=== PATIENT | male | born 1970 | race Hispanic/Latino ===

== ENCOUNTER 2024-10-08 13:20 | Inpatient (IN) | payer SELFPAY ==
[~2024-10-08] VITALS: Ht 170.2 cm; Wt 78.0 kg
[2024-10-08] VITALS (10 sets, daily range): BP systolic 99–116; BP diastolic 66–86; PULSE 79–90; RESP 20–30; TEMP 99.3–100.2; O2SAT 92
[2024-10-08] MEDS ORDERED: HEParin 10,000 UNIT/10ML (1,000 UNIT/ML) VIAL ONE (13:25)
[2024-10-08] MEDS ORDERED: IOHEXOL 350 MG/ML 100ML INFUS..BTL IV ONE (13:25)
[2024-10-08] MEDS ORDERED: LIDOCAINE HCL 400MG/20ML VIAL ONE (13:25)
[2024-10-08] MEDS ORDERED: HEParin-NS 1,000 UNIT/500 ML 1,000 ML IV ONE (13:25)
[2024-10-08] MEDS ORDERED: NITROGLYCERIN 50MG VIAL ONE (13:26)
[2024-10-08] MEDS ORDERED: HEParin-NS 1,000 UNIT/500 ML 500 ML IV ONE ×2 (13:28→15:45)
[2024-10-08] MEDS ORDERED: ATROPINE 1MG SYG IVP ONE (13:43)
[2024-10-08] MEDS ORDERED: DOPamine HCL 400 MG/D5%-WATER 0 ML IV ONE (13:43)
[2024-10-08] MEDS ORDERED: LIDOCAINE PF 100MG/5ML (2%) SYRINGE 5ML ONE (15:01)
[2024-10-08] MEDS ORDERED: MIDAZOLAM HCL 1 MG/ML 2ML VIAL ONE (15:14)
--- NOTE | 2024-10-08 15:16 | EKG ---
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
[2024-10-08] MEDS ORDERED: IOHEXOL-350 50ML VIAL IV ONE (15:31)
[2024-10-08] MEDS ORDERED: furoSEMIDE 20MG VIAL ONE (15:53)
[2024-10-08] MEDS ORDERED: NITROGLYCERIN 50MG/D5W 250ML 1 BOT IV PRN (16:30)
[2024-10-08] MEDS ORDERED: ondanSETRON 4MG INJ IVP PRN ×2 (16:30→18:00)
[2024-10-08] MEDS: furoSEMIDE 20MG VIAL IV SCH (17:20)
[2024-10-08 17:42] LABS: BASOPHILS # (AUTO) 0.02 K/uL (0.00-0.20); BASOPHILS % (AUTO) 0.2 % (0.0-5.0); EOSINOPHILS # (AUTO) 0.01 K/uL (0.00-0.70); EOSINOPHILS % (AUTO) 0.1 % (0.0-8.0); HEMATOCRIT 34.8 % (42-54); IMMATURE GRANULOCYTE ABSOLUTE 0.06 K/uL (0-1); LYMPHOCYTES # (AUTO) 1.9 K/uL (1.0-4.8); MEAN CORPUSCULAR HEMOGLOBIN 30.8 pg (27.0-33.0); MEAN CORPUSCULAR HGB CONC 34.2 g/dL (32.0-36.0); MEAN CORPUSCULAR VOLUME 90.2 fL (79-99); MONOCYTES # (AUTO) 0.7 K/uL (0.1-1.0); MONOCYTES % (AUTO) 7.5 % (3.0-13.0); NEUTROPHILS # (AUTO) 6.8 K/uL (1.8-7.7); NEUTROPHILS % (AUTO) 71.6 % (40.0-77.0); PLATELET COUNT (AUTO) 222 K/uL (130-400); RED BLOOD CELL COUNT(AUTO) 3.86 MIL/uL (4.50-6.20); RED CELL DISTRIBUTION WIDTH 12.2 % (11.0-15.5); WHITE BLOOD COUNT (AUTO) 9.5 K/uL (4.8-10.8)
[2024-10-08] MEDS ORDERED: LORazepam 2 MG/ML 1 ML VIAL IVP PRN (18:00)
[2024-10-08] MEDS ORDERED: PHARMACY COMMUNICATION MISC PRN (18:00)
[2024-10-08] MEDS ORDERED: chlordiazePOXIDE HCL 25 MG CAP PO PRN (18:00)
[2024-10-08] MEDS ORDERED: morPHINE 2 MG SYG IVP PRN (18:00)
[2024-10-08 18:10] LABS: CREATININE 1.1 mg/dL (0.5-1.3); POTASSIUM 4.2 mmol/L (3.5-5.1)
[2024-10-08 18:12] LABS: HEMOGLOBIN A1C 11.3 % (4.0-6.0)
[2024-10-08] MEDS: HEParin 25,000 UNITS/250ML D5W 250 ML IV SCH (18:18)
[2024-10-08 18:23] LABS: ALBUMIN 2.4 g/dL (3.5-5.0); BILIRUBIN,TOTAL 0.5 mg/dL (0.2-1.0); MAGNESIUM 1.9 mg/dL (1.80-2.40); THYROID STIMULATING HORMONE 0.65 uIU/mL (0.36-3.74); TOTAL PROTEIN, SERUM 6.4 g/dL (6.0-8.3)
[2024-10-08] MEDS ORDERED: diazePAM 5 MG/ML 2 ML SYG IVP PRN ×2 (18:30→22:30)
--- NOTE | 2024-10-08 19:19 | CONS ---
[facility] CONSULTATION NOTE Date Patient Seen: October 08, 2024 Time of Visit: 19:19 Supervising Physician: Dr. Cartwright Reason for Consultation: ACS, HX Vtach Primary Care Physician: Attending: Celeste Hospitalist team Outpatient Specialists: Inpatient Consults: BIS, critical Care team [employer], CV surgeon PROBLEM LIST: Inferior STEMI with late presentation, POA, heparin drip Ventricular tachycardia, on lidocaine drip, POA Acute hypoxemic respiratory failure, POA in need of BiPAP Acute febrile illness Acute on chronic systolic heart failure exacerbation, POA Status post cardiac catheterization with findings of multivessel coronary artery disease, 10/08/2024, by Dr. Llanes Status post balloon angioplasty of 100% occluded ostial right posterolateral branch by Dr. Llanes, 10/08/2024 Mild anemia, POA Suspected cardiogenic pulmonary edema, POA Pulmonary embolism ruled out by evaluation by critical care service in [facility], POA Mild lactic acidosis, POA Poorly controlled type 2 diabetes mellitus, POA History of chronic alcoholism, POA Jew, POA HPI: Mr. Persaud is a 54-year-old male with underlying history of type 2 diabetes mellitus and chronic alcoholism who presented as a transfer from [facility] for further management of late presentation of inferior ST-elevation MA with ventricular tachycardia. Patient states that about five days ago, he started having mild dizziness, dyspnea and left-sided shoulder pain radiating to the scapula, and having progressive dyspnea on exertion. Patient saw his primary care physician on 10/07/2024 where he was found to have blood glucose greater than 400 and he received some insulin as outpatient. He presented to the [facility] ER last night with recurrence of left-sided shoulder discomfort with dyspnea and dizziness. Upon arrival to the emergency department, EKG demonstrated regular wide complex tachycardia, with Q-waves in lead three and AVF with ST depressions in V4 and V6 with a heart rate of 150. Patient was also noted to be hypoxic with of 77%, blood pressure of 96/63 and troponin was noted to be at 5209--> 6062--> 6885. Patient underwent CT PE in [facility] which showed possible filling defects segmental and subsegmental branches concerning for pulmonary embolism. Patient was also noted to have moderate bilateral pleural effusion with patchy consolidation of perihilar and lower lobes with septal thickening and 4 mm granuloma of the left lung. Patient was admitted to ICU in [facility] and CT chest was reviewed by critical care physician there who stated that there was no signs of pulmonary embolism. Patient was transferred to [facility] and underwent cardiac catheterization, and the patient was found to have culprit lesion, 100% occluded right posterolateral branch for which, patient underwent balloon angioplasty. Patient was also found to have multivessel coronary artery disease with proximal LAD 70% stenosis, 80% mid diagonal stenosis, 70% proximal ramus, 80% mid circumflex stenosis before OM, 50% stenosis involving the circumflex after OM, 100% OM stenosis with filling collaterals and LVEDP was noted to be at 31. The patient was assessed by me in room 206, postprocedure. Patient's breathing even, unlabored, in no distress. The patient denied any chest pain, shortness of breath, any other pain, problem or concern. Consultation with Cardiovascular surgery has been requested for evaluation for coronary artery bypass grafting. Patient is a Yazidism and declines any blood transfusion. I informed the patient of plan of care. He verbalized understanding and is in agreement with the plan. Plan and assessment are listed below. Addendum: 10/09/2024 at 0057 RN informed me that patient the patient desaturated, fever of 101.3 F. per RT his lung sounds very wet. He had received Lasix earlier during the day. RN states that the patient drank whole picture of water when he ate. She reports that patient voided about 250 mL. ABG results: PH 7.464, pCO2 34, PO2 59.6, bicarbonate 23.5, O2 saturations 90.9, base excess 0.2. Ionized calcium 1.06. The patient was started on BiPAP. And calcium was administered. PAST MEDICAL HX: see above PAST SURGICAL HX: Denied SOCIAL HISTORY: Drinks about 12 of the 24 oz cans of beers a week, for 20-30 years Patient denies smoking or illicit drug use Coded Allergies: No Known Allergies (Unverified Allergy, Unknown, 10/08/24) REVIEW OF SYSTEMS: 12 point ROS reviewed with patient. Pertinent positives mentioned above. Otherwise negative. PHYSICAL EXAM: GENERAL: Alert, weak, awake, oriented x 3 HEENT: EOMI, Sclera non icteric, moist mucosa NECK: Supple, no JVD, trachea midline LUNGS: Clear breath sounds bilaterally. No wheezes HEART: Regular rate and rhythm. Normal S1 and S2, without murmurs ABD: Abdomen soft, nontender. Bowel sounds present EXT: No clubbing cyanosis or edema. Right leg restricted movement due to reason heart catheterization. NEURO: Alert and oriented x4, follows commands Vital Signs (last 8hr) Date Time Temp Pulse Resp B/P (MAP) Pulse Ox O2 Delivery O2 Flow Rate FiO2 10/08/24 17:30 85 23 116/70 91 Nasal Cannula 4.0 10/08/24 17:15 85 20 103/78 91 Nasal Cannula 4.0 10/08/24 17:00 83 23 114/81 92 Nasal Cannula 4.0 10/08/24 16:48 86 20 110/85 94 Nasal Cannula 10/08/24 16:30 100.2 86 20 112/82 93 Nasal Cannula 4.0 10/08/24 16:30 92 Nasal Cannula* 4 36 LABS: Hematology Labs: Test 10/08/24 17:18 Range/Units White Blood Count 9.5 4.8-10.8 K/uL Red Blood Count 3.86 L 4.50-6.20 MIL/uL Hemoglobin 11.9 L 14.0-18.0 g/dL Hematocrit 34.8 L 42-54 % Mean Corpuscular Volume 90.2 79-99 fL Mean Corpuscular Hemoglobin 30.8 27.0-33.0 pg Mean Corpuscular Hemoglobin Concent 34.2 32.0-36.0 g/dL Red Cell Distribution Width 12.2 11.0-15.5 % Platelet Count 222 130-400 K/uL Mean Platelet Volume 10.8 H 7.5-10.5 fL Immature Granulocyte % (Auto) 0.6 0-1 % Neutrophils (%) (Auto) 71.6 40.0-77.0 % Lymphocytes (%) (Auto) 20.0 L 21.0-51.0 % Monocytes (%) (Auto) 7.5 3.0-13.0 % Eosinophils (%) (Auto) 0.1 0.0-8.0 % Basophils (%) (Auto) 0.2 0.0-5.0 % Neutrophils # (Auto) 6.8 1.8-7.7 K/uL Lymphocytes # (Auto) 1.9 1.0-4.8 K/uL Monocytes # (Auto) 0.7 0.1-1.0 K/uL Eosinophils # (Auto) 0.01 0.00-0.70 K/uL Basophils # (Auto) 0.02 0.00-0.20 K/uL Absolute Immature Granulocyte (auto 0.06 0-1 K/uL Nucleated Red Blood Cells 0.0 0.0-0.19 % Erythrocyte Sedimentation Rate 83 H 0-20 MM/HR Chemistry Labs: Test 10/08/24 17:18 Range/Units Sodium Level 136 136-145 mmol/L Potassium Level 4.2 3.5-5.1 mmol/L Chloride Level 101 101-111 mmol/L Carbon Dioxide Level 24 21-32 mmol/L Blood Urea Nitrogen 22 H 7-18 mg/dL Creatinine 1.1 0.5-1.3 mg/dL Glomerular Filtration Rate Calc 80 >90 mL/min Random Glucose 235 H 70-105 mg/dL Hemoglobin A1c 11.3 H 4.0-6.0 % Estimated Average Glucose (eAG) 278 H 70-126 mg/dL Lactic Acid Level 2.4 0.8-2.5 mmol/L Total Calcium 7.8 L 8.5-10.1 mg/dL Magnesium Level 1.90 1.80-2.40 mg/dL Total Bilirubin 0.5 0.2-1.0 mg/dL Aspartate Amino Transf (AST/SGOT) 47 H 10-37 U/L Alanine Aminotransferase (ALT/SGPT) 63 12-78 U/L Alkaline Phosphatase 130 50-136 U/L Lactate Dehydrogenase 420 H 81-234 U/L C-Reactive Protein, Quantitative 192.30 H 0.5-3.0 mg/L Total Protein 6.4 6.0-8.3 g/dL Albumin 2.4 L 3.5-5.0 g/dL Procalcitonin 0.24 0.05-0.5 ng/mL Thyroid Stimulating Hormone (TSH) 0.65 0.36-3.74 uIU/mL Coagulation Labs: Test 10/08/24 17:18 Range/Units Activated Partial Thromboplast Time 56.2 H 26.3-35.5 SEC DIAGNOSTICS / RADIOLOGY RESULTS: [ ] PLAN Patient will be admitted to CCU post cardiac catheterization, (is a transferred from [facility]) Continue with aspirin and heparin drip Continue with post catheterization care by Dr. Llanes Consultation with Cardiovascular surgery has been requested for evaluation for c oronary artery bypass grafting Continue IV Lasix 20 mg twice daily for diuresis. Continue with supplemental O2 therapy to maintain oxygen saturations greater than 92% Stat checks x-ray. Follow 2D echocardiogram, echocardiogram in [facility] showed LVEF of 35-40% with severe basal and posterolateral hypokinesis to be akinesis We will maintain potassium greater than four and magnesium greater than 2 Continue with metoprolol tartrate 12.5 mg b.i.d. 40 mg q.h.s. Monitor closely for signs of infection Lactic acid q.4 hours per catalyst team Monitor closely for signs of development of pre-cardiogenic/cardiogenic shock in the setting of late presentation of inferior STEMI No blood transfusions per patient request, Yazidism and has declined blood transfusion A.m. labs Patient will be placed on sliding scale insulin a.c. and HS CIWA protocol with Librium/diazepam Addendum: Reported fever: + strep swab, flu swabs, COVID swab, chest x-ray, urine, blood cultures, antibiotic therapy: Rocephin and doxycycline for empiric treatment NEURO: Minimize central acting medications as possible. Fall Precautions. Well lighted room through the day and minimize interruptions through the night to prevent acute delirium. PULMONARY: Supplemental 02 as needed Titrate Fio2 to keep Spo2 > or = 90% DuoNebs and CPT as needed IS hourly while awake for pulmonary hygiene Out of bed to chair as tolerated VAP Bundle CARDIOVASCULAR: Follow hemodynamics. Titrate vasopressor to keep MAP >65 or systolic blood pressure >95mmHg GI & NUTRITION: Continue nutritional support Aspirations precautions Prokinetic agents and laxatives as needed KIDNEYS & ELECTROLYTES: Strict monitoring of intake and output Daily weights Avoid nephrotoxic agents Monitor electrolytes and replace as needed Goal urine output of 30mL/hr or 0.5mL/kg/hr ENDOCRINE: Maintain blood glucose between 100-180 at all times. Insulin sliding scale for blood glucose management INFECTIOUS DISEASE: Trend temperature. Lares-culture if febrile. HEMATOLOGY & COAGULATION: Monitor H&H. Keep Hgb > 7 Transfuse 1 unit of PRBC for Hgb < 7 Transfuse 1 pack of platelets of platelets < 20, 000 Watch for any signs and symptoms of bleeding SKIN: Pressure ulcer prevention per facility protocol Rehab: PT/OT Code Status: Full Resuscitation Disposition: Continue in ICU Other: Total patient critical care time exceeds 45 minutes excluding all procedures. ISAAK [facility] October 08, 2024 19:19
--- NOTE | 2024-10-08 19:24 | HP ---
[facility] HISTORY AND PHYSICAL Date of Service: October 08, 2024 Time of Service: 19:24 HISTORY OF PRESENT ILLNESS: Date of service: 10/08/2024, patient was seen in [facility] [place] 206 This is a 54-year-old male with underlying history of type 2 diabetes mellitus, chronic alcoholism, who presented as a transfer from [facility] for further management of late presentation of inferior ST-elevation OK with ventricular tachycardia. Patient states that about five days ago, he started having mild dizziness, dyspnea and left-sided shoulder pain radiating to the scapula. Symptoms were intermittent and patient noticed that he was having progressive dyspnea on exertion. Patient saw his primary care physician on 10/07/2024 where he was found to have blood glucose greater than 400 and he received some insulin as outpatient. He presented to the [facility] ER last night with recurrence of left-sided shoulder discomfort with dyspnea and dizziness. Upon arrival to the emergency department, EKG demonstrated regular wide complex tachycardia, with Q-waves in lead three and AVF with ST depressions in V4 and V6 with a heart rate of 150. Patient was also noted to be hypoxic with of 77%, blood pressure of 96/63 and troponin was noted to be at 5209--> 6062--> 6885. Patient underwent CT PE in [facility] which showed possible filling defects segmental and subsegmental branches concerning for pulmonary embolism. Patient was also noted to have moderate bilateral pleural effusion with patchy consolidation of perihilar and lower lobes with septal thickening and 4 mm granuloma of the left lung. Patient was admitted to ICU in [facility] and CT chest was reviewed by critical care physician there who stated that there was no signs of pulmonary embolism. Patient was transferred to [facility] and underwent cardiac catheterization given concern ACS. On cardiac catheterization, patient was found to have culprit lesion, 100% occluded right posterolateral branch for which, patient underwent balloon ang ioplasty. Patient was also found to have multivessel coronary artery disease with proximal LAD 70% stenosis, 80% mid diagonal stenosis, 70% proximal ramus, 80% mid circumflex stenosis before OM, 50% stenosis involving the circumflex after OM, 100% OM stenosis with filling collaterals and LVEDP was noted to be at 31. Patient was seen postprocedure early, denies any significant chest pain, shortness of breath is improving. Consultation with Cardiovascular surgery has been requested for evaluation for coronary artery bypass grafting. Patient is a Spiritism and declines any blood transfusion. REVIEW OF SYSTEMS CONSTITUTIONAL: Denies fevers, chills, or night sweats. No unintentional weight loss reported. NEUROLOGICAL: Denies headache, amaurosis fugax, motor weakness, sensory deficit, vertigo/spinning sensation, gait abnormalities, or tremors. ENT: No hearing loss, otalgia, otorrhea, rhinitis, rhinorrhea, hoarseness, or sore throat. CARDIOVASCULAR: chest pain, palpitations PULMONARY: Denies any shortness of breath, cough, phlegm/sputum, hemoptysis, pleuritic chest pain. SLEEP: Denies morning headaches, daytime somnolence or napping. Denies difficulty falling asleep, staying asleep, waking from sleep. Denies knowledge of snoring. GASTROINTESTINAL: Denies any type of dysphagia to either liquids or solids. Denies nausea, vomiting, pyrosis, early satiety, abdominal pain, diarrhea, constipation, or changes in stool consistency or caliber. Denies coffee-ground emesis, hematemesis, hematochezia, or melanotic stools. GENITOURINARY: Denies frequency, urgency, nocturia, hematuria or incontinence (Storage/Irritative symptoms.) Low urinary stream, straining to void, urinary intermittency or hesitancy, splitting of the voiding stream, terminal dribbling. ENDOCRINOLOGIC: Denies polyuria, polydipsia, polyphagia or heat/cold intolerances. HEMATOLOGIC: Denies thrombophilia/previous clots, or coagulopathy/bleeding disorders. ONCOLOGIC: Denies personal history of malignancy. DERMATOLOGIC: Denies rashes or pruritus. PSYCHIATRIC: Denies any suicidal or homicidal ideation. Denies hallucinations. PAST MEDICAL HISTORY: History of type 2 diabetes mellitus, history of chronic alcoholism PAST SURGICAL HISTORY: Patient denies any major surgeries PAST SOCIAL HISTORY: [Drinks about 12 cans of beer a week, long-time drinker for about 20-30 years, denies any smoking or illicit drug use otherwise ] FAMILY HISTORY: Reports family history of heart disease in the family Allergies: No known drug allergies Home medications: Metformin 1000 mg twice daily Coded Allergies: No Known Allergies (Unverified Allergy, Unknown, 10/08/24) PHYSICAL EXAM GENERAL APPEARANCE: The patient is awake, alert, and oriented, in no acute cardiopulmonary distress. NEUROLOGICAL: Cranial nerves II-XII grossly intact. Motor is 5/5 in bilateral upper and lower extremities proximal to distal. No sensory deficits. HEENT: Face is symmetric. Pupils are equal and reactive. Extraocular movements are intact. NECK: Supple. No JVD. No thyromegaly. No submental, submandibular, pre- /postauricular, occipital or supraclavicular lymphadenopathy. CHEST: Normal chest expansion. No Telemetry. LUNGS: crackles noted of the bilateral lung bases CARDIOVASCULAR: Regular. S1 and S2 normal. No appreciable rubs, murmurs or gallops. ABDOMEN: Soft, nontender, and nondistended. There is no rebound, voluntary guarding, or rigidity. : Deferred. No Alexandra. EXTREMITIES: Non-edematous and not cyanotic. No clubbing. Good capillary refill. SKIN: No skin breakdown. Vital Sign (Last 24 Hours) 10/08/24 10/08/24 16:30 17:30 Temp 100.2 Pulse 85 Resp 23 B/P (MAP) 116/70 Pulse Ox 91 O2 Delivery Nasal Cannula O2 Flow Rate 4.0 FiO2 36 LABS: Laboratory: Test 10/08/24 17:18 Range/Units White Blood Count 9.5 4.8-10.8 K/uL Red Blood Count 3.86 L 4.50-6.20 MIL/uL Hemoglobin 11.9 L 14.0-18.0 g/dL Hematocrit 34.8 L 42-54 % Mean Corpuscular Volume 90.2 79-99 fL Mean Corpuscular Hemoglobin 30.8 27.0-33.0 pg Mean Corpuscular Hemoglobin Concent 34.2 32.0-36.0 g/dL Red Cell Distribution Width 12.2 11.0-15.5 % Platelet Count 222 130-400 K/uL Mean Platelet Volume 10.8 H 7.5-10.5 fL Immature Granulocyte % (Auto) 0.6 0-1 % Neutrophils (%) (Auto) 71.6 40.0-77.0 % Lymphocytes (%) (Auto) 20.0 L 21.0-51.0 % Monocytes (%) (Auto) 7.5 3.0-13.0 % Eosinophils (%) (Auto) 0.1 0.0-8.0 % Basophils (%) (Auto) 0.2 0.0-5.0 % Neutrophils # (Auto) 6.8 1.8-7.7 K/uL Lymphocytes # (Auto) 1.9 1.0-4.8 K/uL Monocytes # (Auto) 0.7 0.1-1.0 K/uL Eosinophils # (Auto) 0.01 0.00-0.70 K/uL Basophils # (Auto) 0.02 0.00-0.20 K/uL Absolute Immature Granulocyte (auto 0.06 0-1 K/uL Nucleated Red Blood Cells 0.0 0.0-0.19 % Erythrocyte Sedimentation Rate 83 H 0-20 MM/HR Activated Partial Thromboplast Time 56.2 H 26.3-35.5 SEC Sodium Level 136 136-145 mmol/L Potassium Level 4.2 3.5-5.1 mmol/L Chloride Level 101 101-111 mmol/L Carbon Dioxide Level 24 21-32 mmol/L Blood Urea Nitrogen 22 H 7-18 mg/dL Creatinine 1.1 0.5-1.3 mg/dL Glomerular Filtration Rate Calc 80 >90 mL/min Random Glucose 235 H 70-105 mg/dL Hemoglobin A1c 11.3 H 4.0-6.0 % Estimated Average Glucose (eAG) 278 H 70-126 mg/dL Lactic Acid Level 2.4 0.8-2.5 mmol/L Total Calcium 7.8 L 8.5-10.1 mg/dL Magnesium Level 1.90 1.80-2.40 mg/dL Total Bilirubin 0.5 0.2-1.0 mg/dL Aspartate Amino Transf (AST/SGOT) 47 H 10-37 U/L Alanine Aminotransferase (ALT/SGPT) 63 12-78 U/L Alkaline Phosphatase 130 50-136 U/L Lactate Dehydrogenase 420 H 81-234 U/L C-Reactive Protein, Quantitative 192.30 H 0.5-3.0 mg/L Total Protein 6.4 6.0-8.3 g/dL Albumin 2.4 L 3.5-5.0 g/dL Procalcitonin 0.24 0.05-0.5 ng/mL Thyroid Stimulating Hormone (TSH) 0.65 0.36-3.74 uIU/mL Current Medications Medications (Trade) Dose Ordered Sig/William Route PRN Reason Start Time Stop Time Status Last Admin Dose Admin Acetaminophen (TYLenol 325MG TAB) 650 mg Q6H PRN PO MILD PAIN (1-3) 10/08/24 18:00 11/07/24 17:59 Aspirin (Aspirin 81mg Chew Tab) 81 mg DAILY PO 10/09/24 09:00 10/08/24 16:47 DC Aspirin (Aspirin 81mg Chew Tab) 81 mg DAILY PO 10/09/24 09:00 11/08/24 08:59 Atorvastatin Calcium (LIPItor 40MG) 40 mg HS PO 10/08/24 21:00 11/07/24 20:59 Chlordiazepoxide HCl (LIBrium 25 MG CAP) 25 mg Q4H PRN PO ALCOHOL WITHDRAWAL PROTOCOL 10/08/24 18:00 10/15/24 17:59 Diazepam (VALium 5 MG/ML 2 ML SYG) 10 mg Q4H PRN IVP ALCOHOL WITHDRAWAL PROTOCOL 10/08/24 18:30 10/15/24 17:59 Folic Acid (FOLic ACID 1 MG TABLET) 1 mg DAILY PO 10/09/24 09:00 10/11/24 09:01 Furosemide (LASix 20MG VIAL) 20 mg Q12H IV 10/08/24 17:30 11/07/24 17:29 10/08/24 17:20 20 MG Heparin Sodium (Porcine) (HEParin 5,000 UNIT VIAL) *calculation based on ACTUAL B... AD PRN IV HEPARIN PROTOCOL 10/08/24 17:30 11/07/24 17:29 Heparin Sodium/ Dextrose 250 ml @ 0 mls/hr Q6H IV 10/08/24 17:30 11/07/24 17:29 10/08/24 18:18 14.28 MLS/HR Insulin Human Regular (humuLIN R 100 UNIT/ML 3ML) INSULIN SLIDING SCAL... ACHS SQ 10/08/24 21:00 11/07/24 20:59 Lidocaine HCl/ Dextrose 250 ml @ 0 mls/hr PROTOCOL IV 10/08/24 16:30 11/07/24 16:29 Lorazepam (AtiVAN) 1 mg Q4H PRN IVP ALCOHOL WITHDRAWAL PROTOCOL 10/08/24 18:00 10/08/24 18:06 DC Magnesium Sulfate 50 ml @ 0 mls/hr PROTOCOL PRN IV AD 10/08/24 19:00 11/07/24 18:59 Metoprolol Tartrate (loprESSOR) 12.5 mg BID PO 10/08/24 21:00 11/07/24 20:59 Morphine Sulfate (morPHINE 2MG SYG) 2 mg Q6H PRN IVP SEVERE PAIN (7-10) 10/08/24 18:00 10/15/24 17:59 Multivitamins Therapeutic (Multivitamin Tablet) 1 tab DAILY PO 10/09/24 09:00 11/08/24 08:59 Nitroglycerin/ Dextrose 0 ml @ 0 mls/hr PROTOCOL PRN IV [id number] ORDERS 10/08/24 16:30 11/07/24 16:29 Ondansetron HCl (zoFRAN 4MG INJ) 4 mg Q4H PRN IVP NAUSEA/VOMITING 10/08/24 16:30 11/07/24 16:29 Ondansetron HCl (zoFRAN 4MG INJ) 4 mg Q6H PRN IVP NAUSEA/VOMITING 10/08/24 18:00 11/07/24 17:59 Pantoprazole Sodium (PROTonix 40MG INJ) 40 mg DAILY IVP 10/09/24 09:00 11/08/24 08:59 Pharmacy Profile Note (Pharmacy Communication) 1 each PROTOCOL PRN MISC ETOH Withdrawal Score changes 10/08/24 18:00 10/15/24 17:59 Temazepam (restORIL 30 MG CAP) 30 mg HS PRN PO INSOMNIA/SLEEP 10/08/24 16:30 10/15/24 16:29 Thiamine HCl (Vitamin B-1) 100 mg DAILY PO 10/09/24 09:00 11/08/24 08:59 DIAGNOSTICS / RADIOLOGY: CT PE protocol showed findings of tiny defects seen in segmental and s ubsegmental branches of the pulmonary artery representing possible pulmonary embolism. moderate bilateral pleural effusion seen. Patchy area of consolidation, collapse seen in both perihilar regions and lower lobes. Patchy ground-glass he has with mosaic attenuation seen. Septal thickening seen. Granuloma 4 mm seen in lingular segment on left. ASSESSMENT: Inferior STEMI with late presentation, POA Ventricular tachycardia, status post initiation of lidocaine drip, POA Status post cardiac catheterization with findings of multivessel coronary artery disease, 10/08/2024, by Dr. Llanes Status post balloon angioplasty of 100% occluded ostial right posterolateral branch by Dr. Llanes, 10/08/2024 Acute hypoxemic respiratory failure, POA Acute on chronic systolic heart failure exacerbation, POA Mild anemia, POA Suspected cardiogenic pulmonary edema, POA r/o any developing community acquired Pneumonia, POA Pulmonary embolism ruled out by evaluation by critical care service in [facility], POA Mild lactic acidosis, POA Poorly controlled type 2 diabetes mellitus, POA History of chronic alcoholism, POA Jew, POA PLAN: Patient will be admitted to CCU post cardiac catheterization Continue with aspirin and heparin drip Continue with post catheterization care by Dr. Llanes Consultation with Cardiovascular surgery has been requested for evaluation for coronary artery bypass grafting Patient will be started on IV Lasix 20 mg twice daily for diuresis Continue with supplemental O2 therapy to maintain oxygen saturations greater than 92% We will follow up chest x-ray in a.m. tomorrow We will follow up 2D echocardiogram, echocardiogram in [facility] showed LVEF of 35-40% with severe basal and posterolateral hypokinesis to be akinesis We will maintain potassium greater than four and magnesium greater than two Continue with metoprolol tartrate 12.5 mg b.i.d. 40 mg q.h.s. We will obtain a repeat chest x-ray in a.m. Monitor closely for signs of infection, obtain respiratory cultures Lactic acid will be trended q.4 hours, we will monitor closely for signs of development of pre-cardiogenic/cardiogenic shock in the setting of late presentation of inferior STEMI Patient reports being a Spiritism and has declined blood transfusion All labs will be repeated in the morning Patient will be placed on sliding scale insulin a.c. and HS We will monitor closely for alcohol withdrawals, patient will be placed on CIWA protocol with Librium/diazepam Date of service: 10/08/2024 Condition: Critical, Plan of care was discussed with patient at bedside, Ish Arizmendi MD, Advanced Care Planning: Which of the following were discussed: Hospice care: Yes __ No _x_ Therapeutic options: Yes _x_ No __ Advance directives: Yes _x_ No __ Other discussions: Discussed with who?: Patient Voluntary nature of this service was explained to the patient? Yes _x_ No __ Amount of time spent: 20 minutes ISH ARIZMENDI MD October 08, 2024 19:24
[2024-10-08] MEDS: atorVAStatin 40 MG TABLET PO SCH (20:40)
[2024-10-08] MEDS: metoPROLOL tartRATE 25 MG TAB PO SCH (20:40)
[2024-10-08] MEDS: INSULIN humuLIN R 100 UNIT/ML 3ML SQ SCH (20:41)
[2024-10-08] MEDS: LIDOCAINE 2G/250ML 250 ML IV SCH (23:48)
[2024-10-09] VITALS (30 sets, daily range): BP systolic 92–135; BP diastolic 53–83; PULSE 68–97; RESP 14–35; TEMP 97.8–101.3; O2SAT 84–100
[2024-10-09] MEDS: acetaMINOPHEN 325 MG TAB PO PRN (00:07)
[2024-10-09 01:46] LABS: ABG BASE EXCESS 0.2 mmol/L (-2.0-3.0); ABG HCO3 23.5 mmol/L (21.0-28.0); ABG OXYGEN SATURATION 90.9 % (94.0-98.0); ABG PCO2 34 mmHg (35-48); ABG PH 7.464 (7.350-7.450); CARBON MONOXIDE 0.5 % (0.5-1.5); DEVICE COMMENT LR YVONNE; PO2, ARTERIAL BG 59.6 mmHg (83.0-108.0); VENT MODE, BG NC (ROOM AIR)
[2024-10-09 02:19] LABS: APPEARANCE,URINE CLEAR (CLEAR); BILIRUBIN,URINE NEGATIVE (NEGATIVE); COLOR,URINE YELLOW (YELLOW); GLUCOSE, URINE (UA) 200 mg/dL (NEGATIVE); KETONES,URINE 40 mg/dL (NEGATIVE); LEUKOCYTE ESTERASE ,URINE 250 Leu/uL (NEGATIVE); NITRATE,URINE NEGATIVE (NEGATIVE); OCCULT BLOOD,URINE MODERATE (NEGATIVE); PROTEIN,URINE 30 mg/dL (NEGATIVE); UROBILINOGEN,URINE 3 mg/dL (0.2-1.0)
[2024-10-09] MEDS: furoSEMIDE 40MG VIAL IV ONE ×2 (02:21→11:52)
[2024-10-09 02:25] LABS: AMPHET/METH SCREEN,URINE NEGATIVE (NEGATIVE); BARBITURATE SCREEN, URINE NEGATIVE (NEGATIVE); BENZODIAZEPINES SCREEN,URINE POSITIVE (NEGATIVE); CANNABINOID SCREEN,URINE NEGATIVE (NEGATIVE); COCAINE SCREEN,URINE NEGATIVE (NEGATIVE); OPIATE SCREEN,URINE NEGATIVE (NEGATIVE); PHENCYCLIDINE SCREEN,URINE NEGATIVE (NEGATIVE)
[2024-10-09 02:29] LABS: ADD UA MICROSCOPIC YES
[2024-10-09 02:33] LABS: BACTERIA,URINE FEW /HPF (None Seen); MUCUS,URINE RARE LPF (None Seen); RBC,URINE 26-50 /HPF (0-1); SQUAMOUS EPITHELIAL CELL,UR RARE /HPF (0-2)
[2024-10-09 03:26] LABS: HEMATOCRIT 31.1 % (42-54); MEAN CORPUSCULAR HEMOGLOBIN 30.6 pg (27.0-33.0); MEAN CORPUSCULAR HGB CONC 34.1 g/dL (32.0-36.0); MEAN CORPUSCULAR VOLUME 89.9 fL (79-99); RED BLOOD CELL COUNT(AUTO) 3.46 MIL/uL (4.50-6.20); RED CELL DISTRIBUTION WIDTH 12.1 % (11.0-15.5); WHITE BLOOD COUNT (AUTO) 8.1 K/uL (4.8-10.8)
[2024-10-09 03:42] LABS: CREATININE 0.9 mg/dL (0.5-1.3); POTASSIUM 3.3 mmol/L (3.5-5.1)
[2024-10-09 04:15] LABS: MAGNESIUM 1.7 mg/dL (1.80-2.40); THYROID STIMULATING HORMONE 1.01 uIU/mL (0.36-3.74)
[2024-10-09] MEDS: CALCIUM GLUC 1GM/10ML VIAL IV PRN (04:20)
[2024-10-09] MEDS: cefTRIAXone 1G VIAL IVPB SCH (04:28)
[2024-10-09] MEDS: DOXYCYCLINE 100MG+NS 250ML 250 ML IV SCH (04:28)
[2024-10-09] MEDS: MAGNESIUM 2GM PREMIX 50ML 50 ML IV PRN (04:34)
[2024-10-09] MEDS: SODIUM CHLORIDE 3% FOR INHALATION 4 ML/AMP VIAL.NEB IH ONE ×3 (07:21→18:46)
[2024-10-09] MEDS: PANTOPrazole 40 MG/VIAL IVP SCH (08:17)
[2024-10-09] MEDS: MULTIVITAMIN TABLET PO SCH (08:18)
[2024-10-09] MEDS: FOLic ACID 1 MG TABLET PO SCH (08:18)
[2024-10-09] MEDS: THIAMINE HCL 100 MG TABLET PO SCH (08:19)
[2024-10-09] MEDS: ASPIRIN 81MG CHEW TAB PO SCH (08:19)
[2024-10-09] MEDS: INSULIN GLARgine 100 UNITS/ML 10 ML VIAL SQ SCH ×2 (08:21→20:54)
[2024-10-09 08:57] LABS: SARS-CoV-2, RNA, NAAT NEGATIVE SARS CoV-2 (NEGATIVE)
[2024-10-09] MEDS ORDERED: ASPIRIN 81MG CHEW TAB PO SCH (09:00)
[2024-10-09 09:02] LABS: INFLUENZA TYPE A Negative For Type A (NEGATIVE); INFLUENZA TYPE B Negative For Type B (NEGATIVE)
[2024-10-09] MEDS ORDERED: MAGNESIUM 2GM PREMIX 50ML 50 ML IV SCH (09:30)
--- NOTE | 2024-10-09 09:37 | HMCIMG ---
Exam Type: CHEST 1VW Clinical Information: DESATURATION Comparison: None Findings: Pulmonary pattern is as before. No worrisome interval changes have taken place. Impression: Stable exam.
[2024-10-09] MEDS: PoTASSium chloRIDE 20MEQ/100ML 100 ML IV ONE (09:44)
--- NOTE | 2024-10-09 10:13 | PN ---
[facility] Cardiology Progress Note CARDIOLOGY PROGRESS NOTE OCTOBER 09, 2024 Problems: 1. Acute inferior wall myocardial infarction with presentation with ventricular tachycardia in the 1st 24 hours terminated with lidocaine 2. Multivessel CAD status post balloon angioplasty of an occluded right posterolateral branch 3. Acute congestive heart failure with left ventricular end-diastolic pressure of 31 mm Hg at the time of left heart catheterization 3. Diabetes mellitus type 2 with hemoglobin A1c of 11.3 on admission 4. Dyslipidemia 5. History of alcohol abuse 6. Mosque This patient had presented to [facility] with generalized weakness and wide complex tachycardia. The day before he had had interscapular pain. His troponins were 5000 and plans were for cardioversion but he broke with a lidocaine bolus. His post tachycardia EKG showed ST elevations inferiorly. He was transferred for urgent left heart catheterization. He was found to have mul tivessel CAD with a occlusion of the proximal right posterolateral branch and underwent balloon angioplasty of this vessel. Overnight he has continued on lidocaine and heparin protocol was resume 1 hour post catheterization. White count this morning is 8.1 hemoglobin 10.6 platelet count [id number]. Potassium 3.3 BUN 21 creatinine 0.9. LDL cholesterol on admission was 49. Troponins have peaked at 6885. The patient has been pain-free overnight he has had no recurrent ventricular tachycardia. Lidocaine is down to 1 milligram/minute. He continues on IV heparin. Cath site shows no hematoma. Posterior tibial pulses 2+. In addition to lidocaine and heparin he is receiving aspirin atorvastatin furosemide 20 mg q.12 hours insulin scale metoprolol tartrate and pantoprazole. Thiamine has also been added to his regimen. A 2D echocardiogram is pending to assess LV function. We will discontinue his lidocaine today and observe his rhythm. Continue intravenous diuretics another 24 hours and consider switching over to an oral diuretic tomorrow. Blood pressure is marginal running between 95 and 100 systolic and we will hold off on initiation of an AG inhibitor or ARB at this time. Potassium protocol will be initiated. MIKE BELL MD October 09, 2024 10:13
[2024-10-09] MEDS ORDERED: PoTASSium chloRIDE 20MEQ/100ML 100 ML IV PRN (10:30)
--- NOTE | 2024-10-09 11:24 | PN ---
[facility] PROGRESS NOTE Date Patient Seen: October 09, 2024 Time of Visit: 11:24 Supervising Physician: Adalberto Crespo MD Primary Care Physician: Attending: Celeste Hospitalist team Outpatient Specialists: Inpatient Consults: BIS, critical Care team [employer], CV surgeon PROBLEM LIST: Inferior STEMI with late presentation, POA, heparin drip Ventricular tachycardia, on lidocaine drip, POA Acute hypoxemic respiratory failure, POA in need of BiPAP Acute febrile illness Acute on chronic diastolic heart failure POA LVEF is 40-45% on echo 10/09/24 Moderate pulmonary HTN with RVSP of 40.3 mmHG Moderate mitral valve regurgitation POA Status post cardiac catheterization with findings of multivessel coronary artery disease, 10/08/2024, by Dr. Bell Status post balloon angioplasty of 100% occluded ostial right posterolateral branch by Dr. Bell, 10/08/2024 Mild anemia, POA Suspected cardiogenic pulmonary edema, POA Pulmonary embolism ruled out by evaluation by critical care service in [facility], POA Mild lactic acidosis, POA Poorly controlled type 2 diabetes mellitus, POA History of chronic alcoholism, POA Restoration, POA INTERVAL HISTORY: Pt is awake alert and oriented, denies any chest pain at this time, Bilateral pedal pulses present, He is off lidocaine gtt this morning. Currently hemodynamically stable. Pending CABG eval. Likely for early next week. CBC similar to yesterday unremarkable. Blood sugars have been elevated. adjusted lantus dose to 25 units BID. Pt complains of a dry cough, was given Tessalon pearls and seemed to help. currently requiring 10 L of o2 saturating 99%. 1 x dose of lasix 40 mg ivp given. Carotid US with no hemodynamically significant stenosis noted. Pending CABG eval. For now pt is stable to downgrade to PCCU. On behalf of [facility] thank you for given us the opportunity to participate in the care of this patient. From pulmonary standpoint patient is stable at this time. We will sign off. Patient will need to follow-up with pulmonary service of choice 2 weeks postdischarge. Please reach to us should the need arise. On behalf of [facility] we are thankful for your team to let us participate in the care of this patient. We will be available if assistance in pulmonary critical care needed. REVIEW OF SYSTEMS: 12 point ROS reviewed with patient. Pertinent positives mentioned above. Otherwise negative. PHYSICAL EXAM: GENERAL: Alert, weak, awake, oriented x 3 HEENT: EOMI, Sclera non icteric, moist mucosa NECK: Supple, no JVD, trachea midline LUNGS: Clear breath sounds bilaterally. No wheezes HEART: Regular rate and rhythm. Normal S1 and S2, without murmurs ABD: Abdomen soft, nontender. Bowel sounds present EXT: No clubbing cyanosis or edema. Right leg restricted movement due to reason heart catheterization. NEURO: Alert and oriented x4, follows commands Vital Signs (last 8hr) Date Time Temp Pulse Resp B/P (MAP) Pulse Ox O2 Delivery O2 Flow Rate FiO2 10/09/24 11:00 70 23 105/68 95 OXYMIZER 10.0 10/09/24 10:00 77 25 102/66 98 OXYMIZER 10.0 10/09/24 09:00 84 23 102/60 92 OXYMIZER 10.0 10/09/24 08:00 98.8 83 28 112/78 90 OXYMIZER 10.0 10/09/24 08:00 97 N/C Oxymizer Hi LPM* 10 99 10/09/24 07:36 80 20 N/Cannula Oximizer Hi LPM 10.0 60 10/09/24 07:18 74 20 80 10/09/24 07:00 74 16 106/75 100 BIPAP 80 10/09/24 06:00 79 14 112/81 100 BIPAP 80 10/09/24 05:00 70 17 104/72 100 BIPAP 80 10/09/24 04:00 100 Bi-PAP+ 80 10/09/24 04:00 99.0 68 17 96/58 100 BIPAP 80 LABS: Hematology Labs: Test 10/09/24 02:59 10/08/24 17:18 Range/Units White Blood Count 8.1 4.8-10.8 K/uL Red Blood Count 3.46 L 4.50-6.20 MIL/uL Hemoglobin 10.6 L 14.0-18.0 g/dL Hematocrit 31.1 L 42-54 % Mean Corpuscular Volume 89.9 79-99 fL Mean Corpuscular Hemoglobin 30.6 27.0-33.0 pg Mean Corpuscular Hemoglobin Concent 34.1 32.0-36.0 g/dL Red Cell Distribution Width 12.1 11.0-15.5 % Platelet Count 218 130-400 K/uL Mean Platelet Volume 10.4 7.5-10.5 fL Nucleated Red Blood Cells 0.0 0.0-0.19 % Immature Granulocyte % (Auto) 0.6 0-1 % Neutrophils (%) (Auto) 71.6 40.0-77.0 % Lymphocytes (%) (Auto) 20.0 L 21.0-51.0 % Monocytes (%) (Auto) 7.5 3.0-13.0 % Eosinophils (%) (Auto) 0.1 0.0-8.0 % Basophils (%) (Auto) 0.2 0.0-5.0 % Neutrophils # (Auto) 6.8 1.8-7.7 K/uL Lymphocytes # (Auto) 1.9 1.0-4.8 K/uL Monocytes # (Auto) 0.7 0.1-1.0 K/uL Eosinophils # (Auto) 0.01 0.00-0.70 K/uL Basophils # (Auto) 0.02 0.00-0.20 K/uL Absolute Immature Granulocyte (auto 0.06 0-1 K/uL Erythrocyte Sedimentation Rate 83 H 0-20 MM/HR Chemistry Labs: Test 10/09/24 11:18 10/09/24 02:59 10/08/24 21:15 10/08/24 17:18 Range/Units Whole Blood Glucose 295 #H 70-110 MG/DL Sodium Level 136 136-145 mmol/L Potassium Level 3.3 L 3.5-5.1 mmol/L Chloride Level 99 L 101-111 mmol/L Carbon Dioxide Level 27 21-32 mmol/L Blood Urea Nitrogen 21 H 7-18 mg/dL Creatinine 0.9 0.5-1.3 mg/dL Glomerular Filtration Rate Calc 101 >90 mL/min Random Glucose 339 H 70-105 mg/dL Total Calcium 7.3 L 8.5-10.1 mg/dL Magnesium Level 1.70 L 1.80-2.40 mg/dL Triglycerides Level 76 30-200 mg/dL Cholesterol Level 98 <200 mg/dL LDL Cholesterol 49 0-99 mg/dL HDL Cholesterol 43 29-71 mg/dL Thyroid Stimulating Hormone (TSH) 1.01 # 0.36-3.74 uIU/mL Lactic Acid Level 2.2 0.8-2.5 mmol/L Hemoglobin A1c 11.3 H 4.0-6.0 % Estimated Average Glucose (eAG) 278 H 70-126 mg/dL Total Bilirubin 0.5 0.2-1.0 mg/dL Aspartate Amino Transf (AST/SGOT) 47 H 10-37 U/L Alanine Aminotransferase (ALT/SGPT) 63 12-78 U/L Alkaline Phosphatase 130 50-136 U/L Lactate Dehydrogenase 420 H 81-234 U/L C-Reactive Protein, Quantitative 192.30 H 0.5-3.0 mg/L Total Protein 6.4 6.0-8.3 g/dL Albumin 2.4 L 3.5-5.0 g/dL Procalcitonin 0.24 0.05-0.5 ng/mL Coagulation Labs: Test 10/09/24 07:09 Range/Units Activated Partial Thromboplast Time 53.0 H 26.3-35.5 SEC DIAGNOSTICS / RADIOLOGY RESULTS: [PATIENT: EUFEMIA JIMENEZ MR#: [id number] : 1970 SEX: M AGE: 54 LOCATION: [facility] ORDER 2300 STATUS: ADM IN REPORT#: [id number] SERVICE 0600 REASON: Acute OR CHF ORDERING PHYSICIAN: MIKE BELL MD PROCEDURE: ECHO [facility] - ECHO 2-D COMPLETE APPROVED REPORT EXAM: Two-dimensional and M-mode echocardiogram with Doppler and color Doppler. INDICATION ICD: Acute myocardial infarction, congestive heart failure 2D Dimensions RVDd 4.0 cm LVEF(%) 13.1 (>50%) LVED Vol(simp.) 127.0 mL IVSd 1.0 (0.7-1.1cm) FS(%) 6 % LVES Vol(simp.) 77.0 mL LVDd 5.7 (3.8-5.6cm) LA (2D) 5.3 (1.6-4.0cm) LVEF(%, simp.) 39 % PWd 1.0 (0.7-1.1cm) Ao Root(2D) 3.2 (2.0-3.7cm) LA ESV INDEX (BP) 52.50 mL/m2 IVSs 1.1 cm LVOT diam 2.3 (1.8-2.4cm) LVDs 5.4 (2.5-4.0cm) IVC diam 2.0 cm PWs 0.9 cm Deformation Strain Apical 4 -12.5 % Apical 2 -10.8 % Apical 3 -14.8 % Global Strain -12.7 % M-Mode Dimensions EPSS 1.4 cm LA (MM) 5.3 (1.6-4.0cm) Ao Root(MM) 3.6 (2.0-3.7cm) Aortic Valve AoV Vmax 1.1 m/s Ao Peak GR 5.3 mmHg LVOT Vmax 0.7 m/s AoV VTI 0.2 m Ao Mean GR 3.8 mmHg LVOT VTI 0.14 m JULIO CÉSAR (VMAX) 2.76 cm2 JULIO CÉSAR (VTI) 2.9 cm2 Mitral Valve MV E Vmax 95.3 cm/s DECEL Time 123 ms MV A Vmax 36.4 cm/s P 1/2 T 33 ms E/A ratio 2.6 MVA (PHT) 6.6 cm2 TDI E/E' Medial 17.6 E/E' Lateral 15.9 Medial E' Peak V 5.42 cm/s Lateral E' Peak V 6.01 cm/s Pulmonary Valve PV Vmax 0.8 m/s PV VTI 0.16 m PV Mean GR 1.8 mmHg PV Peak GR 2.4 mmHg PI End Leidy. Naren 106.4 cm/s Tricuspid Valve TR Vmax 3.0 m/s RAP (EST) 3 mmHg RVSP 40.3 mmHg TR Peak GR 37.3 mmHg Left Ventricle The left ventricle is normal size. GLS -13.0%. There is normal left ventricular wall thickness. LVEF is 40-45%. 3D volume EF 38%. The left ventricular diastolic function is normal. Right Ventricle The right ventricle is normal size. Right ventricle GLS -18.0%. The right ventricular systolic function is normal. Atria The left atrium is severely dilated. LASVI 53mL/m. The right atrium is moderately dilated. Aortic Valve The aortic valve is trileaflet normal in structure. Trace of aortic regurgitation is present. There is no aortic valvular stenosis. Mitral Valve Mitral valve leaflets appear normal. Mitral valve leaflets open well. There is moderate mitral valve regurgitation noted. There is no mitral valve stenosis. Tricuspid Valve The tricuspid valve is normal in structure. There is mild tricuspid valve regurgitation noted. Pulmonic Valve The pulmonary valve is normal in structure. There is trace of pulmonic valvular regurgitation. Great Vessels The aortic root is normal in size. The IVC is normal in size and collapses >50% with inspiration. Pericardium There is no pericardial effusion. Other Information Quality : Adequate Conclusion LVEF is 40-45%. 3D volume EF 38%. GLS -13.0%. There is moderate mitral valve regurgitation noted. DICTATED BY: MIKE BELL MD DATE: 10/09/24 0854 ELECTRONICALLY SIGNED BY: MIKE BELL MD DATE: 10/09/24 7733 PLAN emperic antibiotic TX for CAP w/ rocephin and Doxy diurese follow cardiology recs maintain o2 sats above 92% NEURO: Minimize central acting medications as possible. Maintain fall precautions, adequate lighting during the day PULMONARY: Supplemental 02 as needed. Maintain aspiration precautions at all times CARDIOVASCULAR: Follow hemodynamics. Vital signs per facility protocol GI & NUTRITION: Continue with nutritional support. Continue stool softeners and laxatives as needed. KIDNEYS & ELECTROLYTES: Strict monitoring of intake, output and overall fluid balance. Avoid nephrotoxic medications to the extent possible. Medications to be dosed according to renal function. Monitor electrolytes and replace as needed ENDOCRINE: Maintain blood glucose between 100-180 at all times. Hypoglycemia protocol in place INFECTIOUS DISEASE: Trend temperature, WBC and procalcitonin level Follow cultures, deescalate antibiotics as soon as possible. Panculture if new onset fever ONCOLOGY/HEMATOLOGY/COAGULATION: Monitor for s/s of bleeding Monitor hemoglobin, coagulation studies as needed SKIN: Pressure ulcer prevention per facility protocol Specialty mattress ORTHO/REHAB: Continue PT/OT Prophylaxis: Continue GI and DVT prophylaxis Code Status: Full Resuscitation Disposition: TBD Other: Total patient care time exceeds 35 minutes excluding all procedures. ATTESTATION BY PHYSICIAN I reviewed the documentation, medical decision making, and treatment plan as noted by the mid-level provider above. I agree with the findings and plan of care. Adalberto Crespo MD, NELLY [employer] October 09, 2024 11:24
--- NOTE | 2024-10-09 11:28 | PN ---
[facility] PROGRESS NOTE Date of Service: October 09, 2024 Time of Service: 11:23 SUBJECTIVE: [ ] This is a 54-year-old male with underlying history of type 2 diabetes mellitus, chronic alcoholism, who presented as a transfer from [facility] for further management of late presentation of inferior ST-elevation CT with ventricular tachycardia. Patient stated that about five days ago prior to presenting to the ER, he started having mild dizziness, dyspnea and left-sided shoulder pain radiating to the scapula. Symptoms were intermittent and patient noticed that he was having progressive dyspnea on exertion. Patient saw his primary care physician on 10/07/2024 where he was found to have blood glucose greater than 400 and he received some insulin as outpatient. He presented to the [facility] ER with recurrence of left-sided shoulder discomfort with dyspnea and dizziness. Upon arrival to the emergency department, EKG demonstrated regular wide complex tachycardia, with Q-waves in lead three and AVF with ST depressions in V4 and V6 with a heart rate of 150. Patient was also noted to be hypoxic with of 77%, blood pressure of 96/63 and troponin was noted to be at 5209--> 6062--> 6885. Patient underwent CT PE in [facility] which showed possible filling defects segmental and subsegmental branches concerning for pulmonary embolism. Patient was also noted to have moderate bilateral pleural effusion with patchy consolidation of perihilar and lower lobes with septal thickening and 4 mm granuloma of the left lung. Patient was admitted to ICU in [facility] and CT chest was reviewed by critical care physician there who stated that there was no signs of pulmonary embolism. Patient was [place] [facility] and underwent cardiac catheterization given concern ACS. On cardiac catheterization, patient was found to have culprit lesion, 100% occluded right posterolateral branch for which, patient underwent balloon angioplasty. Patient was also found to have multivessel coronary artery disease with proximal LAD 70% stenosis, 80% mid diagonal stenosis, 70% proximal ramus, 80% mid circumflex stenosis before OM, 50% stenosis involving the circumflex after OM, 100% OM stenosis with filling collaterals and LVEDP was noted to be at 31. 5/10 patient is seen and examined at bedside, alert oriented x3, he is on 10 L via nasal cannula, on heparin drip, denies chest pain, denies shortness a breath, no nausea, no vomiting. Blood pressure 105/68, heart rate of 70. Afebrile. Hemoglobin 10.6, hematocrit 31.1. ABG shows pH 7.46, pCO2 34, PO2 59.6. Toxicology screen positive for benzodiazepines. Chest x-ray shows stable exam REVIEW OF SYSTEMS CONSTITUTIONAL: Denies fevers, chills, or night sweats. No unintentional weight loss reported. NEUROLOGICAL: Denies headache, amaurosis fugax, motor weakness, sensory deficit, vertigo/spinning sensation, gait abnormalities, or tremors. ENT: No hearing loss, otalgia, otorrhea, rhinitis, rhinorrhea, hoarseness, or sore throat. CARDIOVASCULAR: chest pain, palpitations PULMONARY: Denies any shortness of breath, cough, phlegm/sputum, hemoptysis, pleuritic chest pain. SLEEP: Denies morning headaches, daytime somnolence or napping. Denies difficulty falling asleep, staying asleep, waking from sleep. Denies knowledge of snoring. GASTROINTESTINAL: Denies any type of dysphagia to either liquids or solids. Denies nausea, vomiting, pyrosis, early satiety, abdominal pain, diarrhea, constipation, or changes in stool consistency or caliber. Denies coffee-ground emesis, hematemesis, hematochezia, or melanotic stools. GENITOURINARY: Denies frequency, urgency, nocturia, hematuria or incontinence (Storage/Irritative symptoms.) Low urinary stream, straining to void, urinary intermittency or hesitancy, splitting of the voiding stream, terminal dribbling. ENDOCRINOLOGIC: Denies polyuria, polydipsia, polyphagia or heat/cold intolerances. HEMATOLOGIC: Denies thrombophilia/previous clots, or coagulopathy/bleeding disorders. ONCOLOGIC: Denies personal history of malignancy. DERMATOLOGIC: Denies rashes or pruritus. PSYCHIATRIC: Denies any suicidal or homicidal ideation. Denies hallucinations. PHYSICAL EXAM GENERAL APPEARANCE: The patient is awake, alert, and oriented, in no acute cardiopulmonary distress. NEUROLOGICAL: Cranial nerves II-XII grossly intact. Motor is 5/5 in bilateral upper and lower extremities proximal to distal. No sensory deficits. HEENT: Face is symmetric. Pupils are equal and reactive. Extraocular movements are intact. NECK: Supple. No JVD. No thyromegaly. No submental, submandibular, pre- /postauricular, occipital or supraclavicular lymphadenopathy. CHEST: Normal chest expansion. No Telemetry. LUNGS: crackles noted of the bilateral lung bases CARDIOVASCULAR: Regular. S1 and S2 normal. No appreciable rubs, murmurs or gallops. ABDOMEN: Soft, nontender, and nondistended. There is no rebound, voluntary guarding, or rigidity. : Deferred. No Alexandra. EXTREMITIES: Non-edematous and not cyanotic. No clubbing. Good capillary refill. SKIN: No skin breakdown. Vital Signs (last 8hr) Date Time Temp Pulse Resp B/P (MAP) Pulse Ox O2 Delivery O2 Flow Rate FiO2 10/09/24 11:00 70 23 105/68 95 OXYMIZER 10.0 10/09/24 10:00 77 25 102/66 98 OXYMIZER 10.0 10/09/24 09:00 84 23 102/60 92 OXYMIZER 10.0 10/09/24 08:00 98.8 83 28 112/78 90 OXYMIZER 10.0 10/09/24 08:00 97 N/C Oxymizer Hi LPM* 10 99 10/09/24 07:36 80 20 N/Cannula Oximizer Hi LPM 10.0 60 10/09/24 07:18 74 20 80 10/09/24 07:00 74 16 106/75 100 BIPAP 80 10/09/24 06:00 79 14 112/81 100 BIPAP 80 10/09/24 05:00 70 17 104/72 100 BIPAP 80 10/09/24 04:00 100 Bi-PAP+ 80 10/09/24 04:00 99.0 68 17 96/58 100 BIPAP 80 LABS: Laboratory: Test 10/09/24 11:18 10/09/24 07:20 10/09/24 07:09 10/09/24 02:59 Range/Units Whole Blood Glucose 295 #H 70-110 MG/DL Influenza Type A Antigen Negative For Type A NEGATIVE Influenza Type B Antigen Negative For Type B NEGATIVE SARS-CoV-2, RNA, NAAT NEGATIVE SARS CoV-2 NEGATIVE Activated Partial Thromboplast Time 53.0 H 26.3-35.5 SEC White Blood Count 8.1 4.8-10.8 K/uL Red Blood Count 3.46 L 4.50-6.20 MIL/uL Hemoglobin 10.6 L 14.0-18.0 g/dL Hematocrit 31.1 L 42-54 % Mean Corpuscular Volume 89.9 79-99 fL Mean Corpuscular Hemoglobin 30.6 27.0-33.0 pg Mean Corpuscular Hemoglobin Concent 34.1 32.0-36.0 g/dL Red Cell Distribution Width 12.1 11.0-15.5 % Platelet Count 218 130-400 K/uL Mean Platelet Volume 10.4 7.5-10.5 fL Nucleated Red Blood Cells 0.0 0.0-0.19 % Sodium Level 136 136-145 mmol/L Potassium Level 3.3 L 3.5-5.1 mmol/L Chloride Level 99 L 101-111 mmol/L Carbon Dioxide Level 27 21-32 mmol/L Blood Urea Nitrogen 21 H 7-18 mg/dL Creatinine 0.9 0.5-1.3 mg/dL Glomerular Filtration Rate Calc 101 >90 mL/min Random Glucose 339 H 70-105 mg/dL Total Calcium 7.3 L 8.5-10.1 mg/dL Magnesium Level 1.70 L 1.80-2.40 mg/dL Triglycerides Level 76 30-200 mg/dL Cholesterol Level 98 <200 mg/dL LDL Cholesterol 49 0-99 mg/dL HDL Cholesterol 43 29-71 mg/dL Thyroid Stimulating Hormone (TSH) 1.01 # 0.36-3.74 uIU/mL Test 10/09/24 02:00 10/09/24 01:43 10/08/24 21:15 10/08/24 17:18 Range/Units Urine Color YELLOW YELLOW Urine Appearance CLEAR CLEAR Urine pH 6.0 5.0-8.0 Urine Specific [place] 1.035 H 1.001-1.031 Urine Protein 30 H NEGATIVE mg/dL Urine Glucose (UA) 200 H NEGATIVE mg/dL Urine Ketones 40 H NEGATIVE mg/dL Urine Occult Blood MODERATE H NEGATIVE Urine Nitrate NEGATIVE NEGATIVE Urine Bilirubin NEGATIVE NEGATIVE mg/dL Urine Urobilinogen 3 H 0.2-1.0 mg/dL Urine Leukocyte Esterase 250 H NEGATIVE [place]/uL Urine RBC 26-50 H 0-1 /HPF Urine WBC 11-25 H 0-1 /HPF Urine Squamous Epithelial Cells RARE 0-2 /HPF Urine Bacteria FEW None Seen /HPF Urine Opiates Screen NEGATIVE NEGATIVE Urine Barbiturates Screen NEGATIVE NEGATIVE Urine Phencyclidine Screen NEGATIVE NEGATIVE Urine Amphetamines Screen NEGATIVE NEGATIVE Urine Benzodiazepines Screen POSITIVE H NEGATIVE Urine Cocaine Screen NEGATIVE NEGATIVE Urine Marijuana (THC) Screen NEGATIVE NEGATIVE Blood Gas Specimen Type Arterial Arterial Blood pH 7.464 H 7.350-7.450 Arterial Blood Partial Pressure CO2 34 L 35-48 mmHg Arterial Blood Partial Pressure O2 59.6 L 83.0-108.0 mmHg Arterial Blood HCO3 23.5 21.0-28.0 mmol/L Arterial Blood Oxygen Saturation 90.9 L 94.0-98.0 % Arterial Blood Base Excess 0.2 -2.0-3.0 mmol/L Hemoglobin (Blood Gas) 11.7 L 13.5-17.5 g/dL Sodium (Blood Gas) 134 L 136-145 MMOL/L Bedside Potassium (Blood Gas) 3.7 3.4-4.5 MMOL/L Bedside Chloride (Blood Gas) 101 98-107 MMOL/L Bedside Glucose (Blood Gas) 221 H 65-95 MG/DL Bedside Ionized Calcium (Blood Gas) 1.06 L 1.15-1.33 MMOL/L Bedside Lactic Acid (Blood Gas) 1.32 H 0.36-0.75 MMOL/L Blood Gas Temperature 37.0 35.5-37.0 CELSIUS Blood Gas Flow-by 5.00 0.00-15.00 L/min Blood Gas Vent Mode NC ROOM AIR FiO2 40.0 % Blood Gas Specimen Comment LR GABRIEL Lactic Acid Level 2.2 0.8-2.5 mmol/L Immature Granulocyte % (Auto) 0.6 0-1 % Neutrophils (%) (Auto) 71.6 40.0-77.0 % Lymphocytes (%) (Auto) 20.0 L 21.0-51.0 % Monocytes (%) (Auto) 7.5 3.0-13.0 % Eosinophils (%) (Auto) 0.1 0.0-8.0 % Basophils (%) (Auto) 0.2 0.0-5.0 % Neutrophils # (Auto) 6.8 1.8-7.7 K/uL Lymphocytes # (Auto) 1.9 1.0-4.8 K/uL Monocytes # (Auto) 0.7 0.1-1.0 K/uL Eosinophils # (Auto) 0.01 0.00-0.70 K/uL Basophils # (Auto) 0.02 0.00-0.20 K/uL Absolute Immature Granulocyte (auto 0.06 0-1 K/uL Erythrocyte Sedimentation Rate 83 H 0-20 MM/HR Hemoglobin A1c 11.3 H 4.0-6.0 % Estimated Average Glucose (eAG) 278 H 70-126 mg/dL Total Bilirubin 0.5 0.2-1.0 mg/dL Aspartate Amino Transf (AST/SGOT) 47 H 10-37 U/L Alanine Aminotransferase (ALT/SGPT) 63 12-78 U/L Alkaline Phosphatase 130 50-136 U/L Lactate Dehydrogenase 420 H 81-234 U/L C-Reactive Protein, Quantitative 192.30 H 0.5-3.0 mg/L Total Protein 6.4 6.0-8.3 g/dL Albumin 2.4 L 3.5-5.0 g/dL Procalcitonin 0.24 0.05-0.5 ng/mL Current Medications Medications (Trade) Dose Ordered Sig/William Route PRN Reason Start Time Stop Time Status Last Admin Dose Admin Acetaminophen (TYLenol 325MG TAB) 650 mg Q6H PRN PO MILD PAIN (1-3) 10/08/24 18:00 11/07/24 17:59 10/09/24 08:19 650 MG Aspirin (Aspirin 81mg Chew Tab) 81 mg DAILY PO 10/09/24 09:00 10/08/24 16:47 DC Aspirin (Aspirin 81mg Chew Tab) 81 mg DAILY PO 10/09/24 09:00 11/08/24 08:59 10/09/24 08:19 81 MG Atorvastatin Calcium (LIPItor 40MG) 40 mg HS PO 10/08/24 21:00 11/07/24 20:59 10/08/24 20:40 40 MG Calcium Gluconate (Calcium Gluc 1gm Vial) 1 gm AD PRN IV PROTOCOL 10/09/24 02:30 11/08/24 02:29 10/09/24 07:22 1 GM Ceftriaxone Sodium (ROCEphine 1G INJ) 1 gm Q24H IVPB 10/09/24 04:00 10/09/24 11:21 DC 10/09/24 04:28 1 GM Ceftriaxone Sodium (ROCEphine 1G INJ) 2 gm Q24H IVPB 10/10/24 04:00 10/20/24 03:59 UNV Chlordiazepoxide HCl (LIBrium 25 MG CAP) 25 mg Q4H PRN PO ALCOHOL WITHDRAWAL PROTOCOL 10/08/24 18:00 10/15/24 17:59 Diazepam (VALium 5 MG/ML 2 ML SYG) 5 mg Q4H PRN IVP ALCOHOL WITHDRAWAL PROTOCOL 10/08/24 22:30 10/15/24 22:29 Diazepam (VALium 5 MG/ML 2 ML SYG) 10 mg Q4H PRN IVP ALCOHOL WITHDRAWAL PROTOCOL 10/08/24 18:30 10/08/24 20:32 DC Doxycycline Hyclate 250 ml @ 125 mls/hr Q12H IV 10/09/24 04:00 10/19/24 03:59 10/09/24 04:28 125 MLS/HR Folic Acid (FOLic ACID 1 MG TABLET) 1 mg DAILY PO 10/09/24 09:00 10/11/24 09:01 10/09/24 08:18 1 MG Furosemide (LASix 20MG VIAL) 20 mg Q12H IV 10/08/24 17:30 11/07/24 17:29 10/09/24 04:29 20 MG Heparin Sodium (Porcine) (HEParin 5,000 UNIT VIAL) *calculation based on ACTUAL B... AD PRN IV HEPARIN PROTOCOL 10/08/24 17:30 11/07/24 17:29 Heparin Sodium/ Dextrose 250 ml @ 0 mls/hr Q6H IV 10/08/24 17:30 11/07/24 17:29 10/09/24 10:37 15.96 MLS/HR Insulin Glargine (LANtus 100 UNITS/ML 10 ML VIAL) 10 units DAILY SQ 10/09/24 09:00 11/08/24 08:59 10/09/24 08:21 10 UNITS Insulin Human Regular (humuLIN R 100 UNIT/ML 3ML) INSULIN SLIDING SCAL... ACHS SQ 10/08/24 21:00 11/07/24 20:59 10/09/24 06:06 7 UNIT Lidocaine HCl/ Dextrose 250 ml @ 0 mls/hr PROTOCOL IV 10/08/24 16:30 11/07/24 16:29 10/08/24 23:48 15 MLS/HR Lorazepam (AtiVAN) 1 mg Q4H PRN IVP ALCOHOL WITHDRAWAL PROTOCOL 10/08/24 18:00 10/08/24 18:06 DC Magnesium Sulfate 50 ml @ 0 mls/hr PROTOCOL IV 10/09/24 09:30 11/08/24 09:29 Magnesium Sulfate 50 ml @ 0 mls/hr PROTOCOL PRN IV AD 10/08/24 19:00 10/09/24 09:30 DC 10/09/24 04:34 25 MLS/HR Metoprolol Tartrate (loprESSOR) 12.5 mg BID PO 10/08/24 21:00 11/07/24 20:59 10/09/24 08:19 12.5 MG Morphine Sulfate (morPHINE 2MG SYG) 2 mg Q6H PRN IVP SEVERE PAIN (7-10) 10/08/24 18:00 10/15/24 17:59 Multivitamins Therapeutic (Multivitamin Tablet) 1 tab DAILY PO 10/09/24 09:00 11/08/24 08:59 10/09/24 08:18 1 TAB Nitroglycerin/ Dextrose 0 ml @ 0 mls/hr PROTOCOL PRN IV [id number] ORDERS 10/08/24 16:30 11/07/24 16:29 Ondansetron HCl (zoFRAN 4MG INJ) 4 mg Q4H PRN IVP NAUSEA/VOMITING 10/08/24 16:30 11/07/24 16:29 Ondansetron HCl (zoFRAN 4MG INJ) 4 mg Q6H PRN IVP NAUSEA/VOMITING 10/08/24 18:00 11/07/24 17:59 Pantoprazole Sodium (PROTonix 40MG INJ) 40 mg DAILY IVP 10/09/24 09:00 11/08/24 08:59 10/09/24 08:17 40 MG Pharmacy Profile Note (Pharmacy Communication) 1 each PROTOCOL PRN MISC ETOH Withdrawal Score changes 10/08/24 18:00 10/15/24 17:59 Potassium Chloride 100 ml @ 100 mls/hr AD PRN IV POTASSIUM PROTOCOL 10/09/24 10:30 11/08/24 10:29 Potassium Chloride (K-Dur/Klor-Con 20meq) 20 meq AD PRN PO POTASSIUM PROTOCOL 10/09/24 10:30 11/08/24 10:29 Potassium Chloride (KCl 10% Elixir 20meq/15ml) 20 meq AD PRN PO POTASSIUM PROTOCOL 10/09/24 10:30 11/08/24 10:29 Temazepam (restORIL 30 MG CAP) 30 mg HS PRN PO INSOMNIA/SLEEP 10/08/24 16:30 10/15/24 16:29 Thiamine HCl (Vitamin B-1) 100 mg DAILY PO 10/09/24 09:00 11/08/24 08:59 10/09/24 08:19 100 MG DIAGNOSTICS / RADIOLOGY: [ ] Exam Type: CHEST 1VW Clinical Information: DESATURATION Comparison: None Findings: Pulmonary pattern is as before. No worrisome interval changes have taken place. Impression: Stable exam. ASSESSMENT: Inferior STEMI with late presentation, POA Ventricular tachycardia, status post initiation of lidocaine drip, POA Status post cardiac catheterization with findings of multivessel coronary artery disease, 10/08/2024, by Dr. Llanes Status post balloon angioplasty of 100% occluded ostial right posterolateral branch by Dr. Llanes, 10/08/2024 Acute hypoxemic respiratory failure, POA Acute on chronic systolic heart failure exacerbation, POA Mild anemia, POA Suspected cardiogenic pulmonary edema, POA r/o any developing community acquired Pneumonia, POA Pulmonary embolism ruled out by evaluation by critical care service in [facility], POA Mild lactic acidosis, POA Poorly controlled type 2 diabetes mellitus, POA History of chronic alcoholism, POA [place], POA PLAN: Patient remains admitted to the ICU Continue hospital monitor Continue the patient on Oxymizer Continue the patient on heparin drip Continue the patient on Rocephin 2 g IV daily. Serology to include SARS antigen, influenza are negative. Chest x-ray shows clear exam. Continue to follow Cardiology input recommendation Cardiothoracic consultation requested for CABG, we will follow input and recommended Follow 2D echocardiogram, echocardiogram in [facility] showed LVEF of 35-40% with severe basal and posterolateral hypokinesis to be akinesis NEURO: Minimize central acting medications as possible. Fall Precautions. Well lighted room through the day and minimize interruptions through the night to prevent acute delirium. PULMONARY: Supplemental 02 as needed BiPAP as necessary, for respiratory distress Titrate Fio2 to keep Spo2 > or = 90% DuoNebs and CPT as needed IS hourly while awake for pulmonary hygiene prn Out of bed to chair as tolerated Maintain aspiration precautions at all times CARDIOVASCULAR: Follow hemodynamics. Vital signs per facility protocol GI & NUTRITION: Continue nutritional support Aspirations precautions Prokinetic agents and laxatives as needed KIDNEYS & ELECTROLYTES: Strict monitoring of intake and output Daily weights Avoid nephrotoxic agents Monitor electrolytes and replace as needed Goal urine output of 30mL/hr or 0.5mL/kg/hr Medications to be dosed according to renal function. Avoid contrast if possible ENDOCRINE: Maintain blood glucose between 100-180 at all times. Insulin sliding scale for blood glucose management Hypoglycemia and hyperglycemia protocol in place INFECTIOUS DISEASE: Trend temperature, WBC and procalcitonin level Follow cultures, deescalate antibiotics as soon as possible. Panculture if new onset fever HEMATOLOGY & COAGULATION: Monitor H&H. Keep Hgb > 7 Transfuse 1 unit of PRBC for Hgb < 7 Transfuse 1 pack of platelets of platelets < 20, 000 Watch for any signs and symptoms of bleeding SKIN: Pressure ulcer prevention per facility protocol Specialty mattress as needed ORTHO/REHAB Continue PT/OT PRN: MEDICATIONS Tylenol 650 mg po every 4 hrs for fever zofran 4 mg IV every 6 hrs for n/v Hydralazine 5 mg IV every 4 hrs systolic pressure > 160 bowel regiment: lactulose 20 gm PO BID PRN constipation Supportive measures: Continue GI and DVT prophylaxis Disposition: Pending improvement in clinical condition All questions answered time spent: > 35 min MOLLY ROSARIO MD October 09, 2024 11:28
[2024-10-09] MEDS: PoTASSium chloRIDE 20MEQ ER 20 MEQ ERTAB PO PRN (11:52)
--- NOTE | 2024-10-09 12:43 | HMCSR ---
APPROVED REPORT EXAM: Two-dimensional and M-mode echocardiogram with Doppler and color Doppler. INDICATION ICD: Acute myocardial infarction, congestive heart failure 2D Dimensions RVDd4.0 cmLVEF(%)13.1 (>50%)LVED Vol(simp.)127.0 mL IVSd1.0 (0.7-1.1cm)FS(%)6 %LVES Vol(simp.)77.0 mL LVDd5.7 (3.8-5.6cm)LA (2D)5.3 (1.6-4.0cm)LVEF(%, simp.)39 % PWd1.0 (0.7-1.1cm)Ao Root(2D)3.2 (2.0-3.7cm)LA ESV INDEX (BP)52.50 mL/m2 IVSs1.1 cmLVOT diam2.3 (1.8-2.4cm) LVDs5.4 (2.5-4.0cm)IVC diam2.0 cm PWs0.9 cm Deformation Strain Apical 4-12.5 % Apical 2-10.8 % Apical 3-14.8 % Global Strain-12.7 % M-Mode Dimensions EPSS1.4 cm LA (MM)5.3 (1.6-4.0cm) Ao Root(MM)3.6 (2.0-3.7cm) Aortic Valve AoV Vmax1.1 m/Stuart Peak GR5.3 mmHgLVOT Vmax0.7 m/s AoV VTI0.2 mAo Mean GR3.8 mmHgLVOT VTI0.14 m JULIO CÉSAR (VMAX)2.76 cm2AVA (VTI) 2.9 cm2 Mitral Valve MV E Vmax95.3 cm/sDECEL Glvg528 ms MV A Vmax36.4 cm/sP 1/2 T33 ms E/A ratio2.6MVA (PHT)6.6 cm2 TDI E/E' Rtlptm58.6E/E' Jlcuzah26.9 Medial E' Peak V5.42 cm/sLateral E' Peak V6.01 cm/s Pulmonary Valve PV Vmax0.8 m/sPV VTI0.16 mPV Mean GR1.8 mmHg PV Peak GR2.4 mmHgPI End Leidy. Naren 106.4 cm/s Tricuspid Valve TR Vmax3.0 m/sRAP (EST) 3 cnYbZCMQ85.3 mmHg TR Peak GR37.3 mmHg Left Ventricle The left ventricle is normal size. GLS -13.0%. There is normal left ventricular wall thickness. LVEF is 40-45%. 3D volume EF 38%. The left ventricular diastolic function is normal. Right Ventricle The right ventricle is normal size. Right ventricle GLS -18.0%. The right ventricular systolic functi on is normal. Atria The left atrium is severely dilated. LASVI 53mL/m. The right atrium is moderately dilated. Aortic Valve The aortic valve is trileaflet normal in structure. Trace of aortic regurgitation is present. There i s no aortic valvular stenosis. Mitral Valve Mitral valve leaflets appear normal. Mitral valve leaflets open well. There is moderate mitral valve regurgitation noted. There is no mitral valve stenosis. Tricuspid Valve The tricuspid valve is normal in structure. There is mild tricuspid valve regurgitation noted. Pulmonic Valve The pulmonary valve is normal in structure. There is trace of pulmonic valvular regurgitation. Great Vessels The aortic root is normal in size. The IVC is normal in size and collapses >50% with inspiration. Pericardium There is no pericardial effusion. Other Information Quality : Adequate Conclusion LVEF is 40-45%. 3D volume EF 38%. GLS -13.0%. There is moderate mitral valve regurgitation noted.
[2024-10-09] MEDS: BENZONATATE 100 MG CAPSULE PO PRN (12:55)
--- NOTE | 2024-10-09 16:13 | EKG ---
[facility] Test Date: 2024-10-09 Test Time: 00:51:45 Pat Name: EUFEMIA JIMENEZ Department: [facility] Room: 202 Gender: M Monotypist: : 1970 Requested By: ISAAK BARLOW Order Number: [id number] Reading MD: Dom Llanes Measurements Intervals [place] Rate: 81 P: 43 HI: 152 QRS: 114 QRSD: 98 T: 61 QT: 378 QTc: 439 Interpretive Statements Normal sinus rhythm Possible Left atrial enlargement Inferior-posterior infarct , age undetermined Compared to ECG 10/08/2024 14:50:48 No significant changes Electronically Signed On 10-10-2024 13:12:06 CDT by Dom Llanes Please click the below link to view image of tracing.
[2024-10-09] MEDS: guaiFENesin-DM 200/20MG 10ML PO PRN (16:45)
--- NOTE | 2024-10-09 17:53 | HMCIMG ---
Carotid Duplex and color-flow Doppler bilateral Clinical Information: rule out carotid stenosis Comparison: None Findings: Mild left bifurcation plaque is seen. No hemodynamically significant stenosis noted. Left Internal Carotid Artery Peak Systolic Velocity (PSV), Left Internal Carotid to Common Carotid Artery peak systolic velocity ratio, Right Internal Carotid Artery Peak Systolic Velocity (PSV) and Right Internal Carotid to Common Carotid Artery peak systolic velocity ratio, are all within normal limits. External carotid artery velocities normal bilaterally. Bilateral vertebral arteries show normal velocities and waveforms with antegrade flow. Impression: No hemodynamically significant stenosis noted. NASCET CRITERIA. The degree of internal carotid artery stenosis is based on NASCET criteria. Normal is no stenosis. Mild is less than 50% stenosis. Moderate is 50-69% stenosis. Severe is 70% to 99% stenosis. Total occlusion is no detectable patent lumen.
[2024-10-09] MEDS: TEMAZepam 30 MG CAP PO PRN (20:52)
--- NOTE | 2024-10-09 22:00 | NUR ---
ENDORSED CARE TO Kalpana WADE RN IN PCCU; PT TRANSFERED VIA WC TO ROOM 202 ON 10 LPM VIA HFNC. TOLERATED WELL.
--- NOTE | 2024-10-09 22:05 | NUR ---
RECD REPORT FROM GABRIEL RN, REC'D PT FROM ICU DEPARTMENT RM 206 TO RM 202 TELEMETRY DEPARTMENT VIA BED AND BELONGINGS, STABLE CONDITION, HEPARIN DRIP INFUSING, OXYGEN ON PT, SIDERAILS UP X 2 CALL ARGUELLO WITHIN REACH, ENCOURAGED TO CALL FOR ASSISTANCE
[2024-10-10] VITALS (12 sets, daily range): BP systolic 105–129; BP diastolic 61–92; PULSE 77–97; RESP 17–36; TEMP 97.8–99.6; O2SAT 97–98
[2024-10-10] MEDS: cefTRIAXone 2GM VIAL IVPB SCH (03:06)
[2024-10-10 04:24] LABS: HEMATOCRIT 34.7 % (42-54); MEAN CORPUSCULAR VOLUME 88.3 fL (79-99); RED BLOOD CELL COUNT(AUTO) 3.93 MIL/uL (4.50-6.20); RED CELL DISTRIBUTION WIDTH 11.8 % (11.0-15.5); WHITE BLOOD COUNT (AUTO) 8.1 K/uL (4.8-10.8)
[2024-10-10 04:38] LABS: CREATININE 0.7 mg/dL (0.5-1.3); MAGNESIUM 1.7 mg/dL (1.80-2.40); POTASSIUM 3.5 mmol/L (3.5-5.1)
[2024-10-10] MEDS ORDERED: METF-446 PO (10:02)
--- NOTE | 2024-10-10 10:31 | PN ---
[facility] Cardiology Progress Note CARDIOLOGY PROGRESS NOTE OCTOBER 10, 2024 Problems: 1. Acute inferior wall myocardial infarction with presentation with ventricular tachycardia in the 1st 24 hours terminated with lidocaine 2. Multivessel CAD status post balloon angioplasty of an occluded right posterolateral branch 3. Acute congestive heart failure with left ventricular end-diastolic pressure of 31 mm Hg at the time of left heart catheterization 3. Diabetes mellitus type 2 with hemoglobin A1c of 11.3 on admission 4. Dyslipidemia 5. History of alcohol abuse 6. Pentecostalism The patient has been transferred to telemetry. Blood pressure is 118/70 heart rate is in the 80s the patient is afebrile. Hemoglobin 11.8 platelet count [id number]. Potassium 3.5 BUN 17 creatinine 0.7. 2D echo shows ejection fraction of 40-45%. There was moderate mitral valve regurgitation. Carotid Doppler shows no significant stenosis. LDL cholesterol was only 49. Continues on asp irin atorvastatin IV furosemide heparin protocol insulin scale metoprolol tartrate pantoprazole potassium protocol and thiamine. Patient is resting comfortably flat. No new murmurs are audible. Cath site shows no hematoma. He has been off lidocaine now for 24 hours. He has had no recurrent ventricular arrhythmias. Denies chest pain or shortness of breath. Plans are for evalu ation by CT surgery. MIKE BELL MD October 10, 2024 10:31
--- NOTE | 2024-10-10 11:08 | PN ---
[facility] PROGRESS NOTE Date of Service: October 10, 2024 Time of Service: 11:03 SUBJECTIVE: [ ] This is a 54-year-old male with underlying history of type 2 diabetes mellitus, chronic alcoholism, who presented as a transfer from [facility] for further management of late presentation of inferior ST-elevation RI with ventricular tachycardia. Patient stated that about five days ago prior to presenting to the ER, he started having mild dizziness, dyspnea and left-sided shoulder pain radiating to the scapula. Symptoms were intermittent and patient noticed that he was having progressive dyspnea on exertion. Patient saw his primary care physician on 10/07/2024 where he was found to have blood glucose greater than 400 and he received some insulin as outpatient. He presented to the [facility] ER with recurrence of left-sided shoulder discomfort with dyspnea and dizziness. Upon arrival to the emergency department, EKG demonstrated regular wide complex tachycardia, with Q-waves in lead three and AVF with ST depressions in V4 and V6 with a heart rate of 150. Patient was also noted to be hypoxic with of 77%, blood pressure of 96/63 and troponin was noted to be at 5209--> 6062--> 6885. Patient underwent CT PE in [facility] which showed possible filling defects segmental and subsegmental branches concerning for pulmonary embolism. Patient was also noted to have moderate bilateral pleural effusion with patchy consolidation of perihilar and lower lobes with septal thickening and 4 mm granuloma of the left lung. Patient was admitted to ICU in [facility] and CT chest was reviewed by critical care physician there who stated that there was no signs of pulmonary embolism. Patient was transferred to [facility] and underwent cardiac catheterization given concern ACS. On cardiac catheterization, patient was found to have culprit lesion, 100% occluded right posterolateral branch for which, patient underwent balloon angioplasty. Patient was also found to have multivessel coronary artery disease with proximal LAD 70% stenosis, 80% mid diagonal stenosis, 70% proximal ramus, 80% mid circumflex stenosis before OM, 50% stenosis involving the circumflex after OM, 100% OM stenosis with filling collaterals and LVEDP was noted to be at 31. 5/10 patient is seen and examined at bedside, alert oriented x3, he is on 10 L via nasal cannula, on heparin drip, denies chest pain, denies shortness a breath, no nausea, no vomiting. Blood pressure 105/68, heart rate of 70. Afebrile. Hemoglobin 10.6, hematocrit 31.1. ABG shows pH 7.46, pCO2 34, PO2 59.6. Toxicology screen positive for benzodiazepines. Chest x-ray shows stable exam 10/10 54-year-old male with underlying history of type 2 diabetes mellitus, chronic alcoholism, who presented as a transfer from [facility] for further management of late presentation of inferior ST-elevation RI with ventricular tachycardia. Status post cardiac catheterization with findings of multivessel coronary artery disease, 10/08/2024, by Dr. Llanes Status post balloon angioplasty of 100% occluded ostial right posterolateral branch by Dr. Llanes, 10/08/2024. Patient now with Acute hypoxemic respiratory failure, Acute on chronic systolic heart failure exacerbation, suspect possible underlying developing community- acquired pneumonia. During my visit patient remains on supplemental oxygen via nasal cannula 10 L, getting IV antibiotics, he feels less short of breath, less productive cough. He remains on heparin drip. He is currently off lidocaine for 24 hours. No recurrent ventricular arrhythmias. Pending evaluation by Cardiothoracic surgeon. REVIEW OF SYSTEMS CONSTITUTIONAL: Denies fevers, chills, or night sweats. No unintentional weight loss reported. NEUROLOGICAL: Denies headache, amaurosis fugax, motor weakness, sensory deficit, vertigo/spinning sensation, gait abnormalities, or tremors. ENT: No hearing loss, otalgia, otorrhea, rhinitis, rhinorrhea, hoarseness, or sore throat. CARDIOVASCULAR: chest pain, palpitations PULMONARY: Denies any shortness of breath, cough, phlegm/sputum, hemoptysis, pleuritic chest pain. SLEEP: Denies morning headaches, daytime somnolence or napping. Denies difficulty falling asleep, staying asleep, waking from sleep. Denies knowledge of snoring. GASTROINTESTINAL: Denies any type of dysphagia to either liquids or solids. Denies nausea, vomiting, pyrosis, early satiety, abdominal pain, diarrhea, constipation, or changes in stool consistency or caliber. Denies coffee-ground emesis, hematemesis, hematochezia, or melanotic stools. GENITOURINARY: Denies frequency, urgency, nocturia, hematuria or incontinence (Storage/Irritative symptoms.) Low urinary stream, straining to void, urinary intermittency or hesitancy, splitting of the voiding stream, terminal dribbling. ENDOCRINOLOGIC: Denies polyuria, polydipsia, polyphagia or heat/cold intolerances. HEMATOLOGIC: Denies thrombophilia/previous clots, or coagulopathy/bleeding disorders. ONCOLOGIC: Denies personal history of malignancy. DERMATOLOGIC: Denies rashes or pruritus. PSYCHIATRIC: Denies any suicidal or homicidal ideation. Denies hallucinations. PHYSICAL EXAM GENERAL APPEARANCE: The patient is awake, alert, and oriented, in no acute cardiopulmonary distress. NEUROLOGICAL: Cranial nerves II-XII grossly intact. Motor is 5/5 in bilateral upper and lower extremities proximal to distal. No sensory deficits. HEENT: Face is symmetric. Pupils are equal and reactive. Extraocular movements are intact. NECK: Supple. No JVD. No thyromegaly. No submental, submandibular, pre- /postauricular, occipital or supraclavicular lymphadenopathy. CHEST: Normal chest expansion. No Telemetry. LUNGS: crackles noted of the bilateral lung bases CARDIOVASCULAR: Regular. S1 and S2 normal. No appreciable rubs, murmurs or gallops. ABDOMEN: Soft, nontender, and nondistended. There is no rebound, voluntary gu arding, or rigidity. : Deferred. No Alexandra. EXTREMITIES: Non-edematous and not cyanotic. No clubbing. Good capillary refill. SKIN: No skin breakdown. Vital Signs (last 8hr) Date Time Temp Pulse Resp B/P (MAP) Pulse Ox O2 Delivery O2 Flow Rate FiO2 10/10/24 07:59 84 20 N/Cannula Oximizer Hi LPM 10.0 60 10/10/24 07:00 98.8 82 17 118/77 98 BIPAP 2.0 10/10/24 04:22 97.9 87 18 105/63 98 BIPAP LABS: Laboratory: Test 10/10/24 04:03 10/09/24 22:51 10/09/24 20:26 10/09/24 10:25 Range/Units White Blood Count 8.1 4.8-10.8 K/uL Red Blood Count 3.93 L 4.50-6.20 MIL/uL Hemoglobin 11.8 L 14.0-18.0 g/dL Hematocrit 34.7 L 42-54 % Mean Corpuscular Volume 88.3 79-99 fL Mean Corpuscular Hemoglobin 30.0 27.0-33.0 pg Mean Corpuscular Hemoglobin Concent 34.0 32.0-36.0 g/dL Red Cell Distribution Width 11.8 11.0-15.5 % Platelet Count 251 130-400 K/uL Mean Platelet Volume 10.1 7.5-10.5 fL Nucleated Red Blood Cells 0.0 0.0-0.19 % Sodium Level 140 136-145 mmol/L Potassium Level 3.5 3.5-5.1 mmol/L Chloride Level 105 101-111 mmol/L Carbon Dioxide Level 27 21-32 mmol/L Blood Urea Nitrogen 17 7-18 mg/dL Creatinine 0.7 0.5-1.3 mg/dL Glomerular Filtration Rate Calc 110 >90 mL/min Random Glucose 216 H 70-105 mg/dL Total Calcium 7.6 L 8.5-10.1 mg/dL Magnesium Level 1.70 L 1.80-2.40 mg/dL Activated Partial Thromboplast Time 47.4 H 26.3-35.5 SEC Whole Blood Glucose 149 H 70-110 MG/DL Group A Streptococcus Rapid negative NEGATIVE Test 10/09/24 07:20 10/09/24 07:09 10/09/24 02:59 10/09/24 02:00 Range/Units Influenza Type A Antigen Negative For Type A NEGATIVE Influenza Type B Antigen Negative For Type B NEGATIVE SARS-CoV-2, RNA, NAAT NEGATIVE SARS CoV-2 NEGATIVE B-Type Natriuretic Peptide 484 H 0-100 pg/mL Triglycerides Level 76 30-200 mg/dL Cholesterol Level 98 <200 mg/dL LDL Cholesterol 49 0-99 mg/dL HDL Cholesterol 43 29-71 mg/dL Thyroid Stimulating Hormone (TSH) 1.01 # 0.36-3.74 uIU/mL Urine Color YELLOW YELLOW Urine Appearance CLEAR CLEAR Urine pH 6.0 5.0-8.0 Urine Specific [place] 1.035 H 1.001-1.031 Urine Protein 30 H NEGATIVE mg/dL Urine Glucose (UA) 200 H NEGATIVE mg/dL Urine Ketones 40 H NEGATIVE mg/dL Urine Occult Blood MODERATE H NEGATIVE Urine Nitrate NEGATIVE NEGATIVE Urine Bilirubin NEGATIVE NEGATIVE mg/dL Urine Urobilinogen 3 H 0.2-1.0 mg/dL Urine Leukocyte Esterase 250 H NEGATIVE [place]min/uL Urine RBC 26-50 H 0-1 /HPF Urine WBC 11-25 H 0-1 /HPF Urine Squamous Epithelial Cells RARE 0-2 /HPF Urine Bacteria FEW None Seen /HPF Urine Opiates Screen NEGATIVE NEGATIVE Urine Barbiturates Screen NEGATIVE NEGATIVE Urine Phencyclidine Screen NEGATIVE NEGATIVE Urine Amphetamines Screen NEGATIVE NEGATIVE Urine Benzodiazepines Screen POSITIVE H NEGATIVE Urine Cocaine Screen NEGATIVE NEGATIVE Urine Marijuana (THC) Screen NEGATIVE NEGATIVE Test 10/09/24 01:43 10/08/24 21:15 10/08/24 17:18 Range/Units Blood Gas Specimen Type Arterial Arterial Blood pH 7.464 H 7.350-7.450 Arterial Blood Partial Pressure CO2 34 L 35-48 mmHg Arterial Blood Partial Pressure O2 59.6 L 83.0-108.0 mmHg Arterial Blood HCO3 23.5 21.0-28.0 mmol/L Arterial Blood Oxygen Saturation 90.9 L 94.0-98.0 % Arterial Blood Base Excess 0.2 -2.0-3.0 mmol/L Hemoglobin (Blood Gas) 11.7 L 13.5-17.5 g/dL Sodium (Blood Gas) 134 L 136-145 MMOL/L Bedside Potassium (Blood Gas) 3.7 3.4-4.5 MMOL/L Bedside Chloride (Blood Gas) 101 98-107 MMOL/L Bedside Glucose (Blood Gas) 221 H 65-95 MG/DL Bedside Ionized Calcium (Blood Gas) 1.06 L 1.15-1.33 MMOL/L Bedside Lactic Acid (Blood Gas) 1.32 H 0.36-0.75 MMOL/L Blood Gas Temperature 37.0 35.5-37.0 CELSIUS Blood Gas Flow-by 5.00 0.00-15.00 L/min Blood Gas Vent Mode NC ROOM AIR FiO2 40.0 % Blood Gas Specimen Comment LR GABRIEL Lactic Acid Level 2.2 0.8-2.5 mmol/L Immature Granulocyte % (Auto) 0.6 0-1 % Neutrophils (%) (Auto) 71.6 40.0-77.0 % Lymphocytes (%) (Auto) 20.0 L 21.0-51.0 % Monocytes (%) (Auto) 7.5 3.0-13.0 % Eosinophils (%) (Auto) 0.1 0.0-8.0 % Basophils (%) (Auto) 0.2 0.0-5.0 % Neutrophils # (Auto) 6.8 1.8-7.7 K/uL Lymphocytes # (Auto) 1.9 1.0-4.8 K/uL Monocytes # (Auto) 0.7 0.1-1.0 K/uL Eosinophils # (Auto) 0.01 0.00-0.70 K/uL Basophils # (Auto) 0.02 0.00-0.20 K/uL Absolute Immature Granulocyte (auto 0.06 0-1 K/uL Erythrocyte Sedimentation Rate 83 H 0-20 MM/HR Hemoglobin A1c 11.3 H 4.0-6.0 % Estimated Average Glucose (eAG) 278 H 70-126 mg/dL Total Bilirubin 0.5 0.2-1.0 mg/dL Aspartate Amino Transf (AST/SGOT) 47 H 10-37 U/L Alanine Aminotransferase (ALT/SGPT) 63 12-78 U/L Alkaline Phosphatase 130 50-136 U/L Lactate Dehydrogenase 420 H 81-234 U/L C-Reactive Protein, Quantitative 192.30 H 0.5-3.0 mg/L Total Protein 6.4 6.0-8.3 g/dL Albumin 2.4 L 3.5-5.0 g/dL Procalcitonin 0.24 0.05-0.5 ng/mL Current Medications Medications (Trade) Dose Ordered Sig/William Route PRN Reason Start Time Stop Time Status Last Admin Dose Admin Acetaminophen (TYLenol 325MG TAB) 650 mg Q6H PRN PO MILD PAIN (1-3) 10/08/24 18:00 11/07/24 17:59 10/09/24 17:00 650 MG Aspirin (Aspirin 81mg Chew Tab) 81 mg DAILY PO 10/09/24 09:00 10/08/24 16:47 DC Aspirin (Aspirin 81mg Chew Tab) 81 mg DAILY PO 10/09/24 09:00 11/08/24 08:59 10/10/24 10:05 81 MG Atorvastatin Calcium (LIPItor 40MG) 40 mg HS PO 10/08/24 21:00 11/07/24 20:59 10/09/24 20:52 40 MG Benzonatate (Tessalon 100mg Caps) 200 mg Q8H PRN PO COUGH 10/09/24 12:00 11/08/24 11:59 10/09/24 12:55 200 MG Calcium Gluconate (Calcium Gluc 1gm Vial) 1 gm AD PRN IV PROTOCOL 10/09/24 02:30 11/08/24 02:29 10/09/24 07:22 1 GM Ceftriaxone Sodium (ROCEphine 1G INJ) 1 gm Q24H IVPB 10/09/24 04:00 10/09/24 11:21 DC 10/09/24 04:28 1 GM Ceftriaxone Sodium (Rocephin 2gm Inj) 2 gm Q24H IVPB 10/10/24 04:00 10/20/24 03:59 10/10/24 03:06 2 GM Chlordiazepoxide HCl (LIBrium 25 MG CAP) 25 mg Q4H PRN PO ALCOHOL WITHDRAWAL PROTOCOL 10/08/24 18:00 10/15/24 17:59 Diazepam (VALium 5 MG/ML 2 ML SYG) 5 mg Q4H PRN IVP ALCOHOL WITHDRAWAL PROTOCOL 10/08/24 22:30 10/15/24 22:29 Diazepam (VALium 5 MG/ML 2 ML SYG) 10 mg Q4H PRN IVP ALCOHOL WITHDRAWAL PROTOCOL 10/08/24 18:30 10/08/24 20:32 DC Doxycycline Hyclate 250 ml @ 125 mls/hr Q12H IV 10/09/24 04:00 10/19/24 03:59 10/10/24 03:23 125 MLS/HR Folic Acid (FOLic ACID 1 MG TABLET) 1 mg DAILY PO 10/09/24 09:00 10/11/24 09:01 10/10/24 10:04 1 MG Furosemide (LASix 20MG VIAL) 20 mg Q12H IV 10/08/24 17:30 11/07/24 17:29 10/10/24 05:02 20 MG Guaifenesin/ Dextromethorphan (RobiTUSSin DM 200/20MG 10ML) 10 ml Q4H PRN PO COUGH 10/09/24 16:30 11/08/24 16:29 10/09/24 16:45 10 ML Heparin Sodium (Porcine) (HEParin 5,000 UNIT VIAL) *calculation based on ACTUAL B... AD PRN IV HEPARIN PROTOCOL 10/08/24 17:30 11/07/24 17:29 Heparin Sodium/ Dextrose 250 ml @ 0 mls/hr Q6H IV 10/08/24 17:30 11/07/24 17:29 10/09/24 22:38 15.96 MLS/HR Insulin Glargine (LANtus 100 UNITS/ML 10 ML VIAL) 10 units DAILY SQ 10/09/24 09:00 10/09/24 11:26 DC 10/09/24 08:21 10 UNITS Insulin Glargine (LANtus 100 UNITS/ML 10 ML VIAL) 25 units BID SQ 10/09/24 21:00 11/08/24 08:59 10/10/24 10:15 25 UNITS Insulin Human Regular (humuLIN R 100 UNIT/ML 3ML) INSULIN SLIDING SCAL... ACHS SQ 10/08/24 21:00 11/07/24 20:59 10/09/24 16:48 2 UNIT Lidocaine HCl/ Dextrose 250 ml @ 0 mls/hr PROTOCOL IV 10/08/24 16:30 10/09/24 11:34 DC 10/08/24 23:48 15 MLS/HR Lorazepam (AtiVAN) 1 mg Q4H PRN IVP ALCOHOL WITHDRAWAL PROTOCOL 10/08/24 18:00 10/08/24 18:06 DC Magnesium Sulfate 50 ml @ 0 mls/hr PROTOCOL IV 10/09/24 09:30 11/08/24 09:29 Magnesium Sulfate 50 ml @ 0 mls/hr PROTOCOL PRN IV AD 10/08/24 19:00 10/09/24 09:30 DC 10/09/24 04:34 25 MLS/HR Metoprolol Tartrate (loprESSOR) 12.5 mg BID PO 10/08/24 21:00 11/07/24 20:59 10/10/24 10:05 12.5 MG Morphine Sulfate (morPHINE 2MG SYG) 2 mg Q6H PRN IVP SEVERE PAIN (7-10) 10/08/24 18:00 10/15/24 17:59 Multivitamins Therapeutic (Multivitamin Tablet) 1 tab DAILY PO 10/09/24 09:00 11/08/24 08:59 10/10/24 10:04 1 TAB Nitroglycerin/ Dextrose 0 ml @ 0 mls/hr PROTOCOL PRN IV [id number] ORDERS 10/08/24 16:30 11/07/24 16:29 Ondansetron HCl (zoFRAN 4MG INJ) 4 mg Q4H PRN IVP NAUSEA/VOMITING 10/08/24 16:30 11/07/24 16:29 Ondansetron HCl (zoFRAN 4MG INJ) 4 mg Q6H PRN IVP NAUSEA/VOMITING 10/08/24 18:00 11/07/24 17:59 Pantoprazole Sodium (PROTonix 40MG INJ) 40 mg DAILY IVP 10/09/24 09:00 11/08/24 08:59 10/10/24 10:05 40 MG Pharmacy Profile Note (Pharmacy Communication) 1 each PROTOCOL PRN MISC ETOH Withdrawal Score changes 10/08/24 18:00 10/15/24 17:59 Potassium Chloride 100 ml @ 100 mls/hr AD PRN IV POTASSIUM PROTOCOL 10/09/24 10:30 11/08/24 10:29 Potassium Chloride (K-Dur/Klor-Con 20meq) 20 meq AD PRN PO POTASSIUM PROTOCOL 10/09/24 10:30 11/08/24 10:29 10/10/24 10:05 20 MEQ Potassium Chloride (KCl 10% Elixir 20meq/15ml) 20 meq AD PRN PO POTASSIUM PROTOCOL 10/09/24 10:30 11/08/24 10:29 Temazepam (restORIL 30 MG CAP) 30 mg HS PRN PO INSOMNIA/SLEEP 10/08/24 16:30 10/15/24 16:29 10/09/24 20:52 30 MG Thiamine HCl (Vitamin B-1) 100 mg DAILY PO 10/09/24 09:00 11/08/24 08:59 10/10/24 10:05 100 MG DIAGNOSTICS / RADIOLOGY: [ ] ASSESSMENT: Inferior STEMI with late presentation, POA Ventricular tachycardia, status post initiation of lidocaine drip, POA Status post cardiac catheterization with findings of multivessel coronary artery disease, 10/08/2024, by Dr. Llanes Status post balloon angioplasty of 100% occluded ostial right posterolateral branch by Dr. 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 NEURO: Minimize central acting medications as possible. Fall Precautions. Well lighted room through the day and minimize interruptions through the night to prevent acute delirium. PULMONARY: Supplemental 02 as needed BiPAP as necessary, for respiratory distress Titrate Fio2 to keep Spo2 > or = 90% DuoNebs and CPT as needed IS hourly while awake for pulmonary hygiene prn Out of bed to chair as tolerated Maintain aspiration precautions at all times CARDIOVASCULAR: Follow hemodynamics. Vital signs per facility protocol GI & NUTRITION: Continue nutritional support Aspirations precautions Prokinetic agents and laxatives as needed KIDNEYS & ELECTROLYTES: Strict monitoring of intake and output Daily weights Avoid nephrotoxic agents Monitor electrolytes and replace as needed Goal urine output of 30mL/hr or 0.5mL/kg/hr Medications to be dosed according to renal function. Avoid contrast if possible ENDOCRINE: Maintain blood glucose between 100-180 at all times. Insulin sliding scale for blood glucose management Hypoglycemia and hyperglycemia protocol in place INFECTIOUS DISEASE: Trend temperature, WBC and procalcitonin level Follow cultures, deescalate antibiotics as soon as possible. Panculture if new onset fever HEMATOLOGY & COAGULATION: Monitor H&H. Keep Hgb > 7 Transfuse 1 unit of PRBC for Hgb < 7 Transfuse 1 pack of platelets of platelets < 20, 000 Watch for any signs and symptoms of bleeding SKIN: Pressure ulcer prevention per facility protocol Specialty mattress as needed ORTHO/REHAB Continue PT/OT PRN: MEDICATIONS Tylenol 650 mg po every 4 hrs for fever zofran 4 mg IV every 6 hrs for n/v Hydralazine 5 mg IV every 4 hrs systolic pressure > 160 bowel regiment: lactulose 20 gm PO BID PRN constipation Supportive measures: Continue GI and DVT prophylaxis Disposition: Pending improvement in clinical condition All questions answered time spent: > 35 min MOLLY ROSARIO MD October 10, 2024 11:08
[2024-10-10] MEDS: PoTASSium chloRIDE 20MEQ ER 20 MEQ ERTAB PO ONE (11:30)
--- NOTE | 2024-10-10 15:05 | NUR ---
[facility] Pt currently on 10L [place]. Spoke to daughter Ritu Persaud [phone]. 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 Pt lives with daughter Ritu, has not had home health, or been to skilled facility. Anticipates discharge is for home. Addendum: 10/10/24 at 1509 by FADUMO WILBURN RN CM Amended: Links added.
[2024-10-10] MEDS: HEParin 5,000 UNIT VIAL IV PRN (17:21)
--- NOTE | 2024-10-10 22:45 | CONS ---
SUBJECTIVE: The patient is a 54-year-old male, Holiness, who presented to an outside facility with V-tach. He converted with lidocaine and during this episode, he was normotensive. Once the patient converted, it was noted that the patient had an ST elevation NM and despite it being nearly 24 hours after the event, he did have a heart catheterization and the culprit right posterolateral coronary artery underwent a successful angioplasty. The patient, however, had severe 3-vessel coronary artery disease. His echocardiogram revealed 30-35% ejection fraction and moderate mitral regurgitation. Cardiovascular Surgery was consulted for possible coronary artery bypass grafting. OBJECTIVE: GENERAL: The patient is a pleasant middle-aged male, in no apparent distress lying in bed on nasal cannula oxygen. VITAL SIGNS: His vital signs revealed temperature 98.8. Blood pressure is 118/77. Pulse is 89, respirations 20, oxygen saturations are 98%. HEENT: Exam reveals normocephalic, atraumatic. Extraocular movements are intact. He has nasal cannula oxygen prongs under his nose. HEART: S1 and S2. He has a faint murmur that radiates to his left axilla. LUNGS: Unlabored at rest on oxygen. ABDOMEN: Reveals positive bowel sounds and looks flat. EXTREMITIES: Perfusion in his lower extremities appears adequate. LABORATORY DATA: His hemoglobin is 11.8. ASSESSMENT AND PLAN: Three-system coronary artery disease with depressed ejection fraction, status post ST-elevation NM. After reviewing his coronary angiogram, the patient has extremely small LAD (approximately 1 mm in size). His second obtuse marginal coronary artery shows the left to left collaterals and also appears very small. The posterior descending artery has a mid lesion, but distally may be the only graftable vessel. Given the size of his coronary arteries, the patient may be a better candidate for possible percutaneous revascularization. TID: [id number] RECEIPT: [id number]
[2024-10-11] VITALS (10 sets, daily range): BP systolic 112–120; BP diastolic 67–78; PULSE 69–85; RESP 17–23; TEMP 97.2–99.3; O2SAT 93–100
[2024-10-11 06:13] LABS: ALBUMIN 0.9 g/dL (3.5-5.0); BILIRUBIN,TOTAL 0.2 mg/dL (0.2-1.0); CREATININE 0.5 mg/dL (0.5-1.3); MAGNESIUM 1.2 mg/dL (1.80-2.40); TOTAL PROTEIN, SERUM 5.9 g/dL (6.0-8.3)
[2024-10-11 06:23] LABS: POTASSIUM 2.2 mmol/L (3.5-5.1)
--- NOTE | 2024-10-11 06:35 | NUR ---
DR OHARA MADE AWARE OF ABNORMAL LABS THIS AM, STATES TO NOTIFY OF REPEAT RESULTS
[2024-10-11 06:59] LABS: HEMATOCRIT 35.3 % (42-54); MEAN CORPUSCULAR HEMOGLOBIN 30.2 pg (27.0-33.0); MEAN CORPUSCULAR VOLUME 88.7 fL (79-99); RED BLOOD CELL COUNT(AUTO) 3.98 MIL/uL (4.50-6.20); RED CELL DISTRIBUTION WIDTH 11.9 % (11.0-15.5); WHITE BLOOD COUNT (AUTO) 7.8 K/uL (4.8-10.8)
[2024-10-11 07:09] LABS: CREATININE 0.6 mg/dL (0.5-1.3); POTASSIUM 3.2 mmol/L (3.5-5.1)
[2024-10-11] MEDS: MAGNESIUM 2GM PREMIX 50ML 50 ML IV SCH (08:25)
--- NOTE | 2024-10-11 15:00 | PN ---
Cardiology Progress Note Date of Service: 10/11/2024 Attending Courtesy Booth Cashier: Dr. Dom Garces Primary Courtesy Booth Cashier: Dr. Tiago Henry Reason for Consult: ACS-STEMI Problem List: -ACS-STEMI s/p PCI with PTCA to the RPLB done on 10/09/[address] 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 The patient complains of pleuritic chest pain that develops when he coughs, but denies any cardiac chest pain or pressure, palpitations, or shortness of breath. As per the nurse, there were no overnight events. Vitals/Labs Vital Signs Date Time Temp Pulse Resp B/P (MAP) Pulse Ox O2 Delivery O2 Flow Rate FiO2 10/11/24 11:55 73 20 N/Cannula Oximizer Hi LPM 6.0 10/11/24 11:00 99.3 112/75 99 10/11/24 08:17 60 General: Awake and alert x 3. No acute distress. HEENT: Normocephalic, atraumatic. EOMI. Oral mucosa was moist. Neck: No masses, JVD, or carotid bruits noted. Lungs: No respiratory distress. Symmetric chest movement. Bilateral air entry. Crackles noted to the bilateral lower lung nickerson. Cardiac: Regular rate. Normal S1 and S2, +S4. No other murmurs, rubs, or gallops noted. Abdomen: Soft, nontender, nondistended. No organomegaly. Normal active bowel sounds x 4 quadrants. Extremities: No edema, clubbing, or cyanosis. +2 pulses noted throughout. Neuro: Cranial nerves II-XII are grossly intact. No focal deficits identified. Laboratory Tests 10/11/24 05:44 10/11/24 06:46 Assessment: -ACS-STEMI s/p PCI with PTCA to the RPLB done on 10/09/[address] 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 ACS-STEMI s/p PCI with PTCA to the RPLB done on 10/09/[address] Llanes -The [facility] also identified residual 2V+branch CAD (LAD, D1, LCx, Ramus, OM1, RPDA), for which the patient was referred to CT surgery for CABG, but was deemed not to be a candidate due to poor targets. -As a result, we will reload the patient with clopidogrel 300 mg x 1, followed by 75 mg daily, and he will continue on aspirin 81 mg daily, IV heparin infusion (ACS protocol), metoprolol tartrate 12.5 mg BID, and atorvastatin 40 mg QHS. The patient will remain on DAPT for a minimum of 1 year as per ACS guidelines. -We will tentatively schedule the patient to undergo a staged PCI of the CAD in the LAD and LCx, but he must first be free of bacteremia before we schedule the procedure. 2. 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 -In the meantime, the patient will continue on metoprolol tartrate 12.5 mg BID. -We will reassess the patient's candidacy for GDMT with ACEI/ARB/ARNI therapy once he is euvolemic. -Please record strict I/O's, daily weights, and restrict fluids to less than 2.0L/day. This case was discussed with my Supervising Physician, Dr. Dom Garces, and the above mentioned plan was formulated and agreed upon. -Progress Note written by Yobany Morrison, MSN, ADMINISTRATIVE ASSISTANT DATA ENTRY, AGACNP- YOBANY MORRISON MANAGER DEVELOPMENTAL October 11, 2024 15:00
--- NOTE | 2024-10-11 15:34 | PN ---
[facility] PROGRESS NOTE Date of Service: October 11, 2024 Time of Service: 15:18 SUBJECTIVE: [ ] This is a 54-year-old male with underlying history of type 2 diabetes mellitus, chronic alcoholism, who presented as a transfer from [facility] for further management of late presentation of inferior ST-elevation [place] with ventricular tachycardia. Patient stated that about five days ago prior to presenting to the ER, he started having mild dizziness, dyspnea and left-sided shoulder pain radiating to the scapula. Symptoms were intermittent and patient noticed that he was having progressive dyspnea on exertion. Patient saw his primary care physician on 10/07/2024 where he was found to have blood glucose greater than 400 and he received some insulin as outpatient. He presented to the [facility] ER with recurrence of left-sided shoulder discomfort with dyspnea and dizziness. Upon arrival to the emergency department, EKG demonstrated regular wide complex tachycardia, with Q-waves in lead three and AVF with ST depressions in V4 and V6 with a heart rate of 150. Patient was also noted to be hypoxic with of 77%, blood pressure of 96/63 and troponin was noted to be at 5209--> 6062--> 6885. Patient underwent CT PE in [facility] which showed possible filling defects segmental and subsegmental branches concerning for pulmonary embolism. Patient was also noted to have moderate bilateral pleural effusion with patchy consolidation of perihilar and lower lobes with septal thickening and 4 mm granuloma of the left lung. Patient was admitted to ICU in [facility] and CT chest was reviewed by critical care physician there who stated that there was no signs of pulmonary embolism. [place] [facility] and underwent cardiac catheterization given concern ACS. On cardiac catheterization, patient was found to have culprit lesion, 100% occluded right posterolateral branch for which, patient underwent balloon angioplasty. Patient was also found to have multivessel coronary artery disease with proximal LAD 70% stenosis, 80% mid diagonal stenosis, 70% proximal ramus, 80% mid circumflex stenosis before OM, 50% stenosis involving the circumflex after OM, 100% OM stenosis with filling collaterals and LVEDP was noted to be at 31. 5/10 patient is seen and examined at bedside, alert oriented x3, he is on 10 L via nasal cannula, on heparin drip, denies chest pain, denies shortness a breath, no nausea, no vomiting. Blood pressure 105/68, heart rate of 70. Afebrile. Hemoglobin 10.6, hematocrit 31.1. ABG shows pH 7.46, pCO2 34, PO2 59.6. Toxicology screen positive for benzodiazepines. Chest x-ray shows stable exam 10/10 54-year-old male with underlying history of type 2 diabetes mellitus, chronic alcoholism, who presented as a transfer from [facility] for further management of late presentation of inferior ST-elevation [place] with ventricular tachycardia. Status post cardiac catheterization with findings of multivessel coronary artery disease, 10/08/2024, by Dr. Llanes Status post balloon angioplasty of 100% occluded ostial right posterolateral branch by Dr. Llanes, 10/08/2024. Patient now with Acute hypoxemic respiratory failure, Acute on chronic systolic heart failure exacerbation, suspect possible underlying developing community- acquired pneumonia. During my visit patient remains on supplemental oxygen via nasal cannula 10 L, getting IV antibiotics, he feels less short of breath, less productive cough. He remains on heparin drip. He is currently off lidocaine for 24 hours. No recurrent ventricular arrhythmias. Pending evaluation by Cardiothoracic surgeon. 10/11 patient seen at bedside, no acute events overnight. CV surgery does not recommend CABG as he is not good candidate, recommending a possible percutaneous catheterization with intervention to restore flow, we will follow up with Cardiology recommendations regarding attempted intervention versus optimizing medical management. Hemoglobin improved from 11.8 up to 12.0, potassium low at 3.2, we will be repleted according to protocol. Repeat blood culture positive in 1/2 bottles, we will follow up with speciation, 1st blood cultures were no growth, this is likely a contaminant. Patient has been afebrile, hemodynamically stable saturating well on 2 L nasal cannula. REVIEW OF SYSTEMS 12 point review of systems negative unless noted in HPI PHYSICAL EXAM GENERAL APPEARANCE: The patient is awake, alert, and oriented, in no acute cardiopulmonary distress. NEUROLOGICAL: Cranial nerves II-XII grossly intact. Motor is 5/5 in bilateral upper and lower extremities proximal to distal. No sensory deficits. HEENT: Face is symmetric. Pupils are equal and reactive. Extraocular movements are intact. NECK: Supple. No JVD. No thyromegaly. No submental, submandibular, pre- /postauricular, occipital or supraclavicular lymphadenopathy. CHEST: Normal chest expansion. No Telemetry. LUNGS: crackles noted of the bilateral lung bases CARDIOVASCULAR: Regular. S1 and S2 normal. No appreciable rubs, murmurs or gallops. ABDOMEN: Soft, nontender, and nondistended. There is no rebound, voluntary guarding, or rigidity. : Deferred. No Alexandra. EXTREMITIES: Non-edematous and not cyanotic. No clubbing. Good capillary refill. SKIN: No skin breakdown. Vital Signs (last 8hr) Date Time Temp Pulse Resp B/P (MAP) Pulse Ox O2 Delivery O2 Flow Rate FiO2 10/11/24 11:55 73 20 N/Cannula Oximizer Hi LPM 6.0 10/11/24 11:00 99.3 69 18 112/75 99 Nasal Cannula 2.0 10/11/24 08:17 100 N/C Oxymizer Hi LPM* 8 60 10/11/24 07:45 77 20 N/Cannula Oximizer Hi LPM 10.0 60 LABS: Laboratory: Test 10/11/24 13:02 10/11/24 11:31 10/11/24 06:47 10/11/24 06:46 Range/Units Activated Partial Thromboplast Time 47.0 #H 26.3-35.5 SEC Whole Blood Glucose 131 H 70-110 MG/DL Magnesium Level 1.80 1.80-2.40 mg/dL White Blood Count 7.8 4.8-10.8 K/uL Red Blood Count 3.98 L 4.50-6.20 MIL/uL Hemoglobin 12.0 L 14.0-18.0 g/dL Hematocrit 35.3 L 42-54 % Mean Corpuscular Volume 88.7 79-99 fL Mean Corpuscular Hemoglobin 30.2 27.0-33.0 pg Mean Corpuscular Hemoglobin Concent 34.0 32.0-36.0 g/dL Red Cell Distribution Width 11.9 11.0-15.5 % Platelet Count 207 130-400 K/uL Mean Platelet Volume 9.6 7.5-10.5 fL Nucleated Red Blood Cells 0.0 0.0-0.19 % Sodium Level 141 136-145 mmol/L Potassium Level 3.2 L 3.5-5.1 mmol/L Chloride Level 105 101-111 mmol/L Carbon Dioxide Level 30 21-32 mmol/L Blood Urea Nitrogen 10 7-18 mg/dL Creatinine 0.6 0.5-1.3 mg/dL Glomerular Filtration Rate Calc 115 >90 mL/min Random Glucose 87 70-105 mg/dL Total Calcium 7.7 L 8.5-10.1 mg/dL Test 10/11/24 05:44 10/10/24 15:57 Range/Units Total Bilirubin 0.2 0.2-1.0 mg/dL Aspartate Amino Transf (AST/SGOT) 16 10-37 U/L Alanine Aminotransferase (ALT/SGPT) 25 12-78 U/L Alkaline Phosphatase 53 50-136 U/L Total Protein 5.9 L 6.0-8.3 g/dL Albumin 0.9 L 3.5-5.0 g/dL Bedside Glucose Comment Notified Nurse Current Medications Medications (Trade) Dose Ordered Sig/William Route PRN Reason Start Time Stop Time Status Last Admin Dose Admin Acetaminophen (TYLenol 325MG TAB) 650 mg Q6H PRN PO MILD PAIN (1-3) 10/08/24 18:00 11/07/24 17:59 10/09/24 17:00 650 MG Aspirin (Aspirin 81mg Chew Tab) 81 mg DAILY PO 10/09/24 09:00 10/08/24 16:47 DC Aspirin (Aspirin 81mg Chew Tab) 81 mg DAILY PO 10/09/24 09:00 11/08/24 08:59 10/11/24 08:24 81 MG Atorvastatin Calcium (LIPItor 40MG) 40 mg HS PO 10/08/24 21:00 11/07/24 20:59 10/10/24 20:38 40 MG Benzonatate (Tessalon 100mg Caps) 200 mg Q8H PRN PO COUGH 10/09/24 12:00 11/08/24 11:59 10/10/24 18:07 200 MG Calcium Gluconate (Calcium Gluc 1gm Vial) 1 gm AD PRN IV PROTOCOL 10/09/24 02:30 11/08/24 02:29 10/09/24 07:22 1 GM Ceftriaxone Sodium (ROCEphine 1G INJ) 1 gm Q24H IVPB 10/09/24 04:00 10/09/24 11:21 DC 10/09/24 04:28 1 GM Ceftriaxone Sodium (Rocephin 2gm Inj) 2 gm Q24H IVPB 10/10/24 04:00 10/20/24 03:59 10/11/24 04:28 2 GM Chlordiazepoxide HCl (LIBrium 25 MG CAP) 25 mg Q4H PRN PO ALCOHOL WITHDRAWAL PROTOCOL 10/08/24 18:00 10/15/24 17:59 Diazepam (VALium 5 MG/ML 2 ML SYG) 5 mg Q4H PRN IVP ALCOHOL WITHDRAWAL PROTOCOL 10/08/24 22:30 10/15/24 22:29 Diazepam (VALium 5 MG/ML 2 ML SYG) 10 mg Q4H PRN IVP ALCOHOL WITHDRAWAL PROTOCOL 10/08/24 18:30 10/08/24 20:32 DC Doxycycline Hyclate 250 ml @ 125 mls/hr Q12H IV 10/09/24 04:00 10/19/24 03:59 10/11/24 04:59 125 MLS/HR Folic Acid (FOLic ACID 1 MG TABLET) 1 mg DAILY PO 10/09/24 09:00 10/11/24 09:01 DC 10/11/24 08:24 1 MG Furosemide (LASix 20MG VIAL) 20 mg Q12H IV 10/08/24 17:30 11/07/24 17:29 10/11/24 08:24 20 MG Guaifenesin/ Dextromethorphan (RobiTUSSin DM 200/20MG 10ML) 10 ml Q4H PRN PO COUGH 10/09/24 16:30 11/08/24 16:29 10/10/24 13:48 10 ML Heparin Sodium (Porcine) (HEParin 5,000 UNIT VIAL) *calculation based on ACTUAL B... AD PRN IV HEPARIN PROTOCOL 10/08/24 17:30 11/07/24 17:29 10/10/24 17:21 4,000 UNIT Heparin Sodium/ Dextrose 250 ml @ 0 mls/hr Q6H IV 10/08/24 17:30 11/07/24 17:29 10/11/24 10:32 16.61 MLS/HR Insulin Glargine (LANtus 100 UNITS/ML 10 ML VIAL) 10 units DAILY SQ 10/09/24 09:00 10/09/24 11:26 DC 10/09/24 08:21 10 UNITS Insulin Glargine (LANtus 100 UNITS/ML 10 ML VIAL) 25 units BID SQ 10/09/24 21:00 11/08/24 08:59 10/11/24 08:40 25 UNITS Insulin Human Regular (humuLIN R 100 UNIT/ML 3ML) INSULIN SLIDING SCAL... ACHS SQ 10/08/24 21:00 11/07/24 20:59 10/10/24 20:47 5 UNIT Lidocaine HCl/ Dextrose 250 ml @ 0 mls/hr PROTOCOL IV 10/08/24 16:30 10/09/24 11:34 DC 10/08/24 23:48 15 MLS/HR Lorazepam (AtiVAN) 1 mg Q4H PRN IVP ALCOHOL WITHDRAWAL PROTOCOL 10/08/24 18:00 10/08/24 18:06 DC Magnesium Sulfate 50 ml @ 0 mls/hr PROTOCOL IV 10/09/24 09:30 10/10/24 11:16 DC Magnesium Sulfate 50 ml @ 0 mls/hr PROTOCOL IV 10/10/24 11:30 11/09/24 11:29 10/11/24 08:25 25 MLS/HR Magnesium Sulfate 50 ml @ 0 mls/hr PROTOCOL PRN IV AD 10/08/24 19:00 10/09/24 09:30 DC 10/09/24 04:34 25 MLS/HR Metoprolol Tartrate (loprESSOR) 12.5 mg BID PO 10/08/24 21:00 11/07/24 20:59 10/11/24 08:23 12.5 MG Morphine Sulfate (morPHINE 2MG SYG) 2 mg Q6H PRN IVP SEVERE PAIN (7-10) 10/08/24 18:00 10/15/24 17:59 Multivitamins Therapeutic (Multivitamin Tablet) 1 tab DAILY PO 10/09/24 09:00 11/08/24 08:59 10/11/24 08:24 1 TAB Nitroglycerin/ Dextrose 0 ml @ 0 mls/hr PROTOCOL PRN IV [id number] ORDERS 10/08/24 16:30 11/07/24 16:29 Ondansetron HCl (zoFRAN 4MG INJ) 4 mg Q4H PRN IVP NAUSEA/VOMITING 10/08/24 16:30 11/07/24 16:29 Ondansetron HCl (zoFRAN 4MG INJ) 4 mg Q6H PRN IVP NAUSEA/VOMITING 10/08/24 18:00 11/07/24 17:59 Pantoprazole Sodium (PROTonix 40MG INJ) 40 mg DAILY IVP 10/09/24 09:00 11/08/24 08:59 10/11/24 08:24 40 MG Pharmacy Profile Note (Pharmacy Communication) 1 each PROTOCOL PRN MISC ETOH Withdrawal Score changes 10/08/24 18:00 10/15/24 17:59 Potassium Chloride 100 ml @ 100 mls/hr AD PRN IV POTASSIUM PROTOCOL 10/09/24 10:30 11/08/24 10:29 Potassium Chloride (K-Dur/Klor-Con 20meq) 20 meq AD PRN PO POTASSIUM PROTOCOL 10/09/24 10:30 11/08/24 10:29 10/11/24 10:24 20 MEQ Potassium Chloride (KCl 10% Elixir 20meq/15ml) 20 meq AD PRN PO POTASSIUM PROTOCOL 10/09/24 10:30 11/08/24 10:29 Temazepam (restORIL 30 MG CAP) 30 mg HS PRN PO INSOMNIA/SLEEP 10/08/24 16:30 10/15/24 16:29 10/09/24 20:52 30 MG Thiamine HCl (Vitamin B-1) 100 mg DAILY PO 10/09/24 09:00 11/08/24 08:59 10/11/24 08:24 100 MG DIAGNOSTICS / RADIOLOGY: [ ] ASSESSMENT: Inferior STEMI with late presentation, POA Ventricular tachycardia, status post initiation of lidocaine drip, POA Status post cardiac catheterization with findings of multivessel coronary artery disease, 10/08/2024, by Dr. Llanes Status post balloon angioplasty of 100% occluded ostial right posterolateral branch by Dr. Llanes, 10/08/2024 Acute hypoxemic respiratory failure, POA Acute on chronic systolic heart failure exacerbation, POA Mild anemia, POA Suspected cardiogenic pulmonary edema, POA r/o any developing community acquired Pneumonia, POA Pulmonary embolism ruled out by evaluation by critical care service in [facility], POA Mild lactic acidosis, POA Poorly controlled type 2 diabetes mellitus, POA History of chronic alcoholism, POA Holiness, POA PLAN: Patient remains admitted to the PCU Continue alarm security or surveillance monitor Continue the patient on Oxymizer Continue the patient on heparin drip Continue the patient on broad-spectrum antibiotic Continue to follow Cardiology input and recommendations as well input and recommendation Pending evaluation by Cardiothoracic surgeon. Disposition: Follow up cardiology, continue medical optimization TRUNG OHARA MD October 11, 2024 15:34
[2024-10-11] MEDS: cloPIDOgrel 300MG TAB PO ONE (18:23)
[2024-10-12] VITALS (15 sets, daily range): BP systolic 107–131; BP diastolic 62–78; PULSE 68–97; RESP 18–32; TEMP 97.2–98.8; O2SAT 93–98
[2024-10-12 03:41] LABS: HEMATOCRIT 34.7 % (42-54); MEAN CORPUSCULAR VOLUME 88.3 fL (79-99); RED BLOOD CELL COUNT(AUTO) 3.93 MIL/uL (4.50-6.20); RED CELL DISTRIBUTION WIDTH 11.9 % (11.0-15.5); WHITE BLOOD COUNT (AUTO) 8.2 K/uL (4.8-10.8)
[2024-10-12 03:52] LABS: CREATININE 0.7 mg/dL (0.5-1.3); MAGNESIUM 1.9 mg/dL (1.80-2.40); POTASSIUM 3.5 mmol/L (3.5-5.1)
[2024-10-12] MEDS: cloPIDOgrel 75MG TAB PO SCH (09:01)
--- NOTE | 2024-10-12 09:37 | HMCIMG ---
Exam Type: CHEST 1VW Clinical Information: chf Comparison: October 09, 2024 Findings: Ill-defined infiltrates of both lungs are seen consistent with bilateral pneumonia. . The heart is normal in size. The bony and soft tissue structures show no worrisome pathology. IMPRESSION: Findings consistent with pneumonia. Follow-up is advised. When compared with prior exam, the infiltrates appear to be enlarging.
--- NOTE | 2024-10-12 11:28 | PN ---
Cardiology Progress Note Date of Service: 10/12/2024 Attending Sandwich Artist: Dr. Dom Garces Primary Sandwich Artist: Dr. Tiago Henry Reason for Consult: ACS-STEMI Problem List: -ACS-STEMI s/p PCI with PTCA to the RPLB done on 10/09/[address] Llanes -Residual 2V+branch CAD (LAD, D1, LCx, Ramus, OM1, RPDA) identified on LHC done 10/09/2024, referred for CABG, but deemed a poor candidate due to vessel caliber -VT s/p chemical cardioversion with IV lidocaine -Acute hypoxemic respiratory failure, currently on NC -Elevated D Dimer, [place] concerning for [place] -Bacteremia (gram positive cocci in clusters) -UTI -HFmrEF (LVEF: 40-45% by echo done 10/09/2024) -HLP -DM2 -ETOH abuse -Normocytic normochromic anemia -Religion Subjective: This is a 54y/o male who was seen and evaluated at the bedside today. The patient continues to complain of pleuritic chest pain that develops when he coughs, but denies any cardiac chest pain or pressure, palpitations, or shortness of breath. As per the nurse, there were no overnight events. Vitals/Labs Vital Signs Date Time Temp Pulse Resp B/P (MAP) Pulse Ox O2 Delivery O2 Flow Rate FiO2 10/12/24 07:48 98.8 93 20 107/65 92 Nasal Cannula 5.0 10/12/24 06:52 60 General: Awake and alert. No acute distress. Ill appearing. HEENT: Normocephalic, atraumatic. EOMI. Oral mucosa was moist. Neck: No masses, JVD, or carotid bruits noted. Lungs: No respiratory distress. Symmetric chest movement. Bilateral air entry. Diminished breath sounds noted throughout with fine crackles noted to the bilateral lower lung nickerson. Cardiac: Regular rate. Normal S1 and S2, +S4. No other murmurs, rubs, or gallops noted. Abdomen: Soft, nontender, nondistended. No organomegaly. Normal active bowel sounds x 4 quadrants. Extremities: No edema, clubbing, or cyanosis. +2 pulses noted throughout. Neuro: Cranial nerves II-XII are grossly intact. No focal deficits identified. Laboratory Tests 10/12/24 03:34 Assessment: -ACS-STEMI s/p PCI with PTCA to the RPLB done on 10/09/[address] Llanes -Residual 2V+branch CAD (LAD, D1, LCx, Ramus, OM1, RPDA) identified on [facility] done 10/09/2024, referred for CABG, but deemed a poor candidate due to vessel caliber -VT s/p chemical cardioversion with IV lidocaine -Acute hypoxemic respiratory failure, currently on NC -Elevated D Dimer, CTA concerning for PE [place] -Bacteremia (gram positive cocci in clusters) -UTI -HFmrEF (LVEF: 40-45% by echo done 10/09/2024) -HLP -DM2 -ETOH abuse -Normocytic normochromic anemia -Religion Plan: 1. ACS-STEMI s/p PCI with PTCA to the RPLB done on 10/09/[address] Llanes -The [facility] also identified residual 2V+branch CAD (LAD, D1, LCx, Ramus, OM1, RPDA), for which the patient was referred to CT surgery for CABG, but was deemed not to be a candidate due to poor targets. -We will tentatively schedule the patient to undergo a staged PCI of the CAD in the LAD and LCx, but we will first optimize his respiratory status and ensure he is free of bacteremia before we schedule the procedure. Repeat blood cultures have been ordered. -In the meantime, he will continue on goal directed ACS therapy which includes aspirin 81 mg daily, clopidogrel 75 mg daily, IV heparin infusion (ACS protocol), metoprolol tartrate 12.5 mg BID, and atorvastatin 40 mg QHS. The patient will remain on DAPT for a minimum of 1 year as per ACS guidelines. 2. HFmrEF (LVEF: 40-45% by echo done 10/09/2024) -24H urine output: 3000 mL -BNP: 709, admission: 484 -Due to the concern of segmental PE on the CTA done [place] [facility], we will repeat a CTA chest to assess for an underlying PE. If a PE is effectively ruled out, then we will increase furosemide to 40 mg IV BID in order to optimize diuresis, but if the CTA confirms a PE, then depending on the clot burden, we will either continue on the current regimen or hold diuretic therapy altogether. -In the meantime, the patient will continue on metoprolol tartrate 12.5 mg BID. -We will reassess the patient's candidacy for GDMT with ACEI/ARB/ARNI therapy once he is euvolemic. -Please record strict I/O's, daily weights, and restrict fluids to less than 2.0L/day. This case was discussed with my Supervising Physician, Dr. Dom Garces, and the above mentioned plan was formulated and agreed upon. -Progress Note written by Yobany Morrison, MSN, VENEER MATCHER, AGACNP-BC YOBANY MORRISON NP October 12, 2024 11:28
--- NOTE | 2024-10-12 13:54 | PN ---
[facility] PROGRESS NOTE Date of Service: October 12, 2024 Time of Service: 13:50 SUBJECTIVE: [ ] This is a 54-year-old male with underlying history of type 2 diabetes mellitus, chronic alcoholism, who presented as a transfer from [facility] for further management of late presentation of inferior ST-elevation MA with ventricular tachycardia. Patient stated that about five days ago prior to presenting to the ER, he started having mild dizziness, dyspnea and left-sided shoulder pain radiating to the scapula. Symptoms were intermittent and patient noticed that he was having progressive dyspnea on exertion. Patient saw his primary care physician on 10/07/2024 where he was found to have blood glucose greater than 400 and he received some insulin as outpatient. He presented to the [facility] ER with recurrence of left-sided shoulder discomfort with dyspnea and dizziness. Upon arrival to the emergency department, EKG demonstrated regular wide complex tachycardia, with Q-waves in lead three and AVF with ST depressions in V4 and V6 with a heart rate of 150. Patient was also noted to be hypoxic with of 77%, blood pressure of 96/63 and troponin was noted to be at 5209--> 6062--> 6885. Patient underwent CT PE in [facility] which showed possible filling defects segmental and subsegmental branches concerning for pulmonary embolism. Patient was also noted to have moderate bilateral pleural effusion with patchy consolidation of perihilar and lower lobes with septal thickening and 4 mm granuloma of the left lung. Patient was admitted to ICU in [facility] and CT chest was reviewed by critical care physician there who stated that there was no signs of pulmonary embolism. Patient was transferred to [facility] and underwent cardiac catheterization given concern ACS. On cardiac catheterization, patient was found to have culprit lesion, 100% occluded right posterolateral branch for which, patient underwent balloon angioplasty. Patient was also found to have multivessel coronary artery disease with proximal LAD 70% stenosis, 80% mid diagonal stenosis, 70% proximal ramus, 80% mid circumflex stenosis before OM, 50% stenosis involving the circumflex after OM, 100% OM stenosis with filling collaterals and LVEDP was noted to be at 31. 5/10 patient is seen and examined at bedside, alert oriented x3, he is on 10 L via nasal cannula, on heparin drip, denies chest pain, denies shortness a breath, no nausea, no vomiting. Blood pressure 105/68, heart rate of 70. Afebrile. Hemoglobin 10.6, hematocrit 31.1. ABG shows pH 7.46, pCO2 34, PO2 59.6. Toxicology screen positive for benzodiazepines. Chest x-ray shows stable exam 10/10 54-year-old male with underlying history of type 2 diabetes mellitus, chronic alcoholism, who presented as a transfer from [facility] for further management of late presentation of inferior ST-elevation MA with ventricular tachycardia. Status post cardiac catheterization with findings of multivessel coronary artery disease, 10/08/2024, by Dr. Llanes Status post balloon angioplasty of 100% occluded ostial right posterolateral branch by Dr. Llanes, 10/08/2024. Patient now with Acute hypoxemic respiratory failure, Acute on chronic systolic heart failure exacerbation, suspect possible underlying developing community- acquired pneumonia. During my visit patient remains on supplemental oxygen via nasal cannula 10 L, getting IV antibiotics, he feels less short of breath, less productive cough. He remains on heparin drip. He is currently off lidocaine for 24 hours. No recurrent ventricular arrhythmias. Pending evaluation by Cardiothoracic surgeon. 10/11 patient seen at bedside, no acute events overnight. CV surgery does not recommend CABG as he is not good candidate, recommending a possible percutaneous catheterization with intervention to restore flow, we will follow up with Cardiology recommendations regarding attempted intervention versus optimizing medical management. Hemoglobin improved from 11.8 up to 12.0, potassium low at 3.2, we will be repleted according to protocol. Repeat blood culture positive in 1/2 bottles, we will follow up with speciation, 1st blood cultures were no growth, this is likely a contaminant. Patient has been afebrile, hemodynamically stable saturating well on 2 L nasal cannula. 10/12 patient seen at bedside, no acute events overnight. He has been afebrile, hemodynamically stable saturating well on 5 L nasal cannula, we will continue to wean as able. Cardiology recommending CTA with PE protocol to rule out PE. Hemoglobin decreased from 12.0 down to 11.8. Repeat blood culture positive in 1/2 bottles with coagulase negative Staphylococcus warneri consistent with a contaminant. We will follow up with Cardiology recommendations REVIEW OF SYSTEMS 12 point review of systems negative unless noted in HPI PHYSICAL EXAM GENERAL APPEARANCE: The patient is awake, alert, and oriented, in no acute cardiopulmonary distress. NEUROLOGICAL: Cranial nerves II-XII grossly intact. Motor is 5/5 in bilateral upper and lower extremities proximal to distal. No sensory deficits. HEENT: Face is symmetric. Pupils are equal and reactive. Extraocular movements are intact. NECK: Supple. No JVD. No thyromegaly. No submental, submandibular, pre- /postauricular, occipital or supraclavicular lymphadenopathy. CHEST: Normal chest expansion. No Telemetry. LUNGS: crackles noted of the bilateral lung bases CARDIOVASCULAR: Regular. S1 and S2 normal. No appreciable rubs, murmurs or gallops. ABDOMEN: Soft, nontender, and nondistended. There is no rebound, voluntary guarding, or rigidity. : Deferred. No Alexandra. EXTREMITIES: Non-edematous and not cyanotic. No clubbing. Good capillary refill. SKIN: No skin breakdown. Vital Signs (last 8hr) Date Time Temp Pulse Resp B/P (MAP) Pulse Ox O2 Delivery O2 Flow Rate FiO2 10/12/24 11:55 97.9 95 20 131/62 93 Nasal Cannula 5.0 10/12/24 07:48 98.8 93 20 107/65 92 Nasal Cannula 5.0 10/12/24 06:58 69 25 N/Cannula Oximizer Hi LPM 4.0 10/12/24 06:52 68 26 60 LABS: Laboratory: Test 10/12/24 12:10 10/12/24 11:12 10/12/24 03:34 10/11/24 05:44 Range/Units Activated Partial Thromboplast Time 60.6 H 26.3-35.5 SEC Whole Blood Glucose 171 #H 70-110 MG/DL White Blood Count 8.2 4.8-10.8 K/uL Red Blood Count 3.93 L 4.50-6.20 MIL/uL Hemoglobin 11.8 L 14.0-18.0 g/dL Hematocrit 34.7 L 42-54 % Mean Corpuscular Volume 88.3 79-99 fL Mean Corpuscular Hemoglobin 30.0 27.0-33.0 pg Mean Corpuscular Hemoglobin Concent 34.0 32.0-36.0 g/dL Red Cell Distribution Width 11.9 11.0-15.5 % Platelet Count 254 130-400 K/uL Mean Platelet Volume 9.3 7.5-10.5 fL Nucleated Red Blood Cells 0.0 0.0-0.19 % Sodium Level 140 136-145 mmol/L Potassium Level 3.5 3.5-5.1 mmol/L Chloride Level 106 101-111 mmol/L Carbon Dioxide Level 32 21-32 mmol/L Blood Urea Nitrogen 11 7-18 mg/dL Creatinine 0.7 0.5-1.3 mg/dL Glomerular Filtration Rate Calc 110 >90 mL/min Random Glucose 131 #H 70-105 mg/dL Total Calcium 8.2 L 8.5-10.1 mg/dL Magnesium Level 1.90 1.80-2.40 mg/dL B-Type Natriuretic Peptide 709 H 0-100 pg/mL Total Bilirubin 0.2 0.2-1.0 mg/dL Aspartate Amino Transf (AST/SGOT) 16 10-37 U/L Alanine Aminotransferase (ALT/SGPT) 25 12-78 U/L Alkaline Phosphatase 53 50-136 U/L Total Protein 5.9 L 6.0-8.3 g/dL Albumin 0.9 L 3.5-5.0 g/dL Test 10/10/24 15:57 Range/Units Bedside Glucose Comment Notified Nurse Current Medications Medications (Trade) Dose Ordered Sig/William Route PRN Reason Start Time Stop Time Status Last Admin Dose Admin Acetaminophen (TYLenol 325MG TAB) 650 mg Q6H PRN PO MILD PAIN (1-3) 10/08/24 18:00 11/07/24 17:59 10/09/24 17:00 650 MG Aspirin (Aspirin 81mg Chew Tab) 81 mg DAILY PO 10/09/24 09:00 10/08/24 16:47 DC Aspirin (Aspirin 81mg Chew Tab) 81 mg DAILY PO 10/09/24 09:00 11/08/24 08:59 10/12/24 09:01 81 MG Atorvastatin Calcium (LIPItor 40MG) 40 mg HS PO 10/08/24 21:00 11/07/24 20:59 10/11/24 21:36 40 MG Benzonatate (Tessalon 100mg Caps) 200 mg Q8H PRN PO COUGH 10/09/24 12:00 11/08/24 11:59 10/10/24 18:07 200 MG Calcium Gluconate (Calcium Gluc 1gm Vial) 1 gm AD PRN IV PROTOCOL 10/09/24 02:30 11/08/24 02:29 10/09/24 07:22 1 GM Ceftriaxone Sodium (ROCEphine 1G INJ) 1 gm Q24H IVPB 10/09/24 04:00 10/09/24 11:21 DC 10/09/24 04:28 1 GM Ceftriaxone Sodium (Rocephin 2gm Inj) 2 gm Q24H IVPB 10/10/24 04:00 10/20/24 03:59 10/12/24 03:17 2 GM Chlordiazepoxide HCl (LIBrium 25 MG CAP) 25 mg Q4H PRN PO ALCOHOL WITHDRAWAL PROTOCOL 10/08/24 18:00 10/15/24 17:59 Clopidogrel Bisulfate (plaVIX 75MG) 75 mg DAILY PO 10/12/24 09:00 11/11/24 08:59 10/12/24 09:01 75 MG Diazepam (VALium 5 MG/ML 2 ML SYG) 5 mg Q4H PRN IVP ALCOHOL WITHDRAWAL PROTOCOL 10/08/24 22:30 10/15/24 22:29 Diazepam (VALium 5 MG/ML 2 ML SYG) 10 mg Q4H PRN IVP ALCOHOL WITHDRAWAL PROTOCOL 10/08/24 18:30 10/08/24 20:32 DC Doxycycline Hyclate 250 ml @ 125 mls/hr Q12H IV 10/09/24 04:00 10/19/24 03:59 10/12/24 04:29 125 MLS/HR Folic Acid (FOLic ACID 1 MG TABLET) 1 mg DAILY PO 10/09/24 09:00 10/11/24 09:01 DC 10/11/24 08:24 1 MG Furosemide (LASix 20MG VIAL) 20 mg Q12H IV 10/08/24 17:30 11/07/24 17:29 10/12/24 04:36 20 MG Guaifenesin/ Dextromethorphan (RobiTUSSin DM 200/20MG 10ML) 10 ml Q4H PRN PO COUGH 10/09/24 16:30 11/08/24 16:29 10/10/24 13:48 10 ML Heparin Sodium (Porcine) (HEParin 5,000 UNIT VIAL) *calculation based on ACTUAL B... AD PRN IV HEPARIN PROTOCOL 10/08/24 17:30 11/07/24 17:29 10/10/24 17:21 4,000 UNIT Heparin Sodium/ Dextrose 250 ml @ 0 mls/hr Q6H IV 10/08/24 17:30 11/07/24 17:29 10/12/24 13:29 17.99 MLS/HR Insulin Glargine (LANtus 100 UNITS/ML 10 ML VIAL) 10 units DAILY SQ 10/09/24 09:00 10/09/24 11:26 DC 10/09/24 08:21 10 UNITS Insulin Glargine (LANtus 100 UNITS/ML 10 ML VIAL) 25 units BID SQ 10/09/24 21:00 11/08/24 08:59 10/12/24 09:07 25 UNITS Insulin Human Regular (humuLIN R 100 UNIT/ML 3ML) INSULIN SLIDING SCAL... ACHS SQ 10/08/24 21:00 11/07/24 20:59 10/11/24 17:14 2 UNIT Lidocaine HCl/ Dextrose 250 ml @ 0 mls/hr PROTOCOL IV 10/08/24 16:30 10/09/24 11:34 DC 10/08/24 23:48 15 MLS/HR Lorazepam (AtiVAN) 1 mg Q4H PRN IVP ALCOHOL WITHDRAWAL PROTOCOL 10/08/24 18:00 10/08/24 18:06 DC Magnesium Sulfate 50 ml @ 0 mls/hr PROTOCOL IV 10/09/24 09:30 10/10/24 11:16 DC Magnesium Sulfate 50 ml @ 0 mls/hr PROTOCOL IV 10/10/24 11:30 11/09/24 11:29 10/12/24 09:08 25 MLS/HR Magnesium Sulfate 50 ml @ 0 mls/hr PROTOCOL PRN IV AD 10/08/24 19:00 10/09/24 09:30 DC 10/09/24 04:34 25 MLS/HR Metoprolol Tartrate (loprESSOR) 12.5 mg BID PO 10/08/24 21:00 11/07/24 20:59 10/12/24 09:01 12.5 MG Morphine Sulfate (morPHINE 2MG SYG) 2 mg Q6H PRN IVP SEVERE PAIN (7-10) 10/08/24 18:00 10/15/24 17:59 Multivitamins Therapeutic (Multivitamin Tablet) 1 tab DAILY PO 10/09/24 09:00 11/08/24 08:59 10/12/24 09:01 1 TAB Nitroglycerin/ Dextrose 0 ml @ 0 mls/hr PROTOCOL PRN IV [id number] ORDERS 10/08/24 16:30 11/07/24 16:29 Ondansetron HCl (zoFRAN 4MG INJ) 4 mg Q4H PRN IVP NAUSEA/VOMITING 10/08/24 16:30 10/12/24 07:54 DC Ondansetron HCl (zoFRAN 4MG INJ) 4 mg Q6H PRN IVP NAUSEA/VOMITING 10/08/24 18:00 11/07/24 17:59 Pantoprazole Sodium (PROTonix 40MG INJ) 40 mg DAILY IVP 10/09/24 09:00 11/08/24 08:59 10/12/24 09:00 40 MG Pharmacy Profile Note (Pharmacy Communication) 1 each PROTOCOL PRN MISC ETOH Withdrawal Score changes 10/08/24 18:00 10/15/24 17:59 Potassium Chloride 100 ml @ 100 mls/hr AD PRN IV POTASSIUM PROTOCOL 10/09/24 10:30 11/08/24 10:29 Potassium Chloride (K-Dur/Klor-Con 20meq) 20 meq AD PRN PO POTASSIUM PROTOCOL 10/09/24 10:30 11/08/24 10:29 10/12/24 09:01 20 MEQ Potassium Chloride (KCl 10% Elixir 20meq/15ml) 20 meq AD PRN PO POTASSIUM PROTOCOL 10/09/24 10:30 11/08/24 10:29 Temazepam (restORIL 30 MG CAP) 30 mg HS PRN PO INSOMNIA/SLEEP 10/08/24 16:30 10/15/24 16:29 10/09/24 20:52 30 MG Thiamine HCl (Vitamin B-1) 100 mg DAILY PO 10/09/24 09:00 11/08/24 08:59 10/12/24 09:00 100 MG DIAGNOSTICS / RADIOLOGY: [ ] ASSESSMENT: Inferior STEMI with late presentation, POA Ventricular tachycardia, status post initiation of lidocaine drip, POA Status post cardiac catheterization with findings of multivessel coronary artery disease, 10/08/2024, by Dr. Llanes Status post balloon angioplasty of 100% occluded ostial right posterolateral branch by Dr. Llanes, 10/08/2024 Acute hypoxemic respiratory failure, POA Acute on chronic systolic heart failure exacerbation, POA Mild anemia, POA Suspected cardiogenic pulmonary edema, POA r/o any developing community acquired Pneumonia, POA Pulmonary embolism ruled out by evaluation by critical care service in [facility], POA Mild lactic acidosis, POA Poorly controlled type 2 diabetes mellitus, POA History of chronic alcoholism, POA Episcopal, POA PLAN: Patient remains admitted to the PCU Continue library monitor CTA with PE protocol pending Continue Plavix 75 mg Q 24 hours Continue ceftriaxone 2 g Q 24 hours Continue glargine 25 units b.i.d. Continue aspirin 81 mg Q 24 hours Continue doxycycline 100 mg b.i.d. Continue metoprolol 12.5 mg b.i.d. Continue atorvastatin 40 mg HS Continue furosemide 20 mg b.i.d. Continue the patient on Oxymizer Continue the patient on heparin drip Continue the patient on broad-spectrum antibiotic Continue to follow Cardiology input and recommendations as well input and recommendation Pending evaluation by Cardiothoracic surgeon. Disposition: Follow up CTA of chest with PE protocol, cardiology recommendations TRUNG OHARA MD October 12, 2024 13:54
[2024-10-12] MEDS ORDERED: IOHEXOL-350 75 ML VIAL IV ONE (16:19)
--- NOTE | 2024-10-12 16:56 | HMCIMG ---
CT angiogram chest CLINICAL INDICATION: PE COMPARISON: None. CT Dose Index (CTDI): 113.50 mGy Dose Length Product (DLP): 1408.10 total mGy PROTOCOL: Contrast: 100 cc of Isovue-370, injected IV, no complications Examination is done at 2.5 millimeter volumetric acquisition after contrast administration. Photography is done at 5 millimeter thick intervals for the thorax. FINDINGS: There is no evidence of pulmonary embolism. The airway is intact. The trachea and major bronchi are unremarkable. There are scattered bilateral pulmonary infiltrates and there is evidence of bilateral pleural effusions, moderate to large. Follow-up to complete radiographic resolution is recommended. The exam of the divine and mediastinum is unremarkable. No evidence of hilar enlargement is seen. The aorta shows no aneurysmal dilatation or significant atheromatous calcification. There is no thoracic aortic dissection. No significant brachiocephalic vascular abnormalities are seen. The heart is unremarkable. It is not enlarged. No significant coronary arterial calcifications are seen. There is no pericardial effusion. The rib cage appears unremarkable. The soft tissues of the chest wall are unremarkable. The dorsal spine shows no significant abnormalities. Limited evaluation of the upper abdomen demonstrates no gross abnormalities. IMPRESSION: No evidence of pulmonary embolism. There are scattered bilateral pulmonary infiltrates and there is evidence of bilateral pleural effusions, moderate to large. Follow-up to complete radiographic resolution is recommended. This study was performed using dose reduction techniques to include automated exposure control and/or adjustment of the mA and/or kV according to patient size.
[2024-10-12] MEDS: furoSEMIDE 40MG VIAL IV SCH (17:40)
[2024-10-13] VITALS (11 sets, daily range): BP systolic 99–132; BP diastolic 57–83; PULSE 65–156; RESP 18–22; TEMP 97.5–98.7; O2SAT 95–97
[2024-10-13 04:43] LABS: BASOPHILS # (AUTO) 0.02 K/uL (0.00-0.20); BASOPHILS % (AUTO) 0.3 % (0.0-5.0); EOSINOPHILS # (AUTO) 0.22 K/uL (0.00-0.70); EOSINOPHILS % (AUTO) 3.1 % (0.0-8.0); HEMATOCRIT 33.8 % (42-54); IMMATURE GRANULOCYTE ABSOLUTE 0.05 K/uL (0-1); LYMPHOCYTES # (AUTO) 1.9 K/uL (1.0-4.8); LYMPHOCYTES % (AUTO) 26.2 % (21.0-51.0); MEAN CORPUSCULAR HEMOGLOBIN 29.8 pg (27.0-33.0); MEAN CORPUSCULAR HGB CONC 33.7 g/dL (32.0-36.0); MEAN CORPUSCULAR VOLUME 88.3 fL (79-99); MONOCYTES # (AUTO) 0.5 K/uL (0.1-1.0); MONOCYTES % (AUTO) 7.1 % (3.0-13.0); NEUTROPHILS # (AUTO) 4.4 K/uL (1.8-7.7); NEUTROPHILS % (AUTO) 62.6 % (40.0-77.0); PLATELET COUNT (AUTO) 296 K/uL (130-400); RED BLOOD CELL COUNT(AUTO) 3.83 MIL/uL (4.50-6.20); RED CELL DISTRIBUTION WIDTH 11.9 % (11.0-15.5); WHITE BLOOD COUNT (AUTO) 7.1 K/uL (4.8-10.8)
[2024-10-13 05:27] LABS: ALBUMIN 1.8 g/dL (3.5-5.0); BILIRUBIN,TOTAL 0.3 mg/dL (0.2-1.0); CREATININE 0.6 mg/dL (0.5-1.3); MAGNESIUM 1.9 mg/dL (1.80-2.40); PHOSPHORUS 4.1 mg/dL (2.5-4.9); POTASSIUM 3.7 mmol/L (3.5-5.1); TOTAL PROTEIN, SERUM 5.5 g/dL (6.0-8.3)
[2024-10-13] MEDS: furoSEMIDE 20MG VIAL IV SCH (05:42)
--- NOTE | 2024-10-13 09:32 | CONS ---
[facility] CONSULTATION NOTE Date Patient Seen: October 13, 2024 Time of Visit: 09:32 Supervising Physician: Dr. Sunny Fam Reason for Consultation: B/L Pleural effusion Primary Care Physician: Attending: Celeste Hospitalist team Outpatient Specialists: Inpatient Consults: BIS, critical Care team Mechanical Operator, CV surgeon PROBLEM LIST: Inferior STEMI with late presentation, POA, heparin drip Ventricular tachycardia, on lidocaine drip, POA Acute hypoxemic respiratory failure, POA in need of BiPAP Acute febrile illness Acute on chronic diastolic heart failure POA LVEF is 40-45% on echo 10/09/24 Moderate pulmonary HTN with RVSP of 40.3 mmHG Moderate mitral valve regurgitation POA Status post cardiac catheterization with findings of multivessel coronary artery disease, 10/08/2024, by Dr. Llanes Status post balloon angioplasty of 100% occluded ostial right posterolateral branch by Dr. Llanes, 10/08/2024 Mild anemia, POA Suspected cardiogenic pulmonary edema, POA Pulmonary embolism ruled out by evaluation by critical care service in [facility], POA Mild lactic acidosis, POA Poorly controlled type 2 diabetes mellitus, POA History of chronic alcoholism, POA Oriental orthodox, POA HPI: Mr. Persaud is a 54-year-old male with underlying history of type 2 diabetes mellitus and chronic alcoholism . He initially presented as a transfer from [facility] for further management of late presentation of inferior ST- elevation [place] with ventricular tachycardia. He presented to the [facility] ER with recurrence of left-sided shoulder discomfort with dyspnea and diz ziness. Upon arrival to the emergency department, EKG demonstrated regular wide complex tachycardia, with Q-waves in lead three and AVF with ST depressions in V4 and V6 with a heart rate of 150. Patient was also noted to be hypoxic with of 77%, blood pressure of 96/63 and troponin was noted to be at 5209--> 6062--> 6885. Patient underwent CT PE in [facility] which showed possible filling defects segmental and subsegmental branches concerning for pulmonary embolism. Patient was also noted to have moderate bilateral pleural effusion with patchy consolidation of perihilar and lower lobes with septal thickening and 4 mm granuloma of the left lung. Patient was admitted to ICU in [facility] and CT chest was reviewed by critical care physician there who stated that there was no signs of pulmonary embolism. Here at [facility] he underwent cardiac catheterization, and the patient was found to have culprit lesion, 100% occluded right posterolateral branch for which, patient underwent balloon angioplasty. Patient was also found to have multivessel coronary artery disease with proximal LAD 70% stenosis, 80% mid diagonal stenosis, 70% proximal ramus, 80% mid circumflex stenosis before OM, 50% stenosis involving the circumflex after OM, 100% OM stenosis with filling collaterals and LVEDP was noted to be at 31. Repeat CT of the chest today again showed no pulmonary emboli seen and showed the persisting moderate to large pleural effusion. [facility] was consulted and is pending for CABG. Repeat CT of the chest was done here and again showed no PE and persisting bilateral [id number] pleural effusion. Pulmonary Services was reconsulted for management of the effusion. Of note, patient is a [employer]regational and declines any blood transfusion. I informed the patient of plan of care. He verbalized understanding and is in agreement with the plan. PAST MEDICAL HX: see above PAST SURGICAL HX: Denied SOCIAL HISTORY: Drinks about 12 of the 24 oz cans of beers a week, for 20-30 years Patient denies smoking or illicit drug use Coded Allergies: No Known Allergies (Unverified Allergy, Unknown, 10/08/24) REVIEW OF SYSTEMS: 12 point ROS reviewed with patient. Pertinent positives mentioned above. Otherwise negative. PHYSICAL EXAM: GENERAL: Alert, weak, awake, oriented x 3 HEENT: EOMI, Sclera non icteric, moist mucosa NECK: Supple, no JVD, trachea midline LUNGS: Clear breath sounds bilaterally. No wheezes HEART: Regular rate and rhythm. Normal S1 and S2, without murmurs ABD: Abdomen soft, nontender. Bowel sounds present EXT: No clubbing cyanosis or edema. Right leg restricted movement due to reason heart catheterization. NEURO: Alert and oriented x4, follows commands Vital Signs (last 8hr) Date Time Temp Pulse Resp B/P (MAP) Pulse Ox O2 Delivery O2 Flow Rate FiO2 10/13/24 07:32 97.9 65 20 104/68 98 Nasal Cannula 6.0 10/13/24 06:42 70 20 10/13/24 06:39 70 20 N/A Room Air 5.0 10/13/24 03:00 97.5 85 18 100/62 96 Room Air LABS: Hematology Labs: Test 10/13/24 03:29 Range/Units White Blood Count 7.1 4.8-10.8 K/uL Red Blood Count 3.83 L 4.50-6.20 MIL/uL Hemoglobin 11.4 L 14.0-18.0 g/dL Hematocrit 33.8 L 42-54 % Mean Corpuscular Volume 88.3 79-99 fL Mean Corpuscular Hemoglobin 29.8 27.0-33.0 pg Mean Corpuscular Hemoglobin Concent 33.7 32.0-36.0 g/dL Red Cell Distribution Width 11.9 11.0-15.5 % Platelet Count 296 130-400 K/uL Mean Platelet Volume 9.8 7.5-10.5 fL Immature Granulocyte % (Auto) 0.7 0-1 % Neutrophils (%) (Auto) 62.6 40.0-77.0 % Lymphocytes (%) (Auto) 26.2 21.0-51.0 % Monocytes (%) (Auto) 7.1 3.0-13.0 % Eosinophils (%) (Auto) 3.1 0.0-8.0 % Basophils (%) (Auto) 0.3 0.0-5.0 % Neutrophils # (Auto) 4.4 1.8-7.7 K/uL Lymphocytes # (Auto) 1.9 1.0-4.8 K/uL Monocytes # (Auto) 0.5 0.1-1.0 K/uL Eosinophils # (Auto) 0.22 0.00-0.70 K/uL Basophils # (Auto) 0.02 0.00-0.20 K/uL Absolute Immature Granulocyte (auto 0.05 0-1 K/uL Nucleated Red Blood Cells 0.0 0.0-0.19 % Chemistry Labs: Test 10/13/24 05:31 10/13/24 03:29 10/12/24 03:34 Range/Units Whole Blood Glucose 76 # 70-110 MG/DL Sodium Level 141 136-145 mmol/L Potassium Level 3.7 3.5-5.1 mmol/L Chloride Level 104 101-111 mmol/L Carbon Dioxide Level 30 21-32 mmol/L Blood Urea Nitrogen 10 7-18 mg/dL Creatinine 0.6 0.5-1.3 mg/dL Glomerular Filtration Rate Calc 115 >90 mL/min Random Glucose 74 70-105 mg/dL Total Calcium 8.1 L 8.5-10.1 mg/dL Phosphorus Level 4.1 2.5-4.9 mg/dL Magnesium Level 1.90 1.80-2.40 mg/dL Total Bilirubin 0.3 0.2-1.0 mg/dL Aspartate Amino Transf (AST/SGOT) 31 10-37 U/L Alanine Aminotransferase (ALT/SGPT) 41 12-78 U/L Alkaline Phosphatase 78 50-136 U/L Total Protein 5.5 L 6.0-8.3 g/dL Albumin 1.8 L 3.5-5.0 g/dL Procalcitonin < 0.05 L 0.05-0.5 ng/mL B-Type Natriuretic Peptide 709 H 0-100 pg/mL Coagulation Labs: Test 10/13/24 03:29 Range/Units Activated Partial Thromboplast Time 48.7 H 26.3-35.5 SEC DIAGNOSTICS / RADIOLOGY RESULTS: [ ] PLAN emperic antibiotic TX for CAP w/ rocephin and Doxy diurese follow cardiology recs maintain o2 sats above 92% NEURO: Minimize central acting medications as possible. Maintain fall precautions, adequate lighting during the day PULMONARY: Supplemental 02 as needed. Maintain aspiration precautions at all times CARDIOVASCULAR: Follow hemodynamics. Vital signs per facility protocol GI & NUTRITION: Continue with nutritional support. Continue stool softeners and laxatives as needed. KIDNEYS & ELECTROLYTES: Strict monitoring of intake, output and overall fluid balance. Avoid nephrotoxic medications to the extent possible. Medications to be dosed according to renal function. Monitor electrolytes and replace as needed ENDOCRINE: Maintain blood glucose between 100-180 at all times. Hypoglycemia protocol in place INFECTIOUS DISEASE: Trend temperature, WBC and procalcitonin level Follow cultures, deescalate antibiotics as soon as possible. Panculture if new onset fever ONCOLOGY/HEMATOLOGY/COAGULATION: Monitor for s/s of bleeding Monitor hemoglobin, coagulation studies as needed SKIN: Pressure ulcer prevention per facility protocol Specialty mattress ORTHO/REHAB: Continue PT/OT Prophylaxis: Continue GI and DVT prophylaxis Code Status: Full Resuscitation Disposition: TBD Other: Total patient care time exceeds 35 minutes excluding all procedures. ALBANIA NOLASCO NP October 13, 2024 09:32
[2024-10-13] MEDS: ZOSYN 3.375GM +NS 50ML IV SCH (09:49)
--- NOTE | 2024-10-13 12:15 | PN ---
[facility] PROGRESS NOTE Date of Service: October 13, 2024 Time of Service: 12:13 SUBJECTIVE: [ ] This is a 54-year-old male with underlying history of type 2 diabetes mellitus, chronic alcoholism, who presented as a transfer from [facility] for further management of late presentation of inferior ST-elevation MT with ventricular tachycardia. Patient stated that about five days ago prior to presenting to the ER, he started having mild dizziness, dyspnea and left-sided shoulder pain radiating to the scapula. Symptoms were intermittent and patient noticed that he was having progressive dyspnea on exertion. Patient saw his primary care physician on 10/07/2024 where he was found to have blood glucose greater than 400 and he received some insulin as outpatient. He presented to the [facility] ER with recurrence of left-sided shoulder discomfort with dyspnea and dizziness. Upon arrival to the emergency department, EKG demonstrated regular wide complex tachycardia, with Q-waves in lead three and AVF with ST depressions in V4 and V6 with a heart rate of 150. Patient was also noted to be hypoxic with of 77%, blood pressure of 96/63 and troponin was noted to be at 5209--> 6062--> 6885. Patient underwent CT PE in [facility] which showed possible filling defects segmental and subsegmental branches concerning for pulmonary embolism. Patient was also noted to have moderate bilateral pleural effusion with patchy consolidation of perihilar and lower lobes with septal thickening and 4 mm granuloma of the left lung. Patient was admitted to ICU in [facility] and CT chest was reviewed by critical care physician there who stated that there was no signs of pulmonary embolism. Patient was transferred to [facility] and underwent cardiac catheterization given concern ACS. On cardiac catheterization, patient was found to have culprit lesion, 100% occluded right posterolateral branch for which, patient underwent balloon angioplasty. Patient was also found to have multivessel coronary artery disease with proximal LAD 70% stenosis, 80% mid diagonal stenosis, 70% proximal ramus, 80% mid circumflex stenosis before OM, 50% stenosis involving the circumflex after OM, 100% OM stenosis with filling collaterals and LVEDP was noted to be at 31. 5/10 patient is seen and examined at bedside, alert oriented x3, he is on 10 L via nasal cannula, on heparin drip, denies chest pain, denies shortness a breath, no nausea, no vomiting. Blood pressure 105/68, heart rate of 70. Afebrile. Hemoglobin 10.6, hematocrit 31.1. ABG shows pH 7.46, pCO2 34, PO2 59.6. Toxicology screen positive for benzodiazepines. Chest x-ray shows stable exam 10/10 54-year-old male with underlying history of type 2 diabetes mellitus, chronic alcoholism, who presented as a transfer from [facility] for further management of late presentation of inferior ST-elevation MT with ventricular tachycardia. Status post cardiac catheterization with findings of multivessel coronary artery disease, 10/08/2024, by Dr. Llanes Status post balloon angioplasty of 100% occluded ostial right posterolateral branch by Dr. Llanes, 10/08/2024. Patient now with Acute hypoxemic respiratory failure, Acute on chronic systolic heart failure exacerbation, suspect possible underlying developing community- acquired pneumonia. During my visit patient remains on supplemental oxygen via nasal cannula 10 L, getting IV antibiotics, he feels less short of breath, less productive cough. He remains on heparin drip. He is currently off lidocaine for 24 hours. No recurrent ventricular arrhythmias. Pending evaluation by Cardiothoracic surgeon. 10/11 patient seen at bedside, no acute events overnight. CV surgery does not recommend CABG as he is not good candidate, recommending a possible percutaneous catheterization with intervention to restore flow, we will follow up with Cardiology recommendations regarding attempted intervention versus optimizing medical management. Hemoglobin improved from 11.8 up to 12.0, potassium low at 3.2, we will be repleted according to protocol. Repeat blood culture positive in 1/2 bottles, we will follow up with speciation, 1st blood cultures were no growth, this is likely a contaminant. Patient has been afebrile, hemodynamically stable saturating well on 2 L nasal cannula. 10/12 patient seen at bedside, no acute events overnight. He has been afebrile, hemodynamically stable saturating well on 5 L nasal cannula, we will continue to wean as able. Cardiology recommending CTA with PE protocol to rule out PE. Hemoglobin decreased from 12.0 down to 11.8. Repeat blood culture positive in 1/2 bottles with coagulase negative Staphylococcus warneri consistent with a contaminant. We will follow up with Cardiology recommendations 10/13 patient seen at bedside, no acute events overnight. He is still requiring [address] of the chest with PE protocol was negative for pulmonary embolism however he does have significant bilateral pulmonary infiltrates as well as significant bilateral pleural effusions, pulmonology has been consulted to assess for possible thoracentesis. Patient is started on Zosyn to treat underlying pneumonia, he is otherwise hemodynamically stable, afebrile. His labs are relatively unremarkable. REVIEW OF SYSTEMS 12 point review of systems negative unless noted in HPI PHYSICAL EXAM GENERAL APPEARANCE: The patient is awake, alert, and oriented, in no acute cardiopulmonary distress. NEUROLOGICAL: Cranial nerves II-XII grossly intact. Motor is 5/5 in bilateral upper and lower extremities proximal to distal. No sensory deficits. HEENT: Face is symmetric. Pupils are equal and reactive. Extraocular movements are intact. NECK: Supple. No JVD. No thyromegaly. No submental, submandibular, pre- /postauricular, occipital or supraclavicular lymphadenopathy. CHEST: Normal chest expansion. No Telemetry. LUNGS: crackles noted of the bilateral lung bases CARDIOVASCULAR: Regular. S1 and S2 normal. No appreciable rubs, murmurs or gallops. ABDOMEN: Soft, nontender, and nondistended. There is no rebound, voluntary guarding, or rigidity. : Deferred. No Alexandra. EXTREMITIES: Non-edematous and not cyanotic. No clubbing. Good capillary refill. SKIN: No skin breakdown. Vital Signs (last 8hr) Date Time Temp Pulse Resp B/P (MAP) Pulse Ox O2 Delivery O2 Flow Rate FiO2 10/13/24 11:52 98.8 65 20 116/75 98 Nasal Cannula 10/13/24 09:40 97 N/C Oxymizer Hi LPM* 6 44 10/13/24 07:32 97.9 65 20 104/68 98 Nasal Cannula 6.0 10/13/24 06:42 70 20 10/13/24 06:39 70 20 N/A Room Air 5.0 LABS: Laboratory: Test 10/13/24 11:39 10/13/24 03:29 10/12/24 03:34 Range/Units Whole Blood Glucose 124 #H 70-110 MG/DL White Blood Count 7.1 4.8-10.8 K/uL Red Blood Count 3.83 L 4.50-6.20 MIL/uL Hemoglobin 11.4 L 14.0-18.0 g/dL Hematocrit 33.8 L 42-54 % Mean Corpuscular Volume 88.3 79-99 fL Mean Corpuscular Hemoglobin 29.8 27.0-33.0 pg Mean Corpuscular Hemoglobin Concent 33.7 32.0-36.0 g/dL Red Cell Distribution Width 11.9 11.0-15.5 % Platelet Count 296 130-400 K/uL Mean Platelet Volume 9.8 7.5-10.5 fL Immature Granulocyte % (Auto) 0.7 0-1 % Neutrophils (%) (Auto) 62.6 40.0-77.0 % Lymphocytes (%) (Auto) 26.2 21.0-51.0 % Monocytes (%) (Auto) 7.1 3.0-13.0 % Eosinophils (%) (Auto) 3.1 0.0-8.0 % Basophils (%) (Auto) 0.3 0.0-5.0 % Neutrophils # (Auto) 4.4 1.8-7.7 K/uL Lymphocytes # (Auto) 1.9 1.0-4.8 K/uL Monocytes # (Auto) 0.5 0.1-1.0 K/uL Eosinophils # (Auto) 0.22 0.00-0.70 K/uL Basophils # (Auto) 0.02 0.00-0.20 K/uL Absolute Immature Granulocyte (auto 0.05 0-1 K/uL Nucleated Red Blood Cells 0.0 0.0-0.19 % Activated Partial Thromboplast Time 48.7 H 26.3-35.5 SEC Sodium Level 141 136-145 mmol/L Potassium Level 3.7 3.5-5.1 mmol/L Chloride Level 104 101-111 mmol/L Carbon Dioxide Level 30 21-32 mmol/L Blood Urea Nitrogen 10 7-18 mg/dL Creatinine 0.6 0.5-1.3 mg/dL Glomerular Filtration Rate Calc 115 >90 mL/min Random Glucose 74 70-105 mg/dL Total Calcium 8.1 L 8.5-10.1 mg/dL Phosphorus Level 4.1 2.5-4.9 mg/dL Magnesium Level 1.90 1.80-2.40 mg/dL Total Bilirubin 0.3 0.2-1.0 mg/dL Aspartate Amino Transf (AST/SGOT) 31 10-37 U/L Alanine Aminotransferase (ALT/SGPT) 41 12-78 U/L Alkaline Phosphatase 78 50-136 U/L Total Protein 5.5 L 6.0-8.3 g/dL Albumin 1.8 L 3.5-5.0 g/dL Procalcitonin < 0.05 L 0.05-0.5 ng/mL B-Type Natriuretic Peptide 709 H 0-100 pg/mL Current Medications Medications (Trade) Dose Ordered Sig/William Route PRN Reason Start Time Stop Time Status Last Admin Dose Admin Acetaminophen (TYLenol 325MG TAB) 650 mg Q6H PRN PO MILD PAIN (1-3) 10/08/24 18:00 11/07/24 17:59 10/09/24 17:00 650 MG Aspirin (Aspirin 81mg Chew Tab) 81 mg DAILY PO 10/09/24 09:00 10/08/24 16:47 DC Aspirin (Aspirin 81mg Chew Tab) 81 mg DAILY PO 10/09/24 09:00 11/08/24 08:59 10/13/24 09:10 81 MG Atorvastatin Calcium (LIPItor 40MG) 40 mg HS PO 10/08/24 21:00 11/07/24 20:59 10/12/24 21:29 40 MG Benzonatate (Tessalon 100mg Caps) 200 mg Q8H PRN PO COUGH 10/09/24 12:00 11/08/24 11:59 10/10/24 18:07 200 MG Calcium Gluconate (Calcium Gluc 1gm Vial) 1 gm AD PRN IV PROTOCOL 10/09/24 02:30 11/08/24 02:29 10/09/24 07:22 1 GM Ceftriaxone Sodium (ROCEphine 1G INJ) 1 gm Q24H IVPB 10/09/24 04:00 10/09/24 11:21 DC 10/09/24 04:28 1 GM Ceftriaxone Sodium (Rocephin 2gm Inj) 2 gm Q24H IVPB 10/10/24 04:00 10/20/24 03:59 10/13/24 03:53 2 GM Chlordiazepoxide HCl (LIBrium 25 MG CAP) 25 mg Q4H PRN PO ALCOHOL WITHDRAWAL PROTOCOL 10/08/24 18:00 10/15/24 17:59 Clopidogrel Bisulfate (plaVIX 75MG) 75 mg DAILY PO 10/12/24 09:00 11/11/24 08:59 10/13/24 09:10 75 MG Diazepam (VALium 5 MG/ML 2 ML SYG) 5 mg Q4H PRN IVP ALCOHOL WITHDRAWAL PROTOCOL 10/08/24 22:30 10/15/24 22:29 Diazepam (VALium 5 MG/ML 2 ML SYG) 10 mg Q4H PRN IVP ALCOHOL WITHDRAWAL PROTOCOL 10/08/24 18:30 10/08/24 20:32 DC Doxycycline Hyclate 250 ml @ 125 mls/hr Q12H IV 10/09/24 04:00 10/19/24 03:59 10/13/24 04:26 125 MLS/HR Folic Acid (FOLic ACID 1 MG TABLET) 1 mg DAILY PO 10/09/24 09:00 10/11/24 09:01 DC 10/11/24 08:24 1 MG Furosemide (LASix 20MG VIAL) 20 mg Q12H IV 10/13/24 05:30 11/12/24 05:29 10/13/24 05:42 20 MG Furosemide (LASix 20MG VIAL) 20 mg Q12H IV 10/08/24 17:30 10/12/24 17:16 DC 10/12/24 04:36 20 MG Furosemide (LASix 40MG VIAL) 40 mg Q12H IV 10/12/24 17:30 10/12/24 17:53 DC 10/12/24 17:40 40 MG Guaifenesin/ Dextromethorphan (RobiTUSSin DM 200/20MG 10ML) 10 ml Q4H PRN PO COUGH 10/09/24 16:30 11/08/24 16:29 10/12/24 18:39 10 ML Heparin Sodium (Porcine) (HEParin 5,000 UNIT VIAL) *calculation based on ACTUAL B... AD PRN IV HEPARIN PROTOCOL 10/08/24 17:30 11/07/24 17:29 10/10/24 17:21 4,000 UNIT Heparin Sodium/ Dextrose 250 ml @ 0 mls/hr Q6H IV 10/08/24 17:30 11/07/24 17:29 10/13/24 05:45 17.99 MLS/HR Insulin Glargine (LANtus 100 UNITS/ML 10 ML VIAL) 10 units DAILY SQ 10/09/24 09:00 10/09/24 11:26 DC 10/09/24 08:21 10 UNITS Insulin Glargine (LANtus 100 UNITS/ML 10 ML VIAL) 25 units BID SQ 10/09/24 21:00 11/08/24 08:59 10/13/24 09:19 25 UNITS Insulin Human Regular (humuLIN R 100 UNIT/ML 3ML) INSULIN SLIDING SCAL... ACHS SQ 10/08/24 21:00 11/07/24 20:59 10/12/24 21:28 2 UNIT Lidocaine HCl/ Dextrose 250 ml @ 0 mls/hr PROTOCOL IV 10/08/24 16:30 10/09/24 11:34 DC 10/08/24 23:48 15 MLS/HR Lorazepam (AtiVAN) 1 mg Q4H PRN IVP ALCOHOL WITHDRAWAL PROTOCOL 10/08/24 18:00 10/08/24 18:06 DC Magnesium Sulfate 50 ml @ 0 mls/hr PROTOCOL IV 10/09/24 09:30 10/10/24 11:16 DC Magnesium Sulfate 50 ml @ 0 mls/hr PROTOCOL IV 10/10/24 11:30 11/09/24 11:29 10/13/24 09:09 25 MLS/HR Magnesium Sulfate 50 ml @ 0 mls/hr PROTOCOL PRN IV AD 10/08/24 19:00 10/09/24 09:30 DC 10/09/24 04:34 25 MLS/HR Metoprolol Tartrate (loprESSOR) 12.5 mg BID PO 10/08/24 21:00 11/07/24 20:59 10/13/24 09:10 12.5 MG Morphine Sulfate (morPHINE 2MG SYG) 2 mg Q6H PRN IVP SEVERE PAIN (7-10) 10/08/24 18:00 10/15/24 17:59 Multivitamins Therapeutic (Multivitamin Tablet) 1 tab DAILY PO 10/09/24 09:00 11/08/24 08:59 10/13/24 09:09 1 TAB Nitroglycerin/ Dextrose 0 ml @ 0 mls/hr PROTOCOL PRN IV [id number] ORDERS 10/08/24 16:30 11/07/24 16:29 Ondansetron HCl (zoFRAN 4MG INJ) 4 mg Q4H PRN IVP NAUSEA/VOMITING 10/08/24 16:30 10/12/24 07:54 DC Ondansetron HCl (zoFRAN 4MG INJ) 4 mg Q6H PRN IVP NAUSEA/VOMITING 10/08/24 18:00 11/07/24 17:59 Pantoprazole Sodium (PROTonix 40MG INJ) 40 mg DAILY IVP 10/09/24 09:00 11/08/24 08:59 10/13/24 09:09 40 MG Pharmacy Profile Note (Pharmacy Communication) 1 each PROTOCOL PRN MISC ETOH Withdrawal Score changes 10/08/24 18:00 10/15/24 17:59 Piperacillin Sod/ Tazobactam Sod (Zosyn 3.375gm+NS 50ml) 3.375 gm Q8H IV 10/13/24 07:30 10/23/24 07:29 10/13/24 09:49 3.375 GM Potassium Chloride 100 ml @ 100 mls/hr AD PRN IV POTASSIUM PROTOCOL 10/09/24 10:30 11/08/24 10:29 Potassium Chloride (K-Dur/Klor-Con 20meq) 20 meq AD PRN PO POTASSIUM PROTOCOL 10/09/24 10:30 11/08/24 10:29 10/13/24 12:01 20 MEQ Potassium Chloride (KCl 10% Elixir 20meq/15ml) 20 meq AD PRN PO POTASSIUM PROTOCOL 10/09/24 10:30 11/08/24 10:29 Temazepam (restORIL 30 MG CAP) 30 mg HS PRN PO INSOMNIA/SLEEP 10/08/24 16:30 10/15/24 16:29 10/09/24 20:52 30 MG Thiamine HCl (Vitamin B-1) 100 mg DAILY PO 10/09/24 09:00 11/08/24 08:59 10/13/24 09:09 100 MG DIAGNOSTICS / RADIOLOGY: [ ] ASSESSMENT: Inferior STEMI with late presentation, POA Ventricular tachycardia, status post initiation of lidocaine drip, POA Status post cardiac catheterization with findings of multivessel coronary artery disease, 10/08/2024, by Dr. Llanes Status post balloon angioplasty of 100% occluded ostial right posterolateral branch by Dr. 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 Continue aspirin 81 mg Q 24 hours Continue doxycycline 100 mg b.i.d. Continue metoprolol 12.5 mg b.i.d. Continue atorvastatin 40 mg HS Continue furosemide 20 mg b.i.d. Continue the patient on Oxymizer Continue the patient on heparin drip Continue the Zosyn Continue to follow Cardiology input and recommendations as well input and recommendation Pending evaluation by Cardiothoracic surgeon. Pulmonology consulted to evaluate for thoracentesis Disposition: Follow up pulmonology recommendations, Cardiology recommendations, improvement in clinical status TRUNG OHARA MD October 13, 2024 12:15
--- NOTE | 2024-10-13 14:28 | PN ---
Cardiology Progress Note Date of Service: 10/13/2024 Attending Dental Hygiene Administrative Assistant: Dr. Dom Garces Primary Dental Hygiene Administrative Assistant: Dr. Tiago Henry Reason for Consult: ACS-STEMI Problem List: -ACS-STEMI s/p PCI with PTCA to the RPLB done on 10/09/[address] 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 The patient continues to complain of pleuritic chest pain that develops when he coughs, but denies any cardiac chest pain or pressure, palpitations, or significant shortness of breath. As per the nurse, there were no overnight events. Vitals/Labs Vital Signs Date Time Temp Pulse Resp B/P (MAP) Pulse Ox O2 Delivery O2 Flow Rate FiO2 10/13/24 11:52 98.8 65 20 116/75 98 Nasal Cannula 10/13/24 09:40 6 44 General: Awake and alert. No acute distress. Ill appearing. HEENT: Normocephalic, atraumatic. EOMI. Oral mucosa was moist. Neck: No masses, JVD, or carotid bruits noted. Lungs: No respiratory distress. Symmetric chest movement. Bilateral air entry. Diminished breath sounds noted to the bilateral lower lung nickerson. Cardiac: Regular rate. Normal S1 and S2, +S4. No other murmurs, rubs, or gallops noted. Abdomen: Soft, nontender, nondistended. No organomegaly. Normal active bowel sounds x 4 quadrants. Extremities: No edema, clubbing, or cyanosis. +2 pulses noted throughout. Neuro: Cranial nerves II-XII are grossly intact. No focal deficits identified. Laboratory Tests 5/14/25 03:29 Assessment: -ACS-STEMI s/p PCI with PTCA to the RPLB done on 10/09/[address] 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 ACS-STEMI s/p PCI with PTCA to the RPLB done on 10/09/[address] Llanes -The [facility] also identified residual 2V+branch CAD (LAD, D1, LCx, Ramus, OM1, RPDA), for which the patient was referred to CT surgery for CABG, but was deemed not to be a candidate due to poor targets. -We will tentatively schedule the patient to undergo a staged PCI of the CAD in the LAD and LCx, but we will first optimize his respiratory status and ensure he is free of bacteremia (repeat BCx show no growth at 24 hours, so previous cultures is a suspected contaminant). In reference to the patient's respiratory status, we recommend he be evaluated for possible thoracentesis due to his bilateral pleural effusions. -In the meantime, he will continue on goal directed ACS therapy which includes aspirin 81 mg daily, clopidogrel 75 mg daily, IV heparin infusion (ACS protocol), metoprolol tartrate 12.5 mg BID, and atorvastatin 40 mg QHS. The patient will remain on DAPT for a minimum of 1 year as per ACS guidelines. 2. 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 Due to the size of the effusions, we recommend he be evaluated by the Pulmonary team so he can undergo thoracentesis. -In the meantime, the patient will continue on furosemide 20 mg IV BID and metoprolol tartrate 12.5 mg BID. -We will reassess the patient's candidacy for GDMT with ACEI/ARB/ARNI therapy once he is euvolemic. -Please record strict I/O's, daily weights, and restrict fluids to less than 2.0L/day. This case was discussed with my Supervising Physician, Dr. Dom Garces, and the above mentioned plan was formulated and agreed upon. -Progress Note written by Yobany Morrison, MSN, CASSANDRA DEVELOPER, AGACNP-BC YOBANY MORRISON NP October 13, 2024 14:28
[2024-10-13] MEDS: SODIUM CHLORIDE 3% FOR INHALATION 4 ML/AMP VIAL.NEB IH ONE (15:00)
--- NOTE | 2024-10-13 17:03 | PN ---
[facility] PROGRESS NOTE Date Patient Seen: October 13, 2024 Time of Visit: 16:57 Supervising Physician: Dr. Osmany Fam Primary Care Physician: Attending: Celeste Hospitalist team Outpatient Specialists: Inpatient Consults: BIS, critical Care team Zinc Miner Blasting, CV surgeon PROBLEM LIST: Inferior STEMI with late presentation, POA, heparin drip Ventricular tachycardia, on lidocaine drip, POA Acute hypoxemic respiratory failure, POA in need of BiPAP Acute febrile illness Acute on chronic diastolic heart failure POA LVEF is 40-45% on echo 10/09/24 Moderate pulmonary HTN with RVSP of 40.3 mmHG Moderate mitral valve regurgitation POA Status post cardiac catheterization with findings of multivessel coronary artery disease, 10/08/2024, by Dr. Llanes Status post balloon angioplasty of 100% occluded ostial right posterolateral branch by Dr. Llanes, 10/08/2024 Mild anemia, POA Suspected cardiogenic pulmonary edema, POA Pulmonary embolism ruled out by evaluation by critical care service in [facility], POA Mild lactic acidosis, POA Poorly controlled type 2 diabetes mellitus, POA Bilateral pleural effusion moderate to large on CT chest History of chronic alcoholism, POA Sikh, POA INTERVAL HISTORY: Mr. Persaud is a 54-year-old male with underlying history of type 2 diabetes mellitus and chronic alcoholism . He initially presented as a transfer from [facility] for further management of late presentation of inferior ST- elevation [place] with ventricular tachycardia. He presented to the [facility] ER with recurrence of left-sided shoulder discomfort with dyspnea and dizziness. Upon arrival to the emergency department, EKG demonstrated regular wide complex tachycardia, with Q-waves in lead three and AVF with ST depressions in V4 and V6 with a heart rate of 150. Patient was also noted to be hypoxic with of 77%, blood pressure of 96/63 and troponin was noted to be at 5209--> 6062--> 6885. Patient underwent CT PE in [facility] which showed possible filling defects segmental and subsegmental branches concerning for pulmonary embolism. Patient was also noted to have moderate bilateral pleural effusion with patchy consolidation of perihilar and lower lobes with septal thickening and 4 mm granuloma of the left lung. Patient was admitted to ICU in [facility] and CT chest was reviewed by critical care physician there who stated that there was no signs of pulmonary embolism. [place] [facility] [place] cardiac catheter[place], and the patient was found to have culprit lesion, 100% occluded right posterolateral branch for which, patient underwent balloon angioplasty. Patient was also found to have multivessel coronary artery disease with proximal LAD 70% stenosis, 80% mid diagonal stenosis, 70% proximal ramus, 80% mid circumflex stenosis before OM, 50% stenosis involving the circumflex after OM, 100% OM stenosis with filling collaterals and LVEDP was noted to be at 31. Repeat CT of the chest today again showed no pulmonary emboli seen and show ed the persisting moderate to large pleural effusion. CTVS was consulted and is pending for CABG. Repeat CT of the chest was done here and again showed no PE and persisting bilateral [id number] pleural effusion. Pulmonary Services was reconsulted for management of the effusion. Of note, patient is a Holiness and declines any blood transfusion. I informed the patient of plan of care. He verbalized understanding and is in agreement with the plan. REVIEW OF SYSTEMS: 12 point ROS reviewed with patient. Pertinent positives mentioned above. Otherwise negative. PHYSICAL EXAM: GENERAL: Alert, weak, awake, oriented x 3 HEENT: EOMI, Sclera non icteric, moist mucosa NECK: Supple, no JVD, trachea midline LUNGS: Clear breath sounds bilaterally. No wheezes HEART: Regular rate and rhythm. Normal S1 and S2, without murmurs ABD: Abdomen soft, nontender. Bowel sounds present EXT: No clubbing cyanosis or edema. Right leg restricted movement due to reason heart catheterization. NEURO: Alert and oriented x4, follows commands Vital Signs (last 8hr) Date Time Temp Pulse Resp B/P (MAP) Pulse Ox O2 Delivery O2 Flow Rate FiO2 10/13/24 16:00 98.8 71 20 113/79 99 Nasal Cannula 6.0 10/13/24 11:52 98.8 65 20 116/75 98 Nasal Cannula 10/13/24 09:40 97 N/C Oxymizer Hi LPM* 6 44 LABS: Hematology Labs: Test 10/13/24 03:29 Range/Units White Blood Count 7.1 4.8-10.8 K/uL Red Blood Count 3.83 L 4.50-6.20 MIL/uL Hemoglobin 11.4 L 14.0-18.0 g/dL Hematocrit 33.8 L 42-54 % Mean Corpuscular Volume 88.3 79-99 fL Mean Corpuscular Hemoglobin 29.8 27.0-33.0 pg Mean Corpuscular Hemoglobin Concent 33.7 32.0-36.0 g/dL Red Cell Distribution Width 11.9 11.0-15.5 % Platelet Count 296 130-400 K/uL Mean Platelet Volume 9.8 7.5-10.5 fL Immature Granulocyte % (Auto) 0.7 0-1 % Neutrophils (%) (Auto) 62.6 40.0-77.0 % Lymphocytes (%) (Auto) 26.2 21.0-51.0 % Monocytes (%) (Auto) 7.1 3.0-13.0 % Eosinophils (%) (Auto) 3.1 0.0-8.0 % Basophils (%) (Auto) 0.3 0.0-5.0 % Neutrophils # (Auto) 4.4 1.8-7.7 K/uL Lymphocytes # (Auto) 1.9 1.0-4.8 K/uL Monocytes # (Auto) 0.5 0.1-1.0 K/uL Eosinophils # (Auto) 0.22 0.00-0.70 K/uL Basophils # (Auto) 0.02 0.00-0.20 K/uL Absolute Immature Granulocyte (auto 0.05 0-1 K/uL Nucleated Red Blood Cells 0.0 0.0-0.19 % Chemistry Labs: Test 10/13/24 16:03 10/13/24 03:29 10/12/24 03:34 Range/Units Whole Blood Glucose 160 H 70-110 MG/DL Sodium Level 141 136-145 mmol/L Potassium Level 3.7 3.5-5.1 mmol/L Chloride Level 104 101-111 mmol/L Carbon Dioxide Level 30 21-32 mmol/L Blood Urea Nitrogen 10 7-18 mg/dL Creatinine 0.6 0.5-1.3 mg/dL Glomerular Filtration Rate Calc 115 >90 mL/min Random Glucose 74 70-105 mg/dL Total Calcium 8.1 L 8.5-10.1 mg/dL Phosphorus Level 4.1 2.5-4.9 mg/dL Magnesium Level 1.90 1.80-2.40 mg/dL Total Bilirubin 0.3 0.2-1.0 mg/dL Aspartate Amino Transf (AST/SGOT) 31 10-37 U/L Alanine Aminotransferase (ALT/SGPT) 41 12-78 U/L Alkaline Phosphatase 78 50-136 U/L Total Protein 5.5 L 6.0-8.3 g/dL Albumin 1.8 L 3.5-5.0 g/dL Procalcitonin < 0.05 L 0.05-0.5 ng/mL B-Type Natriuretic Peptide 709 H 0-100 pg/mL Coagulation Labs: Test 10/13/24 03:29 Range/Units Activated Partial Thromboplast Time 48.7 H 26.3-35.5 SEC DIAGNOSTICS / RADIOLOGY RESULTS: [ ] PLAN For now, we are going to continue current management for the patient. Ill going to remain on Lasix 20 q.12 and we will remain on oxygen supplementation via the nasal cannula. I have addressed with the staff nurse prepare for a possible bedside thoracentesis tomorrow. The patient will continue on antibiotic coverage with doxycycline and Rocephin. He also remains on a heparin drip for the STEMI, possible plan for CABG, doubt when. We will follow the Cardiology/CTVS recommendation for management. We will continue to provide general supportive care, GI and DVT prophylaxis. Further orders per attending MD and hospital course. NEURO: Minimize central acting medications as possible. Maintain fall precautions, adequate lighting during the day PULMONARY: Supplemental 02 as needed. Maintain aspiration precautions at all times CARDIOVASCULAR: Follow hemodynamics. Vital signs per facility protocol GI & NUTRITION: Continue with nutritional support. Continue stool softeners and laxatives as needed. KIDNEYS & ELECTROLYTES: Strict monitoring of intake, output and overall fluid balance. Avoid nephrotoxic medications to the extent possible. Medications to be dosed according to renal function. Monitor electrolytes and replace as needed ENDOCRINE: Maintain blood glucose between 100-180 at all times. Hypoglycemia protocol in place INFECTIOUS DISEASE: Trend temperature, WBC and procalcitonin level Follow cultures, deescalate antibiotics as soon as possible. Panculture if new onset fever ONCOLOGY/HEMATOLOGY/COAGULATION: Monitor for s/s of bleeding Monitor hemoglobin, coagulation studies as needed SKIN: Pressure ulcer prevention per facility protocol Specialty mattress ORTHO/REHAB: Continue PT/OT Prophylaxis: Continue GI and DVT prophylaxis Code Status: Full Resuscitation Disposition: TBD Other: The patient was seen and case was discussed with beatriz NIEVES. Plan of care was discussed and agreed upon. ALBANIA NOLASCO SUPERVISOR IRRIGATION October 13, 2024 17:03
--- NOTE | 2024-10-13 18:40 | NUR ---
NOTIFIED CARDIOLOGY NOTIFIED CARDIOLOGY, YOBANY BLANCHARD NP THAT PATIENT'S HEPARIN DRIP WILL BE HELD AT 0600 IN PREPARATION FOR THORACENTESIS. NO NEW ORDERS AT THIS TIME.
--- NOTE | 2024-10-13 20:30 | NUR ---
Neshad Hospitalist on-call for run of SVT as per telemetry monitor that began at 1941 and ran for 12 minutes before changing to SR 77 with occasional PACs. Henry Hammond returned page, informed of situation, ordered for a cardiology consult in AM, repeated back order.
[2024-10-14] VITALS (11 sets, daily range): BP systolic 100–136; BP diastolic 56–76; PULSE 58–77; RESP 18–22; TEMP 97.6–98.7; O2SAT 97–98
[2024-10-14 03:52] LABS: BASOPHILS # (AUTO) 0.02 K/uL (0.00-0.20); BASOPHILS % (AUTO) 0.3 % (0.0-5.0); EOSINOPHILS # (AUTO) 0.11 K/uL (0.00-0.70); EOSINOPHILS % (AUTO) 1.5 % (0.0-8.0); HEMATOCRIT 36.1 % (42-54); IMMATURE GRANULOCYTE ABSOLUTE 0.02 K/uL (0-1); LYMPHOCYTES # (AUTO) 1.7 K/uL (1.0-4.8); LYMPHOCYTES % (AUTO) 23.5 % (21.0-51.0); MEAN CORPUSCULAR HEMOGLOBIN 29.9 pg (27.0-33.0); MEAN CORPUSCULAR HGB CONC 33.2 g/dL (32.0-36.0); MEAN CORPUSCULAR VOLUME 89.8 fL (79-99); MONOCYTES # (AUTO) 0.5 K/uL (0.1-1.0); MONOCYTES % (AUTO) 6.2 % (3.0-13.0); NEUTROPHILS # (AUTO) 4.9 K/uL (1.8-7.7); NEUTROPHILS % (AUTO) 68.2 % (40.0-77.0); PLATELET COUNT (AUTO) 281 K/uL (130-400); RED BLOOD CELL COUNT(AUTO) 4.02 MIL/uL (4.50-6.20); RED CELL DISTRIBUTION WIDTH 11.9 % (11.0-15.5); WHITE BLOOD COUNT (AUTO) 7.2 K/uL (4.8-10.8)
[2024-10-14 04:09] LABS: CREATININE 0.6 mg/dL (0.5-1.3); POTASSIUM 3.4 mmol/L (3.5-5.1)
--- NOTE | 2024-10-14 09:51 | PN ---
Cardiology Progress Note Date of Service: 10/14/2024 Attending Chair Mechanic: Dr. Dom Garces Primary Chair Mechanic: Dr. Tiago Henry Reason for Consult: ACS-STEMI Problem List: -ACS-STEMI s/p PCI with PTCA to the RPLB done on 10/09/[address] Llanes -Residual 2V+branch CAD (LAD, D1, LCx, Ramus, OM1, RPDA) identified on LHC done 10/09/2024, referred for CABG, but deemed a poor candidate due to vessel caliber, pending staged PCI -Sustained VT s/p chemical cardioversion with IV lidocaine on 10/09/2024, with recurrent sustained VT on 10/13/2024 -Acute hypoxemic respiratory failure, currently on NC -Elevated D Dimer, negative for PE -Bilateral PNA -Bilateral pleural effusions (R>L), pending thoracentesis -HFmrEF (LVEF: 40-45% by echo done 10/09/2024) -Bacteremia (staph warneri), possible contaminant, with repeat cultures showing no growth -UTI -HLP -DM2 -ETOH abuse -Normocytic normochromic anemia -Caodaism Subjective: This is a 54y/o male who was seen and evaluated at the bedside today. The patient denies any active complaints including chest pain, chest pressure, palpitations, or shortness of breath. Of concern, is that the patient had an episodes of sustained VT yesterday evening that was approximately 9 minutes in duration and self terminated. He was asymptomatic during the event and remained hemodynamically stable. Vitals/Labs Vital Signs Date Time Temp Pulse Resp B/P (MAP) Pulse Ox O2 Delivery O2 Flow Rate FiO2 10/14/24 07:31 98.6 76 20 136/68 97 Nasal Cannula 6.0 10/13/24 20:00 44 General: Awake and alert. No acute distress. Ill appearing. HEENT: Normocephalic, atraumatic. EOMI. Oral mucosa was moist. Poor dentition. Neck: No masses, JVD, or carotid bruits noted. Lungs: No respiratory distress. Symmetric chest movement. Bilateral air entry. Diminished breath sounds noted to the bilateral lower lung nickerson. Currently on supplemental oxygen via NC. Cardiac: Regular rate. Normal S1 and S2, +S4. No other murmurs, rubs, or gallops noted. Abdomen: Soft, nontender, nondistended. No organomegaly. Normal active bowel sounds x 4 quadrants. Extremities: No edema, clubbing, or cyanosis. +2 pulses noted throughout. Neuro: Cranial nerves II-XII are grossly intact. No focal deficits identified. Laboratory Tests 10/14/24 03:28 Assessment: -ACS-STEMI s/p PCI with PTCA to the RPLB done on 10/09/[address] Llanes -Residual 2V+branch CAD (LAD, D1, LCx, Ramus, OM1, RPDA) identified on C done 10/09/2024, referred for CABG, but deemed a poor candidate due to vessel caliber -Sustained VT s/p chemical cardioversion with IV lidocaine on 10/09/2024, with recurrent sustained VT on 10/13/2024 -Acute hypoxemic respiratory failure, currently on NC -Elevated D Dimer, negative for PE -Bilateral PNA -Bilateral pleural effusions (R>L), pending thoracentesis -HFmrEF (LVEF: 40-45% by echo done 10/09/2024) -Bacteremia (staph warneri), possible contaminant, with repeat cultures showing no growth -UTI -HLP -DM2 -ETOH abuse -Normocytic normochromic anemia -Caodaism Plan: 1. ACS-STEMI s/p PCI with PTCA to the RPLB done on 10/09/[address] Llanes -The [facility] also identified residual 2V+branch CAD (LAD, D1, LCx, Ramus, OM1, RPDA), for which the patient was referred to CT surgery for CABG, but was deemed not to be a candidate due to poor targets. -We will tentatively schedule the patient to undergo a staged PCI of the CAD in the LAD and LCx, but we will first he should undergo thoracentesis due to his bilateral pleural effusions, as once we perform the PCI, he will need to remain on uninterrupted DAPT. -In the meantime, he will continue on goal directed ACS therapy which includes aspirin 81 mg daily, clopidogrel 75 mg daily, IV heparin infusion (ACS protocol), metoprolol tartrate 25 mg BID, and atorvastatin 40 mg QHS. The patient will remain on DAPT for a minimum of 1 year as per ACS guidelines. -We will await the Pulmonary teams recommendations regarding whether the patient will require an unilateral thoracentesis vs bilateral thoracenteses in order to determine the timing of the stage PCI. 2. Sustained VT s/p chemical cardioversion with IV lidocaine on 10/09/2024, with recurrent sustained VT on 10/13/2024 -12H telemetry: Sinus rhythm with an episode of sustained VT (9 minutes) that began at 7:41 PM (VT self terminated), HR range: 60-77 bpm -Currently stable, asymptomatic, and in a sinus rhythm -In order to reduce the patient's risk of redeveloping VT, we will increase metoprolol tartrate to 25 mg BID and administer IV amiodarone per protocol (bolus and infusion). -Please keep the patient on continuous telemetry monitoring, maintain oxygen saturation levels > 90% at all times, and maintain a potassium > 4.0 and magnesium > 2.2. 3. HFmrEF (LVEF: 40-45% by echo done 10/09/2024) -24H urine output: 2200 mL -The patient will continue on furosemide 20 mg IV BID and metoprolol tartrate 25 mg BID. -We will reassess the patient's candidacy for GDMT with ACEI/ARB/ARNI therapy once he is euvolemic. -Please record strict I/O's, daily weights, and restrict fluids to less than 2.0L/day. This case was discussed with my Supervising Physician, Dr. Dom Garces, and the above mentioned plan was formulated and agreed upon. -Progress Note written by Yobany Morrison, MSN, DISCOUNT CLERK, AGACNP-BC YOBANY MORRISON NP October 14, 2024 09:51
--- NOTE | 2024-10-14 10:22 | PN ---
[facility] PROGRESS NOTE Date Patient Seen: October 14, 2024 Time of Visit: 10:22 Supervising Physician: Dr. Osmany Fam Primary Care Physician: Attending: Celeste Hospitalist team Outpatient Specialists: Inpatient Consults: BIS, critical Care team Warehouse Delivery Manager, CV surgeon PROBLEM LIST: Inferior STEMI with late presentation, POA, heparin drip Ventricular tachycardia, on lidocaine drip, POA Acute hypoxemic respiratory failure, POA in need of BiPAP Acute febrile illness Acute on chronic diastolic heart failure POA LVEF is 40-45% on echo 10/09/24 Moderate pulmonary HTN with RVSP of 40.3 mmHG Moderate mitral valve regurgitation POA Status post cardiac catheterization with findings of multivessel coronary artery disease, 10/08/2024, by Dr. Llanes Status post balloon angioplasty of 100% occluded ostial right posterolateral branch by Dr. Llanes, 10/08/2024 Mild anemia, POA Suspected cardiogenic pulmonary edema, POA Pulmonary embolism ruled out by evaluation by critical care service in [facility], POA Mild lactic acidosis, POA Poorly controlled type 2 diabetes mellitus, POA Bilateral pleural effusion moderate to large on CT chest History of chronic alcoholism, POA Mormon, POA INTERVAL HISTORY: Mr. Persaud is a 54-year-old male with underlying history of type 2 diabetes mellitus and chronic alcoholism . He initially presented as a transfer from [facility] for further management of late presentation of inferior ST- elevation [place] with ventricular tachycardia. He presented to the [facility] ER with recurrence of left-sided shoulder discomfort with dyspnea and dizziness. Upon arrival to the emergency department, EKG demonstrated regular wide complex tachycardia, with Q-waves in lead three and AVF with ST depressions in V4 and V6 with a heart rate of 150. Patient was also noted to be hypoxic with of 77%, blood pressure of 96/63 and troponin was noted to be at 5209--> 6062--> 6885. Patient underwent CT PE in [facility] which showed possible filling defects segmental and subsegmental branches concerning for pulmonary embolism. Patient was also noted to have moderate bilateral pleural effusion with patchy consolidation of perihilar and lower lobes with septal thickening and 4 mm granuloma of the left lung. Patient was admitted to ICU in [facility] and CT chest was reviewed by critical care physician there who stated that there was no signs of pulmonary embolism. Here at [facility] [place] he underwent cardiac catheterization, and the patient was found to have culprit lesion, 100% occluded right posterolateral branch for which, patient underwent balloon angioplasty. Patient was also found to have multivessel coronary artery disease with proximal LAD 70% stenosis, 80% mid diagonal stenosis, 70% proximal ramus, 80% mid circumflex stenosis before OM, 50% stenosis involving the circumflex after OM, 100% OM stenosis with filling collaterals and LVEDP was noted to be at 31. Repeat CT of the chest today again showed no pulmonary emboli seen and show ed the persisting moderate to large pleural effusion. CTVS was consulted and is pending for CABG. Repeat CT of the chest was done here and again showed no PE and persisting bilateral [id number] pleural effusion. Pulmonary Services was reconsulted for management of the effusion. Of note, patient is a Bahai and declines any blood transfusion. I informed the patient of plan of care. He verbalized understanding and is in agreement with the plan. 10/14/2024: At the time of my evaluation, the patient was lying in bed. The staff nurse reports no acute events overnight. The patient remains on nasal cannula for oxygen supplementation. On the monitor there is no changes of concern. Laboratory data today showed no leukocytosis, no anemia or thrombocytopenia. Chemistry panel was notable for a slightly low potassium of 3.4. BNP level showed slight improvement. I&O over the past 24 hour shows a voided volume of 2200 mL and a net balance of + 748.9. Sputum Gram stain currently showing rare Gram-positive cocci, culture is pending. Blood cultures x2 repeat are negative. No new chest imaging for review today. No other complaint. REVIEW OF SYSTEMS: 12 point ROS reviewed with patient. Pertinent positives mentioned above. Otherwise negative. PHYSICAL EXAM: GENERAL: Alert, weak, awake, oriented x 3 HEENT: EOMI, Sclera non icteric, moist mucosa NECK: Supple, no JVD, trachea midline LUNGS: Clear breath sounds bilaterally. No wheezes HEART: Regular rate and rhythm. Normal S1 and S2, without murmurs ABD: Abdomen soft, nontender. Bowel sounds present EXT: No clubbing cyanosis or edema. Right leg restricted movement due to reason heart catheterization. NEURO: Alert and oriented x4, follows commands Vital Signs (last 8hr) Date Time Temp Pulse Resp B/P (MAP) Pulse Ox O2 Delivery O2 Flow Rate FiO2 10/14/24 07:31 98.6 76 20 136/68 97 Nasal Cannula 6.0 10/14/24 07:04 77 20 10/14/24 06:57 77 20 N/Cannula Low lpm 4.0 10/14/24 03:00 97.5 60 18 101/61 94 Room Air LABS: Hematology Labs: Test 10/14/24 03:28 Range/Units White Blood Count 7.2 4.8-10.8 K/uL Red Blood Count 4.02 L 4.50-6.20 MIL/uL Hemoglobin 12.0 L 14.0-18.0 g/dL Hematocrit 36.1 L 42-54 % Mean Corpuscular Volume 89.8 79-99 fL Mean Corpuscular Hemoglobin 29.9 27.0-33.0 pg Mean Corpuscular Hemoglobin Concent 33.2 32.0-36.0 g/dL Red Cell Distribution Width 11.9 11.0-15.5 % Platelet Count 281 130-400 K/uL Mean Platelet Volume 9.4 7.5-10.5 fL Immature Granulocyte % (Auto) 0.3 0-1 % Neutrophils (%) (Auto) 68.2 40.0-77.0 % Lymphocytes (%) (Auto) 23.5 21.0-51.0 % Monocytes (%) (Auto) 6.2 3.0-13.0 % Eosinophils (%) (Auto) 1.5 0.0-8.0 % Basophils (%) (Auto) 0.3 0.0-5.0 % Neutrophils # (Auto) 4.9 1.8-7.7 K/uL Lymphocytes # (Auto) 1.7 1.0-4.8 K/uL Monocytes # (Auto) 0.5 0.1-1.0 K/uL Eosinophils # (Auto) 0.11 0.00-0.70 K/uL Basophils # (Auto) 0.02 0.00-0.20 K/uL Absolute Immature Granulocyte (auto 0.02 0-1 K/uL Nucleated Red Blood Cells 0.0 0.0-0.19 % Chemistry Labs: Test 10/14/24 05:10 10/14/24 03:28 10/13/24 03:29 Range/Units Whole Blood Glucose 75 # 70-110 MG/DL Sodium Level 144 136-145 mmol/L Potassium Level 3.4 L 3.5-5.1 mmol/L Chloride Level 107 101-111 mmol/L Carbon Dioxide Level 32 21-32 mmol/L Blood Urea Nitrogen 11 7-18 mg/dL Creatinine 0.6 0.5-1.3 mg/dL Glomerular Filtration Rate Calc 115 >90 mL/min Random Glucose 75 70-105 mg/dL Total Calcium 8.3 L 8.5-10.1 mg/dL B-Type Natriuretic Peptide 575 H 0-100 pg/mL Phosphorus Level 4.1 2.5-4.9 mg/dL Magnesium Level 1.90 1.80-2.40 mg/dL Total Bilirubin 0.3 0.2-1.0 mg/dL Aspartate Amino Transf (AST/SGOT) 31 10-37 U/L Alanine Aminotransferase (ALT/SGPT) 41 12-78 U/L Alkaline Phosphatase 78 50-136 U/L Total Protein 5.5 L 6.0-8.3 g/dL Albumin 1.8 L 3.5-5.0 g/dL Procalcitonin < 0.05 L 0.05-0.5 ng/mL Coagulation Labs: Test 10/14/24 03:28 Range/Units Activated Partial Thromboplast Time 75.4 #H 26.3-35.5 SEC DIAGNOSTICS / RADIOLOGY RESULTS: [ ] PLAN For now, we are going to continue current management for the patient. Ill going to remain on Lasix 20 q.12 and we will remain on oxygen supplementation via the nasal cannula. I have addressed with the staff nurse prepare for a possible bedside thoracentesis tomorrow. The patient will continue on antibiotic coverage with doxycycline and Rocephin. He also remains on a heparin drip for the STEMI, possible plan for CABG, doubt when. We will follow the Cardiology/CTVS recommendation for management. We will continue to provide ge neral supportive care, GI and DVT prophylaxis. Further orders per attending MD and hospital course. 10/14/2024: For now, we are going to continue current management for the patient. He will remain on oxygen supplementation via the nasal cannula. We wi ll request a repeat chest x-ray today. If there is a need for thoracentesis, we will possibly perform the thoracentesis at bedside later today. The patient will continue on diuretic therapy with IV Lasix. Currently receiving 20 b.i.d. IV. I am going to add metolazone p.o. and monitor strict I&Os. We will limit fluid intake to 1 L per 24 hours. We will monitor the patient's progress and response to management. We will continue to provide general supportive care, GI and DVT prophylaxis. Further orders per attending MD and hospital course. NEURO: Minimize central acting medications as possible. Maintain fall precautions, adequate lighting during the day PULMONARY: Supplemental 02 as needed. Maintain aspiration precautions at all times CARDIOVASCULAR: Follow hemodynamics. Vital signs per facility protocol GI & NUTRITION: Continue with nutritional support. Continue stool softeners and laxatives as needed. KIDNEYS & ELECTROLYTES: Strict monitoring of intake, output and overall fluid balance. Avoid nephrotoxic medications to the extent possible. Medications to be dosed according to renal function. Monitor electrolytes and replace as needed ENDOCRINE: Maintain blood glucose between 100-180 at all times. Hypoglycemia protocol in place INFECTIOUS DISEASE: Trend temperature, WBC and procalcitonin level Follow cultures, deescalate antibiotics as soon as possible. Panculture if new onset fever ONCOLOGY/HEMATOLOGY/COAGULATION: Monitor for s/s of bleeding Monitor hemoglobin, coagulation studies as needed SKIN: Pressure ulcer prevention per facility protocol Specialty mattress ORTHO/REHAB: Continue PT/OT Prophylaxis: Continue GI and DVT prophylaxis Code Status: Full Resuscitation Disposition: TBD Other: The patient was seen and case was discussed with beatriz NIEVES. Plan of care was discussed and agreed upon. ALBANIA NOLASCO NP October 14, 2024 10:22
[2024-10-14] MEDS ORDERED: AMIOdarone 900MG VIAL 360 MG in DEXTROSE 5%-WATER 200 ML IV SCH (10:30)
[2024-10-14] MEDS ORDERED: AMIOdarone 150MG VIAL 150 MG in DEXTROSE 5%-WATER 100 ML IV SCH (10:30)
--- NOTE | 2024-10-14 10:57 | PN ---
[facility] PROGRESS NOTE Date of Service: October 14, 2024 Time of Service: 10:49 SUBJECTIVE: [ ] This is a 54-year-old male with underlying history of type 2 diabetes mellitus, chronic alcoholism, who presented as a transfer from [facility] for further management of late presentation of inferior ST-elevation PR with ventricular tachycardia. Patient stated that about five days ago prior to presenting to the ER, he started having mild dizziness, dyspnea and left-sided shoulder pain radiating to the scapula. Symptoms were intermittent and patient noticed that he was having progressive dyspnea on exertion. Patient saw his primary care physician on 10/07/2024 where he was found to have blood glucose greater than 400 and he received some insulin as outpatient. He presented to the [facility] ER with recurrence of left-sided shoulder discomfort with dyspnea and dizziness. Upon arrival to the emergency department, EKG demonstrated regular wide complex tachycardia, with Q-waves in lead three and AVF with ST depressions in V4 and V6 with a heart rate of 150. Patient was also noted to be hypoxic with of 77%, blood pressure of 96/63 and troponin was noted to be at 5209--> 6062--> 6885. Patient underwent CT PE in [facility] which showed possible filling defects segmental and subsegmental branches concerning for pulmonary embolism. Patient was also noted to have moderate bilateral pleural effusion with patchy consolidation of perihilar and lower lobes with septal thickening and 4 mm granuloma of the left lung. Patient was admitted to ICU in [facility] and CT chest was reviewed by critical care physician there who stated that there was no signs of pulmonary embolism. Patient was transferred to [facility] and underwent cardiac catheterization given concern ACS. On cardiac catheterization, patient was found to have culprit lesion, 100% occluded right posterolateral branch for which, patient underwent balloon angioplasty. Patient was also found to have multivessel coronary artery disease with proximal LAD 70% stenosis, 80% mid diagonal stenosis, 70% proximal ramus, 80% mid circumflex stenosis before OM, 50% stenosis involving the circumflex after OM, 100% OM stenosis with filling collaterals and LVEDP was noted to be at 31. 5/10 patient is seen and examined at bedside, alert oriented x3, he is on 10 L via nasal cannula, on heparin drip, denies chest pain, denies shortness a breath, no nausea, no vomiting. Blood pressure 105/68, heart rate of 70. Afebrile. Hemoglobin 10.6, hematocrit 31.1. ABG shows pH 7.46, pCO2 34, PO2 59.6. Toxicology screen positive for benzodiazepines. Chest x-ray shows stable exam 10/10 54-year-old male with underlying history of type 2 diabetes mellitus, chronic alcoholism, who presented as a transfer from [facility] for further management of late presentation of inferior ST-elevation PR with ventricular tachycardia. Status post cardiac catheterization with findings of multivessel coronary artery disease, 10/08/2024, by Dr. Llanes Status post balloon angioplasty of 100% occluded ostial right posterolateral branch by Dr. Llanes, 10/08/2024. Patient now with Acute hypoxemic respiratory failure, Acute on chronic systolic heart failure exacerbation, suspect possible underlying developing community- acquired pneumonia. During my visit patient remains on supplemental oxygen via nasal cannula 10 L, getting IV antibiotics, he feels less short of breath, less productive cough. He remains on heparin drip. He is currently off lidocaine for 24 hours. No recurrent ventricular arrhythmias. Pending evaluation by Cardiothoracic surgeon. 10/11 patient seen at bedside, no acute events overnight. CV surgery does not recommend CABG as he is not good candidate, recommending a possible percutaneous catheterization with intervention to restore flow, we will follow up with Cardiology recommendations regarding attempted intervention versus optimizing medical management. Hemoglobin improved from 11.8 up to 12.0, potassium low at 3.2, we will be repleted according to protocol. Repeat blood culture positive in 1/2 bottles, we will follow up with speciation, 1st blood cultures were no growth, this is likely a contaminant. Patient has been afebrile, hemodynamically stable saturating well on 2 L nasal cannula. 10/12 patient seen at bedside, no acute events overnight. He has been afebrile, hemodynamically stable saturating well on 5 L nasal cannula, we will continue to wean as able. Cardiology recommending CTA with PE protocol to rule out PE. Hemoglobin decreased from 12.0 down to 11.8. Repeat blood culture positive in 1/2 bottles with coagulase negative Staphylococcus warneri consistent with a contaminant. We will follow up with Cardiology recommendations 10/13 patient seen at bedside, no acute events overnight. He is still requiring [address] of the chest with PE protocol was negative for pulmonary embolism however he does have significant bilateral pulmonary infiltrates as well as significant bilateral pleural effusions, pulmonology has been consulted to assess for possible thoracentesis. Patient is started on Zosyn to treat underlying pneumonia, he is otherwise hemodynamically stable, afebrile. His labs are relatively unremarkable. 10/14 patient seen at bedside, no acute events overnight. He has been afebrile, hemodynamically stable saturating well on 6 L nasal cannula. We will continue to wean as able. Pulmonology considering bedside thoracentesis today, we will follow up postprocedure. Labs relatively unremarkable. Once patient is more stable from a pulmonary standpoint cardiology planning on possible PCI. REVIEW OF SYSTEMS 12 point review of systems negative unless noted in HPI PHYSICAL EXAM GENERAL APPEARANCE: The patient is awake, alert, and oriented, in no acute cardiopulmonary distress. NEUROLOGICAL: Cranial nerves II-XII grossly intact. Motor is 5/5 in bilateral upper and lower extremities proximal to distal. No sensory deficits. HEENT: Face is symmetric. Pupils are equal and reactive. Extraocular movements are intact. NECK: Supple. No JVD. No thyromegaly. No submental, submandibular, pre- /postauricular, occipital or supraclavicular lymphadenopathy. CHEST: Normal chest expansion. No Telemetry. LUNGS: crackles noted of the bilateral lung bases CARDIOVASCULAR: Regular. S1 and S2 normal. No appreciable rubs, murmurs or gallops. ABDOMEN: Soft, nontender, and nondistended. There is no rebound, voluntary guarding, or rigidity. : Deferred. No Alexandra. EXTREMITIES: Non-edematous and not cyanotic. No clubbing. Good capillary refill. SKIN: No skin breakdown. Vital Signs (last 8hr) Date Time Temp Pulse Resp B/P (MAP) Pulse Ox O2 Delivery O2 Flow Rate FiO2 10/14/24 07:31 98.6 76 20 136/68 97 Nasal Cannula 6.0 10/14/24 07:04 77 20 10/14/24 06:57 77 20 N/Cannula Low lpm 4.0 10/14/24 03:00 97.5 60 18 101/61 94 Room Air LABS: Laboratory: Test 10/14/24 05:10 10/14/24 03:28 10/13/24 03:29 Range/Units Whole Blood Glucose 75 # 70-110 MG/DL White Blood Count 7.2 4.8-10.8 K/uL Red Blood Count 4.02 L 4.50-6.20 MIL/uL Hemoglobin 12.0 L 14.0-18.0 g/dL Hematocrit 36.1 L 42-54 % Mean Corpuscular Volume 89.8 79-99 fL Mean Corpuscular Hemoglobin 29.9 27.0-33.0 pg Mean Corpuscular Hemoglobin Concent 33.2 32.0-36.0 g/dL Red Cell Distribution Width 11.9 11.0-15.5 % Platelet Count 281 130-400 K/uL Mean Platelet Volume 9.4 7.5-10.5 fL Immature Granulocyte % (Auto) 0.3 0-1 % Neutrophils (%) (Auto) 68.2 40.0-77.0 % Lymphocytes (%) (Auto) 23.5 21.0-51.0 % Monocytes (%) (Auto) 6.2 3.0-13.0 % Eosinophils (%) (Auto) 1.5 0.0-8.0 % Basophils (%) (Auto) 0.3 0.0-5.0 % Neutrophils # (Auto) 4.9 1.8-7.7 K/uL Lymphocytes # (Auto) 1.7 1.0-4.8 K/uL Monocytes # (Auto) 0.5 0.1-1.0 K/uL Eosinophils # (Auto) 0.11 0.00-0.70 K/uL Basophils # (Auto) 0.02 0.00-0.20 K/uL Absolute Immature Granulocyte (auto 0.02 0-1 K/uL Nucleated Red Blood Cells 0.0 0.0-0.19 % Activated Partial Thromboplast Time 75.4 #H 26.3-35.5 SEC Sodium Level 144 136-145 mmol/L Potassium Level 3.4 L 3.5-5.1 mmol/L Chloride Level 107 101-111 mmol/L Carbon Dioxide Level 32 21-32 mmol/L Blood Urea Nitrogen 11 7-18 mg/dL Creatinine 0.6 0.5-1.3 mg/dL Glomerular Filtration Rate Calc 115 >90 mL/min Random Glucose 75 70-105 mg/dL Total Calcium 8.3 L 8.5-10.1 mg/dL Magnesium Level 2.00 1.80-2.40 mg/dL B-Type Natriuretic Peptide 575 H 0-100 pg/mL Phosphorus Level 4.1 2.5-4.9 mg/dL Total Bilirubin 0.3 0.2-1.0 mg/dL Aspartate Amino Transf (AST/SGOT) 31 10-37 U/L Alanine Aminotransferase (ALT/SGPT) 41 12-78 U/L Alkaline Phosphatase 78 50-136 U/L Total Protein 5.5 L 6.0-8.3 g/dL Albumin 1.8 L 3.5-5.0 g/dL Procalcitonin < 0.05 L 0.05-0.5 ng/mL Current Medications Medications (Trade) Dose Ordered Sig/William Route PRN Reason Start Time Stop Time Status Last Admin Dose Admin Acetaminophen (TYLenol 325MG TAB) 650 mg Q6H PRN PO MILD PAIN (1-3) 10/08/24 18:00 11/07/24 17:59 10/09/24 17:00 650 MG Amiodarone HCl 150 mg/Dextrose 100 ml @ 0 mls/hr PROTOCOL IV 10/14/24 10:30 10/14/24 10:25 DC Amiodarone HCl 360 mg/Dextrose 200 ml @ 0 mls/hr PROTOCOL IV 10/14/24 10:30 10/14/24 10:26 DC Amiodarone HCl 540 mg/Dextrose 300 ml @ 0 mls/hr PROTOCOL IV 10/14/24 11:00 11/13/24 10:59 Amiodarone HCL/ Dextrose 100 ml @ 0 mls/hr PROTOCOL IV 10/14/24 11:00 11/13/24 10:59 Amiodarone HCL/ Dextrose 200 ml @ 0 mls/hr PROTOCOL IV 10/14/24 11:00 11/13/24 10:59 Aspirin (Aspirin 81mg Chew Tab) 81 mg DAILY PO 10/09/24 09:00 10/08/24 16:47 DC Aspirin (Aspirin 81mg Chew Tab) 81 mg DAILY PO 10/09/24 09:00 11/08/24 08:59 10/14/24 08:40 81 MG Atorvastatin Calcium (LIPItor 40MG) 40 mg HS PO 10/08/24 21:00 11/07/24 20:59 10/13/24 21:22 40 MG Benzonatate (Tessalon 100mg Caps) 200 mg Q8H PRN PO COUGH 10/09/24 12:00 11/08/24 11:59 10/10/24 18:07 200 MG Calcium Gluconate (Calcium Gluc 1gm Vial) 1 gm AD PRN IV PROTOCOL 10/09/24 02:30 11/08/24 02:29 10/09/24 07:22 1 GM Ceftriaxone Sodium (ROCEphine 1G INJ) 1 gm Q24H IVPB 10/09/24 04:00 10/09/24 11:21 DC 10/09/24 04:28 1 GM Ceftriaxone Sodium (Rocephin 2gm Inj) 2 gm Q24H IVPB 10/10/24 04:00 10/14/24 05:15 DC 10/14/24 03:31 2 GM Chlordiazepoxide HCl (LIBrium 25 MG CAP) 25 mg Q4H PRN PO ALCOHOL WITHDRAWAL PROTOCOL 10/08/24 18:00 10/15/24 17:59 Clopidogrel Bisulfate (plaVIX 75MG) 75 mg DAILY PO 10/12/24 09:00 10/13/24 19:04 DC 10/13/24 09:10 75 MG Diazepam (VALium 5 MG/ML 2 ML SYG) 5 mg Q4H PRN IVP ALCOHOL WITHDRAWAL PROTOCOL 10/08/24 22:30 10/15/24 22:29 Diazepam (VALium 5 MG/ML 2 ML SYG) 10 mg Q4H PRN IVP ALCOHOL WITHDRAWAL PROTOCOL 10/08/24 18:30 10/08/24 20:32 DC Doxycycline Hyclate 250 ml @ 125 mls/hr Q12H IV 10/09/24 04:00 10/19/24 03:59 10/14/24 05:00 125 MLS/HR Folic Acid (FOLic ACID 1 MG TABLET) 1 mg DAILY PO 10/09/24 09:00 10/11/24 09:01 DC 10/11/24 08:24 1 MG Furosemide (LASix 20MG VIAL) 20 mg Q12H IV 10/13/24 05:30 11/12/24 05:29 10/14/24 05:01 20 MG Furosemide (LASix 20MG VIAL) 20 mg Q12H IV 10/08/24 17:30 10/12/24 17:16 DC 10/12/24 04:36 20 MG Furosemide (LASix 40MG VIAL) 40 mg Q12H IV 10/12/24 17:30 10/12/24 17:53 DC 10/12/24 17:40 40 MG Guaifenesin/ Dextromethorphan (RobiTUSSin DM 200/20MG 10ML) 10 ml Q4H PRN PO COUGH 10/09/24 16:30 11/08/24 16:29 10/12/24 18:39 10 ML Heparin Sodium (Porcine) (HEParin 5,000 UNIT VIAL) *calculation based on ACTUAL B... AD PRN IV HEPARIN PROTOCOL 10/08/24 17:30 11/07/24 17:29 10/10/24 17:21 4,000 UNIT Heparin Sodium/ Dextrose 250 ml @ 0 mls/hr Q6H IV 10/08/24 17:30 11/07/24 17:29 10/13/24 21:20 17.99 MLS/HR Insulin Glargine (LANtus 100 UNITS/ML 10 ML VIAL) 10 units DAILY SQ 10/09/24 09:00 10/09/24 11:26 DC 10/09/24 08:21 10 UNITS Insulin Glargine (LANtus 100 UNITS/ML 10 ML VIAL) 25 units BID SQ 10/09/24 21:00 11/08/24 08:59 10/14/24 08:46 25 UNITS Insulin Human Regular (humuLIN R 100 UNIT/ML 3ML) INSULIN SLIDING SCAL... ACHS SQ 10/08/24 21:00 11/07/24 20:59 10/13/24 21:22 3 UNIT Lidocaine HCl/ Dextrose 250 ml @ 0 mls/hr PROTOCOL IV 10/08/24 16:30 10/09/24 11:34 DC 10/08/24 23:48 15 MLS/HR Lorazepam (AtiVAN) 1 mg Q4H PRN IVP ALCOHOL WITHDRAWAL PROTOCOL 10/08/24 18:00 10/08/24 18:06 DC Magnesium Sulfate 50 ml @ 0 mls/hr PROTOCOL IV 10/09/24 09:30 10/10/24 11:16 DC Magnesium Sulfate 50 ml @ 0 mls/hr PROTOCOL IV 10/10/24 11:30 11/09/24 11:29 10/13/24 09:09 25 MLS/HR Magnesium Sulfate 50 ml @ 0 mls/hr PROTOCOL PRN IV AD 10/08/24 19:00 10/09/24 09:30 DC 10/09/24 04:34 25 MLS/HR Metoprolol Tartrate (loprESSOR) 12.5 mg BID PO 10/08/24 21:00 10/14/24 09:51 DC 10/14/24 08:40 12.5 MG Metoprolol Tartrate (loprESSOR) 25 mg BID PO 10/14/24 21:00 11/13/24 20:59 Morphine Sulfate (morPHINE 2MG SYG) 2 mg Q6H PRN IVP SEVERE PAIN (7-10) 10/08/24 18:00 10/13/24 20:59 DC Multivitamins Therapeutic (Multivitamin Tablet) 1 tab DAILY PO 10/09/24 09:00 11/08/24 08:59 10/14/24 08:39 1 TAB Nitroglycerin/ Dextrose 0 ml @ 0 mls/hr PROTOCOL PRN IV [id number] ORDERS 10/08/24 16:30 11/07/24 16:29 Ondansetron HCl (zoFRAN 4MG INJ) 4 mg Q4H PRN IVP NAUSEA/VOMITING 10/08/24 16:30 10/12/24 07:54 DC Ondansetron HCl (zoFRAN 4MG INJ) 4 mg Q6H PRN IVP NAUSEA/VOMITING 10/08/24 18:00 11/07/24 17:59 Pantoprazole Sodium (PROTonix 40MG INJ) 40 mg DAILY IVP 10/09/24 09:00 11/08/24 08:59 10/14/24 08:39 40 MG Pharmacy Profile Note (Pharmacy Communication) 1 each PROTOCOL PRN MISC ETOH Withdrawal Score changes 10/08/24 18:00 10/15/24 17:59 Piperacillin Sod/ Tazobactam Sod (Zosyn 3.375gm+NS 50ml) 3.375 gm Q8H IV 10/13/24 07:30 10/23/24 07:29 10/14/24 07:02 3.375 GM Potassium Chloride 100 ml @ 100 mls/hr AD PRN IV POTASSIUM PROTOCOL 10/09/24 10:30 11/08/24 10:29 Potassium Chloride (K-Dur/Klor-Con 20meq) 20 meq AD PRN PO POTASSIUM PROTOCOL 10/09/24 10:30 11/08/24 10:29 10/14/24 08:39 20 MEQ Potassium Chloride (KCl 10% Elixir 20meq/15ml) 20 meq AD PRN PO POTASSIUM PROTOCOL 10/09/24 10:30 11/08/24 10:29 Temazepam (restORIL 30 MG CAP) 30 mg HS PRN PO INSOMNIA/SLEEP 10/08/24 16:30 10/15/24 16:29 10/09/24 20:52 30 MG Thiamine HCl (Vitamin B-1) 100 mg DAILY PO 10/09/24 09:00 11/08/24 08:59 10/14/24 08:40 100 MG DIAGNOSTICS / RADIOLOGY: [ ] ASSESSMENT: Inferior STEMI with late presentation, POA Ventricular tachycardia, status post initiation of lidocaine drip, POA Status post cardiac catheterization with findings of multivessel coronary artery disease, 10/08/2024, by Dr. Llanes Status post balloon angioplasty of 100% occluded ostial right posterolateral branch by Dr. 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 Continue aspirin 81 mg Q 24 hours Continue doxycycline 100 mg b.i.d. Continue metoprolol 25 mg b.i.d. Continue atorvastatin 40 mg HS Continue furosemide 20 mg b.i.d. Continue the patient on Oxymizer Continue the patient on heparin drip Continue the Zosyn Continue to follow Cardiology input and recommendations as well input and recommendation Pending evaluation by Cardiothoracic surgeon. Pulmonology consulted to evaluate for thoracentesis Disposition: Follow up pulmonology recommendations, thoracentesis, possible PCI Cardiology recommendations, improvement in clinical status TRUNG OHARA MD October 14, 2024 10:57
[2024-10-14] MEDS: AMIODARONE 360MG/200ML BAG 200 ML IV SCH (10:58)
[2024-10-14] MEDS: AMIOdarone 150MG/100ML BAG 100 ML IV SCH (11:03)
--- NOTE | 2024-10-14 12:28 | HMCIMG ---
Exam Type: CHEST 1VW Clinical Information: Pleural effusion Comparison: October 12, 2024 Findings: Pulmonary pattern is as before. No worrisome interval changes have taken place. Impression: Stable exam.
[2024-10-14] MEDS: metoLAZONE 2.5 MG TABLET PO SCH (14:52)
--- NOTE | 2024-10-14 16:30 | NUR ---
RIGHT THORACENTESIS DONE AT BEDSIDE BY JEFF NOLASCO AND DR. LOZANO. PT TOLERATED WELL. PLEASE REFER TO MD NOTE.
--- NOTE | 2024-10-14 16:40 | PRN ---
Procedure performed: Thoracentesis Intraoperative US Body site: Right chest Description of procedure: Consent obtained Time out done Hand hygiene Intraoperative US used to localize pleural fluid and jennifer the skin at puncture site. Thoracentesis tray used. [1.1] liters of Pleural fluid drained Fluid is sent for analysis. Pt tolerated procedure well Post procedure chest x ray was ordered The procedure was done alongside and under the supervision of ALBANIA Wang MD, Dr., NP October 14, 2024 16:40
[2024-10-14] MEDS: AMIOdarone 900MG VIAL 540 MG in DEXTROSE 5%-WATER 300 ML IV SCH (16:47)
[2024-10-14 17:16] LABS: POTASSIUM 4.2 mmol/L (3.5-5.1); TOTAL PROTEIN, SERUM 5.9 g/dL (6.0-8.3)
[2024-10-14 17:21] LABS: BODY FLUID RBC 801 /cu. mm.; BODY FLUID WBC 183 /cu. mm.
[2024-10-14 17:27] LABS: PH PLEURAL FLUID 8
[2024-10-14 17:31] LABS: APPEARANCE BODY FLUID SLIGHTLY CLOUDY (CLEAR); SPECIMENTYPE,BODY FLUID PLEURAL
[2024-10-14 17:32] LABS: COLOR,BODY FLUID YELLOW (LT YELLOW); TOTAL VOLUME,BODY FLUID 1175 mL
[2024-10-14 17:34] LABS: GLUCOSE PLEURAL FLUID 171
[2024-10-14 17:50] LABS: BF LYMPHOCYTE 26 %; BF MESOTHELIAL 1 %; BF OTHER CELLS 54; BF TOTAL CELLS COUNTED 100
[2024-10-14 17:52] LABS: PROTEIN PLEURAL FLUID 1.7 mg/dL
[2024-10-14] MEDS: metoPROLOL tartRATE 25 MG TAB PO SCH (21:19)
[2024-10-15] VITALS (12 sets, daily range): BP systolic 96–129; BP diastolic 57–77; PULSE 57–93; RESP 20; TEMP 97.8–98.4; O2SAT 94–96
[2024-10-15 04:27] LABS: BASOPHILS # (AUTO) 0.03 K/uL (0.00-0.20); BASOPHILS % (AUTO) 0.4 % (0.0-5.0); EOSINOPHILS # (AUTO) 0.19 K/uL (0.00-0.70); EOSINOPHILS % (AUTO) 2.5 % (0.0-8.0); HEMATOCRIT 34.7 % (42-54); IMMATURE GRANULOCYTE ABSOLUTE 0.05 K/uL (0-1); LYMPHOCYTES # (AUTO) 2.1 K/uL (1.0-4.8); LYMPHOCYTES % (AUTO) 27.7 % (21.0-51.0); MEAN CORPUSCULAR HEMOGLOBIN 30.2 pg (27.0-33.0); MEAN CORPUSCULAR VOLUME 88.7 fL (79-99); MONOCYTES # (AUTO) 0.5 K/uL (0.1-1.0); MONOCYTES % (AUTO) 6.7 % (3.0-13.0); NEUTROPHILS # (AUTO) 4.7 K/uL (1.8-7.7); PLATELET COUNT (AUTO) 305 K/uL (130-400); RED BLOOD CELL COUNT(AUTO) 3.91 MIL/uL (4.50-6.20); RED CELL DISTRIBUTION WIDTH 12.1 % (11.0-15.5); WHITE BLOOD COUNT (AUTO) 7.6 K/uL (4.8-10.8)
[2024-10-15 04:55] LABS: CREATININE 0.6 mg/dL (0.5-1.3); POTASSIUM 3.7 mmol/L (3.5-5.1)
[2024-10-15] MEDS: PoTASSium chl 10% ELIXIR 20MEQ 20 MEQ/15 ML UDCUP PO PRN (05:48)
--- NOTE | 2024-10-15 08:52 | HMCIMG ---
Exam Type: CHEST 1VW Clinical Information: Post-thoracenthesis Comparison: None Findings: Pulmonary pattern is as before. No worrisome interval changes have taken place. Impression: Stable exam.
[2024-10-15] MEDS: metoLAZONE 2.5 MG TABLET PO SCH (11:00)
--- NOTE | 2024-10-15 12:49 | PN ---
[facility] PROGRESS NOTE Date of Service: October 15, 2024 Time of Service: 12:34 SUBJECTIVE: [ ] This is a 54-year-old male with underlying history of type 2 diabetes mellitus, chronic alcoholism, who presented as a transfer from [facility] for further management of late presentation of inferior ST-elevation ID with ventricular tachycardia. Patient stated that about five days ago prior to presenting to the ER, he started having mild dizziness, dyspnea and left-sided shoulder pain radiating to the scapula. Symptoms were intermittent and patient noticed that he was having progressive dyspnea on exertion. Patient saw his primary care physician on 10/07/2024 where he was found to have blood glucose greater than 400 and he received some insulin as outpatient. He presented to the [facility] ER with recurrence of left-sided shoulder discomfort with dyspnea and dizziness. Upon arrival to the emergency department, EKG demonstrated regular wide complex tachycardia, with Q-waves in lead three and AVF with ST depressions in V4 and V6 with a heart rate of 150. Patient was also noted to be hypoxic with of 77%, blood pressure of 96/63 and troponin was noted to be at 5209--> 6062--> 6885. Patient underwent CT PE in [facility] which showed possible filling defects segmental and subsegmental branches concerning for pulmonary embolism. Patient was also noted to have moderate bilateral pleural effusion with patchy consolidation of perihilar and lower lobes with septal thickening and 4 mm granuloma of the left lung. Patient was admitted to ICU in [facility] and CT chest was reviewed by critical care physician there who stated that there was no signs of pulmonary embolism. Patient was [place] [facility] [place] underwent cardiac catheterization given concern ACS. On cardiac catheterization, patient was found to have culprit lesion, 100% occluded right posterolateral branch for which, patient underwent balloon angioplasty. Patient was also found to have multivessel coronary artery disease with proximal LAD 70% stenosis, 80% mid diagonal stenosis, 70% proximal ramus, 80% mid circumflex stenosis before OM, 50% stenosis involving the circumflex after OM, 100% OM stenosis with filling collaterals and LVEDP was noted to be at 31. 5/10 patient is seen and examined at bedside, alert oriented x3, he is on 10 L via nasal cannula, on heparin drip, denies chest pain, denies shortness a breath, no nausea, no vomiting. Blood pressure 105/68, heart rate of 70. Afebrile. Hemoglobin 10.6, hematocrit 31.1. ABG shows pH 7.46, pCO2 34, PO2 59.6. Toxicology screen positive for benzodiazepines. Chest x-ray shows stable exam 10/10 54-year-old male with underlying history of type 2 diabetes mellitus, chronic alcoholism, who presented as a transfer from [facility] for further management of late presentation of inferior ST-elevation ID with ventricular tachycardia. Status post cardiac catheterization with findings of multivessel coronary artery disease, 10/08/2024, by Dr. Llanes Status post balloon angioplasty of 100% occluded ostial right posterolateral branch by Dr. Llanes, 10/08/2024. Patient now with Acute hypoxemic respiratory failure, Acute on chronic systolic heart failure exacerbation, suspect possible underlying developing community- acquired pneumonia. During my visit patient remains on supplemental oxygen via nasal cannula 10 L, getting IV antibiotics, he feels less short of breath, less productive cough. He remains on heparin drip. He is currently off lidocaine for 24 hours. No recurrent ventricular arrhythmias. Pending evaluation by Cardiothoracic surgeon. 10/11 patient seen at bedside, no acute events overnight. CV surgery does not recommend CABG as he is not good candidate, recommending a possible percutaneous catheterization with intervention to restore flow, we will follow up with Cardiology recommendations regarding attempted intervention versus optimizing medical management. Hemoglobin improved from 11.8 up to 12.0, potassium low at 3.2, we will be repleted according to protocol. Repeat blood culture positive in 1/2 bottles, we will follow up with speciation, 1st blood cultures were no growth, this is likely a contaminant. Patient has been afebrile, hemodynamically stable saturating well on 2 L nasal cannula. 10/12 patient seen at bedside, no acute events overnight. He has been afebrile, hemodynamically stable saturating well on 5 L nasal cannula, we will continue to wean as able. Cardiology recommending CTA with PE protocol to rule out PE. Hemoglobin decreased from 12.0 down to 11.8. Repeat blood culture positive in 1/2 bottles with coagulase negative Staphylococcus warneri consistent with a contaminant. We will follow up with Cardiology recommendations 10/13 patient seen at bedside, no acute events overnight. He is still requiring [address] of the chest with PE protocol was negative for pulmonary embolism however he does have significant bilateral pulmonary infiltrates as well as significant bilateral pleural effusions, pulmonology has been consulted to assess for possible thoracentesis. Patient is started on Zosyn to treat underlying pneumonia, he is otherwise hemodynamically stable, afebrile. His labs are relatively unremarkable. 10/14 patient seen at bedside, no acute events overnight. He has been afebrile, hemodynamically stable saturating well on 6 L nasal cannula. We will continue to wean as able. Pulmonology considering bedside thoracentesis today, we will follow up postprocedure. Labs relatively unremarkable. Once patient is more stable from a pulmonary standpoint cardiology planning on possible PCI. 10/15 patient seen at bedside, no acute events overnight. Yesterday he had a right-sided thoracentesis with a proximally 1 L drain. Today left-sided thoracentesis is planned, we will follow up postprocedure. He has improved from 6 L down to 3 L nasal cannula we will continue to wean as able. Once stable from a respiratory standpoint cardiology likely planning PCI REVIEW OF SYSTEMS 12 point review of systems negative unless noted in HPI PHYSICAL EXAM GENERAL APPEARANCE: The patient is awake, alert, and oriented, in no acute cardiopulmonary distress. NEUROLOGICAL: Cranial nerves II-XII grossly intact. Motor is 5/5 in bilateral upper and lower extremities proximal to distal. No sensory deficits. HEENT: Face is symmetric. Pupils are equal and reactive. Extraocular movements are intact. NECK: Supple. No JVD. No thyromegaly. No submental, submandibular, pre- /postauricular, occipital or supraclavicular lymphadenopathy. CHEST: Normal chest expansion. No Telemetry. LUNGS: crackles noted of the bilateral lung bases CARDIOVASCULAR: Regular. S1 and S2 normal. No appreciable rubs, murmurs or gallops. ABDOMEN: Soft, nontender, and nondistended. There is no rebound, voluntary guarding, or rigidity. : Deferred. No Alexandra. EXTREMITIES: Non-edematous and not cyanotic. No clubbing. Good capillary refill. SKIN: No skin breakdown. Vital Signs (last 8hr) Date Time Temp Pulse Resp B/P (MAP) Pulse Ox O2 Delivery O2 Flow Rate FiO2 10/15/24 11:00 97.9 60 20 106/65 98 Nasal Cannula 3.0 10/15/24 07:00 97.9 60 20 103/62 94 Nasal Cannula 3.0 10/15/24 06:57 76 20 N/Cannula Low lpm 3.0 32 LABS: Laboratory: Test 10/15/24 10:50 10/15/24 03:56 10/15/24 01:06 10/14/24 16:40 Range/Units Whole Blood Glucose 154 #H 70-110 MG/DL Bedside Glucose Comment Notified Nurse White Blood Count 7.6 4.8-10.8 K/uL Red Blood Count 3.91 L 4.50-6.20 MIL/uL Hemoglobin 11.8 L 14.0-18.0 g/dL Hematocrit 34.7 L 42-54 % Mean Corpuscular Volume 88.7 79-99 fL Mean Corpuscular Hemoglobin 30.2 27.0-33.0 pg Mean Corpuscular Hemoglobin Concent 34.0 32.0-36.0 g/dL Red Cell Distribution Width 12.1 11.0-15.5 % Platelet Count 305 130-400 K/uL Mean Platelet Volume 9.5 7.5-10.5 fL Immature Granulocyte % (Auto) 0.7 0-1 % Neutrophils (%) (Auto) 62.0 40.0-77.0 % Lymphocytes (%) (Auto) 27.7 21.0-51.0 % Monocytes (%) (Auto) 6.7 3.0-13.0 % Eosinophils (%) (Auto) 2.5 0.0-8.0 % Basophils (%) (Auto) 0.4 0.0-5.0 % Neutrophils # (Auto) 4.7 1.8-7.7 K/uL Lymphocytes # (Auto) 2.1 1.0-4.8 K/uL Monocytes # (Auto) 0.5 0.1-1.0 K/uL Eosinophils # (Auto) 0.19 0.00-0.70 K/uL Basophils # (Auto) 0.03 0.00-0.20 K/uL Absolute Immature Granulocyte (auto 0.05 0-1 K/uL Nucleated Red Blood Cells 0.0 0.0-0.19 % Sodium Level 141 136-145 mmol/L Potassium Level 3.7 3.5-5.1 mmol/L Chloride Level 103 101-111 mmol/L Carbon Dioxide Level 31 21-32 mmol/L Blood Urea Nitrogen 12 7-18 mg/dL Creatinine 0.6 0.5-1.3 mg/dL Glomerular Filtration Rate Calc 115 >90 mL/min Random Glucose 90 70-105 mg/dL Total Calcium 8.6 8.5-10.1 mg/dL Activated Partial Thromboplast Time 42.0 #H 26.3-35.5 SEC Lactate Dehydrogenase 196 81-234 U/L Total Protein 5.9 L 6.0-8.3 g/dL Test 10/14/24 16:25 10/14/24 03:28 Range/Units Body Fluid Source PLEURAL Body Fluid Volume 1175 mL Body Fluid Color YELLOW LT YELLOW Body Fluid Supernatant Appearance SLIGHTLY CLOUDY CLEAR Body Fluid WBC 183 /cu. mm. Body Fluid RBC 801 /cu. mm. Body Fluid Neutrophils 19.0 % Body Fluid Lymphocytes 26 % Body Fluid Mesothelial Cells (%) 1 % Body Fluid Other Cells (%) 54 Pleural Fluid pH 8 Pleural Fluid Total Protein 1.7 mg/dL Pleural Fluid LDH 135 U/L Pleural Fluid Glucose 171 Magnesium Level 2.00 1.80-2.40 mg/dL B-Type Natriuretic Peptide 575 H 0-100 pg/mL Current Medications Medications (Trade) Dose Ordered Sig/William Route PRN Reason Start Time Stop Time Status Last Admin Dose Admin Acetaminophen (TYLenol 325MG TAB) 650 mg Q6H PRN PO MILD PAIN (1-3) 10/08/24 18:00 11/07/24 17:59 10/09/24 17:00 650 MG Amiodarone HCl 150 mg/Dextrose 100 ml @ 0 mls/hr PROTOCOL IV 10/14/24 10:30 10/14/24 10:25 DC Amiodarone HCl 360 mg/Dextrose 200 ml @ 0 mls/hr PROTOCOL IV 10/14/24 10:30 10/14/24 10:26 DC Amiodarone HCl 540 mg/Dextrose 300 ml @ 0 mls/hr PROTOCOL IV 10/14/24 11:00 11/13/24 10:59 10/14/24 16:47 16.66 MLS/HR Amiodarone HCL/ Dextrose 100 ml @ 0 mls/hr PROTOCOL IV 10/14/24 11:00 10/15/24 07:41 DC 10/14/24 11:03 600 MLS/HR Amiodarone HCL/ Dextrose 200 ml @ 0 mls/hr PROTOCOL IV 10/14/24 11:00 10/15/24 07:42 DC 10/14/24 10:58 33.33 MLS/HR Aspirin (Aspirin 81mg Chew Tab) 81 mg DAILY PO 10/09/24 09:00 10/08/24 16:47 DC Aspirin (Aspirin 81mg Chew Tab) 81 mg DAILY PO 10/09/24 09:00 11/08/24 08:59 10/14/24 08:40 81 MG Atorvastatin Calcium (LIPItor 40MG) 40 mg HS PO 10/08/24 21:00 11/07/24 20:59 10/14/24 21:19 40 MG Benzonatate (Tessalon 100mg Caps) 200 mg Q8H PRN PO COUGH 10/09/24 12:00 11/08/24 11:59 10/10/24 18:07 200 MG Calcium Gluconate (Calcium Gluc 1gm Vial) 1 gm AD PRN IV PROTOCOL 10/09/24 02:30 11/08/24 02:29 10/09/24 07:22 1 GM Ceftriaxone Sodium (ROCEphine 1G INJ) 1 gm Q24H IVPB 10/09/24 04:00 10/09/24 11:21 DC 10/09/24 04:28 1 GM Ceftriaxone Sodium (Rocephin 2gm Inj) 2 gm Q24H IVPB 10/10/24 04:00 10/14/24 05:15 DC 10/14/24 03:31 2 GM Chlordiazepoxide HCl (LIBrium 25 MG CAP) 25 mg Q4H PRN PO ALCOHOL WITHDRAWAL PROTOCOL 10/08/24 18:00 10/15/24 17:59 Clopidogrel Bisulfate (plaVIX 75MG) 75 mg DAILY PO 10/12/24 09:00 10/13/24 19:04 DC 10/13/24 09:10 75 MG Diazepam (VALium 5 MG/ML 2 ML SYG) 5 mg Q4H PRN IVP ALCOHOL WITHDRAWAL PROTOCOL 10/08/24 22:30 10/15/24 22:29 Diazepam (VALium 5 MG/ML 2 ML SYG) 10 mg Q4H PRN IVP ALCOHOL WITHDRAWAL PROTOCOL 10/08/24 18:30 10/08/24 20:32 DC Doxycycline Hyclate 250 ml @ 125 mls/hr Q12H IV 10/09/24 04:00 10/19/24 03:59 10/15/24 03:14 125 MLS/HR Folic Acid (FOLic ACID 1 MG TABLET) 1 mg DAILY PO 10/09/24 09:00 10/11/24 09:01 DC 10/11/24 08:24 1 MG Furosemide (LASix 20MG VIAL) 20 mg Q12H IV 10/13/24 05:30 11/12/24 05:29 10/15/24 05:50 20 MG Furosemide (LASix 20MG VIAL) 20 mg Q12H IV 10/08/24 17:30 10/12/24 17:16 DC 10/12/24 04:36 20 MG Furosemide (LASix 40MG VIAL) 40 mg Q12H IV 10/12/24 17:30 10/12/24 17:53 DC 10/12/24 17:40 40 MG Guaifenesin/ Dextromethorphan (RobiTUSSin DM 200/20MG 10ML) 10 ml Q4H PRN PO COUGH 10/09/24 16:30 11/08/24 16:29 10/12/24 18:39 10 ML Heparin Sodium (Porcine) (HEParin 5,000 UNIT VIAL) *calculation based on ACTUAL B... AD PRN IV HEPARIN PROTOCOL 10/08/24 17:30 11/07/24 17:29 10/10/24 17:21 4,000 UNIT Heparin Sodium/ Dextrose 250 ml @ 0 mls/hr Q6H IV 10/08/24 17:30 11/07/24 17:29 10/14/24 17:58 14.22 MLS/HR Insulin Glargine (LANtus 100 UNITS/ML 10 ML VIAL) 10 units DAILY SQ 10/09/24 09:00 10/09/24 11:26 DC 10/09/24 08:21 10 UNITS Insulin Glargine (LANtus 100 UNITS/ML 10 ML VIAL) 25 units BID SQ 10/09/24 21:00 11/08/24 08:59 10/15/24 11:06 25 UNITS Insulin Human Regular (humuLIN R 100 UNIT/ML 3ML) INSULIN SLIDING SCAL... ACHS SQ 10/08/24 21:00 11/07/24 20:59 10/14/24 21:21 3 UNIT Lidocaine HCl/ Dextrose 250 ml @ 0 mls/hr PROTOCOL IV 10/08/24 16:30 10/09/24 11:34 DC 10/08/24 23:48 15 MLS/HR Lorazepam (AtiVAN) 1 mg Q4H PRN IVP ALCOHOL WITHDRAWAL PROTOCOL 10/08/24 18:00 10/08/24 18:06 DC Magnesium Sulfate 50 ml @ 0 mls/hr PROTOCOL IV 10/09/24 09:30 10/10/24 11:16 DC Magnesium Sulfate 50 ml @ 0 mls/hr PROTOCOL IV 10/10/24 11:30 11/09/24 11:29 10/13/24 09:09 25 MLS/HR Magnesium Sulfate 50 ml @ 0 mls/hr PROTOCOL PRN IV AD 10/08/24 19:00 10/09/24 09:30 DC 10/09/24 04:34 25 MLS/HR Metolazone (zarOXOlyn) 5 mg DAILY PO 10/15/24 09:00 11/14/24 08:59 10/15/24 11:00 5 MG Metolazone (zarOXOlyn) 5 mg ONCE PO 10/14/24 15:00 10/14/24 23:00 DC 10/14/24 14:52 5 MG Metoprolol Tartrate (loprESSOR) 12.5 mg BID PO 10/08/24 21:00 10/14/24 09:51 DC 10/14/24 08:40 12.5 MG Metoprolol Tartrate (loprESSOR) 25 mg BID PO 10/14/24 21:00 11/13/24 20:59 10/14/24 21:19 25 MG Morphine Sulfate (morPHINE 2MG SYG) 2 mg Q6H PRN IVP SEVERE PAIN (7-10) 10/08/24 18:00 10/13/24 20:59 DC Multivitamins Therapeutic (Multivitamin Tablet) 1 tab DAILY PO 10/09/24 09:00 11/08/24 08:59 10/15/24 11:00 1 TAB Nitroglycerin/ Dextrose 0 ml @ 0 mls/hr PROTOCOL PRN IV [id number] ORDERS 10/08/24 16:30 11/07/24 16:29 Ondansetron HCl (zoFRAN 4MG INJ) 4 mg Q4H PRN IVP NAUSEA/VOMITING 10/08/24 16:30 10/12/24 07:54 DC Ondansetron HCl (zoFRAN 4MG INJ) 4 mg Q6H PRN IVP NAUSEA/VOMITING 10/08/24 18:00 11/07/24 17:59 Pantoprazole Sodium (PROTonix 40MG INJ) 40 mg DAILY IVP 10/09/24 09:00 11/08/24 08:59 10/15/24 11:02 40 MG Pharmacy Profile Note (Pharmacy Communication) 1 each PROTOCOL PRN MISC ETOH Withdrawal Score changes 10/08/24 18:00 10/15/24 17:59 Piperacillin Sod/ Tazobactam Sod (Zosyn 3.375gm+NS 50ml) 3.375 gm Q8H IV 10/13/24 07:30 10/23/24 07:29 10/15/24 03:14 3.375 GM Potassium Chloride 100 ml @ 100 mls/hr AD PRN IV POTASSIUM PROTOCOL 10/09/24 10:30 11/08/24 10:29 Potassium Chloride (K-Dur/Klor-Con 20meq) 20 meq AD PRN PO POTASSIUM PROTOCOL 10/09/24 10:30 11/08/24 10:29 10/14/24 08:39 20 MEQ Potassium Chloride (KCl 10% Elixir 20meq/15ml) 20 meq AD PRN PO POTASSIUM PROTOCOL 10/09/24 10:30 11/08/24 10:29 10/15/24 05:48 20 MEQ Temazepam (restORIL 30 MG CAP) 30 mg HS PRN PO INSOMNIA/SLEEP 10/08/24 16:30 10/15/24 16:29 10/09/24 20:52 30 MG Thiamine HCl (Vitamin B-1) 100 mg DAILY PO 10/09/24 09:00 11/08/24 08:59 10/15/24 11:00 100 MG DIAGNOSTICS / RADIOLOGY: [ ] ASSESSMENT: Inferior STEMI with late presentation, POA Ventricular tachycardia, status post initiation of lidocaine drip, POA Status post cardiac catheterization with findings of multivessel coronary artery disease, 10/08/2024, by Dr. Llanes Status post balloon angioplasty of 100% occluded ostial right posterolateral branch by Dr. Llanes, 10/08/2024 Bilateral pleural effusions status post right thoracentesis 10/14/2024 Acute hypoxemic respiratory failure, POA Acute on chronic systolic heart failure exacerbation, POA Mild anemia, POA Suspected cardiogenic pulmonary edema, POA r/o any developing community acquired Pneumonia, POA Pulmonary embolism ruled out by evaluation by critical care service in [facility], POA Mild lactic acidosis, POA Poorly controlled type 2 diabetes mellitus, POA History of chronic alcoholism, POA Holiness, POA PLAN: Patient remains admitted to the PCU Continue bus monitor CTA with PE protocol pending Continue amiodarone protocol Continue Plavix 75 mg Q 24 hours Continue ceftriaxone 2 g Q 24 hours Continue glargine 25 units b.i.d. Continue aspirin 81 mg Q 24 hours Continue doxycycline 100 mg b.i.d. Continue metoprolol 25 mg b.i.d. Continue atorvastatin 40 mg HS Continue furosemide 20 mg b.i.d. Continue the patient on Oxymizer Continue the patient on heparin drip Continue the Zosyn Continue to follow Cardiology input and recommendations as well input and recommendation Pending evaluation by Cardiothoracic surgeon. Pulmonology consulted to evaluate for thoracentesis Disposition: Follow up pulmonology recommendations, thoracentesis, possible PCI Cardiology recommendations, improvement in clinical status TRUNG OHARA MD October 15, 2024 12:49
--- NOTE | 2024-10-15 16:35 | HMCIMG ---
Exam Type: CHEST 1VW Clinical Information: S/P LEFT THORACENTESIS Comparison: None Findings: The examination shows decrease in size of the previously seen left pleural effusion. There is no pneumothorax and no other interval changes are seen. IMPRESSION: No pneumothorax.
--- NOTE | 2024-10-15 16:40 | NUR ---
LEFT THORACENTESIS DONE BY GAURAV AGUILAR, 1100 ML REMOVED. PATIENT TOLERATED WELL.
--- NOTE | 2024-10-15 16:43 | PRN ---
Procedure performed: Thoracentesis Intraoperative US Body site: Left chest Description of procedure: Consent obtained Time out done Hand hygiene Intraoperative US used to localize pleural fluid and jennifer the skin at puncture site. Thoracentesis tray used. [1.1] liters of Pleural fluid drained Fluid is sent for analysis. Pt tolerated procedure well Post procedure chest x ray was ordered The procedure was done alongside and under the supervision of ALBANIA Duvall MD, Dr., NP October 15, 2024 16:43
[2024-10-15 17:17] LABS: TOTAL PROTEIN, SERUM 5.7 g/dL (6.0-8.3)
[2024-10-15 17:36] LABS: APPEARANCE BODY FLUID CLEAR (CLEAR); COLOR,BODY FLUID LT YELLOW (LT YELLOW); PH PLEURAL FLUID 7; SPECIMENTYPE,BODY FLUID PLEURAL
[2024-10-15 17:52] LABS: GLUCOSE PLEURAL FLUID 211
[2024-10-15 17:53] LABS: PROTEIN PLEURAL FLUID 1.7 mg/dL
[2024-10-15 20:17] LABS: BF LYMPHOCYTE 54 %; BF MACROPHAGE 17; BF MESOTHELIAL 20 %; BF OTHER CELLS 7; BF TOTAL CELLS COUNTED 100; TOTAL VOLUME,BODY FLUID 1100 mL
[2024-10-15 20:20] LABS: BODY FLUID RBC 0 /cu. mm.; BODY FLUID WBC 318 /cu. mm.
--- NOTE | 2024-10-15 22:00 | NUR ---
OFF OXYGEN, NOW ON ROOM AIR NO DISTRESS NOTED, O2SAT 94% 2 ROOM AIR, WILL CONT TO MONITOR
--- NOTE | 2024-10-15 23:38 | PN ---
Cardiology Progress Note Date of Service: 10/15/2024 Primary Keg Filler: Dr. Tiago Henry Reason for Consult: ACS-STEMI Problem List: -ACS-STEMI s/p PCI with PTCA to the RPLB done on 10/09/[address] 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 The patient underwent successful right sided thoracentesis yesterday and left sided thoracentesis today. He denies any active complaints including chest pain, chest pressure, palpitations, or shortness of breath. As per the nurse, there were no overnight events. Vitals/Labs Vital Signs Date Time Temp Pulse Resp B/P (MAP) Pulse Ox O2 Delivery O2 Flow Rate FiO2 10/15/24 20:00 96 Nasal Cannula* 1 24 10/15/24 19:55 98.1 57 20 102/70 General: Awake and alert. No acute distress. Ill appearing. HEENT: Normocephalic, atraumatic. EOMI. Oral mucosa was moist. Poor dentition. Neck: No masses, JVD, or carotid bruits noted. Lungs: No respiratory distress. Symmetric chest movement. Bilateral air entry. Diminished breath sounds noted to the bilateral lower lung nickerson. Currently on supplemental oxygen via NC. Cardiac: Regular rate. Normal S1 and S2, +S4. No other murmurs, rubs, or gallops noted. Abdomen: Soft, nontender, nondistended. No organomegaly. Normal active bowel sounds x 4 quadrants. Extremities: No edema, clubbing, or cyanosis. +2 pulses noted throughout. Neuro: Cranial nerves II-XII are grossly intact. No focal deficits identified. Laboratory Tests 10/15/24 03:56 Assessment: -ACS-STEMI s/p PCI with PTCA to the RPLB done on 10/09/[address] 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 ACS-STEMI s/p PCI with PTCA to the RPLB done on 10/09/[address] Llanes -The [facility] also identified residual 2V+branch CAD (LAD, D1, LCx, Ramus, OM1, RPDA), for which the patient was referred to CT surgery for CABG, but was deemed not to be a candidate due to poor targets. -The patient will tentatively undergo a staged PCI to address the his CAD early next week by his Primary Keg Filler, Dr. Henry. -In the meantime, he will continue on goal directed ACS therapy which includes aspirin 81 mg daily, metoprolol tartrate 25 mg BID, atorvastatin 40 mg QHS, and we will restart him on clopidogrel 75 mg daily and rather that restarting the IV heparin infusion, we will instead start the patient on full dose Lovenox (1mg/kg) Q12H post bilateral thoracenteses. -The patient will remain on DAPT for a minimum of 1 year as per ACS guidelines. 2. Sustained VT s/p chemical cardioversion with IV lidocaine on 10/09/2024, with recurrent sustained VT on 10/13/2024 -12H telemetry: Sinus rhythm, no recurrent arrhythmias noted -Currently stable, asymptomatic, and in a sinus rhythm -We will transition IV amiodarone to oral amiodarone 200 mg BID and he will continue on metoprolol tartrate 25 mg BID. -Please keep the patient on continuous telemetry monitoring, maintain oxygen saturation levels > 90% at all times, and maintain a potassium > 4.0 and magnesium > 2.2. 3. 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 -We will reassess the patient's candidacy for GDMT with ACEI/ARB/ARNI therapy once he is euvolemic. -Please record strict I/O's, daily weights, and restrict fluids to less than 2.0L/day. MIKE ALEXANDER MD October 15, 2024 23:38
[2024-10-16] VITALS (13 sets, daily range): BP systolic 92–116; BP diastolic 55–69; PULSE 58–79; RESP 18–20; TEMP 97.7–98.5; O2SAT 91–96
[2024-10-16] LABS: INR 1.08 (0.85-1.15); PROTHROMBIN TIME 11.4 SEC (9.6-11.6)
[2024-10-16 00:02] LABS: PARTIAL THROMBOPLASTIN TIME 34.7 SEC (26.3-35.5)
[2024-10-16] MEDS: chlordiazePOXIDE HCL 25 MG CAP PO PRN (00:26)
[2024-10-16] MEDS ORDERED: TEMAZepam 30 MG CAP PO PRN (00:30)
[2024-10-16] MEDS: HEParin 25,000 UNITS/250ML D5W 250 ML IV ONE (04:09)
--- NOTE | 2024-10-16 06:57 | NUR ---
HEPARIN DRIP OFF PATIENT PENDING 1ST DOSE OF LOVENOX WILL CONT TO MONITOR
[2024-10-16] MEDS: ENOXAPARIN SODIUM 80 MG/0.8 ML SQ SCH (07:07)
[2024-10-16] MEDS: AMIOdarone 200 MG TABLET PO SCH (08:51)
[2024-10-16] MEDS: cloPIDOgrel 75MG TAB PO SCH (08:51)
[2024-10-16 09:45] LABS: ALBUMIN 2.4 g/dL (3.5-5.0); BILIRUBIN,TOTAL 0.4 mg/dL (0.2-1.0); CREATININE 0.8 mg/dL (0.5-1.3); POTASSIUM 3.9 mmol/L (3.5-5.1); TOTAL PROTEIN, SERUM 6.4 g/dL (6.0-8.3)
--- NOTE | 2024-10-16 10:14 | PN ---
[facility] PROGRESS NOTE Date of Service: October 16, 2024 Time of Service: 10:02 SUBJECTIVE: [ ] This is a 54-year-old male with underlying history of type 2 diabetes mellitus, chronic alcoholism, who presented as a transfer from [facility] for further management of late presentation of inferior ST-elevation NE with ventricular tachycardia. Patient stated that about five days ago prior to presenting to the ER, he started having mild dizziness, dyspnea and left-sided shoulder pain radiating to the scapula. Symptoms were intermittent and patient noticed that he was having progressive dyspnea on exertion. Patient saw his primary care physician on 10/07/2024 where he was found to have blood glucose greater than 400 and he received some insulin as outpatient. He presented to the [facility] ER with recurrence of left-sided shoulder discomfort with dyspnea and dizziness. Upon arrival to the emergency department, EKG demonstrated regular wide complex tachycardia, with Q-waves in lead three and AVF with ST depressions in V4 and V6 with a heart rate of 150. Patient was also noted to be hypoxic with of 77%, blood pressure of 96/63 and troponin was noted to be at 5209--> 6062--> 6885. Patient underwent CT PE in [facility] which showed possible filling defects segmental and subsegmental branches concerning for pulmonary embolism. Patient was also noted to have moderate bilateral pleural effusion with patchy consolidation of perihilar and lower lobes with septal thickening and 4 mm granuloma of the left lung. Patient was admitted to ICU in [facility] and CT chest was reviewed by critical care physician there who stated that there was no signs of pulmonary embolism. Patient was [place] [facility] [place] underwent cardiac catheterization given concern ACS. On cardiac catheterization, patient was found to have culprit lesion, 100% occluded right posterolateral branch for which, patient underwent balloon angioplasty. Patient was also found to have multivessel coronary artery disease with proximal LAD 70% stenosis, 80% mid diagonal stenosis, 70% proximal ramus, 80% mid circumflex stenosis before OM, 50% stenosis involving the circumflex after OM, 100% OM stenosis with filling collaterals and LVEDP was noted to be at 31. 5/10 patient is seen and examined at bedside, alert oriented x3, he is on 10 L via nasal cannula, on heparin drip, denies chest pain, denies shortness a breath, no nausea, no vomiting. Blood pressure 105/68, heart rate of 70. Afebrile. Hemoglobin 10.6, hematocrit 31.1. ABG shows pH 7.46, pCO2 34, PO2 59.6. Toxicology screen positive for benzodiazepines. Chest x-ray shows stable exam 10/10 54-year-old male with underlying history of type 2 diabetes mellitus, chronic alcoholism, who presented as a transfer from [facility] for further management of late presentation of inferior ST-elevation NE with ventricular tachycardia. Status post cardiac catheterization with findings of multivessel coronary artery disease, 10/08/2024, by Dr. Llanes Status post balloon angioplasty of 100% occluded ostial right posterolateral branch by Dr. Llanes, 10/08/2024. Patient now with Acute hypoxemic respiratory failure, Acute on chronic systolic heart failure exacerbation, suspect possible underlying developing community- acquired pneumonia. During my visit patient remains on supplemental oxygen via nasal cannula 10 L, getting IV antibiotics, he feels less short of breath, less productive cough. He remains on heparin drip. He is currently off lidocaine for 24 hours. No recurrent ventricular arrhythmias. Pending evaluation by Cardiothoracic surgeon. 10/11 patient seen at bedside, no acute events overnight. CV surgery does not recommend CABG as he is not good candidate, recommending a possible percutaneous catheterization with intervention to restore flow, we will follow up with Cardiology recommendations regarding attempted intervention versus optimizing medical management. Hemoglobin improved from 11.8 up to 12.0, potassium low at 3.2, we will be repleted according to protocol. Repeat blood culture positive in 1/2 bottles, we will follow up with speciation, 1st blood cultures were no growth, this is likely a contaminant. Patient has been afebrile, hemodynamically stable saturating well on 2 L nasal cannula. 10/12 patient seen at bedside, no acute events overnight. He has been afebrile, hemodynamically stable saturating well on 5 L nasal cannula, we will continue to wean as able. Cardiology recommending CTA with PE protocol to rule out PE. Hemoglobin decreased from 12.0 down to 11.8. Repeat blood culture positive in 1/2 bottles with coagulase negative Staphylococcus warneri consistent with a contaminant. We will follow up with Cardiology recommendations 10/13 patient seen at bedside, no acute events overnight. He is still requiring [address] of the chest with PE protocol was negative for pulmonary embolism however he does have significant bilateral pulmonary infiltrates as well as significant bilateral pleural effusions, pulmonology has been consulted to assess for possible thoracentesis. Patient is started on Zosyn to treat underlying pneumonia, he is otherwise hemodynamically stable, afebrile. His labs are relatively unremarkable. 10/14 patient seen at bedside, no acute events overnight. He has been afebrile, hemodynamically stable saturating well on 6 L nasal cannula. We will continue to wean as able. Pulmonology considering bedside thoracentesis today, we will follow up postprocedure. Labs relatively unremarkable. Once patient is more stable from a pulmonary standpoint cardiology planning on possible PCI. 10/15 patient seen at bedside, no acute events overnight. Yesterday he had a right-sided thoracentesis with a proximally 1 L drain. Today left-sided thoracentesis is planned, we will follow up postprocedure. He has improved from 6 L down to 3 L nasal cannula we will continue to wean as able. Once stable from a respiratory standpoint cardiology likely planning PCI 10/16 seen at bedside, no acute events overnight. Yesterday he had a left-sided thoracentesis with approximately 1 L drained. He is currently saturating well o n room air, pending PCI on Friday. Labs are relatively unremarkable. REVIEW OF SYSTEMS 12 point review of systems negative unless noted in HPI PHYSICAL EXAM GENERAL APPEARANCE: The patient is awake, alert, and oriented, in no acute cardiopulmonary distress. NEUROLOGICAL: Cranial nerves II-XII grossly intact. Motor is 5/5 in bilateral upper and lower extremities proximal to distal. No sensory deficits. HEENT: Face is symmetric. Pupils are equal and reactive. Extraocular movements are intact. NECK: Supple. No JVD. No thyromegaly. No submental, submandibular, pre- /postauricular, occipital or supraclavicular lymphadenopathy. CHEST: Normal chest expansion. No Telemetry. LUNGS: crackles noted of the bilateral lung bases CARDIOVASCULAR: Regular. S1 and S2 normal. No appreciable rubs, murmurs or gallops. ABDOMEN: Soft, nontender, and nondistended. There is no rebound, voluntary guarding, or rigidity. : Deferred. No Alexandra. EXTREMITIES: Non-edematous and not cyanotic. No clubbing. Good capillary refi ll. SKIN: No skin breakdown. Vital Signs (last 8hr) Date Time Temp Pulse Resp B/P (MAP) Pulse Ox O2 Delivery O2 Flow Rate FiO2 10/16/24 07:40 92 Nasal Cannula* 1 24 10/16/24 07:00 97.9 73 18 116/56 92 Room Air 10/16/24 06:37 79 20 N/A Room Air 10/16/24 04:00 98.2 70 20 92/56 100 Room Air LABS: Laboratory: Test 10/16/24 09:03 10/16/24 05:28 10/15/24 23:25 10/15/24 16:24 Range/Units Sodium Level 139 136-145 mmol/L Potassium Level 3.9 3.5-5.1 mmol/L Chloride Level 98 L 101-111 mmol/L Carbon Dioxide Level 37 H 21-32 mmol/L Blood Urea Nitrogen 10 7-18 mg/dL Creatinine 0.8 0.5-1.3 mg/dL Glomerular Filtration Rate Calc 105 >90 mL/min Random Glucose 139 H 70-105 mg/dL Total Calcium 8.9 8.5-10.1 mg/dL Total Bilirubin 0.4 0.2-1.0 mg/dL Aspartate Amino Transf (AST/SGOT) 28 10-37 U/L Alanine Aminotransferase (ALT/SGPT) 50 12-78 U/L Alkaline Phosphatase 90 50-136 U/L Total Protein 6.4 6.0-8.3 g/dL Albumin 2.4 L 3.5-5.0 g/dL Whole Blood Glucose 85 # 70-110 MG/DL Prothrombin Time 11.4 9.6-11.6 SEC Prothromb Time International Ratio 1.08 0.85-1.15 Activated Partial Thromboplast Time 34.7 26.3-35.5 SEC Bedside Glucose Comment Notified Nurse Test 10/15/24 16:15 10/15/24 03:56 Range/Units Body Fluid Source PLEURAL Body Fluid Volume 1100 mL Body Fluid Color LT YELLOW LT YELLOW Body Fluid Supernatant Appearance CLEAR CLEAR Body Fluid WBC 318 /cu. mm. Body Fluid RBC 0 /cu. mm. Body Fluid Neutrophils 2.0 % Body Fluid Lymphocytes 54 % Body Fluid Macrophages (%) 17 Body Fluid Mesothelial Cells (%) 20 % Body Fluid Other Cells (%) 7 Pleural Fluid pH 7 Pleural Fluid Total Protein 1.7 mg/dL Pleural Fluid LDH 111 U/L Pleural Fluid Glucose 211 White Blood Count 7.6 4.8-10.8 K/uL Red Blood Count 3.91 L 4.50-6.20 MIL/uL Hemoglobin 11.8 L 14.0-18.0 g/dL Hematocrit 34.7 L 42-54 % Mean Corpuscular Volume 88.7 79-99 fL Mean Corpuscular Hemoglobin 30.2 27.0-33.0 pg Mean Corpuscular Hemoglobin Concent 34.0 32.0-36.0 g/dL Red Cell Distribution Width 12.1 11.0-15.5 % Platelet Count 305 130-400 K/uL Mean Platelet Volume 9.5 7.5-10.5 fL Immature Granulocyte % (Auto) 0.7 0-1 % Neutrophils (%) (Auto) 62.0 40.0-77.0 % Lymphocytes (%) (Auto) 27.7 21.0-51.0 % Monocytes (%) (Auto) 6.7 3.0-13.0 % Eosinophils (%) (Auto) 2.5 0.0-8.0 % Basophils (%) (Auto) 0.4 0.0-5.0 % Neutrophils # (Auto) 4.7 1.8-7.7 K/uL Lymphocytes # (Auto) 2.1 1.0-4.8 K/uL Monocytes # (Auto) 0.5 0.1-1.0 K/uL Eosinophils # (Auto) 0.19 0.00-0.70 K/uL Basophils # (Auto) 0.03 0.00-0.20 K/uL Absolute Immature Granulocyte (auto 0.05 0-1 K/uL Nucleated Red Blood Cells 0.0 0.0-0.19 % Lactate Dehydrogenase 285 H 81-234 U/L Current Medications Medications (Trade) Dose Ordered Sig/William Route PRN Reason Start Time Stop Time Status Last Admin Dose Admin Acetaminophen (TYLenol 325MG TAB) 650 mg Q6H PRN PO MILD PAIN (1-3) 10/08/24 18:00 11/07/24 17:59 10/09/24 17:00 650 MG Amiodarone HCl (pacERONE 200MG) 200 mg DAILY PO 10/16/24 09:00 11/15/24 08:59 10/16/24 08:51 200 MG Amiodarone HCl 150 mg/Dextrose 100 ml @ 0 mls/hr PROTOCOL IV 10/14/24 10:30 10/14/24 10:25 DC Amiodarone HCl 360 mg/Dextrose 200 ml @ 0 mls/hr PROTOCOL IV 10/14/24 10:30 10/14/24 10:26 DC Amiodarone HCl 540 mg/Dextrose 300 ml @ 0 mls/hr PROTOCOL IV 10/14/24 11:00 10/15/24 23:22 DC 10/14/24 16:47 16.66 MLS/HR Amiodarone HCL/ Dextrose 100 ml @ 0 mls/hr PROTOCOL IV 10/14/24 11:00 10/15/24 07:41 DC 10/14/24 11:03 600 MLS/HR Amiodarone HCL/ Dextrose 200 ml @ 0 mls/hr PROTOCOL IV 10/14/24 11:00 10/15/24 07:42 DC 10/14/24 10:58 33.33 MLS/HR Aspirin (Aspirin 81mg Chew Tab) 81 mg DAILY PO 10/09/24 09:00 10/08/24 16:47 DC Aspirin (Aspirin 81mg Chew Tab) 81 mg DAILY PO 10/09/24 09:00 11/08/24 08:59 10/16/24 08:52 81 MG Atorvastatin Calcium (LIPItor 40MG) 40 mg HS PO 10/08/24 21:00 11/07/24 20:59 10/15/24 20:51 40 MG Benzonatate (Tessalon 100mg Caps) 200 mg Q8H PRN PO COUGH 10/09/24 12:00 11/08/24 11:59 10/10/24 18:07 200 MG Calcium Gluconate (Calcium Gluc 1gm Vial) 1 gm AD PRN IV PROTOCOL 10/09/24 02:30 11/08/24 02:29 10/09/24 07:22 1 GM Ceftriaxone Sodium (ROCEphine 1G INJ) 1 gm Q24H IVPB 10/09/24 04:00 10/09/24 11:21 DC 10/09/24 04:28 1 GM Ceftriaxone Sodium (Rocephin 2gm Inj) 2 gm Q24H IVPB 10/10/24 04:00 10/14/24 05:15 DC 10/14/24 03:31 2 GM Chlordiazepoxide HCl (LIBrium 25 MG CAP) 25 mg Q4H PRN PO ALCOHOL WITHDRAWAL PROTOCOL 10/08/24 18:00 10/15/24 18:00 DC Chlordiazepoxide HCl (LIBrium 25 MG CAP) 25 mg Q4HPRN PRN PO WITHDRAWAL 10/16/24 00:30 10/23/24 00:29 10/16/24 00:26 25 MG Clopidogrel Bisulfate (plaVIX 75MG) 75 mg DAILY PO 10/12/24 09:00 10/13/24 19:04 DC 10/13/24 09:10 75 MG Clopidogrel Bisulfate (plaVIX 75MG) 75 mg DAILY PO 10/16/24 09:00 11/15/24 08:59 10/16/24 08:51 75 MG Diazepam (VALium 5 MG/ML 2 ML SYG) 5 mg Q4H PRN IVP ALCOHOL WITHDRAWAL PROTOCOL 10/08/24 22:30 10/15/24 22:29 DC Diazepam (VALium 5 MG/ML 2 ML SYG) 10 mg Q4H PRN IVP ALCOHOL WITHDRAWAL PROTOCOL 10/08/24 18:30 10/08/24 20:32 DC Doxycycline Hyclate 250 ml @ 125 mls/hr Q12H IV 10/09/24 04:00 10/19/24 03:59 10/16/24 04:02 125 MLS/HR Enoxaparin Sodium (Lovenox (Pharmacy To Dose)) 1 unit Q12H SQ 10/15/24 23:30 10/15/24 23:32 DC Enoxaparin Sodium (Lovenox 80mg) 80 mg Q12H SQ 10/16/24 07:00 11/15/24 06:59 10/16/24 07:07 80 MG Folic Acid (FOLic ACID 1 MG TABLET) 1 mg DAILY PO 10/09/24 09:00 10/11/24 09:01 DC 10/11/24 08:24 1 MG Furosemide (LASix 20MG VIAL) 20 mg Q12H IV 10/13/24 05:30 11/12/24 05:29 10/16/24 04:53 20 MG Furosemide (LASix 20MG VIAL) 20 mg Q12H IV 10/08/24 17:30 10/12/24 17:16 DC 10/12/24 04:36 20 MG Furosemide (LASix 40MG VIAL) 40 mg Q12H IV 10/12/24 17:30 10/12/24 17:53 DC 10/12/24 17:40 40 MG Guaifenesin/ Dextromethorphan (RobiTUSSin DM 200/20MG 10ML) 10 ml Q4H PRN PO COUGH 10/09/24 16:30 11/08/24 16:29 10/12/24 18:39 10 ML Heparin Sodium (Porcine) (HEParin 5,000 UNIT VIAL) *calculation based on ACTUAL B... AD PRN IV HEPARIN PROTOCOL 10/08/24 17:30 10/15/24 23:22 DC 10/10/24 17:21 4,000 UNIT Heparin Sodium/ Dextrose 250 ml @ 0 mls/hr Q6H IV 10/08/24 17:30 10/15/24 23:22 DC 10/14/24 17:58 14.22 MLS/HR Insulin Glargine (LANtus 100 UNITS/ML 10 ML VIAL) 10 units DAILY SQ 10/09/24 09:00 10/09/24 11:26 DC 10/09/24 08:21 10 UNITS Insulin Glargine (LANtus 100 UNITS/ML 10 ML VIAL) 25 units BID SQ 10/09/24 21:00 11/08/24 08:59 10/15/24 20:53 25 UNITS Insulin Human Regular (humuLIN R 100 UNIT/ML 3ML) INSULIN SLIDING SCAL... ACHS SQ 10/08/24 21:00 11/07/24 20:59 10/15/24 20:52 4 UNIT Lidocaine HCl/ Dextrose 250 ml @ 0 mls/hr PROTOCOL IV 10/08/24 16:30 10/09/24 11:34 DC 10/08/24 23:48 15 MLS/HR Lorazepam (AtiVAN) 1 mg Q4H PRN IVP ALCOHOL WITHDRAWAL PROTOCOL 10/08/24 18:00 10/08/24 18:06 DC Magnesium Sulfate 50 ml @ 0 mls/hr PROTOCOL IV 10/09/24 09:30 10/10/24 11:16 DC Magnesium Sulfate 50 ml @ 0 mls/hr PROTOCOL IV 10/10/24 11:30 11/09/24 11:29 10/13/24 09:09 25 MLS/HR Magnesium Sulfate 50 ml @ 0 mls/hr PROTOCOL PRN IV AD 10/08/24 19:00 10/09/24 09:30 DC 10/09/24 04:34 25 MLS/HR Metolazone (zarOXOlyn) 5 mg DAILY PO 10/15/24 09:00 11/14/24 08:59 10/16/24 08:51 5 MG Metolazone (zarOXOlyn) 5 mg ONCE PO 10/14/24 15:00 10/14/24 23:00 DC 10/14/24 14:52 5 MG Metoprolol Tartrate (loprESSOR) 12.5 mg BID PO 10/08/24 21:00 10/14/24 09:51 DC 10/14/24 08:40 12.5 MG Metoprolol Tartrate (loprESSOR) 25 mg BID PO 10/14/24 21:00 11/13/24 20:59 10/16/24 08:51 25 MG Morphine Sulfate (morPHINE 2MG SYG) 2 mg Q6H PRN IVP SEVERE PAIN (7-10) 10/08/24 18:00 10/13/24 20:59 DC Multivitamins Therapeutic (Multivitamin Tablet) 1 tab DAILY PO 10/09/24 09:00 11/08/24 08:59 10/16/24 08:51 1 TAB Nitroglycerin/ Dextrose 0 ml @ 0 mls/hr PROTOCOL PRN IV [id number] ORDERS 10/08/24 16:30 11/07/24 16:29 Ondansetron HCl (zoFRAN 4MG INJ) 4 mg Q4H PRN IVP NAUSEA/VOMITING 10/08/24 16:30 10/12/24 07:54 DC Ondansetron HCl (zoFRAN 4MG INJ) 4 mg Q6H PRN IVP NAUSEA/VOMITING 10/08/24 18:00 11/07/24 17:59 Pantoprazole Sodium (PROTonix 40MG INJ) 40 mg DAILY IVP 10/09/24 09:00 11/08/24 08:59 10/16/24 08:50 40 MG Pharmacy Profile Note (Pharmacy Communication) 1 each PROTOCOL PRN MISC ETOH Withdrawal Score changes 10/08/24 18:00 10/15/24 18:00 DC Piperacillin Sod/ Tazobactam Sod (Zosyn 3.375gm+NS 50ml) 3.375 gm Q8H IV 10/13/24 07:30 10/23/24 07:29 10/16/24 08:49 3.375 GM Potassium Chloride 100 ml @ 100 mls/hr AD PRN IV POTASSIUM PROTOCOL 10/09/24 10:30 11/08/24 10:29 Potassium Chloride (K-Dur/Klor-Con 20meq) 20 meq AD PRN PO POTASSIUM PROTOCOL 10/09/24 10:30 11/08/24 10:29 10/14/24 08:39 20 MEQ Potassium Chloride (KCl 10% Elixir 20meq/15ml) 20 meq AD PRN PO POTASSIUM PROTOCOL 10/09/24 10:30 11/08/24 10:29 10/15/24 05:48 20 MEQ Temazepam (restORIL 30 MG CAP) 30 mg HS PRN PO INSOMNIA 10/16/24 00:30 10/23/24 00:29 Temazepam (restORIL 30 MG CAP) 30 mg HS PRN PO INSOMNIA/SLEEP 10/08/24 16:30 10/15/24 16:29 DC 10/09/24 20:52 30 MG Thiamine HCl (Vitamin B-1) 100 mg DAILY PO 10/09/24 09:00 11/08/24 08:59 10/16/24 08:50 100 MG DIAGNOSTICS / RADIOLOGY: [ ] ASSESSMENT: Inferior STEMI with late presentation, POA Ventricular tachycardia, status post initiation of lidocaine drip, POA Status post cardiac catheterization with findings of multivessel coronary artery disease, 10/08/2024, by Dr. Llanes Status post balloon angioplasty of 100% occluded ostial right posterolateral branch by Dr. Llanes, 10/08/2024 Bilateral pleural effusions status post right thoracentesis 10/14/2024 Acute hypoxemic respiratory failure, POA Acute on chronic systolic heart failure exacerbation, POA Mild anemia, POA Suspected cardiogenic pulmonary edema, POA r/o any developing community acquired Pneumonia, POA Pulmonary embolism ruled out by evaluation by critical care service in [facility], POA Mild lactic acidosis, POA Poorly controlled type 2 diabetes mellitus, POA History of chronic alcoholism, POA Sabianism, POA PLAN: Patient remains admitted to the PCU Continue conveyor monitor CTA with PE protocol pending Continue amiodarone protocol Continue Plavix 75 mg Q 24 hours Continue ceftriaxone 2 g Q 24 hours Continue glargine 25 units b.i.d. Continue aspirin 81 mg Q 24 hours Continue doxycycline 100 mg b.i.d. Continue metoprolol 25 mg b.i.d. Continue atorvastatin 40 mg HS Continue furosemide 20 mg b.i.d. Continue the patient on Oxymizer Continue the patient on heparin drip Continue the Zosyn Continue to follow Cardiology input and recommendations as well input and recommendation Pending evaluation by Cardiothoracic surgeon. Pulmonology consulted to evaluate for thoracentesis Disposition: Follow up pulmonology recommendations, thoracentesis, possible PCI Cardiology recommendations, improvement in clinical status TRUNG OHARA MD October 16, 2024 10:14
--- NOTE | 2024-10-16 12:27 | PN ---
[facility] CARDIOLOGY PROGRESS NOTE Date Patient Seen: October 16, 2024 Time of Visit: 12:23 Interval History: [No acute events overnight. The patient denies any chest pain, palpitations, dyspnea or any other anginal equivalents. We of telemetry with no events o vernight, currently in the 80s. ] Physical Examination: GENERAL: [No acute distress.] HEAD: [Normal with no signs of head trauma.] EYES: [PERRLA, EOMI, conjunctiva and sclera normal.] ENT: [Hearing grossly intact, normal oropharynx.] NECK: [Supple without JVD. There is no tenderness, lymphadenopathy, or masses. No thyromegaly. Normal carotid upstrokes without bruits.] LUNGS: [Clear breath sounds bilaterally. No wheezes, or rhonchi.] HEART: [Normal rate and rhythm. Normal S1 and S2 without mumurs, gallop or rub.] VASC: [Peripheral pulses +2 bilaterally.] ABD: [Bowel sounds normal, soft, nontender, no masses, no organomegaly. No audible bruits.] : [Not examined] LYMPH: [No lymphadenopathy noted.] EXT: [No clubbing, cyanosis or edema.] SKIN: [No rashes or lesions noted.] NEURO: [Awake, alert, and oriented x3. No focal sensory or strength deficits noted.] Laboratory: [ ] Hematology Labs: Test 10/15/24 03:56 Range/Units White Blood Count 7.6 4.8-10.8 K/uL Red Blood Count 3.91 L 4.50-6.20 MIL/uL Hemoglobin 11.8 L 14.0-18.0 g/dL Hematocrit 34.7 L 42-54 % Mean Corpuscular Volume 88.7 79-99 fL Mean Corpuscular Hemoglobin 30.2 27.0-33.0 pg Mean Corpuscular Hemoglobin Concent 34.0 32.0-36.0 g/dL Red Cell Distribution Width 12.1 11.0-15.5 % Platelet Count 305 130-400 K/uL Mean Platelet Volume 9.5 7.5-10.5 fL Immature Granulocyte % (Auto) 0.7 0-1 % Neutrophils (%) (Auto) 62.0 40.0-77.0 % Lymphocytes (%) (Auto) 27.7 21.0-51.0 % Monocytes (%) (Auto) 6.7 3.0-13.0 % Eosinophils (%) (Auto) 2.5 0.0-8.0 % Basophils (%) (Auto) 0.4 0.0-5.0 % Neutrophils # (Auto) 4.7 1.8-7.7 K/uL Lymphocytes # (Auto) 2.1 1.0-4.8 K/uL Monocytes # (Auto) 0.5 0.1-1.0 K/uL Eosinophils # (Auto) 0.19 0.00-0.70 K/uL Basophils # (Auto) 0.03 0.00-0.20 K/uL Absolute Immature Granulocyte (auto 0.05 0-1 K/uL Nucleated Red Blood Cells 0.0 0.0-0.19 % Chemistry Labs: Test 10/16/24 11:12 10/16/24 09:03 10/15/24 03:56 Range/Units Whole Blood Glucose 135 #H 70-110 MG/DL Bedside Glucose Comment Notified Nurse Sodium Level 139 136-145 mmol/L Potassium Level 3.9 3.5-5.1 mmol/L Chloride Level 98 L 101-111 mmol/L Carbon Dioxide Level 37 H 21-32 mmol/L Blood Urea Nitrogen 10 7-18 mg/dL Creatinine 0.8 0.5-1.3 mg/dL Glomerular Filtration Rate Calc 105 >90 mL/min Random Glucose 139 H 70-105 mg/dL Total Calcium 8.9 8.5-10.1 mg/dL Total Bilirubin 0.4 0.2-1.0 mg/dL Aspartate Amino Transf (AST/SGOT) 28 10-37 U/L Alanine Aminotransferase (ALT/SGPT) 50 12-78 U/L Alkaline Phosphatase 90 50-136 U/L Total Protein 6.4 6.0-8.3 g/dL Albumin 2.4 L 3.5-5.0 g/dL Lactate Dehydrogenase 285 H 81-234 U/L Coagulation Labs: Test 10/15/24 23:25 Range/Units Prothrombin Time 11.4 9.6-11.6 SEC Prothromb Time International Ratio 1.08 0.85-1.15 Activated Partial Thromboplast Time 34.7 26.3-35.5 SEC Diagnostics / Radiology: [Copy/Paste Echos/Imaging Report here] Impression and Plan: [-ACS-STEMI s/p PCI with PTCA to the RPLB done on 10/09/[address] 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 ACS-STEMI s/p PCI with PTCA to the RPLB done on 10/09/[address] Llanes -The [facility] also identified residual 2V+branch CAD (LAD, D1, LCx, Ramus, OM1, RPDA), for which the patient was referred to CT surgery for CABG, but was deemed not to be a candidate due to poor targets. -The patient will tentatively undergo a staged PCI to address the his CAD early next week by his Primary Supervisor [facility], Dr. Henry. -In the meantime, he will continue on goal directed ACS therapy which includes aspirin 81 mg daily, metoprolol tartrate 25 mg BID, atorvastatin 40 mg QHS -continue clopidogrel 75 mg daily and Lovenox (1mg/kg) Q12H post bilateral thoracenteses. -The patient will remain on DAPT for a minimum of 1 year as per ACS guidelines. 2. Sustained VT s/p chemical cardioversion with IV lidocaine on 10/09/2024, with recurrent sustained VT on 10/13/2024 -12H telemetry: Sinus rhythm, no recurrent arrhythmias noted -Currently stable, asymptomatic, and in a sinus rhythm -continue amiodarone 200 mg BID for seven days and after that continue amiodarone 200 mg daily and he will continue on metoprolol tartrate 25 mg BID. -Please keep the patient on continuous telemetry monitoring, maintain oxygen saturation levels > 90% at all times, and maintain a potassium > 4.0 and magnesium > 2.2. 3. 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 -We will reassess the patient's candidacy for GDMT with ACEI/ARB/ARNI therapy once he is euvolemic. -Please record strict I/O's, daily weights, and restrict fluids to less than 2.0 L/day. ] -overnight urine output 1275 mL -we will order a repeat CMP for tomorrow morning Thank you for this consult cardiology will need to follow along Nam alexander MD ATTESTATION BY PHYSICIAN I have seen and examined the patient, reviewed the above documentation, participated in medical decision making, made necessary modifications, and agree with the treatment plan as documented by my mid-level provider above. MD BECCA Dawson JAMES R MD October 16, 2024 12:27
--- NOTE | 2024-10-16 17:38 | PN ---
[facility] PROGRESS NOTE Date Patient Seen: October 16, 2024 Time of Visit: 15:37 Supervising Physician: Dr. Crespo Primary Care Physician: Attending: Celeste Hospitalist team Outpatient Specialists: Inpatient Consults: BIS, critical Care team [employer], CV surgeon PROBLEM LIST: Inferior STEMI with late presentation, POA, heparin drip Ventricular tachycardia, on lidocaine drip, POA Acute hypoxemic respiratory failure, POA in need of BiPAP Acute febrile illness Acute on chronic diastolic heart failure POA LVEF is 40-45% on echo 10/09/24 Moderate pulmonary HTN with RVSP of 40.3 mmHG Moderate mitral valve regurgitation POA Status post cardiac catheterization with findings of multivessel coronary artery disease, 10/08/2024, by Dr. Llanes Status post balloon angioplasty of 100% occluded ostial right posterolateral branch by Dr. Llanes, 10/08/2024 Mild anemia, POA Suspected cardiogenic pulmonary edema, POA Pulmonary embolism ruled out by evaluation by critical care service in [facility], POA Mild lactic acidosis, POA Poorly controlled type 2 diabetes mellitus, POA Bilateral pleural effusion moderate to large on CT chest History of chronic alcoholism, POA Sabianist, POA INTERVAL HISTORY: Mr. Persaud is a 54-year-old male with underlying history of type 2 diabetes mellitus and chronic alcoholism . He initially presented as a transfer from [facility] for further management of late presentation of inferior ST- elevation FL with ventricular tachycardia. He presented to the [facility] ER with recurrence of left-sided shoulder discomfort with dyspnea and dizziness. Upon arrival to the emergency department, EKG demonstrated regular wide complex tachycardia, with Q-waves in lead three and AVF with ST depressions in V4 and V6 with a heart rate of 150. Patient was also noted to be hypoxic with of 77%, blood pressure of 96/63 and troponin was noted to be at 5209--> 6062--> 6885. Patient underwent CT PE in [facility] which showed possible filling defects segmental and subsegmental branches concerning for pulmonary embolism. Patient was also noted to have moderate bilateral pleural effusion with patchy consolidation of perihilar and lower lobes with septal thickening and 4 mm granuloma of the left lung. Patient was admitted to ICU in [facility] and CT chest was reviewed by critical care physician there who stated that there was no signs of pulmonary embolism. Here at [facility] he underwent cardiac catheterization, and the patient was found to have culprit lesion, 100% occluded right posterolateral branch for which, patient underwent balloon angioplasty. Patient was also found to have multivessel coronary artery disease with proximal LAD 70% stenosis, 80% mid diagonal stenosis, 70% proximal ramus, 80% mid circumflex stenosis before OM, 50% stenosis involving the circumflex after OM, 100% OM stenosis with filling collaterals and LVEDP was noted to be at 31. Repeat CT of the chest today again showed no pulmonary emboli seen and showed the persisting moderate to large pleural effusion. CTVS was consulted and is pending for CABG. Repeat CT of the chest was done here and again showed no PE and persisting bilateral [id number] pleural effusion. Pulmonary Services was reconsulted for management of the effusion. 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 I informed the patient of plan of care. He verbalized understanding and is in agreement with the plan. 10/14/2024: At the time of my evaluation, the patient was lying in bed. The staff nurse reports no acute events overnight. The patient remains on nasal cannula for oxygen supplementation. On the monitor there is no changes of concern. Laboratory data today showed no leukocytosis, no anemia or t hrombocytopenia. Chemistry panel was notable for a slightly low potassium of 3.4. BNP level showed slight improvement. I&O over the past 24 hour shows a voided volume of 2200 mL and a net balance of + 748.9. Sputum Gram stain currently showing rare Gram-positive cocci, culture is pending. Blood cultures x2 repeat are negative. No new chest imaging for review today. No other complaint. 10/16/2024: At the time of my evaluation, the patient was sitting up to the bedside chair. Today he is on room air and vital signs are hemodynamically stable. Laboratory data showed a chemistry panel that is unremarkable. Microbiology data currently in process. No new imaging for today. The patient continues on diuresis with furosemide and metolazone. He continues on antibiotic therapy with Zosyn. No other complaint. REVIEW OF SYSTEMS: 12 point ROS reviewed with patient. Pertinent positives mentioned above. Otherwise negative. PHYSICAL EXAM: GENERAL: Alert, weak, awake, oriented x 3 HEENT: EOMI, Sclera non icteric, moist mucosa NECK: Supple, no JVD, trachea midline LUNGS: Clear breath sounds bilaterally. No wheezes HEART: Regular rate and rhythm. Normal S1 and S2, without murmurs ABD: Abdomen soft, nontender. Bowel sounds present EXT: No clubbing cyanosis or edema. Right leg restricted movement due to reason heart catheterization. NEURO: Alert and oriented x4, follows commands Vital Signs (last 8hr) Date Time Temp Pulse Resp B/P (MAP) Pulse Ox O2 Delivery O2 Flow Rate FiO2 10/16/24 16:00 98.4 60 20 101/68 96 Room Air 10/16/24 10:30 97.7 64 20 97/69 96 Room Air LABS: Hematology Labs: Test 10/15/24 03:56 Range/Units White Blood Count 7.6 4.8-10.8 K/uL Red Blood Count 3.91 L 4.50-6.20 MIL/uL Hemoglobin 11.8 L 14.0-18.0 g/dL Hematocrit 34.7 L 42-54 % Mean Corpuscular Volume 88.7 79-99 fL Mean Corpuscular Hemoglobin 30.2 27.0-33.0 pg Mean Corpuscular Hemoglobin Concent 34.0 32.0-36.0 g/dL Red Cell Distribution Width 12.1 11.0-15.5 % Platelet Count 305 130-400 K/uL Mean Platelet Volume 9.5 7.5-10.5 fL Immature Granulocyte % (Auto) 0.7 0-1 % Neutrophils (%) (Auto) 62.0 40.0-77.0 % Lymphocytes (%) (Auto) 27.7 21.0-51.0 % Monocytes (%) (Auto) 6.7 3.0-13.0 % Eosinophils (%) (Auto) 2.5 0.0-8.0 % Basophils (%) (Auto) 0.4 0.0-5.0 % Neutrophils # (Auto) 4.7 1.8-7.7 K/uL Lymphocytes # (Auto) 2.1 1.0-4.8 K/uL Monocytes # (Auto) 0.5 0.1-1.0 K/uL Eosinophils # (Auto) 0.19 0.00-0.70 K/uL Basophils # (Auto) 0.03 0.00-0.20 K/uL Absolute Immature Granulocyte (auto 0.05 0-1 K/uL Nucleated Red Blood Cells 0.0 0.0-0.19 % Chemistry Labs: Test 10/16/24 16:19 10/16/24 09:03 10/15/24 03:56 Range/Units Whole Blood Glucose 229 #H 70-110 MG/DL Bedside Glucose Comment Notified Nurse Sodium Level 139 136-145 mmol/L Potassium Level 3.9 3.5-5.1 mmol/L Chloride Level 98 L 101-111 mmol/L Carbon Dioxide Level 37 H 21-32 mmol/L Blood Urea Nitrogen 10 7-18 mg/dL Creatinine 0.8 0.5-1.3 mg/dL Glomerular Filtration Rate Calc 105 >90 mL/min Random Glucose 139 H 70-105 mg/dL Total Calcium 8.9 8.5-10.1 mg/dL Total Bilirubin 0.4 0.2-1.0 mg/dL Aspartate Amino Transf (AST/SGOT) 28 10-37 U/L Alanine Aminotransferase (ALT/SGPT) 50 12-78 U/L Alkaline Phosphatase 90 50-136 U/L Total Protein 6.4 6.0-8.3 g/dL Albumin 2.4 L 3.5-5.0 g/dL Lactate Dehydrogenase 285 H 81-234 U/L Coagulation Labs: Test 10/15/24 23:25 Range/Units Prothrombin Time 11.4 9.6-11.6 SEC Prothromb Time International Ratio 1.08 0.85-1.15 Activated Partial Thromboplast Time 34.7 26.3-35.5 SEC DIAGNOSTICS / RADIOLOGY RESULTS: [ ] PLAN For now, we are going to continue current management for the patient. Ill going to remain on Lasix 20 q.12 and we will remain on oxygen supplementation via the nasal cannula. I have addressed with the staff nurse prepare for a possible bedside thoracentesis tomorrow. The patient will continue on antibiotic cover age with doxycycline and Rocephin. He also remains on a heparin drip for the STEMI, possible plan for CABG, doubt when. We will follow the Cardiology/CTVS recommendation for management. We will continue to provide general supportive care, GI and DVT prophylaxis. Further orders per attending MD and hospital course. 10/14/2024: For now, we are going to continue current management for the patient. He will remain on oxygen supplementation via the nasal cannula. We will request a repeat chest x-ray today. If there is a need for thoracentesis, we will possibly perform the thoracentesis at bedside later today. The patient will continue on diuretic therapy with IV Lasix. Currently receiving 20 b.i.d. IV. I am going to add metolazone p.o. and monitor strict I&Os. We will limit fluid intake to 1 L per 24 hours. We will monitor the patient's progress and response to management. We will continue to provide general supportive care, GI and DVT prophylaxis. Further orders per attending MD and hospital course. 10/16/2024: For now, going to continue current management for the patient. His respiratory difficulty has resolved and is now off oxygenation status post thoracentesis. He should continue on diuretic therapy with metolazone and furosemide. Continue to optimize cardiac function and follow recommendation of the Cardiology and CT VS. Considering there was no further respiratory issues, thoracentesis was performed bilaterally and the patient is much better today, we will proceed to sign off the case and remain available for any further needs. Thank you for allowing us to participate in patient's care. NEURO: Minimize central acting medications as possible. Maintain fall precautions, adequate lighting during the day PULMONARY: Supplemental 02 as needed. Maintain aspiration precautions at all times CARDIOVASCULAR: Follow hemodynamics. Vital signs per facility protocol GI & NUTRITION: Continue with nutritional support. Continue stool softeners and laxatives as needed. KIDNEYS & ELECTROLYTES: Strict monitoring of intake, output and overall fluid balance. Avoid nephrotoxic medications to the extent possible. Medications to be dosed according to renal function. Monitor electrolytes and replace as needed ENDOCRINE: Maintain blood glucose between 100-180 at all times. Hypoglycemia protocol in place INFECTIOUS DISEASE: Trend temperature, WBC and procalcitonin level Follow cultures, deescalate antibiotics as soon as possible. Panculture if new onset fever ONCOLOGY/HEMATOLOGY/COAGULATION: Monitor for s/s of bleeding Monitor hemoglobin, coagulation studies as needed SKIN: Pressure ulcer prevention per facility protocol Specialty mattress ORTHO/REHAB: Continue PT/OT Prophylaxis: Continue GI and DVT prophylaxis Code Status: Full Resuscitation Disposition: TBD Other: The patient was seen and case was discussed with beatriz NIEVES. Plan of care was discussed and agreed upon. ALBANIA NOLASCO NP October 16, 2024 17:38
[2024-10-17] VITALS (9 sets, daily range): BP systolic 90–106; BP diastolic 57–66; PULSE 56–78; RESP 18–22; TEMP 97.7–98.2; O2SAT 92–96
[2024-10-17 03:58] LABS: BASOPHILS # (AUTO) 0.03 K/uL (0.00-0.20); BASOPHILS % (AUTO) 0.4 % (0.0-5.0); EOSINOPHILS # (AUTO) 0.15 K/uL (0.00-0.70); EOSINOPHILS % (AUTO) 1.8 % (0.0-8.0); HEMATOCRIT 37.3 % (42-54); IMMATURE GRANULOCYTE ABSOLUTE 0.09 K/uL (0-1); LYMPHOCYTES # (AUTO) 1.8 K/uL (1.0-4.8); LYMPHOCYTES % (AUTO) 21.6 % (21.0-51.0); MEAN CORPUSCULAR HEMOGLOBIN 29.8 pg (27.0-33.0); MEAN CORPUSCULAR HGB CONC 33.5 g/dL (32.0-36.0); MONOCYTES # (AUTO) 0.7 K/uL (0.1-1.0); MONOCYTES % (AUTO) 8.4 % (3.0-13.0); NEUTROPHILS # (AUTO) 5.6 K/uL (1.8-7.7); NEUTROPHILS % (AUTO) 66.7 % (40.0-77.0); PLATELET COUNT (AUTO) 351 K/uL (130-400); RED BLOOD CELL COUNT(AUTO) 4.19 MIL/uL (4.50-6.20); RED CELL DISTRIBUTION WIDTH 12.1 % (11.0-15.5); WHITE BLOOD COUNT (AUTO) 8.4 K/uL (4.8-10.8)
[2024-10-17 04:15] LABS: MAGNESIUM 1.6 mg/dL (1.80-2.40); PHOSPHORUS 4.6 mg/dL (2.5-4.9); POTASSIUM 3.5 mmol/L (3.5-5.1)
[2024-10-17] MEDS: ENOXAPARIN SODIUM 80 MG/0.8 ML SQ SCH (09:07)
--- NOTE | 2024-10-17 12:04 | PN ---
[facility] PROGRESS NOTE Date of Service: October 17, 2024 Time of Service: 11:54 SUBJECTIVE: [ ] This is a 54-year-old male with underlying history of type 2 diabetes mellitus, chronic alcoholism, who presented as a transfer from [facility] for further management of late presentation of inferior ST-elevation ND with ventricular tachycardia. Patient stated that about five days ago prior to presenting to the ER, he started having mild dizziness, dyspnea and left-sided shoulder pain radiating to the scapula. Symptoms were intermittent and patient noticed that he was having progressive dyspnea on exertion. Patient saw his primary care physician on 10/07/2024 where he was found to have blood glucose greater than 400 and he received some insulin as outpatient. He presented to the [facility] ER with recurrence of left-sided shoulder discomfort with dyspnea and dizziness. Upon arrival to the emergency department, EKG demonstrated regular wide complex tachycardia, with Q-waves in lead three and AVF with ST depressions in V4 and V6 with a heart rate of 150. Patient was also noted to be hypoxic with of 77%, blood pressure of 96/63 and troponin was noted to be at 5209--> 6062--> 6885. Patient underwent CT PE in [facility] which showed possible filling defects segmental and subsegmental branches concerning for pulmonary embolism. Patient was also noted to have moderate bilateral pleural effusion with patchy consolidation of perihilar and lower lobes with septal thickening and 4 mm granuloma of the left lung. Patient was admitted to ICU in [facility] and CT chest was reviewed by critical care physician there who stated that there was no signs of pulmonary embolism. [place] [facility] underwent cardiac catheterization given concern ACS. On cardiac catheterization, patient was found to have culprit lesion, 100% occluded right posterolateral branch for which, patient underwent balloon angioplasty. Patient was also found to have multivessel coronary artery disease with proximal LAD 70% stenosis, 80% mid diagonal stenosis, 70% proximal ramus, 80% mid circumflex stenosis before OM, 50% stenosis involving the circumflex after OM, 100% OM stenosis with filling collaterals and LVEDP was noted to be at 31. 5/10 patient is seen and examined at bedside, alert oriented x3, he is on 10 L via nasal cannula, on heparin drip, denies chest pain, denies shortness a breath, no nausea, no vomiting. Blood pressure 105/68, heart rate of 70. Afebrile. Hemoglobin 10.6, hematocrit 31.1. ABG shows pH 7.46, pCO2 34, PO2 59.6. Toxicology screen positive for benzodiazepines. Chest x-ray shows stable exam 10/10 54-year-old male with underlying history of type 2 diabetes mellitus, chronic alcoholism, who presented as a transfer from [facility] for further management of late presentation of inferior ST-elevation ND with ventricular tachycardia. Status post cardiac catheterization with findings of multivessel coronary artery disease, 10/08/2024, by Dr. Llanes Status post balloon angioplasty of 100% occluded ostial right posterolateral branch by Dr. Llanes, 10/08/2024. Patient now with Acute hypoxemic respiratory failure, Acute on chronic systolic heart failure exacerbation, suspect possible underlying developing community- acquired pneumonia. During my visit patient remains on supplemental oxygen via nasal cannula 10 L, getting IV antibiotics, he feels less short of breath, less productive cough. He remains on heparin drip. He is currently off lidocaine for 24 hours. No recurrent ventricular arrhythmias. Pending evaluation by Cardiothoracic surgeon. 10/11 patient seen at bedside, no acute events overnight. CV surgery does not recommend CABG as he is not good candidate, recommending a possible percutaneous catheterization with intervention to restore flow, we will follow up with Cardiology recommendations regarding attempted intervention versus optimizing medical management. Hemoglobin improved from 11.8 up to 12.0, potassium low at 3.2, we will be repleted according to protocol. Repeat blood culture positive in 1/2 bottles, we will follow up with speciation, 1st blood cultures were no growth, this is likely a contaminant. Patient has been afebrile, hemodynamically stable saturating well on 2 L nasal cannula. 10/12 patient seen at bedside, no acute events overnight. He has been afebrile, hemodynamically stable saturating well on 5 L nasal cannula, we will continue to wean as able. Cardiology recommending CTA with PE protocol to rule out PE. Hemoglobin decreased from 12.0 down to 11.8. Repeat blood culture positive in 1/2 bottles with coagulase negative Staphylococcus warneri consistent with a contaminant. We will follow up with Cardiology recommendations 10/13 patient seen at bedside, no acute events overnight. He is still requiring [address] of the chest with PE protocol was negative for pulmonary embolism however he does have significant bilateral pulmonary infiltrates as well as significant bilateral pleural effusions, pulmonology has been consulted to assess for possible thoracentesis. Patient is started on Zosyn to treat underlying pneumonia, he is otherwise hemodynamically stable, afebrile. His labs are relatively unremarkable. 10/14 patient seen at bedside, no acute events overnight. He has been afebrile, hemodynamically stable saturating well on 6 L nasal cannula. We will continue to wean as able. Pulmonology considering bedside thoracentesis today, we will follow up postprocedure. Labs relatively unremarkable. Once patient is more stable from a pulmonary standpoint cardiology planning on possible PCI. 10/15 patient seen at bedside, no acute events overnight. Yesterday he had a right-sided thoracentesis with a proximally 1 L drain. Today left-sided thoracentesis is planned, we will follow up postprocedure. He has improved from 6 L down to 3 L nasal cannula we will continue to wean as able. Once stable from a respiratory standpoint cardiology likely planning PCI 10/16 seen at bedside, no acute events overnight. Yesterday he had a left-sided thoracentesis with approximately 1 L drained. He is currently saturating well o n room air, pending PCI on Friday. Labs are relatively unremarkable. 10/17 seen at bedside, no acute events overnight. He is still on room air, has no complaints at bedside. Possible PCI with Cardiology tomorrow. Vitals and labs relatively unremarkable REVIEW OF SYSTEMS 12 point review of systems negative unless noted in HPI PHYSICAL EXAM GENERAL APPEARANCE: The patient is awake, alert, and oriented, in no acute cardiopulmonary distress. NEUROLOGICAL: Cranial nerves II-XII grossly intact. Motor is 5/5 in bilateral upper and lower extremities proximal to distal. No sensory deficits. HEENT: Face is symmetric. Pupils are equal and reactive. Extraocular movements are intact. NECK: Supple. No JVD. No thyromegaly. No submental, submandibular, pre- /postauricular, occipital or supraclavicular lymphadenopathy. CHEST: Normal chest expansion. No Telemetry. LUNGS: crackles noted of the bilateral lung bases CARDIOVASCULAR: Regular. S1 and S2 normal. No appreciable rubs, murmurs or gallops. ABDOMEN: Soft, nontender, and nondistended. There is no rebound, voluntary guarding, or rigidity. : Deferred. No Alexandra. EXTREMITIES: Non-edematous and not cyanotic. No clubbing. Good capillary refill. SKIN: No skin breakdown. Vital Signs (last 8hr) Date Time Temp Pulse Resp B/P (MAP) Pulse Ox O2 Delivery O2 Flow Rate FiO2 10/17/24 11:00 98.1 66 22 106/64 99 Room Air 10/17/24 07:00 98.1 67 20 100/66 94 Room Air 10/17/24 06:35 78 20 N/A Room Air 10/17/24 03:58 97.7 60 20 92/60 94 Room Air LABS: Laboratory: Test 10/17/24 10:46 10/17/24 03:45 10/16/24 09:03 10/15/24 23:25 Range/Units Whole Blood Glucose 179 #H 70-110 MG/DL Bedside Glucose Comment Notified Nurse White Blood Count 8.4 4.8-10.8 K/uL Red Blood Count 4.19 L 4.50-6.20 MIL/uL Hemoglobin 12.5 L 14.0-18.0 g/dL Hematocrit 37.3 L 42-54 % Mean Corpuscular Volume 89.0 79-99 fL Mean Corpuscular Hemoglobin 29.8 27.0-33.0 pg Mean Corpuscular Hemoglobin Concent 33.5 32.0-36.0 g/dL Red Cell Distribution Width 12.1 11.0-15.5 % Platelet Count 351 130-400 K/uL Mean Platelet Volume 9.3 7.5-10.5 fL Immature Granulocyte % (Auto) 1.1 H 0-1 % Neutrophils (%) (Auto) 66.7 40.0-77.0 % Lymphocytes (%) (Auto) 21.6 21.0-51.0 % Monocytes (%) (Auto) 8.4 3.0-13.0 % Eosinophils (%) (Auto) 1.8 0.0-8.0 % Basophils (%) (Auto) 0.4 0.0-5.0 % Neutrophils # (Auto) 5.6 1.8-7.7 K/uL Lymphocytes # (Auto) 1.8 1.0-4.8 K/uL Monocytes # (Auto) 0.7 0.1-1.0 K/uL Eosinophils # (Auto) 0.15 0.00-0.70 K/uL Basophils # (Auto) 0.03 0.00-0.20 K/uL Absolute Immature Granulocyte (auto 0.09 0-1 K/uL Nucleated Red Blood Cells 0.0 0.0-0.19 % Sodium Level 143 136-145 mmol/L Potassium Level 3.5 3.5-5.1 mmol/L Chloride Level 101 101-111 mmol/L Carbon Dioxide Level 34 H 21-32 mmol/L Blood Urea Nitrogen 13 7-18 mg/dL Creatinine 1.0 0.5-1.3 mg/dL Glomerular Filtration Rate Calc 89 >90 mL/min Random Glucose 82 70-105 mg/dL Total Calcium 8.5 8.5-10.1 mg/dL Phosphorus Level 4.6 2.5-4.9 mg/dL Magnesium Level 1.60 L 1.80-2.40 mg/dL Total Bilirubin 0.4 0.2-1.0 mg/dL Aspartate Amino Transf (AST/SGOT) 28 10-37 U/L Alanine Aminotransferase (ALT/SGPT) 50 12-78 U/L Alkaline Phosphatase 90 50-136 U/L Total Protein 6.4 6.0-8.3 g/dL Albumin 2.4 L 3.5-5.0 g/dL Prothrombin Time 11.4 9.6-11.6 SEC Prothromb Time International Ratio 1.08 0.85-1.15 Activated Partial Thromboplast Time 34.7 26.3-35.5 SEC Test 10/15/24 16:15 Range/Units Body Fluid Source PLEURAL Body Fluid Volume 1100 mL Body Fluid Color LT YELLOW LT YELLOW Body Fluid Supernatant Appearance CLEAR CLEAR Body Fluid WBC 318 /cu. mm. Body Fluid RBC 0 /cu. mm. Body Fluid Neutrophils 2.0 % Body Fluid Lymphocytes 54 % Body Fluid Macrophages (%) 17 Body Fluid Mesothelial Cells (%) 20 % Body Fluid Other Cells (%) 7 Pleural Fluid pH 7 Pleural Fluid Total Protein 1.7 mg/dL Pleural Fluid LDH 111 U/L Pleural Fluid Glucose 211 Current Medications Medications (Trade) Dose Ordered Sig/William Route PRN Reason Start Time Stop Time Status Last Admin Dose Admin Acetaminophen (TYLenol 325MG TAB) 650 mg Q6H PRN PO MILD PAIN (1-3) 10/08/24 18:00 11/07/24 17:59 10/09/24 17:00 650 MG Amiodarone HCl (pacERONE 200MG) 200 mg DAILY PO 10/16/24 09:00 11/15/24 08:59 10/17/24 09:05 200 MG Amiodarone HCl 150 mg/Dextrose 100 ml @ 0 mls/hr PROTOCOL IV 10/14/24 10:30 10/14/24 10:25 DC Amiodarone HCl 360 mg/Dextrose 200 ml @ 0 mls/hr PROTOCOL IV 10/14/24 10:30 10/14/24 10:26 DC Amiodarone HCl 540 mg/Dextrose 300 ml @ 0 mls/hr PROTOCOL IV 10/14/24 11:00 10/15/24 23:22 DC 10/14/24 16:47 16.66 MLS/HR Amiodarone HCL/ Dextrose 100 ml @ 0 mls/hr PROTOCOL IV 10/14/24 11:00 10/15/24 07:41 DC 10/14/24 11:03 600 MLS/HR Amiodarone HCL/ Dextrose 200 ml @ 0 mls/hr PROTOCOL IV 10/14/24 11:00 10/15/24 07:42 DC 10/14/24 10:58 33.33 MLS/HR Aspirin (Aspirin 81mg Chew Tab) 81 mg DAILY PO 10/09/24 09:00 10/08/24 16:47 DC Aspirin (Aspirin 81mg Chew Tab) 81 mg DAILY PO 10/09/24 09:00 11/08/24 08:59 10/17/24 09:06 81 MG Atorvastatin Calcium (LIPItor 40MG) 40 mg HS PO 10/08/24 21:00 11/07/24 20:59 10/16/24 20:06 40 MG Benzonatate (Tessalon 100mg Caps) 200 mg Q8H PRN PO COUGH 10/09/24 12:00 11/08/24 11:59 10/16/24 16:01 200 MG Calcium Gluconate (Calcium Gluc 1gm Vial) 1 gm AD PRN IV PROTOCOL 10/09/24 02:30 11/08/24 02:29 10/09/24 07:22 1 GM Ceftriaxone Sodium (ROCEphine 1G INJ) 1 gm Q24H IVPB 10/09/24 04:00 10/09/24 11:21 DC 10/09/24 04:28 1 GM Ceftriaxone Sodium (Rocephin 2gm Inj) 2 gm Q24H IVPB 10/10/24 04:00 10/14/24 05:15 DC 10/14/24 03:31 2 GM Chlordiazepoxide HCl (LIBrium 25 MG CAP) 25 mg Q4H PRN PO ALCOHOL WITHDRAWAL PROTOCOL 10/08/24 18:00 10/15/24 18:00 DC Chlordiazepoxide HCl (LIBrium 25 MG CAP) 25 mg Q4HPRN PRN PO WITHDRAWAL 10/16/24 00:30 10/23/24 00:29 10/16/24 00:26 25 MG Clopidogrel Bisulfate (plaVIX 75MG) 75 mg DAILY PO 10/12/24 09:00 10/13/24 19:04 DC 10/13/24 09:10 75 MG Clopidogrel Bisulfate (plaVIX 75MG) 75 mg DAILY PO 10/16/24 09:00 11/15/24 08:59 10/17/24 09:05 75 MG Diazepam (VALium 5 MG/ML 2 ML SYG) 5 mg Q4H PRN IVP ALCOHOL WITHDRAWAL PROTOCOL 10/08/24 22:30 10/15/24 22:29 DC Diazepam (VALium 5 MG/ML 2 ML SYG) 10 mg Q4H PRN IVP ALCOHOL WITHDRAWAL PROTOCOL 10/08/24 18:30 10/08/24 20:32 DC Doxycycline Hyclate 250 ml @ 125 mls/hr Q12H IV 10/09/24 04:00 10/19/24 03:59 10/17/24 03:14 125 MLS/HR Enoxaparin Sodium (Lovenox (Pharmacy To Dose)) 1 unit Q12H SQ 10/15/24 23:30 10/15/24 23:32 DC Enoxaparin Sodium (Lovenox 80mg) 80 mg Q12H SQ 10/16/24 07:00 10/17/24 07:16 DC 10/16/24 18:30 80 MG Enoxaparin Sodium (Lovenox 80mg) 80 mg Q12H SQ 10/17/24 09:00 11/15/24 09:00 10/17/24 09:07 80 MG Folic Acid (FOLic ACID 1 MG TABLET) 1 mg DAILY PO 10/09/24 09:00 10/11/24 09:01 DC 10/11/24 08:24 1 MG Furosemide (LASix 20MG VIAL) 20 mg Q12H IV 10/13/24 05:30 11/12/24 05:29 10/17/24 04:41 20 MG Furosemide (LASix 20MG VIAL) 20 mg Q12H IV 10/08/24 17:30 10/12/24 17:16 DC 10/12/24 04:36 20 MG Furosemide (LASix 40MG VIAL) 40 mg Q12H IV 10/12/24 17:30 10/12/24 17:53 DC 10/12/24 17:40 40 MG Guaifenesin/ Dextromethorphan (RobiTUSSin DM 200/20MG 10ML) 10 ml Q4H PRN PO COUGH 10/09/24 16:30 11/08/24 16:29 10/16/24 15:57 10 ML Heparin Sodium (Porcine) (HEParin 5,000 UNIT VIAL) *calculation based on ACTUAL B... AD PRN IV HEPARIN PROTOCOL 10/08/24 17:30 10/15/24 23:22 DC 10/10/24 17:21 4,000 UNIT Heparin Sodium/ Dextrose 250 ml @ 0 mls/hr Q6H IV 10/08/24 17:30 10/15/24 23:22 DC 10/14/24 17:58 14.22 MLS/HR Insulin Glargine (LANtus 100 UNITS/ML 10 ML VIAL) 10 units DAILY SQ 10/09/24 09:00 10/09/24 11:26 DC 10/09/24 08:21 10 UNITS Insulin Glargine (LANtus 100 UNITS/ML 10 ML VIAL) 25 units BID SQ 10/09/24 21:00 11/08/24 08:59 10/16/24 20:11 25 UNITS Insulin Human Regular (humuLIN R 100 UNIT/ML 3ML) INSULIN SLIDING SCAL... ACHS SQ 10/08/24 21:00 11/07/24 20:59 10/16/24 20:09 3 UNIT Lidocaine HCl/ Dextrose 250 ml @ 0 mls/hr PROTOCOL IV 10/08/24 16:30 10/09/24 11:34 DC 10/08/24 23:48 15 MLS/HR Lorazepam (AtiVAN) 1 mg Q4H PRN IVP ALCOHOL WITHDRAWAL PROTOCOL 10/08/24 18:00 10/08/24 18:06 DC Magnesium Sulfate 50 ml @ 0 mls/hr PROTOCOL IV 10/09/24 09:30 10/10/24 11:16 DC Magnesium Sulfate 50 ml @ 0 mls/hr PROTOCOL IV 10/10/24 11:30 11/09/24 11:29 10/17/24 04:41 25 MLS/HR Magnesium Sulfate 50 ml @ 0 mls/hr PROTOCOL PRN IV AD 10/08/24 19:00 10/09/24 09:30 DC 10/09/24 04:34 25 MLS/HR Metolazone (zarOXOlyn) 5 mg DAILY PO 10/15/24 09:00 11/14/24 08:59 10/17/24 09:05 5 MG Metolazone (zarOXOlyn) 5 mg ONCE PO 10/14/24 15:00 10/14/24 23:00 DC 10/14/24 14:52 5 MG Metoprolol Tartrate (loprESSOR) 12.5 mg BID PO 10/08/24 21:00 10/14/24 09:51 DC 10/14/24 08:40 12.5 MG Metoprolol Tartrate (loprESSOR) 25 mg BID PO 10/14/24 21:00 11/13/24 20:59 10/17/24 09:05 25 MG Morphine Sulfate (morPHINE 2MG SYG) 2 mg Q6H PRN IVP SEVERE PAIN (7-10) 10/08/24 18:00 10/13/24 20:59 DC Multivitamins Therapeutic (Multivitamin Tablet) 1 tab DAILY PO 10/09/24 09:00 11/08/24 08:59 10/17/24 09:05 1 TAB Nitroglycerin/ Dextrose 0 ml @ 0 mls/hr PROTOCOL PRN IV [id number] ORDERS 10/08/24 16:30 11/07/24 16:29 Ondansetron HCl (zoFRAN 4MG INJ) 4 mg Q4H PRN IVP NAUSEA/VOMITING 10/08/24 16:30 10/12/24 07:54 DC Ondansetron HCl (zoFRAN 4MG INJ) 4 mg Q6H PRN IVP NAUSEA/VOMITING 10/08/24 18:00 11/07/24 17:59 Pantoprazole Sodium (PROTonix 40MG INJ) 40 mg DAILY IVP 10/09/24 09:00 11/08/24 08:59 10/17/24 09:06 40 MG Pharmacy Profile Note (Pharmacy Communication) 1 each PROTOCOL PRN MISC ETOH Withdrawal Score changes 10/08/24 18:00 10/15/24 18:00 DC Piperacillin Sod/ Tazobactam Sod (Zosyn 3.375gm+NS 50ml) 3.375 gm Q8H IV 10/13/24 07:30 10/23/24 07:29 10/17/24 09:04 3.375 GM Potassium Chloride 100 ml @ 100 mls/hr AD PRN IV POTASSIUM PROTOCOL 10/09/24 10:30 11/08/24 10:29 Potassium Chloride (K-Dur/Klor-Con 20meq) 20 meq AD PRN PO POTASSIUM PROTOCOL 10/09/24 10:30 11/08/24 10:29 10/17/24 05:41 20 MEQ Potassium Chloride (KCl 10% Elixir 20meq/15ml) 20 meq AD PRN PO POTASSIUM PROTOCOL 10/09/24 10:30 11/08/24 10:29 10/15/24 05:48 20 MEQ Temazepam (restORIL 30 MG CAP) 30 mg HS PRN PO INSOMNIA 10/16/24 00:30 10/23/24 00:29 Temazepam (restORIL 30 MG CAP) 30 mg HS PRN PO INSOMNIA/SLEEP 10/08/24 16:30 10/15/24 16:29 DC 10/09/24 20:52 30 MG Thiamine HCl (Vitamin B-1) 100 mg DAILY PO 10/09/24 09:00 11/08/24 08:59 10/17/24 09:05 100 MG DIAGNOSTICS / RADIOLOGY: [ ] ASSESSMENT: Inferior STEMI with late presentation, POA Ventricular tachycardia, status post initiation of lidocaine drip, POA Status post cardiac catheterization with findings of multivessel coronary artery disease, 10/08/2024, by Dr. Llanes Status post balloon angioplasty of 100% occluded ostial right posterolateral branch by Dr. Llanes, 10/08/2024 Bilateral pleural effusions status post right thoracentesis 10/14/2024 Acute hypoxemic respiratory failure, POA Acute on chronic systolic heart failure exacerbation, POA Mild anemia, POA Suspected cardiogenic pulmonary edema, POA r/o any developing community acquired Pneumonia, POA Pulmonary embolism ruled out by evaluation by critical care service in [facility], POA Mild lactic acidosis, POA Poorly controlled type 2 diabetes mellitus, POA History of chronic alcoholism, POA Quaker, POA PLAN: Patient remains admitted to the PCU Continue alarm security or surveillance monitor CTA with PE protocol pending Continue amiodarone protocol Continue Plavix 75 mg Q 24 hours Continue ceftriaxone 2 g Q 24 hours Continue glargine 25 units b.i.d. Continue aspirin 81 mg Q 24 hours Continue doxycycline 100 mg b.i.d. Continue metoprolol 25 mg b.i.d. Continue atorvastatin 40 mg HS Continue furosemide 20 mg b.i.d. Continue the patient on Oxymizer Continue the patient on heparin drip Continue the Zosyn Continue to follow Cardiology input and recommendations as well input and recommendation Pending evaluation by Cardiothoracic surgeon. Pulmonology consulted to evaluate for thoracentesis Disposition: Follow up pulmonology recommendations, possible PCI Cardiology recommendations, improvement in clinical status TRUNG OHARA MD October 17, 2024 12:04
--- NOTE | 2024-10-17 12:06 | PN ---
[facility] CARDIOLOGY PROGRESS NOTE Date Patient Seen: October 17, 2024 Time of Visit: 12:02 Interval History: [No acute events overnight. Patient currently denies any chest pain, palpitations, dyspnea or any other anginal equivalents. Blood pressures have been soft lately currently 100/66mmhg/ Physical Examination: GENERAL: [No acute distress.] HEAD: [Normal with no signs of head trauma.] EYES: [PERRLA, EOMI, conjunctiva and sclera normal.] ENT: [Hearing grossly intact, normal oropharynx.] NECK: [Supple without JVD. There is no tenderness, lymphadenopathy, or masses. No thyromegaly. Normal carotid upstrokes without bruits.] LUNGS: [Clear breath sounds bilaterally. No wheezes, or rhonchi.] HEART: [Normal rate and rhythm. Normal S1 and S2 without mumurs, gallop or rub.] VASC: [Peripheral pulses +2 bilaterally.] ABD: [Bowel sounds normal, soft, nontender, no masses, no organomegaly. No audible bruits.] : [Not examined] LYMPH: [No lymphadenopathy noted.] EXT: [No clubbing, cyanosis or edema.] SKIN: [No rashes or lesions noted.] NEURO: [Awake, alert, and oriented x3. No focal sensory or strength deficits noted.] Laboratory: [ ] Hematology Labs: Test 10/17/24 03:45 Range/Units White Blood Count 8.4 4.8-10.8 K/uL Red Blood Count 4.19 L 4.50-6.20 MIL/uL Hemoglobin 12.5 L 14.0-18.0 g/dL Hematocrit 37.3 L 42-54 % Mean Corpuscular Volume 89.0 79-99 fL Mean Corpuscular Hemoglobin 29.8 27.0-33.0 pg Mean Corpuscular Hemoglobin Concent 33.5 32.0-36.0 g/dL Red Cell Distribution Width 12.1 11.0-15.5 % Platelet Count 351 130-400 K/uL Mean Platelet Volume 9.3 7.5-10.5 fL Immature Granulocyte % (Auto) 1.1 H 0-1 % Neutrophils (%) (Auto) 66.7 40.0-77.0 % Lymphocytes (%) (Auto) 21.6 21.0-51.0 % Monocytes (%) (Auto) 8.4 3.0-13.0 % Eosinophils (%) (Auto) 1.8 0.0-8.0 % Basophils (%) (Auto) 0.4 0.0-5.0 % Neutrophils # (Auto) 5.6 1.8-7.7 K/uL Lymphocytes # (Auto) 1.8 1.0-4.8 K/uL Monocytes # (Auto) 0.7 0.1-1.0 K/uL Eosinophils # (Auto) 0.15 0.00-0.70 K/uL Basophils # (Auto) 0.03 0.00-0.20 K/uL Absolute Immature Granulocyte (auto 0.09 0-1 K/uL Nucleated Red Blood Cells 0.0 0.0-0.19 % Chemistry Labs: Test 10/17/24 10:46 10/17/24 03:45 10/16/24 09:03 Range/Units Whole Blood Glucose 179 #H 70-110 MG/DL Bedside Glucose Comment Notified Nurse Sodium Level 143 136-145 mmol/L Potassium Level 3.5 3.5-5.1 mmol/L Chloride Level 101 101-111 mmol/L Carbon Dioxide Level 34 H 21-32 mmol/L Blood Urea Nitrogen 13 7-18 mg/dL Creatinine 1.0 0.5-1.3 mg/dL Glomerular Filtration Rate Calc 89 >90 mL/min Random Glucose 82 70-105 mg/dL Total Calcium 8.5 8.5-10.1 mg/dL Phosphorus Level 4.6 2.5-4.9 mg/dL Magnesium Level 1.60 L 1.80-2.40 mg/dL Total Bilirubin 0.4 0.2-1.0 mg/dL Aspartate Amino Transf (AST/SGOT) 28 10-37 U/L Alanine Aminotransferase (ALT/SGPT) 50 12-78 U/L Alkaline Phosphatase 90 50-136 U/L Total Protein 6.4 6.0-8.3 g/dL Albumin 2.4 L 3.5-5.0 g/dL Coagulation Labs: Test 10/15/24 23:25 Range/Units Prothrombin Time 11.4 9.6-11.6 SEC Prothromb Time International Ratio 1.08 0.85-1.15 Activated Partial Thromboplast Time 34.7 26.3-35.5 SEC Diagnostics / Radiology: [Copy/Paste Echos/Imaging Report here] Impression and Plan: [-ACS-STEMI s/p PCI with PTCA to the RPLB done on 10/09/[address] 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 ACS-STEMI s/p PCI with PTCA to the RPLB done on 10/09/[address] Llanes -The [facility] also identified residual 2V+branch CAD (LAD, D1, LCx, Ramus, OM1, RPDA), for which the patient was referred to CT surgery for CABG, but was deemed not to be a candidate due to poor targets. -In the meantime, he will continue on goal directed ACS therapy which includes aspirin 81 mg daily, metoprolol tartrate 25 mg BID, atorvastatin 40 mg QHS -continue clopidogrel 75 mg daily and Lovenox (1mg/kg) Q12H post bilateral thoracenteses. -The patient will remain on DAPT for a minimum of 1 year as per ACS guidelines. -keep NPO after midnight -the patient will be assessed tomorrow morning by Dr. Henry for possible staged PCI to address the his CAD 2. Sustained VT s/p chemical cardioversion with IV lidocaine on 10/09/2024, with recurrent sustained VT on 10/13/2024 -12H telemetry: Sinus rhythm, no recurrent arrhythmias noted -Currently stable, asymptomatic, and in a sinus rhythm -continue amiodarone 200 mg BID for seven days and after that continue amiodarone 200 mg daily and he will continue on metoprolol tartrate 25 mg BID. -Please keep the patient on continuous telemetry monitoring, maintain oxygen saturation levels > 90% at all times, and maintain a potassium > 4.0 and magnesium > 2.2. 3. 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 -We will reassess the patient's candidacy for GDMT with ACEI/ARB/ARNI therapy once he is euvolemic. -Please record strict I/O's, daily weights, and restrict fluids to less than 2.0L/day. ] Overnight urine output 1300 mL. Current creatinine 1.0 -due to soft blood pressures we are unable to optimize GDM T Thank you for this consult cardiology will need to follow along Nam alexander MD ATTESTATION BY PHYSICIAN I have seen and examined the patient, reviewed the above documentation, participated in medical decision making, made necessary modifications, and agree with the treatment plan as documented by my mid-level provider above. MD BECCA Dawson JAMES R MD October 17, 2024 12:06
[2024-10-18] VITALS (15 sets, daily range): BP systolic 92–113; BP diastolic 29–73; PULSE 55–73; RESP 18–20; TEMP 97.4–99; O2SAT 93–96
[2024-10-18 03:54] LABS: BASOPHILS # (AUTO) 0.04 K/uL (0.00-0.20); BASOPHILS % (AUTO) 0.5 % (0.0-5.0); EOSINOPHILS # (AUTO) 0.19 K/uL (0.00-0.70); EOSINOPHILS % (AUTO) 2.4 % (0.0-8.0); HEMATOCRIT 39.1 % (42-54); IMMATURE GRANULOCYTE ABSOLUTE 0.07 K/uL (0-1); LYMPHOCYTES # (AUTO) 2.5 K/uL (1.0-4.8); LYMPHOCYTES % (AUTO) 31.6 % (21.0-51.0); MEAN CORPUSCULAR HEMOGLOBIN 29.7 pg (27.0-33.0); MEAN CORPUSCULAR HGB CONC 32.5 g/dL (32.0-36.0); MEAN CORPUSCULAR VOLUME 91.6 fL (79-99); MONOCYTES # (AUTO) 0.6 K/uL (0.1-1.0); MONOCYTES % (AUTO) 7.6 % (3.0-13.0); NEUTROPHILS # (AUTO) 4.5 K/uL (1.8-7.7); PLATELET COUNT (AUTO) 391 K/uL (130-400); RED BLOOD CELL COUNT(AUTO) 4.27 MIL/uL (4.50-6.20); RED CELL DISTRIBUTION WIDTH 12.2 % (11.0-15.5); WHITE BLOOD COUNT (AUTO) 7.9 K/uL (4.8-10.8)
[2024-10-18 06:46] LABS: INR 1.05 (0.85-1.15); PROTHROMBIN TIME 11.1 SEC (9.6-11.6)
[2024-10-18 06:47] LABS: PARTIAL THROMBOPLASTIN TIME 26.5 SEC (26.3-35.5)
--- NOTE | 2024-10-18 09:14 | PN ---
[facility] PROGRESS NOTE Date of Service: October 18, 2024 Time of Service: 09:11 SUBJECTIVE: [ ] This is a 54-year-old male with underlying history of type 2 diabetes mellitus, chronic alcoholism, who presented as a transfer from [facility] for further management of late presentation of inferior ST-elevation VT with ventricular tachycardia. Patient stated that about five days ago prior to presenting to the ER, he started having mild dizziness, dyspnea and left-sided shoulder pain radiating to the scapula. Symptoms were intermittent and patient noticed that he was having progressive dyspnea on exertion. Patient saw his primary care physician on 10/07/2024 where he was found to have blood glucose greater than 400 and he received some insulin as outpatient. He presented to the [facility] ER with recurrence of left-sided shoulder discomfort with dyspnea and dizziness. Upon arrival to the emergency department, EKG demonstrated regular wide complex tachycardia, with Q-waves in lead three and AVF with ST depressions in V4 and V6 with a heart rate of 150. Patient was also noted to be hypoxic with of 77%, blood pressure of 96/63 and troponin was noted to be at 5209--> 6062--> 6885. Patient underwent CT PE in [facility] which showed possible filling defects segmental and subsegmental branches concerning for pulmonary embolism. Patient was also noted to have moderate bilateral pleural effusion with patchy consolidation of perihilar and lower lobes with septal thickening and 4 mm granuloma of the left lung. Patient was admitted to ICU in [facility] and CT chest was reviewed by critical care physician there who stated that there was no signs of pulmonary embolism. Patient was transferred to [facility] [place] and underwent cardiac catheterization given concern ACS. On cardiac catheterization, patient was found to have culprit lesion, 100% occluded right posterolateral branch for which, patient underwent balloon angioplasty. Patient was also found to have multivessel coronary artery disease with proximal LAD 70% stenosis, 80% mid diagonal stenosis, 70% proximal ramus, 80% mid circumflex stenosis before OM, 50% stenosis involving the circumflex after OM, 100% OM stenosis with filling collaterals and LVEDP was noted to be at 31. 5/10 patient is seen and examined at bedside, alert oriented x3, he is on 10 L via nasal cannula, on heparin drip, denies chest pain, denies shortness a breath, no nausea, no vomiting. Blood pressure 105/68, heart rate of 70. Afebrile. Hemoglobin 10.6, hematocrit 31.1. ABG shows pH 7.46, pCO2 34, PO2 59.6. Toxicology screen positive for benzodiazepines. Chest x-ray shows stable exam 10/10 54-year-old male with underlying history of type 2 diabetes mellitus, chronic alcoholism, who presented as a transfer from [facility] for further management of late presentation of inferior ST-elevation VT with ventricular tachycardia. Status post cardiac catheterization with findings of multivessel coronary artery disease, 10/08/2024, by Dr. Llanes Status post balloon angioplasty of 100% occluded ostial right posterolateral branch by Dr. Llanes, 10/08/2024. Patient now with Acute hypoxemic respiratory failure, Acute on chronic systolic heart failure exacerbation, suspect possible underlying developing community- acquired pneumonia. During my visit patient remains on supplemental oxygen via nasal cannula 10 L, getting IV antibiotics, he feels less short of breath, less productive cough. He remains on heparin drip. He is currently off lidocaine for 24 hours. No recurrent ventricular arrhythmias. Pending evaluation by Cardiothoracic surgeon. 10/11 patient seen at bedside, no acute events overnight. CV surgery does not recommend CABG as he is not good candidate, recommending a possible percutaneous catheterization with intervention to restore flow, we will follow up with Cardiology recommendations regarding attempted intervention versus optimizing medical management. Hemoglobin improved from 11.8 up to 12.0, potassium low at 3.2, we will be repleted according to protocol. Repeat blood culture positive in 1/2 bottles, we will follow up with speciation, 1st blood cultures were no growth, this is likely a contaminant. Patient has been afebrile, hemodynamically stable saturating well on 2 L nasal cannula. 10/12 patient seen at bedside, no acute events overnight. He has been afebrile, hemodynamically stable saturating well on 5 L nasal cannula, we will continue to wean as able. Cardiology recommending CTA with PE protocol to rule out PE. Hemoglobin decreased from 12.0 down to 11.8. Repeat blood culture positive in 1/2 bottles with coagulase negative Staphylococcus warneri consistent with a contaminant. We will follow up with Cardiology recommendations 10/13 patient seen at bedside, no acute events overnight. He is still requiring [address] of the chest with PE protocol was negative for pulmonary embolism however he does have significant bilateral pulmonary infiltrates as well as significant bilateral pleural effusions, pulmonology has been consulted to assess for possible thoracentesis. Patient is started on Zosyn to treat underlying pneumonia, he is otherwise hemodynamically stable, afebrile. His labs are relatively unremarkable. 10/14 patient seen at bedside, no acute events overnight. He has been afebrile, hemodynamically stable saturating well on 6 L nasal cannula. We will continue to wean as able. Pulmonology considering bedside thoracentesis today, we will follow up postprocedure. Labs relatively unremarkable. Once patient is more stable from a pulmonary standpoint cardiology planning on possible PCI. 10/15 patient seen at bedside, no acute events overnight. Yesterday he had a right-sided thoracentesis with a proximally 1 L drain. Today left-sided thoracentesis is planned, we will follow up postprocedure. He has improved from 6 L down to 3 L nasal cannula we will continue to wean as able. Once stable from a respiratory standpoint cardiology likely planning PCI 10/16 seen at bedside, no acute events overnight. Yesterday he had a left-sided thoracentesis with approximately 1 L drained. He is currently saturating well o n room air, pending PCI on Friday. Labs are relatively unremarkable. 10/17 seen at bedside, no acute events overnight. He is still on room air, has no complaints at bedside. Possible PCI with Cardiology tomorrow. Vitals and labs relatively unremarkable 10/18 patient is seen and examined at bedside, case discussed with the RN, no acute events overnight, remains hemodynamically stable, saturating normal on room air, possible PCI today. REVIEW OF SYSTEMS 12 point review of systems negative unless noted in HPI PHYSICAL EXAM GENERAL APPEARANCE: The patient is awake, alert, and oriented, in no acute cardiopulmonary distress. NEUROLOGICAL: Cranial nerves II-XII grossly intact. Motor is 5/5 in bilateral upper and lower extremities proximal to distal. No sensory deficits. HEENT: Face is symmetric. Pupils are equal and reactive. Extraocular movements are intact. NECK: Supple. No JVD. No thyromegaly. No submental, submandibular, pre- /postauricular, occipital or supraclavicular lymphadenopathy. CHEST: Normal chest expansion. No Telemetry. LUNGS: crackles noted of the bilateral lung bases CARDIOVASCULAR: Regular. S1 and S2 normal. No appreciable rubs, murmurs or gallops. ABDOMEN: Soft, nontender, and nondistended. There is no rebound, voluntary guarding, or rigidity. : Deferred. No Alexandra. EXTREMITIES: Non-edematous and not cyanotic. No clubbing. Good capillary refill. SKIN: No skin breakdown. Vital Signs (last 8hr) Date Time Temp Pulse Resp B/P (MAP) Pulse Ox O2 Delivery O2 Flow Rate FiO2 10/18/24 07:58 69 20 10/18/24 07:57 69 20 N/A Room Air 21 10/18/24 07:00 97.9 65 18 98/57 97 Room Air 10/18/24 04:08 97.3 66 18 105/68 97 Room Air LABS: Laboratory: Test 10/18/24 06:30 10/18/24 05:43 10/18/24 03:30 10/17/24 16:05 Range/Units Prothrombin Time 11.1 9.6-11.6 SEC Prothromb Time International Ratio 1.05 0.85-1.15 Activated Partial Thromboplast Time 26.5 26.3-35.5 SEC Whole Blood Glucose 97 70-110 MG/DL White Blood Count 7.9 4.8-10.8 K/uL Red Blood Count 4.27 L 4.50-6.20 MIL/uL Hemoglobin 12.7 L 14.0-18.0 g/dL Hematocrit 39.1 L 42-54 % Mean Corpuscular Volume 91.6 79-99 fL Mean Corpuscular Hemoglobin 29.7 27.0-33.0 pg Mean Corpuscular Hemoglobin Concent 32.5 32.0-36.0 g/dL Red Cell Distribution Width 12.2 11.0-15.5 % Platelet Count 391 130-400 K/uL Mean Platelet Volume 9.3 7.5-10.5 fL Immature Granulocyte % (Auto) 0.9 0-1 % Neutrophils (%) (Auto) 57.0 40.0-77.0 % Lymphocytes (%) (Auto) 31.6 21.0-51.0 % Monocytes (%) (Auto) 7.6 3.0-13.0 % Eosinophils (%) (Auto) 2.4 0.0-8.0 % Basophils (%) (Auto) 0.5 0.0-5.0 % Neutrophils # (Auto) 4.5 1.8-7.7 K/uL Lymphocytes # (Auto) 2.5 1.0-4.8 K/uL Monocytes # (Auto) 0.6 0.1-1.0 K/uL Eosinophils # (Auto) 0.19 0.00-0.70 K/uL Basophils # (Auto) 0.04 0.00-0.20 K/uL Absolute Immature Granulocyte (auto 0.07 0-1 K/uL Nucleated Red Blood Cells 0.0 0.0-0.19 % Sodium Level 138 136-145 mmol/L Potassium Level 4.0 3.5-5.1 mmol/L Chloride Level 100 L 101-111 mmol/L Carbon Dioxide Level 34 H 21-32 mmol/L Blood Urea Nitrogen 15 7-18 mg/dL Creatinine 1.0 0.5-1.3 mg/dL Glomerular Filtration Rate Calc 89 >90 mL/min Random Glucose 89 70-105 mg/dL Total Calcium 8.8 8.5-10.1 mg/dL Bedside Glucose Comment Notified Nurse Test 10/17/24 03:45 Range/Units Phosphorus Level 4.6 2.5-4.9 mg/dL Magnesium Level 1.60 L 1.80-2.40 mg/dL Current Medications Medications (Trade) Dose Ordered Sig/William Route PRN Reason Start Time Stop Time Status Last Admin Dose Admin Acetaminophen (TYLenol 325MG TAB) 650 mg Q6H PRN PO MILD PAIN (1-3) 10/08/24 18:00 11/07/24 17:59 10/09/24 17:00 650 MG Amiodarone HCl (pacERONE 200MG) 200 mg DAILY PO 10/16/24 09:00 11/15/24 08:59 10/17/24 09:05 200 MG Amiodarone HCl 150 mg/Dextrose 100 ml @ 0 mls/hr PROTOCOL IV 10/14/24 10:30 10/14/24 10:25 DC Amiodarone HCl 360 mg/Dextrose 200 ml @ 0 mls/hr PROTOCOL IV 10/14/24 10:30 10/14/24 10:26 DC Amiodarone HCl 540 mg/Dextrose 300 ml @ 0 mls/hr PROTOCOL IV 10/14/24 11:00 10/15/24 23:22 DC 10/14/24 16:47 16.66 MLS/HR Amiodarone HCL/ Dextrose 100 ml @ 0 mls/hr PROTOCOL IV 10/14/24 11:00 10/15/24 07:41 DC 10/14/24 11:03 600 MLS/HR Amiodarone HCL/ Dextrose 200 ml @ 0 mls/hr PROTOCOL IV 10/14/24 11:00 10/15/24 07:42 DC 10/14/24 10:58 33.33 MLS/HR Aspirin (Aspirin 81mg Chew Tab) 81 mg DAILY PO 10/09/24 09:00 10/08/24 16:47 DC Aspirin (Aspirin 81mg Chew Tab) 81 mg DAILY PO 10/09/24 09:00 11/08/24 08:59 10/17/24 09:06 81 MG Atorvastatin Calcium (LIPItor 40MG) 40 mg HS PO 10/08/24 21:00 11/07/24 20:59 10/17/24 20:29 40 MG Benzonatate (Tessalon 100mg Caps) 200 mg Q8H PRN PO COUGH 10/09/24 12:00 11/08/24 11:59 10/16/24 16:01 200 MG Calcium Gluconate (Calcium Gluc 1gm Vial) 1 gm AD PRN IV PROTOCOL 10/09/24 02:30 11/08/24 02:29 10/09/24 07:22 1 GM Ceftriaxone Sodium (ROCEphine 1G INJ) 1 gm Q24H IVPB 10/09/24 04:00 10/09/24 11:21 DC 10/09/24 04:28 1 GM Ceftriaxone Sodium (Rocephin 2gm Inj) 2 gm Q24H IVPB 10/10/24 04:00 10/14/24 05:15 DC 10/14/24 03:31 2 GM Chlordiazepoxide HCl (LIBrium 25 MG CAP) 25 mg Q4H PRN PO ALCOHOL WITHDRAWAL PROTOCOL 10/08/24 18:00 10/15/24 18:00 DC Chlordiazepoxide HCl (LIBrium 25 MG CAP) 25 mg Q4HPRN PRN PO WITHDRAWAL 10/16/24 00:30 10/23/24 00:29 10/16/24 00:26 25 MG Clopidogrel Bisulfate (plaVIX 75MG) 75 mg DAILY PO 10/12/24 09:00 10/13/24 19:04 DC 10/13/24 09:10 75 MG Clopidogrel Bisulfate (plaVIX 75MG) 75 mg DAILY PO 10/16/24 09:00 11/15/24 08:59 10/17/24 09:05 75 MG Diazepam (VALium 5 MG/ML 2 ML SYG) 5 mg Q4H PRN IVP ALCOHOL WITHDRAWAL PROTOCOL 10/08/24 22:30 10/15/24 22:29 DC Diazepam (VALium 5 MG/ML 2 ML SYG) 10 mg Q4H PRN IVP ALCOHOL WITHDRAWAL PROTOCOL 10/08/24 18:30 10/08/24 20:32 DC Doxycycline Hyclate 250 ml @ 125 mls/hr Q12H IV 10/09/24 04:00 10/19/24 03:59 10/18/24 03:15 125 MLS/HR Enoxaparin Sodium (Lovenox (Pharmacy To Dose)) 1 unit Q12H SQ 10/15/24 23:30 10/15/24 23:32 DC Enoxaparin Sodium (Lovenox 80mg) 80 mg Q12H SQ 10/16/24 07:00 10/17/24 07:16 DC 10/16/24 18:30 80 MG Enoxaparin Sodium (Lovenox 80mg) 80 mg Q12H SQ 10/17/24 09:00 11/15/24 09:00 10/17/24 20:35 80 MG Folic Acid (FOLic ACID 1 MG TABLET) 1 mg DAILY PO 10/09/24 09:00 10/11/24 09:01 DC 10/11/24 08:24 1 MG Furosemide (LASix 20MG VIAL) 20 mg Q12H IV 10/13/24 05:30 11/12/24 05:29 10/18/24 05:00 20 MG Furosemide (LASix 20MG VIAL) 20 mg Q12H IV 10/08/24 17:30 10/12/24 17:16 DC 10/12/24 04:36 20 MG Furosemide (LASix 40MG VIAL) 40 mg Q12H IV 10/12/24 17:30 10/12/24 17:53 DC 10/12/24 17:40 40 MG Guaifenesin/ Dextromethorphan (RobiTUSSin DM 200/20MG 10ML) 10 ml Q4H PRN PO COUGH 10/09/24 16:30 11/08/24 16:29 10/16/24 15:57 10 ML Heparin Sodium (Porcine) (HEParin 5,000 UNIT VIAL) *calculation based on ACTUAL B... AD PRN IV HEPARIN PROTOCOL 10/08/24 17:30 10/15/24 23:22 DC 10/10/24 17:21 4,000 UNIT Heparin Sodium/ Dextrose 250 ml @ 0 mls/hr Q6H IV 10/08/24 17:30 10/15/24 23:22 DC 10/14/24 17:58 14.22 MLS/HR Insulin Glargine (LANtus 100 UNITS/ML 10 ML VIAL) 10 units DAILY SQ 10/09/24 09:00 10/09/24 11:26 DC 10/09/24 08:21 10 UNITS Insulin Glargine (LANtus 100 UNITS/ML 10 ML VIAL) 25 units BID SQ 10/09/24 21:00 11/08/24 08:59 10/17/24 20:31 25 UNITS Insulin Human Regular (humuLIN R 100 UNIT/ML 3ML) INSULIN SLIDING SCAL... ACHS SQ 10/08/24 21:00 11/07/24 20:59 10/17/24 20:33 2 UNIT Lidocaine HCl/ Dextrose 250 ml @ 0 mls/hr PROTOCOL IV 10/08/24 16:30 10/09/24 11:34 DC 10/08/24 23:48 15 MLS/HR Lorazepam (AtiVAN) 1 mg Q4H PRN IVP ALCOHOL WITHDRAWAL PROTOCOL 10/08/24 18:00 10/08/24 18:06 DC Magnesium Sulfate 50 ml @ 0 mls/hr PROTOCOL IV 10/09/24 09:30 10/10/24 11:16 DC Magnesium Sulfate 50 ml @ 0 mls/hr PROTOCOL IV 10/10/24 11:30 11/09/24 11:29 10/17/24 04:41 25 MLS/HR Magnesium Sulfate 50 ml @ 0 mls/hr PROTOCOL PRN IV AD 10/08/24 19:00 10/09/24 09:30 DC 10/09/24 04:34 25 MLS/HR Metolazone (zarOXOlyn) 5 mg DAILY PO 10/15/24 09:00 11/14/24 08:59 10/17/24 09:05 5 MG Metolazone (zarOXOlyn) 5 mg ONCE PO 10/14/24 15:00 10/14/24 23:00 DC 10/14/24 14:52 5 MG Metoprolol Tartrate (loprESSOR) 12.5 mg BID PO 10/08/24 21:00 10/14/24 09:51 DC 10/14/24 08:40 12.5 MG Metoprolol Tartrate (loprESSOR) 25 mg BID PO 10/14/24 21:00 11/13/24 20:59 10/17/24 09:05 25 MG Morphine Sulfate (morPHINE 2MG SYG) 2 mg Q6H PRN IVP SEVERE PAIN (7-10) 10/08/24 18:00 10/13/24 20:59 DC Multivitamins Therapeutic (Multivitamin Tablet) 1 tab DAILY PO 10/09/24 09:00 11/08/24 08:59 10/17/24 09:05 1 TAB Nitroglycerin/ Dextrose 0 ml @ 0 mls/hr PROTOCOL PRN IV CAGE-DRUCG-FUS ORDERS 10/08/24 16:30 11/07/24 16:29 Ondansetron HCl (zoFRAN 4MG INJ) 4 mg Q4H PRN IVP NAUSEA/VOMITING 10/08/24 16:30 10/12/24 07:54 DC Ondansetron HCl (zoFRAN 4MG INJ) 4 mg Q6H PRN IVP NAUSEA/VOMITING 10/08/24 18:00 11/07/24 17:59 Pantoprazole Sodium (PROTonix 40MG INJ) 40 mg DAILY IVP 10/09/24 09:00 11/08/24 08:59 10/17/24 09:06 40 MG Pharmacy Profile Note (Pharmacy Communication) 1 each PROTOCOL PRN MISC ETOH Withdrawal Score changes 10/08/24 18:00 10/15/24 18:00 DC Piperacillin Sod/ Tazobactam Sod (Zosyn 3.375gm+NS 50ml) 3.375 gm Q8H IV 10/13/24 07:30 10/23/24 07:29 10/17/24 23:22 3.375 GM Potassium Chloride 100 ml @ 100 mls/hr AD PRN IV POTASSIUM PROTOCOL 10/09/24 10:30 11/08/24 10:29 Potassium Chloride (K-Dur/Klor-Con 20meq) 20 meq AD PRN PO POTASSIUM PROTOCOL 10/09/24 10:30 11/08/24 10:29 10/17/24 05:41 20 MEQ Potassium Chloride (KCl 10% Elixir 20meq/15ml) 20 meq AD PRN PO POTASSIUM PROTOCOL 10/09/24 10:30 11/08/24 10:29 10/15/24 05:48 20 MEQ Temazepam (restORIL 30 MG CAP) 30 mg HS PRN PO INSOMNIA 10/16/24 00:30 10/23/24 00:29 Temazepam (restORIL 30 MG CAP) 30 mg HS PRN PO INSOMNIA/SLEEP 10/08/24 16:30 10/15/24 16:29 DC 10/09/24 20:52 30 MG Thiamine HCl (Vitamin B-1) 100 mg DAILY PO 10/09/24 09:00 11/08/24 08:59 10/17/24 09:05 100 MG DIAGNOSTICS / RADIOLOGY: [ ] ASSESSMENT: Inferior STEMI with late presentation, POA Ventricular tachycardia, status post initiation of lidocaine drip, POA Status post cardiac catheterization with findings of multivessel coronary artery disease, 10/08/2024, by Dr. Llanes Status post balloon angioplasty of 100% occluded ostial right posterolateral branch by Dr. 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 Continue aspirin 81 mg Q 24 hours Continue doxycycline 100 mg b.i.d. Continue metoprolol 25 mg b.i.d. Continue atorvastatin 40 mg HS Continue furosemide 20 mg b.i.d. Continue to follow Cardiology input and recommendation in terms of possible PCI Pending evaluation by Cardiothoracic surgeon. Pulmonology consulted to evaluate for thoracentesis NEURO: Minimize central acting medications as possible. Fall Precautions. Well lighted room through the day and minimize interruptions through the night to prevent acute delirium. PULMONARY: Supplemental 02 as needed BiPAP as necessary, for respiratory distress Titrate Fio2 to keep Spo2 > or = 90% DuoNebs and CPT as needed IS hourly while awake for pulmonary hygiene prn Out of bed to chair as tolerated Maintain aspiration precautions at all times CARDIOVASCULAR: Follow hemodynamics. Vital signs per facility protocol GI & NUTRITION: Continue nutritional support Aspirations precautions Prokinetic agents and laxatives as needed KIDNEYS & ELECTROLYTES: Strict monitoring of intake and output Daily weights Avoid nephrotoxic agents Monitor electrolytes and replace as needed Goal urine output of 30mL/hr or 0.5mL/kg/hr Medications to be dosed according to renal function. Avoid contrast if possible ENDOCRINE: Maintain blood glucose between 100-180 at all times. Insulin sliding scale for blood glucose management Hypoglycemia and hyperglycemia protocol in place INFECTIOUS DISEASE: Trend temperature, WBC and procalcitonin level Follow cultures, deescalate antibiotics as soon as possible. Panculture if new onset fever HEMATOLOGY & COAGULATION: Monitor H&H. Keep Hgb > 7 Transfuse 1 unit of PRBC for Hgb < 7 Transfuse 1 pack of platelets of platelets < 20, 000 Watch for any signs and symptoms of bleeding SKIN: Pressure ulcer prevention per facility protocol Specialty mattress as needed ORTHO/REHAB Continue PT/OT PRN: MEDICATIONS Tylenol 650 mg po every 4 hrs for fever zofran 4 mg IV every 6 hrs for n/v Hydralazine 5 mg IV every 4 hrs systolic pressure > 160 bowel regiment: lactulose 20 gm PO BID PRN constipation Supportive measures: Continue GI and DVT prophylaxis Disposition: Pending improved in clinical condition All questions answered time spent: > 35 min MOLLY ROSARIO MD October 18, 2024 09:13
[2024-10-18] MEDS ORDERED: HEParin-NS 1,000 UNIT/500 ML 500 ML IV ONE ×4 (09:45→12:17)
[2024-10-18] MEDS ORDERED: HEParin 10,000 UNIT/10ML (1,000 UNIT/ML) VIAL ONE (09:45)
[2024-10-18] MEDS ORDERED: IOHEXOL 350 MG/ML 100ML INFUS..BTL IV ONE ×3 (09:45→12:06)
[2024-10-18] MEDS ORDERED: LIDOCAINE HCL 400MG/20ML VIAL ONE (09:45)
[2024-10-18] MEDS ORDERED: VERAPAMIL HCL 2.5 MG/ML VIAL ONE (09:45)
[2024-10-18] MEDS ORDERED: NITROGLYCERIN 50MG VIAL ONE (09:45)
--- NOTE | 2024-10-18 09:49 | PN ---
[facility] CARDIOLOGY PROGRESS NOTE Date Patient Seen: October 18, 2024 Time of Visit: 09:21 Interval History: This 54-year-old Latin-Algerian male, with a history of type 2 diabetes with circulatory manifestations, ETOH abuse, has otherwise been generally healthy. He began noticing intermittent episodes of dizziness, dyspnea, and left shoulder pain radiating to the scapula. He presented to [facility] 10/07/2024 at 11:25 p.m. and was found to be in congestive heart failure and in a wide complex tachycardia consistent with sustained VT. Serial cardiac enzymes evolved from 5209, 6062, and further to 6885. He underwent treatment with IV lidocaine and converted to sinus rhythm which then demonstrated an acute inferior lateral STEMI. He underwent emergent transfer to [facility] and underwent coronary intervention with PTCA (plain old balloon angioplasty) to the ostial right posterolateral branch and was also found to have severe three-vessel coronary artery disease with poor distal targets s ubsequently deemed to be inoperable by Dr. Kane Rivas. The patient's course was complicated by acute pulmonary edema and bilateral pleural effusions. He underwent bilateral thoracentesis and was stabilized with plans for percutaneous coronary intervention today. Physical Examination: GENERAL: No acute distress. HEAD: Normal with no signs of head trauma. EYES: PERRLA, EOMI, conjunctiva and sclera normal. NECK: Supple without JVD. There is no tenderness, lymphadenopathy, or masses. No thyromegaly. Normal carotid upstrokes without bruits. LUNGS: Clear breath sounds bilaterally. No wheezes, or rhonchi. HEART: Normal rate and rhythm. Normal S1 and S2 without murmurs, gallop or rub. VASC: Peripheral pulses +2 bilaterally. EXT: No clubbing, cyanosis or edema. NEURO: Awake, alert, and oriented x3. No focal neurological deficits noted. Laboratory: Hematology Labs: Test 10/18/24 03:30 Range/Units White Blood Count 7.9 4.8-10.8 K/uL Red Blood Count 4.27 L 4.50-6.20 MIL/uL Hemoglobin 12.7 L 14.0-18.0 g/dL Hematocrit 39.1 L 42-54 % Mean Corpuscular Volume 91.6 79-99 fL Mean Corpuscular Hemoglobin 29.7 27.0-33.0 pg Mean Corpuscular Hemoglobin Concent 32.5 32.0-36.0 g/dL Red Cell Distribution Width 12.2 11.0-15.5 % Platelet Count 391 130-400 K/uL Mean Platelet Volume 9.3 7.5-10.5 fL Immature Granulocyte % (Auto) 0.9 0-1 % Neutrophils (%) (Auto) 57.0 40.0-77.0 % Lymphocytes (%) (Auto) 31.6 21.0-51.0 % Monocytes (%) (Auto) 7.6 3.0-13.0 % Eosinophils (%) (Auto) 2.4 0.0-8.0 % Basophils (%) (Auto) 0.5 0.0-5.0 % Neutrophils # (Auto) 4.5 1.8-7.7 K/uL Lymphocytes # (Auto) 2.5 1.0-4.8 K/uL Monocytes # (Auto) 0.6 0.1-1.0 K/uL Eosinophils # (Auto) 0.19 0.00-0.70 K/uL Basophils # (Auto) 0.04 0.00-0.20 K/uL Absolute Immature Granulocyte (auto 0.07 0-1 K/uL Nucleated Red Blood Cells 0.0 0.0-0.19 % Chemistry Labs: Test 10/18/24 05:43 10/18/24 03:30 10/17/24 16:05 10/17/24 03:45 Range/Units Whole Blood Glucose 97 70-110 MG/DL Sodium Level 138 136-145 mmol/L Potassium Level 4.0 3.5-5.1 mmol/L Chloride Level 100 L 101-111 mmol/L Carbon Dioxide Level 34 H 21-32 mmol/L Blood Urea Nitrogen 15 7-18 mg/dL Creatinine 1.0 0.5-1.3 mg/dL Glomerular Filtration Rate Calc 89 >90 mL/min Random Glucose 89 70-105 mg/dL Total Calcium 8.8 8.5-10.1 mg/dL Bedside Glucose Comment Notified Nurse Phosphorus Level 4.6 2.5-4.9 mg/dL Magnesium Level 1.60 L 1.80-2.40 mg/dL Coagulation Labs: Test 10/18/24 06:30 Range/Units Prothrombin Time 11.1 9.6-11.6 SEC Prothromb Time International Ratio 1.05 0.85-1.15 Activated Partial Thromboplast Time 26.5 26.3-35.5 SEC Diagnostics / Radiology: 2D echo 10/09/2024: Conclusion LVEF is 40-45%. 3D volume EF 38%. GLS -13.0%. There is moderate mitral valve regurgitation noted. Impression and Plan: 1. ACS-STEMI s/p PCI with PTCA to the RPLB done on 10/09/[address] Llanes: Severe 2V+branch CAD (LAD, D1, LCx, Ramus, OM1, RPDA), considered inoperable due to poor targets by Dr. Kane Rivas: for which the patient was referred to CT surgery for CABG, but was deemed not to be a candidate due to poor targets. -Continue on goal directed ACS therapy which includes aspirin 81 mg daily, metoprolol tartrate 25 mg BID, atorvastatin 40 mg QHS -continue clopidogrel 75 mg daily and Lovenox (1mg/kg) Q12H post bilateral thoracenteses. -Plans are for staged intervention today 2. Sustained VT s/p chemical cardioversion with IV lidocaine on 10/09/2024, with recurrent sustained VT on 10/13/2024 -continue amiodarone 200 mg BID for seven days and after that continue amiodarone 200 mg daily and he will continue on metoprolol tartrate 25 mg BID. 3. HFmrEF (LVEF: 40-45% by echo done 10/09/2024): Mild ischemic cardiomyopathy with LVEF of 40-45% by 2D echo 10/09/2024: Bilateral pleural effusions (R>L), s/p right sided thoracentesis (1.1L) done on 10/14/2024, s/p left sided thoracentesis (1.1L) done on 10/15/2024: -Check follow up chest x-ray this morning, discontinue metolazone, and begin low-dose spironolactone Comorbidities: UTI HLP Type 2 diabetes with circulatory manifestations ETOH abuse Normocytic normochromic anemia Jewish WM GUAMAN MD October 18, 2024 09:49
[2024-10-18] MEDS ORDERED: MIDAZOLAM HCL 1 MG/ML 2ML VIAL ONE ×2 (10:15→12:34)
[2024-10-18] MEDS ORDERED: FENTanyl CITRate PF 50 MCG/1 ML 2ML VIAL ONE ×2 (10:15→12:34)
[2024-10-18] MEDS ORDERED: EPTIFIBATIDE 2 MG/ML 10 ML VIAL IVP ONE (10:45)
[2024-10-18] MEDS ORDERED: EPTIFIBATIDE 75MG/100ML BOTTLE 100 ML IV ONE (10:45)
[2024-10-18] MEDS ORDERED: niCARDIpine 25MG INJ IV ONE (11:07)
[2024-10-18] MEDS ORDERED: DOPamine HCL 400 MG/D5%-WATER 0 ML IV ONE (11:15)
--- NOTE | 2024-10-18 12:51 | CONS ---
[facility] CARDIAC ELECTROPHYSIOLOGY CONSULTATION Date Patient Seen: October 18, 2024 Time of Visit: 12:41 Reason for Consultation: Ventricular Tachycardia History of Present Illness: The patient is a 54-year-old male with diabetes and chronic alcohol abuse with a five day history of dyspnea, dizziness, and left shoulder-scapular pain as well as progressive dyspnea on exertion. He presented to [facility] with the same symptoms and was found to be in [facility] ventricular tachycardia. This converted with intravenous lidocaine and upon conversion, he was found to have inferior ST-elevation and consider a late presentation inferior wall myocardial infarction. He was severely hypoxic with an O2 sat of 77% and a blood pressure of 96/63 with moderately elevated troponins. He underwent CTA angiography showing possible filling defects concerning for pulmonary embolism, however this was negated by critical care physician. He was then transferred to [facility] and underwent cardiac catheterization which showed a totally occluded right posterolateral branch as well as severe triple-vessel disease. He underwent balloon angioplasty of the culprit lesion and was referred for evaluation by Cardiothoracic surgery. They evaluated with the patient and felt that he had poor targets for bypass. Now, at the time of this dictation, he is undergoing complex percutaneous multivessel intervention. Meanwhile, he developed recurrent ventricular tachycardia on 10/13 there are three telemetry strips in the chart, timed 19:41, 19:50, and 19:54. The first one shows the onset and the last one shows termination, however it is not clear whether or not this all represents a sustained episode for that long a period of time. Unfortunately, our telemetry system we will only allow us to look back to 10/15 so this information is not available. He had an echocardiogram on 10/09 showing mild LV systolic dysfunction with an ejection fraction of 40-45%. Past Medical History: As above Family History: Noncontributory Social History: Chronic alcohol abuse by history Review of Systems: [Not currently obtainable Physical Examination: Not currently obtainable due to the patient being in the middle of a procedure. Vital Signs (last 8hr) Date Time Temp Pulse Resp B/P (MAP) Pulse Ox O2 Delivery O2 Flow Rate FiO2 10/18/24 08:30 96 Room Air* 0 21 10/18/24 07:58 69 20 10/18/24 07:57 69 20 N/A Room Air 21 10/18/24 07:00 97.9 65 18 98/57 97 Room Air Laboratory: [ ] Hematology Labs: Test 10/18/24 03:30 Range/Units White Blood Count 7.9 4.8-10.8 K/uL Red Blood Count 4.27 L 4.50-6.20 MIL/uL Hemoglobin 12.7 L 14.0-18.0 g/dL Hematocrit 39.1 L 42-54 % Mean Corpuscular Volume 91.6 79-99 fL Mean Corpuscular Hemoglobin 29.7 27.0-33.0 pg Mean Corpuscular Hemoglobin Concent 32.5 32.0-36.0 g/dL Red Cell Distribution Width 12.2 11.0-15.5 % Platelet Count 391 130-400 K/uL Mean Platelet Volume 9.3 7.5-10.5 fL Immature Granulocyte % (Auto) 0.9 0-1 % Neutrophils (%) (Auto) 57.0 40.0-77.0 % Lymphocytes (%) (Auto) 31.6 21.0-51.0 % Monocytes (%) (Auto) 7.6 3.0-13.0 % Eosinophils (%) (Auto) 2.4 0.0-8.0 % Basophils (%) (Auto) 0.5 0.0-5.0 % Neutrophils # (Auto) 4.5 1.8-7.7 K/uL Lymphocytes # (Auto) 2.5 1.0-4.8 K/uL Monocytes # (Auto) 0.6 0.1-1.0 K/uL Eosinophils # (Auto) 0.19 0.00-0.70 K/uL Basophils # (Auto) 0.04 0.00-0.20 K/uL Absolute Immature Granulocyte (auto 0.07 0-1 K/uL Nucleated Red Blood Cells 0.0 0.0-0.19 % Chemistry Labs: Test 10/18/24 05:43 10/18/24 03:30 10/17/24 16:05 10/17/24 03:45 Range/Units Whole Blood Glucose 97 70-110 MG/DL Sodium Level 138 136-145 mmol/L Potassium Level 4.0 3.5-5.1 mmol/L Chloride Level 100 L 101-111 mmol/L Carbon Dioxide Level 34 H 21-32 mmol/L Blood Urea Nitrogen 15 7-18 mg/dL Creatinine 1.0 0.5-1.3 mg/dL Glomerular Filtration Rate Calc 89 >90 mL/min Random Glucose 89 70-105 mg/dL Total Calcium 8.8 8.5-10.1 mg/dL Bedside Glucose Comment Notified Nurse Phosphorus Level 4.6 2.5-4.9 mg/dL Magnesium Level 1.60 L 1.80-2.40 mg/dL Coagulation Labs: Test 10/18/24 06:30 Range/Units Prothrombin Time 11.1 9.6-11.6 SEC Prothromb Time International Ratio 1.05 0.85-1.15 Activated Partial Thromboplast Time 26.5 26.3-35.5 SEC Assessment: This patient presented with a sustained ventricular tachycardia we then 24-48 hours of an acute inferior myocardial infarction. He then has had further runs of VT on 10/13. It is impossible at this time to determine whether this was sustained or nonsustained. In terms of his LV systolic function, he has only mild LV dysfunction. Plan: 1. At the time of the dictation, of the interventional procedure has completed with intervention on the three lesions. He is pending a repeat procedure for the LAD. 2. He has already been loaded with the amiodarone and I would continue this orally 3. He may be a candidate for implantable defibrillator for secondary prevention of cardiac however it is unknown whether or not he had sustained VT, and he subsequently has had significantly more intervention and is planning more later this week, therefore I do not feel that it would be appropriate to proceed with ICD implantation at this time 4. I recommend discharge home with a LifeVest, followed by electrophysiologic study after one month. If VT is not inducible, then I would discontinue amiodarone at this point and repeat the electrophysiologic study in another 2 months. If at that point, he does not have sustained VT, then the LifeVest can be discontinued and the patient monitored with mobile telemetry for another month. 5. In this situation there were no established guidelines, therefore the above recommendations are based on my experience and opinion. Thank you very much for this consultation. JOANNE BAPTISTE MD October 18, 2024 12:51
[2024-10-18] MEDS ORDERED: GLUCAGON 1MG KIT 1 MG ML IM PRN (13:00)
[2024-10-18] MEDS ORDERED: DEXTROSE 50%-WATER 50 ML DISP.SYRIN IV PRN (13:00)
[2024-10-18] MEDS: 0.9%NACL 1000ML 1,000 ML IV SCH (13:00)
[2024-10-18] MEDS ORDERED: ATROPINE 1MG SYG IVP ONE (13:10)
--- NOTE | 2024-10-18 13:14 | PRN ---
PROCEDURE REPORT DATE OF PROCEDURE: October 18, 2024 DIETITIAN RESEARCH: [Nam alexander MD ] PROCEDURE PERFORMED: Conscious sedation Ultrasound guided right radial artery access Selective right coronary artery angiogram Left heart catheterization Aspiration thrombectomy/penumbra of the RCA and PLB IVUS of the RCA and PLB Status post successful IVUS guided, aspiration thrombectomy, and PTCA/PCI of the proximal PLB (2.5 x 30 mm mark [place] drug-eluting stent) Status post successful PTCA/PCI of the prox-mid PDA (2.5 x 15 mm mark [place] drug-eluting stent) Status post successful IVUS guided PTCA/PCI of the distal RCA and ostial PLB (Mini crush technique: 3 x 22 mm in the distal RCA and 2.5 x 18 in the ostial PDA extending to the distal RCA. Status post successful IVUS guided PTCA/PCI of the mid to distal RCA (4 by 18 mm mark [place] drug-eluting stent) TR band 13 rey over right radial artery INDICATION: Staged revasc following STEMI DESCRIPTION OF PROCEDURE: Patient initially presented as a code STEMI and underwent coronary angiogram found to have a thrombotic occluded PLB which was managed with PTCA and given his severe multivessel CAD he was referred for CABG evaluation. Given his overall findings he was deemed not a surgical candidate and was taken back to the slab grinder for staged revascularization of his RCA. After informed consent was obtained, the patient was prepped and draped in the usual sterile fashion. A 7 [place] arterial sheath was inserted in the right radial artery using ultrasound guidance with first pass wall puncture. The arterial sheath was aspirated and flushed. A JR-4 was advanced in a similar fashion to the ascending aorta over the J-tipped guidewire and was used for selective right coronary angiograms in multiple oblique views with findings as outlined below. The JR-4 catheter advanced into the LV and pressures were obtained with a pull- back across the aortic valve. Following review of the images we do not perform a left coronary angiogram given his anatomy was recently known. We exchanged the diagnostic catheters for a seven [place] JR4 catheter which was used to advance over the wire and engaged the right coronary artery. We provided double bolus of IV Integrilin and infusion during the procedure and we advanced a Prowater into the distal PLB under fluoroscopic guidance. We advanced a 2nd run-through wire into the distal PDA under fluoroscopic guidance. Given the significant thrombotic burden in the distal RCA extending into the PLB we proceeded with IVUS imaging to further delineate lesion morphology characteristics and he was found to have significant thrombus burden in the proximal PLB and distal RCA. We removed the IVUS catheter and proceeded with PTCA using a 2.75 x 20 mm compliant balloon from the mid PLB to the distal RCA to 14 REY. We then proceeded with PCI of the prox to mid PLB with a 2.5 x 30 mm mark [place] drug-eluting stent which was deployed to nominal pressures. We post dilated that stent with a 3 x 20 mm noncompliant balloon to 10 and 12 REY respectively. Given significant ostial PDA disease and distal RCA disease decision was made to proceed with mini crush bifurcation stenting technique. So we advanced a 3 x 22 mm mark [place] drug-eluting stent to the distal RCA extending into the proximal PLB and also advanced a 2.5 by 18 mm mark [place] drug-eluting stent into the proximal PDA extending into the distal RCA. We then deployed the PDA stent to nominal pressures. We then removed the PDA balloon and retracted the runthrough wire from the PDA and then deployed the 3 x 22 mm mark [place] drug-eluting stent in the distal RCA extending into the PLV to nominal pressures crushing the ostial PDA stent.. We are dealing with significant resistance traversing back into the PDA stent struts so we used a super cross angled catheter which was advanced over the run-through to advanced the PDA wire distally. We then removed the microcatheter and then we proceeded with kissing balloon inflations with a 2.5 x 15 mm noncompliant balloon in the PDA and a 3 x 20 mm noncompliant balloon in the distal RCA to nominal pressures. We noted yazdanism of SOLOMON three flow with no dissections or perforations and at this time we proceeded to deploy a 4 x 18 mm mark [place] drug-eluting stent within the distal RCA to nominal pressures. This was post dilated using a 4 x 15 mm noncompliant balloon to 14 and 16 REY respectively. Final angiographic images revealed yazdanism of SOLOM[place] three flow with no dissections or perforations. At this time given excessive contrast and radiation used we terminated the procedure and we will plan for staged revascularization was LAD in the coming days/weeks. A TR band was placed over right radial artery. Patient tolerated procedure well with no postprocedure complication was foster sferred to slab grinder holding in stable condition FLUOROSCOPY TIME: 36.6 min LEFT HEART HEMODYNAMICS: LVEDP 9 mm Hg and no gradient Ao CORONARY ANGIOGRAM: LEFT MAIN: Left coronary system was not engaged as his anatomy was known from recent coronary angiogram on this admission RIGHT CORONARY ARTERY: Large, dominant vessel giving rise to PDA and PL branches. Significant distal t hrombotic lesions extending into the prox to mid PLV. There is a distal 70-75% thrombotic lesion. The prox to mid PLB has diffuse thrombotic occlusions with a distal 80-90% stenosis. Ostial PDA 70-80% and mid PDA 90-95%. HEMOSTASIS: TR band 12 rey over right radial artery INTERVENTIONS: Status post successful IVUS guided, aspiration thrombectomy, and PTCA/PCI of the proximal PLB (2.5 x 30 mm mark [place] drug-eluting stent) Status post successful PTCA/PCI of the prox-mid PDA (2.5 x 15 mm mark [place] drug-eluting stent) Status post successful IVUS guided PTCA/PCI of the distal RCA and ostial PLB (Mini crush technique: 3 x 22 mm in the distal RCA and 2.5 x 18 in the ostial PDA extending to the distal RCA. Status post successful IVUS guided PTCA/PCI of the mid to distal RCA (4 by 18 mm mark [place] drug-eluting stent) COMPLICATIONS: None FINDINGS: Severe distal RCA and PLB thrombotic disease as well as ostial and mid PDA disease status post successful revascularization ESTIMATED BLOOD LOSS: 5 cc RECOMMENDATIONS/INSTRUCTIONS: Aggressive risk factor modification. \patient will require 12 months of dap (aspirin 81 mg daily/Plavix 75 mg daily) in addition to high-intensity statin therapy We will plan for staged revascularization of the LAD in the coming days CONTRAST DELIVERED TO PATIENT (mL): 315cc MD BECCA Gregorio JAMES R MD October 18, 2024 13:14
[2024-10-19] VITALS (13 sets, daily range): BP systolic 93–103; BP diastolic 58–74; PULSE 56–80; RESP 18–20; TEMP 97.8–98.6; O2SAT 94–95
[2024-10-19 03:57] LABS: BASOPHILS # (AUTO) 0.04 K/uL (0.00-0.20); BASOPHILS % (AUTO) 0.5 % (0.0-5.0); EOSINOPHILS # (AUTO) 0.18 K/uL (0.00-0.70); HEMATOCRIT 39.6 % (42-54); IMMATURE GRANULOCYTE ABSOLUTE 0.06 K/uL (0-1); LYMPHOCYTES # (AUTO) 2.2 K/uL (1.0-4.8); LYMPHOCYTES % (AUTO) 25.1 % (21.0-51.0); MEAN CORPUSCULAR HEMOGLOBIN 29.7 pg (27.0-33.0); MEAN CORPUSCULAR HGB CONC 33.3 g/dL (32.0-36.0); MONOCYTES # (AUTO) 0.8 K/uL (0.1-1.0); MONOCYTES % (AUTO) 8.6 % (3.0-13.0); NEUTROPHILS # (AUTO) 5.6 K/uL (1.8-7.7); NEUTROPHILS % (AUTO) 63.1 % (40.0-77.0); PLATELET COUNT (AUTO) 432 K/uL (130-400); RED BLOOD CELL COUNT(AUTO) 4.45 MIL/uL (4.50-6.20); WHITE BLOOD COUNT (AUTO) 8.9 K/uL (4.8-10.8)
[2024-10-19 04:35] LABS: ALBUMIN 2.5 g/dL (3.5-5.0); BILIRUBIN,TOTAL 0.4 mg/dL (0.2-1.0); CREATININE 0.9 mg/dL (0.5-1.3); MAGNESIUM 1.8 mg/dL (1.80-2.40); POTASSIUM 4.1 mmol/L (3.5-5.1); TOTAL PROTEIN, SERUM 6.6 g/dL (6.0-8.3)
--- NOTE | 2024-10-19 08:40 | PN ---
[facility] PROGRESS NOTE Date of Service: October 19, 2024 Time of Service: 08:35 SUBJECTIVE: [ ] This is a 54-year-old male with underlying history of type 2 diabetes mellitus, chronic alcoholism, who presented as a transfer from [facility] for further management of late presentation of inferior ST-elevation CT with ventricular tachycardia. Patient stated that about five days ago prior to presenting to the ER, he started having mild dizziness, dyspnea and left-sided shoulder pain radiating to the scapula. Symptoms were intermittent and patient noticed that he was having progressive dyspnea on exertion. Patient saw his primary care physician on 10/07/2024 where he was found to have blood glucose greater than 400 and he received some insulin as outpatient. He presented to the [facility] ER with recurrence of left-sided shoulder discomfort with dyspnea and dizziness. Upon arrival to the emergency department, EKG demonstrated regular wide complex tachycardia, with Q-waves in lead three and AVF with ST depressions in V4 and V6 with a heart rate of 150. Patient was also noted to be hypoxic with of 77%, blood pressure of 96/63 and troponin was noted to be at 5209--> 6062--> 6885. Patient underwent CT PE in [facility] which showed possible filling defects segmental and subsegmental branches concerning for pulmonary embolism. Patient was also noted to have moderate bilateral pleural effusion with patchy consolidation of perihilar and lower lobes with septal thickening and 4 mm granuloma of the left lung. Patient was admitted to ICU in [facility] and CT chest was reviewed by critical care physician there who stated that there was no signs of pulmonary embolism. Patient was transferred to [facility] and underwent cardiac catheterization given concern ACS. On cardiac catheterization, patient was found to have culprit lesion, 100% occluded right posterolateral branch for which, patient underwent balloon angioplasty. Patient was also found to have multivessel coronary artery disease with proximal LAD 70% stenosis, 80% mid diagonal stenosis, 70% proximal ramus, 80% mid circumflex stenosis before OM, 50% stenosis involving the circumflex after OM, 100% OM stenosis with filling collaterals and LVEDP was noted to be at 31. 5/10 patient is seen and examined at bedside, alert oriented x3, he is on 10 L via nasal cannula, on heparin drip, denies chest pain, denies shortness a breath, no nausea, no vomiting. Blood pressure 105/68, heart rate of 70. Afebrile. Hemoglobin 10.6, hematocrit 31.1. ABG shows pH 7.46, pCO2 34, PO2 59.6. Toxicology screen positive for benzodiazepines. Chest x-ray shows stable exam 10/10 54-year-old male with underlying history of type 2 diabetes mellitus, chronic alcoholism, who presented as a transfer from [facility] for further management of late presentation of inferior ST-elevation CT with ventricular tachycardia. Status post cardiac catheterization with findings of multivessel coronary artery disease, 10/08/2024, by Dr. Llanes Status post balloon angioplasty of 100% occluded ostial right posterolateral branch by Dr. Llanes, 10/08/2024. Patient now with Acute hypoxemic respiratory failure, Acute on chronic systolic heart failure exacerbation, suspect possible underlying developing community- acquired pneumonia. During my visit patient remains on supplemental oxygen via nasal cannula 10 L, getting IV antibiotics, he feels less short of breath, less productive cough. He remains on heparin drip. He is currently off lidocaine for 24 hours. No recurrent ventricular arrhythmias. Pending evaluation by Cardiothoracic surgeon. 10/11 patient seen at bedside, no acute events overnight. CV surgery does not recommend CABG as he is not good candidate, recommending a possible percutaneous catheterization with intervention to restore flow, we will follow up with Cardiology recommendations regarding attempted intervention versus optimizing medical management. Hemoglobin improved from 11.8 up to 12.0, potassium low at 3.2, we will be repleted according to protocol. Repeat blood culture positive in 1/2 bottles, we will follow up with speciation, 1st blood cultures were no growth, this is likely a contaminant. Patient has been afebrile, hemodynamically stable saturating well on 2 L nasal cannula. 10/12 patient seen at bedside, no acute events overnight. He has been afebrile, hemodynamically stable saturating well on 5 L nasal cannula, we will continue to wean as able. Cardiology recommending CTA with PE protocol to rule out PE. Hemoglobin decreased from 12.0 down to 11.8. Repeat blood culture positive in 1/2 bottles with coagulase negative Staphylococcus warneri consistent with a contaminant. We will follow up with Cardiology recommendations 10/13 patient seen at bedside, no acute events overnight. He is still requiring [address] of the chest with PE protocol was negative for pulmonary embolism however he does have significant bilateral pulmonary infiltrates as well as significant bilateral pleural effusions, pulmonology has been consulted to assess for possible thoracentesis. Patient is started on Zosyn to treat underlying pneumonia, he is otherwise hemodynamically stable, afebrile. His labs are relatively unremarkable. 10/14 patient seen at bedside, no acute events overnight. He has been afebrile, hemodynamically stable saturating well on 6 L nasal cannula. We will continue to wean as able. Pulmonology considering bedside thoracentesis today, we will follow up postprocedure. Labs relatively unremarkable. Once patient is more stable from a pulmonary standpoint cardiology planning on possible PCI. 10/15 patient seen at bedside, no acute events overnight. Yesterday he had a right-sided thoracentesis with a proximally 1 L drain. Today left-sided thoracentesis is planned, we will follow up postprocedure. He has improved from 6 L down to 3 L nasal cannula we will continue to wean as able. Once stable from a respiratory standpoint cardiology likely planning PCI 10/16 seen at bedside, no acute events overnight. Yesterday he had a left-sided thoracentesis with approximately 1 L drained. He is currently saturating well o n room air, pending PCI on Friday. Labs are relatively unremarkable. 10/17 seen at bedside, no acute events overnight. He is still on room air, has no complaints at bedside. Possible PCI with Cardiology tomorrow. Vitals and labs relatively unremarkable 10/18 patient is seen and examined at bedside, case discussed with the RN, no acute events overnight, remains hemodynamically stable, saturating normal on room air, possible PCI today. 10/19 patient is seen and examined at bedside, case discussed with the RN, no acute events overnight, remains hemodynamically stable, patient underwent left heart catheterization 10/18/2024, findings of severe distal RCA MPL be thrombotic disease as well as ostial admit [employer] disease status post successful revascularization, nor Cardiology to continue aggressive risk factor modification, patient will require 12 months of dual antiplatelet therapy with aspirin 81 mg p.o. daily and Plavix 75 mg p.o. daily in addition to high- intensity statin therapy, plan is for staged revascularization of the LAD in the coming days. Patient evaluated by EP, continue amiodarone p.o.. Patient maybe a candidate for AICD implantation for secondary prevention of cardiac , however it is unknown whether or not he had sustained V-tach. Per EP rec ommended discharge home with LifeVest follow up by electrophysiologic study after one month. REVIEW OF SYSTEMS 12 point review of systems negative unless noted in HPI PHYSICAL EXAM GENERAL APPEARANCE: The patient is awake, alert, and oriented, in no acute cardiopulmonary distress. NEUROLOGICAL: Cranial nerves II-XII grossly intact. Motor is 5/5 in bilateral upper and lower extremities proximal to distal. No sensory deficits. HEENT: Face is symmetric. Pupils are equal and reactive. Extraocular movements are intact. NECK: Supple. No JVD. No thyromegaly. No submental, submandibular, pre- /postauricular, occipital or supraclavicular lymphadenopathy. CHEST: Normal chest expansion. No Telemetry. LUNGS: crackles noted of the bilateral lung bases CARDIOVASCULAR: Regular. S1 and S2 normal. No appreciable rubs, murmurs or gallops. ABDOMEN: Soft, nontender, and nondistended. There is no rebound, voluntary guarding, or rigidity. : Deferred. No Alexandra. EXTREMITIES: Non-edematous and not cyanotic. No clubbing. Good capillary refill. SKIN: No skin breakdown. Vital Signs (last 8hr) Date Time Temp Pulse Resp B/P (MAP) Pulse Ox O2 Delivery O2 Flow Rate FiO2 10/19/24 07:45 98.1 64 18 93/61 96 Room Air 10/19/24 03:55 98.1 56 20 94/58 96 Room Air 10/19/24 00:55 98.1 71 18 96/62 98 Room Air 10/19/24 00:38 64 18 N/A Room Air 21 10/19/24 00:37 64 18 LABS: Laboratory: Test 10/19/24 06:11 10/19/24 03:42 10/18/24 16:09 10/18/24 06:30 Range/Units Whole Blood Glucose 99 # 70-110 MG/DL White Blood Count 8.9 4.8-10.8 K/uL Red Blood Count 4.45 L 4.50-6.20 MIL/uL Hemoglobin 13.2 L 14.0-18.0 g/dL Hematocrit 39.6 L 42-54 % Mean Corpuscular Volume 89.0 79-99 fL Mean Corpuscular Hemoglobin 29.7 27.0-33.0 pg Mean Corpuscular Hemoglobin Concent 33.3 32.0-36.0 g/dL Red Cell Distribution Width 12.0 11.0-15.5 % Platelet Count 432 H 130-400 K/uL Mean Platelet Volume 9.2 7.5-10.5 fL Immature Granulocyte % (Auto) 0.7 0-1 % Neutrophils (%) (Auto) 63.1 40.0-77.0 % Lymphocytes (%) (Auto) 25.1 21.0-51.0 % Monocytes (%) (Auto) 8.6 3.0-13.0 % Eosinophils (%) (Auto) 2.0 0.0-8.0 % Basophils (%) (Auto) 0.5 0.0-5.0 % Neutrophils # (Auto) 5.6 1.8-7.7 K/uL Lymphocytes # (Auto) 2.2 1.0-4.8 K/uL Monocytes # (Auto) 0.8 0.1-1.0 K/uL Eosinophils # (Auto) 0.18 0.00-0.70 K/uL Basophils # (Auto) 0.04 0.00-0.20 K/uL Absolute Immature Granulocyte (auto 0.06 0-1 K/uL Nucleated Red Blood Cells 0.0 0.0-0.19 % Sodium Level 139 136-145 mmol/L Potassium Level 4.1 3.5-5.1 mmol/L Chloride Level 102 101-111 mmol/L Carbon Dioxide Level 28 21-32 mmol/L Blood Urea Nitrogen 16 7-18 mg/dL Creatinine 0.9 0.5-1.3 mg/dL Glomerular Filtration Rate Calc 101 >90 mL/min Random Glucose 111 H 70-105 mg/dL Total Calcium 8.6 8.5-10.1 mg/dL Magnesium Level 1.80 1.80-2.40 mg/dL Total Bilirubin 0.4 0.2-1.0 mg/dL Aspartate Amino Transf (AST/SGOT) 26 10-37 U/L Alanine Aminotransferase (ALT/SGPT) 32 12-78 U/L Alkaline Phosphatase 90 50-136 U/L Total Protein 6.6 6.0-8.3 g/dL Albumin 2.5 L 3.5-5.0 g/dL Bedside Glucose Comment Notified Nurse Prothrombin Time 11.1 9.6-11.6 SEC Prothromb Time International Ratio 1.05 0.85-1.15 Activated Partial Thromboplast Time 26.5 26.3-35.5 SEC Current Medications Medications (Trade) Dose Ordered Sig/William Route PRN Reason Start Time Stop Time Status Last Admin Dose Admin Acetaminophen (TYLenol 325MG TAB) 650 mg Q6H PRN PO MILD PAIN (1-3) 10/08/24 18:00 11/07/24 17:59 10/09/24 17:00 650 MG Amiodarone HCl (pacERONE 200MG) 200 mg DAILY PO 10/16/24 09:00 11/15/24 08:59 10/17/24 09:05 200 MG Amiodarone HCl 150 mg/Dextrose 100 ml @ 0 mls/hr PROTOCOL IV 10/14/24 10:30 10/14/24 10:25 DC Amiodarone HCl 360 mg/Dextrose 200 ml @ 0 mls/hr PROTOCOL IV 10/14/24 10:30 10/14/24 10:26 DC Amiodarone HCl 540 mg/Dextrose 300 ml @ 0 mls/hr PROTOCOL IV 10/14/24 11:00 10/15/24 23:22 DC 10/14/24 16:47 16.66 MLS/HR Amiodarone HCL/ Dextrose 100 ml @ 0 mls/hr PROTOCOL IV 10/14/24 11:00 10/15/24 07:41 DC 10/14/24 11:03 600 MLS/HR Amiodarone HCL/ Dextrose 200 ml @ 0 mls/hr PROTOCOL IV 10/14/24 11:00 10/15/24 07:42 DC 10/14/24 10:58 33.33 MLS/HR Aspirin (Aspirin 81mg Chew Tab) 81 mg DAILY PO 10/09/24 09:00 10/08/24 16:47 DC Aspirin (Aspirin 81mg Chew Tab) 81 mg DAILY PO 10/09/24 09:00 11/08/24 08:59 10/17/24 09:06 81 MG Atorvastatin Calcium (LIPItor 40MG) 40 mg HS PO 10/08/24 21:00 11/07/24 20:59 10/18/24 21:04 40 MG Benzonatate (Tessalon 100mg Caps) 200 mg Q8H PRN PO COUGH 10/09/24 12:00 11/08/24 11:59 10/16/24 16:01 200 MG Calcium Gluconate (Calcium Gluc 1gm Vial) 1 gm AD PRN IV PROTOCOL 10/09/24 02:30 11/08/24 02:29 10/09/24 07:22 1 GM Ceftriaxone Sodium (ROCEphine 1G INJ) 1 gm Q24H IVPB 10/09/24 04:00 10/09/24 11:21 DC 10/09/24 04:28 1 GM Ceftriaxone Sodium (Rocephin 2gm Inj) 2 gm Q24H IVPB 10/10/24 04:00 10/14/24 05:15 DC 10/14/24 03:31 2 GM Chlordiazepoxide HCl (LIBrium 25 MG CAP) 25 mg Q4H PRN PO ALCOHOL WITHDRAWAL PROTOCOL 10/08/24 18:00 10/15/24 18:00 DC Chlordiazepoxide HCl (LIBrium 25 MG CAP) 25 mg Q4HPRN PRN PO WITHDRAWAL 10/16/24 00:30 10/23/24 00:29 10/16/24 00:26 25 MG Clopidogrel Bisulfate (plaVIX 75MG) 75 mg DAILY PO 10/12/24 09:00 10/13/24 19:04 DC 10/13/24 09:10 75 MG Clopidogrel Bisulfate (plaVIX 75MG) 75 mg DAILY PO 10/16/24 09:00 11/15/24 08:59 10/17/24 09:05 75 MG Dextrose (D50w) 50 ml AD PRN IV HYPOGLYCEMIA PROTOCOL 10/18/24 13:00 11/17/24 12:59 Diazepam (VALium 5 MG/ML 2 ML SYG) 5 mg Q4H PRN IVP ALCOHOL WITHDRAWAL PROTOCOL 10/08/24 22:30 10/15/24 22:29 DC Diazepam (VALium 5 MG/ML 2 ML SYG) 10 mg Q4H PRN IVP ALCOHOL WITHDRAWAL PROTOCOL 10/08/24 18:30 10/08/24 20:32 DC Doxycycline Hyclate 250 ml @ 125 mls/hr Q12H IV 10/09/24 04:00 10/19/24 03:59 DC 10/18/24 16:29 125 MLS/HR Enoxaparin Sodium (Lovenox (Pharmacy To Dose)) 1 unit Q12H SQ 10/15/24 23:30 10/15/24 23:32 DC Enoxaparin Sodium (Lovenox 80mg) 80 mg Q12H SQ 10/16/24 07:00 10/17/24 07:16 DC 10/16/24 18:30 80 MG Enoxaparin Sodium (Lovenox 80mg) 80 mg Q12H SQ 10/17/24 09:00 10/18/24 09:32 DC 10/17/24 20:35 80 MG Folic Acid (FOLic ACID 1 MG TABLET) 1 mg DAILY PO 10/09/24 09:00 10/11/24 09:01 DC 10/11/24 08:24 1 MG Furosemide (LASix 20MG VIAL) 20 mg Q12H IV 10/13/24 05:30 11/12/24 05:29 10/19/24 05:16 20 MG Furosemide (LASix 20MG VIAL) 20 mg Q12H IV 10/08/24 17:30 10/12/24 17:16 DC 10/12/24 04:36 20 MG Furosemide (LASix 40MG VIAL) 40 mg Q12H IV 10/12/24 17:30 10/12/24 17:53 DC 10/12/24 17:40 40 MG Glucagon (Glucagon 1mg Kit) 1 mg AD PRN IM HYPOGLYCEMIA PROTOCOL 10/18/24 13:00 11/17/24 12:59 Guaifenesin/ Dextromethorphan (RobiTUSSin DM 200/20MG 10ML) 10 ml Q4H PRN PO COUGH 10/09/24 16:30 11/08/24 16:29 10/16/24 15:57 10 ML Heparin Sodium (Porcine) (HEParin 5,000 UNIT VIAL) *calculation based on ACTUAL B... AD PRN IV HEPARIN PROTOCOL 10/08/24 17:30 10/15/24 23:22 DC 10/10/24 17:21 4,000 UNIT Heparin Sodium/ Dextrose 250 ml @ 0 mls/hr Q6H IV 10/08/24 17:30 10/15/24 23:22 DC 10/14/24 17:58 14.22 MLS/HR Insulin Glargine (LANtus 100 UNITS/ML 10 ML VIAL) 10 units DAILY SQ 10/09/24 09:00 10/09/24 11:26 DC 10/09/24 08:21 10 UNITS Insulin Glargine (LANtus 100 UNITS/ML 10 ML VIAL) 25 units BID SQ 10/09/24 21:00 11/08/24 08:59 10/18/24 21:03 25 UNITS Insulin Human Regular (humuLIN R 100 UNIT/ML 3ML) INSULIN SLIDING SCAL... ACHS SQ 10/08/24 21:00 11/07/24 20:59 10/18/24 21:03 5 UNIT Lidocaine HCl/ Dextrose 250 ml @ 0 mls/hr PROTOCOL IV 10/08/24 16:30 10/09/24 11:34 DC 10/08/24 23:48 15 MLS/HR Lorazepam (AtiVAN) 1 mg Q4H PRN IVP ALCOHOL WITHDRAWAL PROTOCOL 10/08/24 18:00 10/08/24 18:06 DC Magnesium Sulfate 50 ml @ 0 mls/hr PROTOCOL IV 10/09/24 09:30 10/10/24 11:16 DC Magnesium Sulfate 50 ml @ 0 mls/hr PROTOCOL IV 10/10/24 11:30 11/09/24 11:29 10/17/24 04:41 25 MLS/HR Magnesium Sulfate 50 ml @ 0 mls/hr PROTOCOL PRN IV AD 10/08/24 19:00 10/09/24 09:30 DC 10/09/24 04:34 25 MLS/HR Metolazone (zarOXOlyn) 5 mg DAILY PO 10/15/24 09:00 10/18/24 09:32 DC 10/17/24 09:05 5 MG Metolazone (zarOXOlyn) 5 mg ONCE PO 10/14/24 15:00 10/14/24 23:00 DC 10/14/24 14:52 5 MG Metoprolol Succinate (TopROL XL) 25 mg DAILY PO 10/19/24 09:00 11/18/24 08:59 Metoprolol Tartrate (loprESSOR) 12.5 mg BID PO 10/08/24 21:00 10/14/24 09:51 DC 10/14/24 08:40 12.5 MG Metoprolol Tartrate (loprESSOR) 25 mg BID PO 10/14/24 21:00 10/18/24 09:32 DC 10/17/24 09:05 25 MG Morphine Sulfate (morPHINE 2MG SYG) 2 mg Q6H PRN IVP SEVERE PAIN (7-10) 10/08/24 18:00 10/13/24 20:59 DC Multivitamins Therapeutic (Multivitamin Tablet) 1 tab DAILY PO 10/09/24 09:00 11/08/24 08:59 10/17/24 09:05 1 TAB Nitroglycerin/ Dextrose 0 ml @ 0 mls/hr PROTOCOL PRN IV [id number] ORDERS 10/08/24 16:30 11/07/24 16:29 Ondansetron HCl (zoFRAN 4MG INJ) 4 mg Q4H PRN IVP NAUSEA/VOMITING 10/08/24 16:30 10/12/24 07:54 DC Ondansetron HCl (zoFRAN 4MG INJ) 4 mg Q6H PRN IVP NAUSEA/VOMITING 10/08/24 18:00 11/07/24 17:59 Pantoprazole Sodium (PROTonix 40MG INJ) 40 mg DAILY IVP 10/09/24 09:00 11/08/24 08:59 10/17/24 09:06 40 MG Pharmacy Profile Note (Pharmacy Communication) 1 each PROTOCOL PRN MISC ETOH Withdrawal Score changes 10/08/24 18:00 10/15/24 18:00 DC Piperacillin Sod/ Tazobactam Sod (Zosyn 3.375gm+NS 50ml) 3.375 gm Q8H IV 10/13/24 07:30 10/23/24 07:29 10/19/24 06:39 3.375 GM Potassium Chloride 100 ml @ 100 mls/hr AD PRN IV POTASSIUM PROTOCOL 10/09/24 10:30 11/08/24 10:29 Potassium Chloride (K-Dur/Klor-Con 20meq) 20 meq AD PRN PO POTASSIUM PROTOCOL 10/09/24 10:30 11/08/24 10:29 10/17/24 05:41 20 MEQ Potassium Chloride (KCl 10% Elixir 20meq/15ml) 20 meq AD PRN PO POTASSIUM PROTOCOL 10/09/24 10:30 11/08/24 10:29 10/15/24 05:48 20 MEQ Sodium Chloride 1,000 ml @ 150 mls/hr Q6H40M IV 10/18/24 13:00 5/19/25 16:59 DC 10/18/24 13:00 150 MLS/HR Temazepam (restORIL 30 MG CAP) 30 mg HS PRN PO INSOMNIA 10/16/24 00:30 10/23/24 00:29 Temazepam (restORIL 30 MG CAP) 30 mg HS PRN PO INSOMNIA/SLEEP 10/08/24 16:30 10/15/24 16:29 DC 10/09/24 20:52 30 MG Thiamine HCl (Vitamin B-1) 100 mg DAILY PO 10/09/24 09:00 11/08/24 08:59 10/17/24 09:05 100 MG DIAGNOSTICS / RADIOLOGY: [ ] ASSESSMENT: Inferior STEMI with late presentation, POA Ventricular tachycardia, status post initiation of lidocaine drip, POA Status post cardiac catheterization with findings of multivessel coronary artery disease, 10/08/2024, by Dr. Llanes Status post balloon angioplasty of 100% occluded ostial right posterolateral branch by Dr. Llanes, 10/08/2024 Bilateral pleural effusions status post right thoracentesis 10/14/2024 Acute hypoxemic respiratory failure, POA Acute on chronic systolic heart failure exacerbation, POA Mild anemia, POA Suspected cardiogenic pulmonary edema, POA r/o any developing community acquired Pneumonia, POA Pulmonary embolism ruled out by evaluation by critical care service in [facility], POA Mild lactic acidosis, POA Poorly controlled type 2 diabetes mellitus, POA History of chronic alcoholism, POA Quaker, POA PLAN: Admitted to the PCU Continue electronic device monitor Patient underwent left heart catheterization 10/18/2024, findings of severe distal RCA MPL be thrombotic disease as well as ostial admit [employer]ING disease status post successful revascularization, nor Cardiology to continue aggressive risk factor modification, patient will require 12 months of dual antiplatelet therapy with aspirin 81 mg p.o. daily and Plavix 75 mg p.o. daily in addition to high- intensity statin therapy, plan is for staged revascularization of the LAD in the coming days. Patient evaluated by EP, continue amiodarone p.o.. Patient maybe a candidate for AICD implantation for secondary prevention of cardiac , however it is unknown whether or not he had sustained V-tach. Per EP recommended discharge home with LifeVest follow up by electrophysiologic study after one month. Pending evaluation by Cardiothoracic surgeon. Pulmonology input noted and appreciated, continue diuretics. NEURO: Minimize central acting medications as possible. Fall Precautions. Well lighted room through the day and minimize interruptions through the night to prevent acute delirium. PULMONARY: Supplemental 02 as needed BiPAP as necessary, for respiratory distress Titrate Fio2 to keep Spo2 > or = 90% DuoNebs and CPT as needed IS hourly while awake for pulmonary hygiene prn Out of bed to chair as tolerated Maintain aspiration precautions at all times CARDIOVASCULAR: Follow hemodynamics. Vital signs per facility protocol GI & NUTRITION: Continue nutritional support Aspirations precautions Prokinetic agents and laxatives as needed KIDNEYS & ELECTROLYTES: Strict monitoring of intake and output Daily weights Avoid nephrotoxic agents Monitor electrolytes and replace as needed Goal urine output of 30mL/hr or 0.5mL/kg/hr Medications to be dosed according to renal function. Avoid contrast if possible ENDOCRINE: Maintain blood glucose between 100-180 at all times. Insulin sliding scale for blood glucose management Hypoglycemia and hyperglycemia protocol in place INFECTIOUS DISEASE: Trend temperature, WBC and procalcitonin level Follow cultures, deescalate antibiotics as soon as possible. Panculture if new onset fever HEMATOLOGY & COAGULATION: Monitor H&H. Keep Hgb > 7 Transfuse 1 unit of PRBC for Hgb < 7 Transfuse 1 pack of platelets of platelets < 20, 000 Watch for any signs and symptoms of bleeding SKIN: Pressure ulcer prevention per facility protocol Specialty mattress as needed ORTHO/REHAB Continue PT/OT PRN: MEDICATIONS Tylenol 650 mg po every 4 hrs for fever zofran 4 mg IV every 6 hrs for n/v Hydralazine 5 mg IV every 4 hrs systolic pressure > 160 bowel regiment: lactulose 20 gm PO BID PRN constipation Supportive measures: Continue GI and DVT prophylaxis Disposition: Discharged home tomorrow pending LifeVest All questions answered time spent: > 35 min MOLLY ROSARIO MD October 19, 2024 08:40
--- NOTE | 2024-10-19 09:32 | PN ---
[facility] CARDIOLOGY PROGRESS NOTE Date Patient Seen: October 19, 2024 Time of Visit: 09:06 Interval History: This 54-year-old Latin-Afghan male, with a history of type 2 diabetes with circulatory manifestations, ETOH abuse, has otherwise been generally healthy. He began noticing intermittent episodes of dizziness, dyspnea, and left shoulder pain radiating to the scapula. He presented to [facility] 10/07/2024 at 11:25 p.m. and was found to be in congestive heart failure and in a wide complex tachycardia consistent with sustained VT. Serial cardiac enzymes evolved from 5209, 6062, and further to 6885. He underwent treatment with IV lidocaine and converted to sinus rhythm which then demonstrated an acute inferior lateral STEMI. He underwent emergent transfer to [facility] and underwent coronary intervention with PTCA (plain old balloon angioplasty) to the ostial right posterolateral branch and was also found to have severe three-vessel coronary artery disease with poor distal targets s ubsequently deemed to be inoperable by Dr. Kane Rivas. The patient's course was complicated by acute pulmonary edema and bilateral pleural effusions. He underwent bilateral thoracentesis and was stabilized. The patient underwent complex PCI to the RCA 10/18/[address] Nam Pizano with Penumbra aspiration thrombectomy of the RCA and posterolateral ventricular branch, IVUS guided 1. PTCA / WIL to the mid PDA with a 2.5 by 15 mm mark [place] WIL, 2. PTCA /WIL to the PLVB with a 2.5 x 30 mm mark [place] WIL, 3. bifurcation PTCA mini crush" to the distal RCA-ostial PLVB with a 3.0 x 22 mm Mark [place] WIL and 4. 2.5 x 18 [place] WIL in the distal RCA-ostial PDA, and 5. PTCA/ WIL to the distal RCA with a 4.0 x 18 mm Mark [place] stent without complication. This morning he is comfortable and offers no complaints. His right radial catheterization site is without hematoma. Physical Examination: GENERAL: No acute distress. HEAD: Normal with no signs of head trauma. EYES: PERRLA, EOMI, conjunctiva and sclera normal. NECK: Supple without JVD. There is no tenderness, lymphadenopathy, or masses. No thyromegaly. Normal carotid upstrokes without bruits. LUNGS: Clear breath sounds bilaterally. No wheezes, or rhonchi. HEART: Normal rate and rhythm. Normal S1 and S2 without murmurs, gallop or rub. VASC: Peripheral pulses +2 bilaterally. EXT: No clubbing, cyanosis or edema. NEURO: Awake, alert, and oriented x3. No focal neurological deficits noted. Laboratory: Hematology Labs: Test 10/19/24 03:42 Range/Units White Blood Count 8.9 4.8-10.8 K/uL Red Blood Count 4.45 L 4.50-6.20 MIL/uL Hemoglobin 13.2 L 14.0-18.0 g/dL Hematocrit 39.6 L 42-54 % Mean Corpuscular Volume 89.0 79-99 fL Mean Corpuscular Hemoglobin 29.7 27.0-33.0 pg Mean Corpuscular Hemoglobin Concent 33.3 32.0-36.0 g/dL Red Cell Distribution Width 12.0 11.0-15.5 % Platelet Count 432 H 130-400 K/uL Mean Platelet Volume 9.2 7.5-10.5 fL Immature Granulocyte % (Auto) 0.7 0-1 % Neutrophils (%) (Auto) 63.1 40.0-77.0 % Lymphocytes (%) (Auto) 25.1 21.0-51.0 % Monocytes (%) (Auto) 8.6 3.0-13.0 % Eosinophils (%) (Auto) 2.0 0.0-8.0 % Basophils (%) (Auto) 0.5 0.0-5.0 % Neutrophils # (Auto) 5.6 1.8-7.7 K/uL Lymphocytes # (Auto) 2.2 1.0-4.8 K/uL Monocytes # (Auto) 0.8 0.1-1.0 K/uL Eosinophils # (Auto) 0.18 0.00-0.70 K/uL Basophils # (Auto) 0.04 0.00-0.20 K/uL Absolute Immature Granulocyte (auto 0.06 0-1 K/uL Nucleated Red Blood Cells 0.0 0.0-0.19 % Chemistry Labs: Test 10/19/24 06:11 10/19/24 03:42 10/18/24 16:09 Range/Units Whole Blood Glucose 99 # 70-110 MG/DL Sodium Level 139 136-145 mmol/L Potassium Level 4.1 3.5-5.1 mmol/L Chloride Level 102 101-111 mmol/L Carbon Dioxide Level 28 21-32 mmol/L Blood Urea Nitrogen 16 7-18 mg/dL Creatinine 0.9 0.5-1.3 mg/dL Glomerular Filtration Rate Calc 101 >90 mL/min Random Glucose 111 H 70-105 mg/dL Total Calcium 8.6 8.5-10.1 mg/dL Magnesium Level 1.80 1.80-2.40 mg/dL Total Bilirubin 0.4 0.2-1.0 mg/dL Aspartate Amino Transf (AST/SGOT) 26 10-37 U/L Alanine Aminotransferase (ALT/SGPT) 32 12-78 U/L Alkaline Phosphatase 90 50-136 U/L Total Protein 6.6 6.0-8.3 g/dL Albumin 2.5 L 3.5-5.0 g/dL Bedside Glucose Comment Notified Nurse Coagulation Labs: Test 10/18/24 06:30 Range/Units Prothrombin Time 11.1 9.6-11.6 SEC Prothromb Time International Ratio 1.05 0.85-1.15 Activated Partial Thromboplast Time 26.5 26.3-35.5 SEC Diagnostics / Radiology: 2D echo 10/09/2024: Conclusion LVEF is 40-45%. 3D volume EF 38%. GLS -13.0%. There is moderate mitral valve regurgitation noted. Impression and Plan: 1. ACS-STEMI s/p PCI with PTCA to the RPLB done on 10/09/[address] Llanes: CAD s/p complex PCI to the RCA 10/18/[address] Nam Pizano with Penumbra as piration thrombectomy of the RCA and posterolateral ventricular branch, IVUS guided 1. PTCA / WIL to the mid PDA with a 2.5 by 15 mm mark [place] WIL, 2. PTCA /WIL to the PLVB with a 2.5 x 30 mm mark [place] WIL, 3. bifurcation PTCA mini crush" to the distal RCA-ostial PLVB with a 3.0 x 22 mm [place] WIL and 4. 2.5 x 18 [place] WIL in the distal RCA-ostial PDA, and 5. PTCA/ WIL to the distal RCA with a 4.0 x 18 mm Mark [place] stent: Severe, diffuse, diabetic,inoperable 3V CAD due to poor targets: -Continue on goal directed ACS therapy which includes aspirin 81 mg daily, clopidogrel 75 mg p.o. daily, metoprolol succinate 25 mg daily, atorvastatin 40 mg Q HS -Discharge planning for AM 2. Sustained VT s/p chemical cardioversion with IV lidocaine on 10/09/2024, with recurrent sustained VT on 10/13/2024 -continue amiodarone 200 mg BID for seven days and after that continue amiodarone 200 mg daily and he will continue on metoprolol tartrate 25 mg BID. -Consultation with Dr. Isreal Sung 10/18/2024 has recommended discharge home with a LifeVest, followed by electrophysiologic study after one month. If VT is not inducible, then discontinue amiodarone at this point and repeat the electrophysiologic study in another 2 months. If at that point, he does not have sustained VT, then the LifeVest can be discontinued and the patient monitored with mobile telemetry for another month. 3. HFmrEF (LVEF: 40-45% by echo done 10/09/2024): Mild ischemic cardiomyopathy with LVEF of 40-45% by 2D echo 10/09/2024: Bilateral pleural effusions (R>L), s/p right sided thoracentesis (1.1L) done on 10/14/2024, s/p left sided thoracentesis (1.1L) done on 10/15/2024: - begin furosemide 20 mg p.o. daily, begin spironolactone 25 mg p.o. daily, begin discharge planning for 10/20/2024 Comorbidities: UTI HLP Type 2 diabetes with circulatory manifestations ETOH abuse Normocytic normochromic anemia [employer] WM GUAMAN MD October 19, 2024 09:32
[2024-10-19] MEDS: metOPROLol sucCINATE 25 MG TAB.SR.24H PO SCH (09:58)
[2024-10-19] MEDS: SPIRONOLACTONE 25 MG TAB PO SCH (10:06)
[2024-10-19] MEDS: LISINOPRIL 2.5 MG TABLET PO SCH (10:06)
--- NOTE | 2024-10-19 12:40 | HMCIMG ---
CHEST 1VW HISTORY: CHF COMPARISON: 10/15/2024 FINDINGS: A frontal projection of the chest was obtained. Mild bilateral pulmonary infiltrates are seen with left more than right improved from previous study. The heart is borderline enlarged. Degenerative changes are seen. No evidence of aortic calcification is seen. IMPRESSION: 1. Bilateral pulmonary infiltrates with left more than right improved from previous study.
--- NOTE | 2024-10-19 22:03 | HMCSR ---
APPROVED REPORT EXAM: Limited two-dimensional echocardiogram. INDICATION ICD: Re-assess Left ventricular function 2D Dimensions LVED Vol(simp.)182.1 mL LVES Vol(simp.)104.4 mL LVEF(%, simp.)43 % LA ESV INDEX (BP)40.47 mL/m2 Deformation Strain Apical 4-13.6 % Apical 2-11.9 % Apical 3-14.9 % Global Strain-13.5 % Left Ventricle The left ventricle is mildly to moderately dilated. Spontaneous contrast seen in LV. GLS -14.0%. Infe rior akinesia from base to apex, remaining segments hypokinetic. There is normal left ventricular wal l thickness. LVEF is 35-40%. No left ventricle thrombus noted on this study. Right Ventricle The right ventricle appears moderately dilated. The right ventricular systolic function appears jose l l. Atria The left atrium is mildly dilated. There is no mass or thrombus suspected in the left atrium. The rig ht atrium appears mildly to moderately dilated. There is no mass or thrombus suspected in the right a trium. Aortic Valve Aortic valve leaflets open well. Mitral Valve The mitral valve is mildly thickened and opens well. Tricuspid Valve The tricuspid valve leaflets open well. Great Vessels The aortic root appears normal in size. Pericardium No pericardial effusion. Other Information Quality : Adequate,Limited/Follow-up Conclusion LVEF is 35-40%. GLS -14.0%. Inferior akinesia from base to apex, remaining segments hypokinetic. The left ventricle is mildly to moderately dilated. Spontaneous contrast seen in LV.
[2024-10-20 00:13] VITALS: BP 95/60; PULSE 64; RESP 18; TEMP 98.6
[2024-10-20 04:33] VITALS: BP 95/60; PULSE 65; RESP 18; TEMP 98.4
[2024-10-20 04:47] LABS: HEMATOCRIT 39.7 % (42-54); MEAN CORPUSCULAR HGB CONC 33.5 g/dL (32.0-36.0); MEAN CORPUSCULAR VOLUME 89.4 fL (79-99); RED BLOOD CELL COUNT(AUTO) 4.44 MIL/uL (4.50-6.20); WHITE BLOOD COUNT (AUTO) 8.3 K/uL (4.8-10.8)
[2024-10-20 05:18] LABS: ALBUMIN 2.6 g/dL (3.5-5.0); BILIRUBIN,TOTAL 0.3 mg/dL (0.2-1.0); CREATININE 0.8 mg/dL (0.5-1.3); TOTAL PROTEIN, SERUM 6.7 g/dL (6.0-8.3)
[2024-10-20 06:45] VITALS: PULSE 63; RESP 18; O2SAT 96
[2024-10-20 07:47] VITALS: BP 107/59; PULSE 63; RESP 20; TEMP 97.6
[2024-10-20 08:00] VITALS: O2SAT 94
[2024-10-20] MEDS ORDERED: FURO20TA6 PO (09:36)
[2024-10-20] MEDS ORDERED: LISI2.5T13 PO (09:36)
[2024-10-20] MEDS ORDERED: CLOP-31 PO (09:36)
[2024-10-20] MEDS ORDERED: ROSU20TA98 PO (09:36)
[2024-10-20] MEDS ORDERED: AMIO200T44 PO (09:36)
[2024-10-20] MEDS ORDERED: METO25TA3 PO (09:36)
[2024-10-20] MEDS ORDERED: ASPI-1005 PO (09:36)
[2024-10-20] MEDS ORDERED: SPIR25TA6 PO (09:36)
--- NOTE | 2024-10-20 09:53 | DS ---
[facility] CARDIOLOGY DISCHARGE SUMMARY Date of Admission: October 08, 2024 at 15:05 Date of Discharge: October 20, 2024 Discharge Diagnoses: ACS-STEMI s/p PCI with PTCA (balloon angioplasty only) to an occluded RPLB done on 10/09/[address] Llanes: CAD s/p complex PCI to the RCA 10/18/[address] Nam Pizano with Penumbra aspiration thrombectomy of the RCA and posterolateral ventricular branch, IVUS guided 1. PTCA / WIL to the mid PDA with a 2.5 by 15 mm mark [place] WIL, 2. PTCA /WIL to the PLVB with a 2.5 x 30 mm mark [place] WIL, 3. bifurcation PTCA mini crush" to the distal RCA-ostial PLVB with a 3.0 x 22 mm Mark [place] WIL and 4. 2.5 x 18 Mark [place] WIL in the distal RCA-ostial PDA, and 5. PTCA/ WIL to the distal RCA with a 4.0 x 18 mm Mark [place] stent Severe, diffuse, diabetic,inoperable 3V CAD due to poor targets, with LAD and LCX coronaries also poorly suited to percutaneous coronary intervention Plans for lifelong dual antiplatelet therapy given severe, diabetic, diffuse, inoperable coronary artery disease Sustained VT s/p chemical cardioversion with IV lidocaine on 10/09/2024, with recurrent sustained VT on 10/13/2024 HFmrEF (LVEF: 40-45% by echo done 10/09/2024) Repeat 2D echocardiogram 10/19/2024 demonstrated an LVEF of 35-40%, inferior akinesia from base to apex, with remaining segments hypokinetic, and a mildly to moderately dilated LV Bilateral pleural effusions (R>L), s/p right sided thoracentesis (1.1L) done on 10/14/2024, s/p left sided thoracentesis (1.1L) done on 10/15/2024: Comorbidities: UTI HLP Type 2 diabetes with circulatory manifestations ETOH abuse Normocytic normochromic anemia [employer] Principle Procedures Performed: 1. Left heart catheterization 10/08/2024, STEMI, with left and right selective coronary angiogram and [place] balloon angioplasty to the ostial posterolateral ventricular branch 100% occlusion by Dr. Dom Llanes 2. CAD s/p complex PCI to the RCA 10/18/[address] Nam Pizano with Penumbra aspiration thrombectomy of the RCA and posterolateral ventricular branch, IVUS guided 1. PTCA / WIL to the mid PDA with a 2.5 by 15 mm mark [place] WIL, 2. PTCA /WIL to the PLVB with a 2.5 x 30 mm mark [place] WIL, 3. bifurcation PTCA mini crush" to the distal RCA-ostial PLVB with a 3.0 x 22 mm [place] WIL and 4. 2.5 x 18 [place] WIL in the distal RCA-ostial PDA, and 5. PTCA/ WIL to the distal RCA with a 4.0 x 18 mm [place] stent by Dr. Nam Pizano 3. s/p right sided thoracentesis (1.1L) done on 10/14/2024, s/p left sided thoracentesis (1.1L) done on 10/15/2024 Interval History: This 54-year-old Latin-Libyan male, with a history of type 2 diabetes with circulatory manifestations, ETOH abuse, has otherwise been generally healthy. He began noticing intermittent episodes of dizziness, dyspnea, and left shoulder pain radiating to the scapula. He presented to [facility] 10/07/2024 at 11:25 p.m. and was found to be in congestive heart failure and in a wide complex tachycardia consistent with sustained VT. Serial cardiac enzymes evolved from 5209, 6062, and further to 6885. He underwent treatment with IV lidocaine and converted to sinus rhythm which then demonstrated an acute inferior lateral STEMI. He underwent emergent transfer to [facility] and underwent coronary intervention with PTCA (plain old balloon angioplasty) to the ostial right posterolateral branch and was also found to have severe three-vessel coronary artery disease with poor distal targets sub sequently deemed to be inoperable by Dr. Kane Rivas. The patient's course was complicated by acute pulmonary edema and bilateral pleural effusions. He underwent bilateral thoracentesis and was stabilized. Patient developed recurrent sustained ventricular tachycardia lasting 9 minutes on 10/13/2024. Consultation with Dr. Isreal Sung suggested The patient underwent complex PCI to the RCA 10/18/[address] Nam Pizano with Penumbra aspiration thrombectomy of the RCA and posterolateral ventricular br anch, IVUS guided 1. PTCA / WIL to the mid PDA with a 2.5 by 15 mm mark [place] WIL, 2. PTCA /WIL to the PLVB with a 2.5 x 30 mm mark [place] WIL, 3. bifurcation PTCA mini crush" to the distal RCA-ostial PLVB with a 3.0 x 22 mm Mark [place] WIL and 4. 2.5 x 18 Mark [place] WIL in the distal RCA-ostial PDA, and 5. PTCA/ WIL to the distal RCA with a 4.0 x 18 mm Mark [place] stent without complication. The patient had sustained VT on presentation as noted above and converted with IV lidocaine. He had a 2nd episode of ventricular tachycardia 10/13/2024 lasting 9 minutes and spontaneously converting. Consultation with Dr. Isreal Sung 10/18/2024 has recommended amiodarone therapy, discharge home with a LifeVest, followed by electrophysiologic study after one month. If VT is not inducible, then discontinue amiodarone at this point and repeat the electrophysiologic study in another 2 months. If at that point, he does not have sustained VT, then the LifeVest can be discontinued and the patient monitored with mobile telemetry for another month. A LifeVest was offered to the patient but he does not qualify for assistance with the device and he has declined. Patient received detail instructions about the importance of uninterrupted dual antiplatelet therapy, lifelong given diffuse LAD and diagonal disease considered inoperable and not amenable to percutaneous coronary intervention. 2D echo 10/20/2023: Conclusion LVEF is 35-40%. GLS -14.0%. Inferior akinesia from base to apex, remaining segments hypokinetic. The left ventricle is mildly to moderately dilated. Spontaneous contrast seen in LV. Physical Examination: GENERAL: No acute distress. HEAD: Normal with no signs of head trauma. EYES: PERRLA, EOMI, conjunctiva and sclera normal. NECK: Supple without JVD. There is no tenderness, lymphadenopathy, or masses. No thyromegaly. Normal carotid upstrokes without bruits. LUNGS: Clear breath sounds bilaterally. No wheezes, or rhonchi. HEART: Normal rate and rhythm. Normal S1 and S2 without murmurs, gallop or rub. VASC: Peripheral pulses +2 bilaterally. EXT: No clubbing, cyanosis or edema. NEURO: Awake, alert, and oriented x3. No focal neurological deficits noted. Discharge Medications: Lisinopril 2.5 mg p.o. daily Metoprolol succinate ER 25 mg p.o. daily Furosemide 20 mg p.o. daily Spironolactone 25 mg p.o. daily Clopidogrel 75 mg p.o. daily Aspirin 81 mg p.o. daily Amiodarone 200 mg p.o. daily Metformin Discharge Follow-up: Dr. Manuel Henry in one week Patient received detail instructions about the importance of uninterrupted dual antiplatelet therapy, lifelong given diffuse LAD and diagonal disease considered inoperable and not amenable to percutaneous coronary intervention. Discharge Recommendations: WM HENRY MD October 20, 2024 09:53
[2024-10-20] MEDS: furoSEMIDE 20 MG TABLET PO SCH (10:08)
--- NOTE | 2024-10-20 11:27 | DS ---
Discharge Summary Hospital Course Summary: This 54-year-old Latin-Marshallese male, with a history of type 2 diabetes with circulatory manifestations, ETOH abuse, has otherwise been generally healthy. He began noticing intermittent episodes of dizziness, dyspnea, and left shoulder pain radiating to the scapula. He presented to [facility] 10/07/2024 at 11:25 p.m. and was found to be in congestive heart failure and in a wide complex tachycardia consistent with sustained VT. Serial cardiac enzymes evolved from 5209, 6062, and further to 6885. He underwent treatment with IV lidocaine and converted to sinus rhythm which then demonstrated an acute inferior lateral STEMI. He underwent emergent transfer to [facility] and underwent coronary intervention with PTCA (plain old balloon angioplasty) to the ostial right posterolateral branch and was also found to have severe three-vessel coronary artery disease with poor distal targets subsequently deemed to be inoperable by Dr. Kane Rivas. The patient's course was complicated by acute pulmonary edema and bilateral pleural effusions. He underwent bilateral thoracentesis and was stabilized. Patient developed recurrent sustained ventricular tachycardia lasting 9 minutes on 10/13/2024. Consultation with Dr. Isreal Sung suggested The patient underwent complex PCI to the RCA 10/18/[address] Nam Pizano with Penumbra aspiration thrombectomy of the RCA and posterolateral ventricular branch, IVUS guided 1. PTCA / WIL to the mid PDA with a 2.5 by 15 mm mark [place] WIL, 2. PTCA /WIL to the PLVB with a 2.5 x 30 mm mark [place] WIL, 3. bifurcation PTCA mini crush" to the distal RCA-ostial PLVB with a 3.0 x 22 mm [place] WIL and 4. 2.5 x 18 [place] WIL in the distal RCA-ostial PDA, and 5. PTCA/ WIL to the distal RCA with a 4.0 x 18 mm [place] stent without complication. The patient had sustained VT on presentation as noted above and converted with IV lidocaine. He had a 2nd episode of ventricular tachycardia 10/13/2024 lasting 9 minutes and spontaneously converting. Consultation with Dr. Isreal Sung 10/18/2024 has recommended amiodarone therapy, discharge home with a LifeVest, followed by electrophysiologic study after one month. If VT is not inducible, then discontinue amiodarone at this point and repeat the electrophysiologic study in another 2 months. If at that point, he does not have sustained VT, then the LifeVest can be discontinued and the patient monitored with mobile telemetry for another month. A LifeVest was offered to the patient but he does not qualify for assistance with the device and he has declined. Patient received detail instructions about the importance of uninterrupted dual antiplatelet therapy, lifelong given diffuse LAD and diagonal disease considered inoperable and not amenable to percutaneous coronary intervention. 2D echo 10/20/2023: Conclusion LVEF is 35-40%. GLS -14.0%. Inferior akinesia from base to apex, remaining segments hypokinetic. The left ventricle is mildly to moderately dilated. Spontaneous contrast seen in LV. Physical Examination: GENERAL: No acute distress. HEAD: Normal with no signs of head trauma. EYES: PERRLA, EOMI, conjunctiva and sclera normal. NECK: Supple without JVD. There is no tenderness, lymphadenopathy, or masses. No thyromegaly. Normal carotid upstrokes without bruits. LUNGS: Clear breath sounds bilaterally. No wheezes, or rhonchi. HEART: Normal rate and rhythm. Normal S1 and S2 without murmurs, gallop or rub. VASC: Peripheral pulses +2 bilaterally. EXT: No clubbing, cyanosis or edema. NEURO: Awake, alert, and oriented x3. No focal neurological deficits noted. Procedure(s): Principle Procedures Performed: 1. Left heart catheterization 10/08/2024, STEMI, with left and right selective coronary angiogram and [place] balloon angioplasty to the ostial posterolateral ventricular branch 100% occlusion by Dr. Dom Llanes 2. CAD s/p complex PCI to the RCA 10/18/[address] Nam Pizano with Penumbra aspiration thrombectomy of the RCA and posterolateral ventricular branch, IVUS guided 1. PTCA / WIL to the mid PDA with a 2.5 by 15 mm mark [place] WIL, 2. PTCA /WIL to the PLVB with a 2.5 x 30 mm mark [place] WIL, 3. bifurcation PTCA mini crush" to the distal RCA-ostial PLVB with a 3.0 x 22 mm [place] WIL and 4. 2.5 x 18 [place] WIL in the distal RCA-ostial PDA, and 5. PTCA/ WIL to the distal RCA with a 4.0 x 18 mm Mark [place] stent by Dr. Nam Pizano 3. s/p right sided thoracentesis (1.1L) done on 10/14/2024, s/p left sided thoracentesis (1.1L) done on 10/15/2024 Assessment/Plan: Discharge Diagnoses: ACS-STEMI s/p PCI with PTCA (balloon angioplasty only) to an occluded RPLB done on 10/09/[address] Llanes: CAD s/p complex PCI to the RCA 10/18/[address] Nam Pizano with Penumbra aspiration thrombectomy of the RCA and posterolateral ventricular branch, IVUS guided 1. PTCA / WIL to the mid PDA with a 2.5 by 15 mm mark [place] WIL, 2. PTCA /WIL to the PLVB with a 2.5 x 30 mm mark [place] WIL, 3. bifurcation PTCA mini crush" to the distal RCA-ostial PLVB with a 3.0 x 22 mm [place] WIL and 4. 2.5 x 18 [place] WIL in the distal RCA-ostial PDA, and 5. PTCA/ WIL to the distal RCA with a 4.0 x 18 mm [place] stent Severe, diffuse, diabetic,inoperable 3V CAD due to poor targets, with LAD and LCX coronaries also poorly suited to percutaneous coronary intervention Plans for lifelong dual antiplatelet therapy given severe, diabetic, diffuse, inoperable coronary artery disease Sustained VT s/p chemical cardioversion with IV lidocaine on 10/09/2024, with recurrent sustained VT on 10/13/2024 HFmrEF (LVEF: 40-45% by echo done 10/09/2024) Repeat 2D echocardiogram 10/19/2024 demonstrated an LVEF of 35-40%, inferior akinesia from base to apex, with remaining segments hypokinetic, and a mildly to moderately dilated LV Bilateral pleural effusions (R>L), s/p right sided thoracentesis (1.1L) done on 10/14/2024, s/p left sided thoracentesis (1.1L) done on 10/15/2024: Comorbidities: UTI HLP Type 2 diabetes with circulatory manifestations ETOH abuse Normocytic normochromic anemia [employer] Discharge Instructions: Discharge Medications: Lisinopril 2.5 mg p.o. daily Metoprolol succinate ER 25 mg p.o. daily Furosemide 20 mg p.o. daily Spironolactone 25 mg p.o. daily Clopidogrel 75 mg p.o. daily Aspirin 81 mg p.o. daily Amiodarone 200 mg p.o. daily Metformin Discharge Follow-up: Dr. Manuel Henry in one week Patient received detail instructions about the importance of uninterrupted dual antiplatelet therapy, lifelong given diffuse LAD and diagonal disease considered inoperable and not amenable to percutaneous coronary intervention. Home Medications: Active Scripts Rosuvastatin Calcium (Rosuvastatin Calcium) 20 Mg Tablet, 20 MG PO DAILY, #90 TAB 3 Refills Prov:WM HENRY MD 10/20/24 Spironolactone (Spironolactone) 25 Mg Tablet, 25 MG PO DAILY, #90 TAB 3 Refills Prov:WM HENRY MD 10/20/24 Metoprolol Succinate (Toprol Xl) 25 Mg Tab.er.24h, 25 MG PO DAILY, #90 TAB 3 Refills Prov:WM HENRY MD 10/20/24 Lisinopril (Lisinopril) 2.5 Mg Tablet, 2.5 MG PO DAILY, #90 TAB 3 Refills Prov:WM HENRY MD 10/20/24 Furosemide (Lasix 20Mg Tab) 20 Mg Tablet, 20 MG PO DAILY, #30 TAB 0 Refills Prov:WM HENRY MD 10/20/24 Clopidogrel Bisulfate (Plavix) 75 Mg Tablet, 75 MG PO DAILY, #90 TAB 3 Refills Prov:WM HENRY MD 10/20/24 Aspirin (ASPIRIN 81MG CHEW TAB) 81 Mg Tab.chew, 81 MG PO DAILY, #100 TAB.CHEW 3 Refills Prov:WM HENRY MD 10/20/24 Amiodarone HCl (Pacerone) 200 Mg Tablet, 200 MG PO DAILY for 30 Days, #30 TAB 3 Refills Prov:WM HENRY MD 10/20/24 Reported Medications Metformin HCl (Metformin HCl) 1,000 Mg Tablet, 1 TAB PO BID for 30 Days, #60 TAB 0 Refills 5/11/25 Time spent arranging discharge: 31-60 minutes MOLLY ROSARIO MD October 20, 2024 11:27
--- NOTE | 2024-10-20 13:01 | NUR ---
DISCHARGE HOME IV,ID BANDS, AND TELEPAK REMOVED. DISCHARGE INSTRUCTION GIVEN AND EXPLAINED TO PATIENT. PATIENT WHEELED DOWN TO PRIVATE CAR.
--- NOTE | 2024-10-22 13:44 | NUR ---
Transitional Phone Call Spoke to Ritu Persaud, Daughter [phone] in [place], states "didi [email or web address]." [facility] patient started medications yesterday 10/21/2024 and felt a little dizzy but went away; explained some medications may cause dizziness if symptoms return or worsen go to the nearest emergency room or call 911. [facility] is aware of the follow up appointment with cardiology - Dr. Aren Henry on 10/27/2024 at 1310. No question or concerns at this time.
--- NOTE | 2024-11-04 16:06 | PRN ---
Cath Procedure Report CATH PROCEDURE REPORT CARDIAC CATHETERIZATION REPORT Date of Service: Nov 04, 2024 After informed consent the patient was prepped and draped in the usual fashion. He received a total of 15 cc of xylocaine in the right inguinal area. A six [place] sheath was introduced into the right femoral artery using modified Seldinger technique. Tra four right six [place] diagnostic catheter was advanced over guidewire to the aortic root. Wire was removed and catheter was engaged into the ho-chunk right coronary artery which was visualized in multiple planes. Catheter was removed and a Tra four left six [place] diagnostic catheter was advanced over guidewire to the aortic. Wire was removed and catheter engaged into the left main coronary artery. The left coronary system was visualized multiple planes and catheter was removed. A pigtail catheter was then advanced across the aortic valve. Wire was removed and hemodynamics measured. Because of elevated left ventricular end-diastolic pressure of 31 mm Hg no ventriculogram was performed. A pullback with continuous hemodynamic monitoring was performed and catheter was removed. Findings: The right coronary artery is a dominant vessel. There was occlusion of the proximal portion of the posterolateral branch. The PDA had an 80% mid stenosis. The left main coronary artery was free of obstruction. The left anterior descending artery has a 70% proximal stenosis and an 80% stenosis in the mid diagonal artery. The ramus intermediate branch has a 70% ostial stenosis. Circumflex artery has an 80% proximal stenosis before the 1st obtuse marginal artery. In addition there was a 50% mid stenosis between the 1st and 2nd obtuse marginal artery. First obtuse marginal artery is 100% occluded but there was collateral filling of this vessel from the left coronary system. There was no evidence of aortic stenosis after review of the films was felt that the culprit vessel is the posterolateral branch. A Tra four right six [place] guiding catheter with side hole was advanced over guidewire to the aortic root. Wire was removed and catheter engaged into the ho-chunk right coronary artery. A choice PT extra-support wire was placed across the area of stenosis into the distal posterolateral branch. The the occlusion was ballooned with a 2.0 x 12 mm balloon to 12 atmospheres. Stenosis was reduced from 100% to 0% with normal SOLOMON flow there was no dissection or perforation. The artery was not stented in anticipation that the patient may require aortocoronary bypass graft surgery. Summary: Successful balloon angioplasty of the proximal posterolateral branch of the right coronary artery which was felt to be the culprit vessel. 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
== END 2024-10-20 12:55 | disposition home or self-care (01) | DRG 321 ==
LOC: 2BH 15:05 → 2AH 10-09 22:15
PROVIDERS: ADMIT Internal Medicine; ATTEND Internal Medicine
PROC: 02703ZZ Dilation of Coronary Artery, One Artery, Percutaneous Approach (ICD-10-PCS; 2024-10-08)
PROC: 4A023N7 Measurement of Cardiac Sampling and Pressure, Left Heart, Percutaneous Approach (ICD-10-PCS; 2024-10-08)
PROC: B2111ZZ Fluoroscopy of Multiple Coronary Arteries using Low Osmolar Contrast (ICD-10-PCS; 2024-10-08)
PROC: B2151ZZ Fluoroscopy of Left Heart using Low Osmolar Contrast (ICD-10-PCS; 2024-10-08)
PROC: 5A09357 Assistance with Respiratory Ventilation, Less than 24 Consecutive Hours, Continuous Positive Airway Pressure (ICD-10-PCS; 2024-10-09)
PROC: 5A09357 Assistance with Respiratory Ventilation, Less than 24 Consecutive Hours, Continuous Positive Airway Pressure (ICD-10-PCS; 2024-10-10)
PROC: 5A09357 Assistance with Respiratory Ventilation, Less than 24 Consecutive Hours, Continuous Positive Airway Pressure (ICD-10-PCS; 2024-10-11)
PROC: 5A09357 Assistance with Respiratory Ventilation, Less than 24 Consecutive Hours, Continuous Positive Airway Pressure (ICD-10-PCS; 2024-10-12)
PROC: 0W993ZZ Drainage of Right Pleural Cavity, Percutaneous Approach (ICD-10-PCS; 2024-10-14)
PROC: 0W993ZZ Drainage of Right Pleural Cavity, Percutaneous Approach (ICD-10-PCS; 2024-10-15)
PROC: 027237Z Dilation of Coronary Artery, Three Arteries with Four or More Drug-eluting Intraluminal Devices, Percutaneous Approach (ICD-10-PCS; principal; 2024-10-18)
PROC: 02C13ZZ Extirpation of Matter from Coronary Artery, Two Arteries, Percutaneous Approach (ICD-10-PCS; 2024-10-18)
PROC: B241ZZ3 Ultrasonography of Multiple Coronary Arteries, Intravascular (ICD-10-PCS; 2024-10-18)
PROC: 4A023N7 Measurement of Cardiac Sampling and Pressure, Left Heart, Percutaneous Approach (ICD-10-PCS; 2024-10-18)
PROC: B2111ZZ Fluoroscopy of Multiple Coronary Arteries using Low Osmolar Contrast (ICD-10-PCS; 2024-10-18)
DX: I21.19 ST elevation (STEMI) myocardial infarction involving other coronary artery of inferior wall (principal); I50.43 Acute on chronic combined systolic (congestive) and diastolic (congestive) heart failure; J96.01 Acute respiratory failure with hypoxia; J18.9 Pneumonia, unspecified organism; I47.20 Ventricular tachycardia, unspecified; E87.20 Acidosis, unspecified; N39.0 Urinary tract infection, site not specified; I34.0 Nonrheumatic mitral (valve) insufficiency; D64.9 Anemia, unspecified; E11.65 Type 2 diabetes mellitus with hyperglycemia; I25.10 Atherosclerotic heart disease of native coronary artery without angina pectoris; E78.5 Hyperlipidemia, unspecified; I27.20 Pulmonary hypertension, unspecified; I25.2 Old myocardial infarction; Z82.49 Family history of ischemic heart disease and other diseases of the circulatory system; Z98.61 Coronary angioplasty status
CPT/HCPCS: 36415; 36600; 71045; 71270; 76376; 80048; 80053; 80061; 80305; 81001; 82435; 82803; 82945; 82947; 82948; 83036; 83605; 83615; 83735; 83880; 83986; 84100; 84132; 84145; 84155; 84157; 84295; 84443; 85018; 85025; 85027; 85347; 85610; 85651; 85730; 86140; 86850; 86900; 86901; 87040; 87071; 87086; 87116; 87186; 87205; 87206; 87635; 87804; 87880; 88108; 88305; 89051; 92920; 92973; 92978; 92979; 93005; 93306; 93308; 93356; 93458; 93880; 94640; 94660; 99156; 99157; C1729; C1760; C1769; C1874; C1887; C1894; C9600; C9601; G0378; J0282; J0461; J0612; J0696; J1265; J1327; J1644; J1650; J1815; J1938; J1940; J2003; J2250; J2470; J2543; J3010; J3475; J3480; J3490; J7060; Q9967; A4649; C1725; C1753; J0283; Q9965